=== PATIENT | male | born 1950 | race Caucasian/White ===

== ENCOUNTER 2024-01-24 18:49 | Emergency (ER) | payer OTHER, SELFPAY ==
[2024-01-24 18:54] VITALS: BP 120/83; PULSE 75; RESP 16; TEMP 37.1; O2SAT 95; BMI 24.5
--- NOTE | 2024-01-24 19:11 | ED.WOUNDLAC ---
HPI - Wound/Laceration General Time Seen by Provider: 18:50 Date Seen: 01/24/24 Chief Complaint: Laceration/Wound Stated Complaint: cut on L hand Time Seen by Provider: 01/24/24 18:50 Source: patient and RN notes reviewed Mode of arrival: ambulatory Limitations: no limitations History of Present Illness HPI narrative: This 73-year-old male is coming in with a laceration in the interdigital web space along the base of the left thumb sustained just prior to arrival. Patient was carrying a cooler and a piece of plywood up the stairs when he tripped. He caught his thumb a along the railing. It did bleed a lot initially, patient takes an 81 mg aspirin daily. He believes that his tetanus is surely up-to-date, does his care at the OR. nursing staff that was present tonight was unable to log into the [place] immunization website. Patient denies any numbness tingling. He fell onto this hand but states there is really no pain with any range of motion. It does not hurt to move the thumb except at the site of the wound, no pain in the extremity. He did not hit his head. No neck or back pain. Review of Systems Narrative: As per HPI. PFSH PFSH Social History Smoking Status: Unknown if ever smoked Do you use any of these nicotine containing products: None How often do you have a drink containing alcohol: never AUDIT-C Alcohol total score: 0 Non-prescribed substance use: denies use service: Yes Exam Const: Vital Signs, click to edit/add: Vital Signs - 24 hr 01/24/24 18:54 Temperature 98.8 F Pulse Rate [Right Radial] 75 Respiratory Rate 16 Blood Pressure [Ri ght Upper Arm] 120/83 Pulse Oximetry 95 Oxygen Delivery Me thod Room Air This 73-year-old male is ambulatory into the ED of his own accord. He is alert, interactive, no apparent distress. The along the base of his left thumb in the interdigital webspace closer to the thumb, there is AV shaped laceration with the V pointing distally to the thumb. There is no active bleeding at this time. It is completely through the skin, can see the muscle body underneath. Patient has preserved full range of motion and strength testing throughout all planes of the thumb. Neurovascular is intact. Documenting provider has reviewed patient's vital signs: yes Course Course ED Course: Patient is aware that plan is to suture this wound. He is in agreement. Vital Signs Vital signs: Initial Vital Signs Temperature 98.8 F 01/24/24 18:54 Temperature Source Temporal Artery Scan 01/24/24 18:54 Pulse Rate 75 01/24/24 18:54 Pulse Rhythm Regular 01/24/24 18:54 Respiratory Rate 16 01/24/24 18:54 Blood Pressure 120/83 01/24/24 18:54 Blood Pressure Mean 95 01/24/24 18:54 Pulse Oximetry 95 01/24/24 18:54 Oxygen Delivery Method Room Air 01/24/24 18:54 Vital Signs Temperature 98.8 F 01/24/24 18:54 Pulse Rate 75 01/24/24 18:54 Respiratory Rate 16 01/24/24 18:54 Blood Pressure 120/83 01/24/24 18:54 Pulse Oximetry 95 01/24/24 18:54 Oxygen Delivery Method Room Air 01/24/24 18:54 Temperature 98.8 F 01/24/24 18:54 Pulse Rate 75 01/24/24 18:54 Respiratory Rate 16 01/24/24 18:54 Blood Pressure 120/83 01/24/24 18:54 Pulse Oximetry 95 01/24/24 18:54 Oxygen Delivery Method Room Air 01/24/24 18:54 Discharge Plan Discharge Clinical Impression: Laceration Patient Disposition: Home, Self-Care Condition: Stable Instructions: Care For Your Stitches (ED), Laceration (ED) Additional Instructions: May shower and wash hands but should otherwise keep this wound clean and dry until healed. Use bacitracin and bandages during the day to keep the wound clean. If there is concerns of infection, please seek re-evaluation. Otherwise, need to schedule a clinic follow-up to assess the wound for suture removal in about 7-10 days. Activity Level: Activity as Tolerated Stand Alone Forms: MyHealth Info Instructions Procedures Laceration Laceration 1: Pre procedure diagnosis: Laceration at base of thumb Post procedure diagnosis: Same Site marking: not applicable Verification/time out: correct patient, correct site and correct procedure Name of person performing procedure: Margret Soliz Site: hand Side (If applicable): left Size (cm): 1.0 Description: flap Depth: simple, single layer Local Anesthetic: bupivacaine 0.25% Amount of anesthesia used (mL): 3.0 (Used locally around the wound.) Pre-repair: wound explored, irrigated extensively (Used sterile saline.) and deep structures intact Skin layer closed with: other (Ethilon) Size (cm): 4-0 Number of sutures: 3 Technique: simple, interrupted Estimated blood loss (if any): less than 5mls Conclusion: patient tolerated procedure
[2024-01-24 19:30] VITALS: BP 122/70; PULSE 71; RESP 16
== END 2024-01-24 19:40 | disposition home or self-care (01) ==
LOC: ED 19:40
PROVIDERS: Emergency Provider Family Medicine
DX: S61.412A Laceration without foreign body of left hand, initial encounter (principal); W26.9XXA Contact with unspecified sharp object(s), initial encounter
CPT/HCPCS: 12001; 99283

== ENCOUNTER 2024-04-12 13:08 | Emergency (ER) | payer OTHER, SELFPAY ==
--- OUTSIDE RECORDS SUMMARY | 2024-04-12 13:10 | XMS_ITS | Continuity of Care Document ---
Author Name [facility] Organization [facility] Care Team Providers Care Slip Laster Name Role Phone [facility] Unavailable Unavailable Problems Combined list of problems from Department of Defense and Veterans Affairs facilities. It does not include entries that were removed or entered in error. Problem Status Onset Date Problem Type Date of Resolution Comments Source Exposure to potentially hazardous substance ([facility] [id number]) Active 024 Condition Jun 27, 2023 Entered By: TOÑO MAYO Comment: [facility] Documentation Initiative [facility] Anxiety (SNOMED CT 80730907) Active Condition [facility] Arthritis (SNOMED CT 3966838) Active Condition [facility] Benign prostatic hyperplasia Active Condition [facility] Benign prostatic hypertrophy with outflow obstruction Active Condition [facility] Cannabis dependence in remission Active Condition Jul 20, 2013 Entered By: JESE BRAVO Comment: Quit June, Entered By: JESE BRAVO Comment: Daily use x 20 years [facility] Chronic post-traumatic stress disorder Active Condition [facility] Co-Managed Care Active Condition Mar 22, 2009 Entered By: ONEIL SUAREZ Comment: Dr Wyatt, PCP, [facility] 2008 Entered By: NOEIL SUAREZ Comment: Dr Jose Martin Suarez, psychiatrist, [facility] Depression Active Condition [facility] Depression (SNOMED CT 34570298) Active Condition [facility] Dyspnea Active Condition [facility] Hearing loss Active Condition [facility] History of post-traumatic stress disorder Active Condition [facility] Hyperlipidemia Active Condition [facility] Hyperlipidemia (SNOMED CT 04373221) Active Condition [facility] Insomnia Active Condition [facility] Meralgia paresthetica of left leg Active Condition [facility] Obsessive-Compulsi ve Disorder Active Condition [facility] Obstructive sleep apnea syndrome Active Condition Jul 20, 2013 Entered By: JESE BRAVO Comment: (mild) Dental appliance recommended [facility] Osteopenia Active Condition [facility] Rheumatoid arthritis Active Condition [facility] Sleep apnea Active Condition [facility] Tobacco dependence syndrome Active Condition Jul 20, 2013 Entered By: JESE BRAVO Comment: Smoking 1/2 ppdJul 20, 2013 Entered By: JESE BRAVO Comment: 45 pack year history [facility] Tobacco use Active Condition [facility] Vitamin D deficiency Active Condition [facility] Kidney stone Inactive Condition 11/24/2019 [facility] Diagnosis: ICD-10-CM F43.12 Post-traumatic stress disorder, chronic Active Diagnosis [facility] Diagnosis: ICD-10-CM M25.512 Pain in left shoulder Active Diagnosis [facility] Diagnosis: ICD-10-CM K08.51 Open sikhism margins of tooth Active Diagnosis [facility] Diagnosis: ICD-10-CM M13.0 Polyarthritis, unspecified Active Diagnosis [facility] Diagnosis: ICD-10-CM Z13.84 Encounter for screening for dental disorders Active Diagnosis [facility] Diagnosis: ICD-10-CM S46.099A Inj musc/tend the rotator cuff of unsp shoulder, init Active Diagnosis [facility] Diagnosis: ICD-10-CM W10.8XXD Fall (on) (from) other stairs and steps, subs encntr Active [facility] Diagnosis: ICD-10-CM I47.10 Supraventricular tachycardia, unspecified Active Diagnosis [facility] Diagnosis: ICD-10-CM D23.9 Other benign neoplasm of skin, unspecified Active Diagnosis [facility] Diagnosis: ICD-10-CM L82.1 Other seborrheic keratosis Active Diagnosis [facility] Diagnosis: ICD-10-CM F32.1 Major depressive disorder, single episode, moderate Active Diagnosis [facility] Diagnosis: ICD-10-CM M17.0 Bilateral primary osteoarthritis of knee Active Diagnosis [facility] Diagnosis: ICD-10-CM M25.569 Pain in unspecified knee Active Diagnosis [facility] Medications Combined list of outpatient medications from Department of Defense and Veterans Affairs facilities.Medications provided include 1) outpatient medications from the last 15 months, and 2) patient-reported medications. Medication Details Route Status Patient Instructions Prescription Expires Prescription Number Last Dispense Date Ordering Provider Order Date Order Qty Source ACETAMINOPH EN 325MG TAB TAKE ONE TABLET BY MOUTH THREE TIMES A DAY FOR PAIN ORAL ACTIVE 03/25/2025 [id number] STEVE SERRANO 2023 [address] [place] [facility] ACETAMINOPH EN 500MG TAB TAKE TWO TABLETS BY MOUTH EVERY 8 HOURS NEEDED FOR PAIN DO NOT EXCEED A MAX OF 4000-MG OF ACETAMIN OPHEN PER DAY FROM ALL SOURCES* ORAL DISCONT INUED BY PROVIDE R 12/05/2023 [id number] RAGHU CHEN 2023 21 [facility] ALBUTEROL 90MCG/ACTUA T (CFC-F) INHL,ORAL,8 .5GM DOSE COUNTER INHALE 2 PUFFS BY INHALATI ON EVERY 4 HOURS NEEDED FOR SHORTNES S OF BREATH FOR UP TO 10 DAY RESPIR ATORY (INHAL ATION) DISCONT INUED BY PROVIDE R 12/05/2023 [id number] 4 [address]EN [address] [facility] ASPIRIN 81MG TAB,EC TAKE ONE TABLET BY MOUTH EVERY DAY ORAL ACTIVE 11/05/2024 [id number] 4 RAGHU CHEN 2023 120 [facility] ASPIRIN 81MG TAB,EC TAKE ONE TABLET BY MOUTH EVERY DAY ORAL DISCONT INUED BY PROVIDE R 10/31/2023 [id number] BALDEV HANDLEY 2022 120 [facility] ASPIRIN 81MG TAB,EC TAKE ONE TABLET BY MOUTH EVERY DAY ORAL ACTIVE Alicja HARLEY UDY 2017 [facility] CELECOXIB 100MG CAP TAKE ONE CAPSULE BY MOUTH TWICE A DAY FOR PAIN ORAL DISCONT INUED BY PROVIDE R 12/05/2023 [id number] 4 RAGHU CHEN 2023 28 [facility] CHOLECAL[facility] J[facility] TAB TAKE BY MOUTH EVERY DAY ORAL ACTIVE CHERRIJ UDY 2017 [facility] DICLOFENAC NA 1% GEL,TOP APPLY 4 GRAMS TOPICALL Y FOUR TIMES A DAY NEEDED TO AFFECTED AREA FOR PAIN TOPICA L ACTIVE 03/25/2025 [id number] 4 STEVE SERRANO 2023 100 [place] [facility] DOXAZOSIN MESYLATE 8MG TAB TAKE ONE TABLET BY MOUTH EVERY DAY FOR URINATIO N ORAL ACTIVE 06/25/2024 [id number] 4 ELISE SHARPBALDEV CHRIS 2023 90 [place] [facility] DOXAZOSIN MESYLATE 8MG TAB TAKE ONE TABLET BY MOUTH EVERY DAY FOR URINATIO N ORAL DISCONT INUED 05/13/2024 [id number] 4 Chava CONNORS 2023 60 [facility] DOXAZOSIN MESYLATE 8MG TAB TAKE ONE TABLET BY MOUTH EVERY DAY FOR URINATIO N ORAL DISCONT INUED 05/15/2023 [id number] 3 Chava CONNORS 2022 60 [facility] FAMOTIDINE 20MG TAB TAKE ONE TABLET BY MOUTH EVERY DAY FOR HEARTBUR N TO DECREASE STOMACH ACID. *NOTE CHANGE TO ONCE A DAY* ORAL ACTIVE 10/07/2024 [id number] 4 ELISE SHARPBALDEV 2023 90 [place] [facility] FAMOTIDINE 20MG TAB TAKE ONE TABLET BY MOUTH EVERY DAY FOR HEARTBUR N TO DECREASE STOMACH ACID. *NOTE CHANGE TO ONCE A DAY* ORAL DISCONT INUED 10/31/2023 [id number] ELISE SHARPBALDEV 2022 90 [place] [facility] FLUOXETINE HCL 20MG CAP TAKE FOUR CAPSULES BY MOUTH EVERY DAY ORAL ACTIVE 08/14/2024 [id number] 4 TERRIE MONCADA 2023 360 [place] [facility] FLUOXETINE HCL 20MG CAP TAKE FOUR CAPSULES BY MOUTH EVERY DAY ORAL DISCONT INUED 10/25/2023 [id number] 4 MARTINE SHAY 2022 360 [place] [facility] LIDOCAINE 4% CREAM,TOP APPLY SMALL AMOUNT TOPICALL Y THREE TIMES A DAY NEEDED FOR PAIN TOPICA L DISCONT INUED BY PROVIDE R 12/05/2023 [id number] 4 [address]HU [address]EN [address] [facility] MELATONIN 3MG CAP/TAB TAKE 2 TABLETS BY MOUTH AT BEDTIME NEEDED FOR SLEEP ORAL ACTIVE 08/14/2024 [id number] 4 TERRIE MONCADA 2023 180 [facility] MELAT[facility] 3MG CAP/TAB TAKE 2 TABLETS BY MOUTH AT BEDTIME NEEDED FOR SLEEP ORAL DISCONT INUED (EDIT) 07/26/2024 [id number] 4 TERRIE MONCADA [address] [facility] NALOXONE HCL 4MG/SPRAY SOLN,SPRAY, NASAL SPRAY 1 DOSE IN ONE NOSTRIL ONCE FOR UNRESPON SIVENESS THEN CALL 911 NASAL 04/11/2024 [id number] 4 TERRIE MONCADA [address] [facility] QUETIAPINE FUMARATE 300MG TAB TAKE ONE TABLET BY MOUTH AT BEDTIME FOR ANXIETY ORAL DISCONT INUED (EDIT) 08/14/2024 [id number] 4 TERRIE MONCADA [address] [facility] QUETIAPINE FUMARATE 300MG TAB TAKE ONE TABLET BY MOUTH AT BEDTIME ORAL DISCONT INUED (EDIT) 10/25/2023 [id number] [address] [facility] QUETIAPINE FUMARATE 50MG TAB TAKE FIVE TABLETS BY MOUTH AT BEDTIME FOR ANXIETY ORAL ACTIVE 04/10/2025 [id number] 4 TERRIE MONCADA [address] [facility] SIMVASTATIN 40MG TAB TAKE ONE TABLET BY MOUTH AT BEDTIME FOR CHOLESTE ROL ORAL SUSPEND ED 02/04/2025 [id number] 5 STEVE SERRANO 2024 90 [facility] SIMVASTATIN 40MG TAB TAKE ONE TABLET BY MOUTH AT BEDTIME FOR CHOLESTE ROL ORAL DISCONT INUED 01/28/2025 [id number] 4 CASTILLO MITCHELL,RADHA [address] [facility] SIMVASTATIN 40MG TAB TAKE ONE TABLET BY MOUTH AT BEDTIME FOR CHOLESTE ROL ORAL DISCONT INUED BY PROVIDE R 01/08/2024 [id number] 4 ELISE SHARPBALDEV [address] [facility] SODIUM FLUORIDE 1.1% TOOTHPASTE BRUSH TEETH WITH A SMALL AMOUNT MOUTH EVERY MORNING AND AT BEDTIME TO PREVENT DENTAL CAVITIES ORAL ACTIVE 11/14/2024 [id number] 4 RORY KYLE II [address] [facility] Allergies, Adverse Reactions, Alerts Combined list of allergies from Department of Defense and Veterans Affairs facilities. It does not include entries that were removed or entered in error. Substance Category Reaction Severity Reaction type Status Date Reported Comments Source AMOXICILLIN Propensity to adverse reactions to drug (finding) SWELLING (NON-SPECIF IC) active 6 [facility] AMOXICILLIN Propensity to adverse reactions to drug (finding) active 8 [facility] CECLOR Propensity to adverse reactions to drug (finding) Eruption active 6 [facility] CECLOR Propensity to adverse reactions to drug (finding) active 8 [facility] NAPROXEN Propensity to adverse reactions to drug (finding) active 8 [facility] NAPROXEN Propensity to adverse reactions to drug (finding) Dizziness, Disorientat ed active 2 [facility] RAMELTEON Propensity to adverse reactions to drug (finding) Feeling agitated, Dizziness active 8 [facility] RAMELTEON Propensity to adverse reactions to drug (finding) Dizziness, Disorientat ed active 2 [facility] Immunizations Combined list of available immunizations from the Department of Defense and Veterans Affairs facilities. Immunization Series Date Given Administered By Site Reaction Lot Number CVX Code Drug Director Of Audiology Status Comments Source TDAP [address] [facility] INFLUENZA, INJECTABLE, QUADRIVALENT, PRESERVATIVE FREE [address] [facility] ZOSTER RECOMBINANT [address] [facility] INFLUENZA, SEASONAL, INJECTABLE, PRESERVATIVE FREE [address] [facility] ZOSTER RECOMBINANT [address] [facility] TDAP [address] [facility] PNEUMOCOCCAL CONJUGATE PCV 13 2017 133 complet ed [facility] INFLUENZA, INJECTABLE, QUADRIVALENT, PRESERVATIVE FREE [address] [facility] INFLUENZA, HIGH DOSE SEASONAL [address] [facility] INFLUENZA, HIGH DOSE SEASONAL [address] [facility] INFLUENZA, HIGH DOSE SEASONAL [address] [facility] PNEUMOCOCCAL CONJUGATE PCV 13 2015 133 complet ed Wyeth [id number] exp 09/05 [facility] INFLUENZA, HIGH DOSE SEASONAL [address] [facility] INFLUENZA, SEASONAL, INJECTABLE [address] [facility] PNEUMOCOCCAL POLYSACCHARID E PPV23 2014 33 complet ed [employer],K01 [id number],[id number] R16 [facility] INFLUENZA, SEASONAL, INJECTABLE [address] [facility] INFLUENZA, INJECTABLE, QUADRIVALENT, PRESERVATIVE FREE [address] [facility] TDAP 2013 115 complet ed Glaxo matos patel,N3B E2, [facility] ZOSTER LIVE 2013 121 complet ed [employer],J01 [id number],17JA N2015 [facility] INFLUENZA, SEASONAL, INJECTABLE [address] [facility] INFLUENZA, UNSPECIFIED FORMULATION [address] [facility] INFLUENZA, SEASONAL, INJECTABLE [address] [facility] TDAP [address] [facility] INFLUENZA, SEASONAL, INJECTABLE, PRESERVATIVE FREE [address] [facility] TDAP [address] [facility] INFLUENZA, SEASONAL, INJECTABLE [address] [facility] INFLUENZA, UNSPECIFIED FORMULATION [address] [facility] ZOSTER LIVE [address] [facility] INFLUENZA, UNSPECIFIED FORMULATION [address] [facility] NOVEL INFLUENZA-H1N 1-09, ALL FORMULATIONS 2008 128 complet ed private [facility] PNEUMOCOCCAL, UNSPECIFIED FORMULATION [address] [facility] INFLUENZA, SEASONAL, INJECTABLE, PRESERVATIVE FREE [address] [facility] TD(ADULT) UNSPECIFIED FORMULATION [address] [facility] Results Combined list of recent chemistry, hematology and other laboratory results from Department of Defense and Veterans Affairs, ranging from 15 months to all on record, depending upon the facility. Order Name Results Value Reference Range Date Interpretation Specimen Comments Source HEMOGLOBI N A1C HEMOGLOBIN A1C/HEMOGLO BIN.TOTAL IN BLOOD 5.3 4.0 - 6.0 03/12 Specimen Type: BLOOD Comment: Values obtained from A1C measurement s can vary. For typical A1C assays, a reported value of 7.0 could actually be between 6.7 and 7.3 if measured by a reference method. A reported value of 9.0 could actually be between 8.7 and 9.3. Ref: http://www. ngsp.org/[place] Pdata.asp Ordering Provider: DUTCH MONCADA Report Released Date/Time: Feb 07, 2024 04:32 PM Reporting Lab: [facility] [phone] Performing Lab: [facility] [phone] [facility] MAGNESIUM MAGNESIUM [MASS/VOLUM E] IN SERUM OR PLASMA 2.1 mg/dL 1.6 - 2.6 11/04 Specimen Type: PLASMA No comment entered. Ordering Provider: ANYA HANDLEY Report Released Date/Time: Oct 30, 2022 11:17 AM Reporting Lab: [facility] [address] Performing Lab: [facility] [address] [facility] LIPID PANEL,NON -FASTING CHOLESTEROL [MASS/VOLUM E] IN SERUM OR PLASMA 133 mg/dL <199 - 199 11/04 Specimen Type: PLASMA No comment entered. Ordering Provider: ANYA HANDLEY Report Released Date/Time: Oct 30, 2022 11:17 AM Reporting Lab: [facility] [address] Performing Lab: [facility] [address] [place] [facility] LIPID PANEL,NON -FASTING CHOLESTEROL IN HDL [MASS/VOLUM E] IN SERUM OR PLASMA 35 mg/dL 40 11/04 L Specimen Type: PLASMA No comment entered. Ordering Provider: ANYA HANDLEY Report Released Date/Time: Oct 30, 2022 11:17 AM Reporting Lab: [facility] [phone] Performing Lab: [facility] [address] [place] [facility] LIPID PANEL,NON -FASTING CHOLESTEROL IN LDL [MASS/VOLUM E] IN SERUM OR PLASMA BY CALCULATION 60 mg/dL <99 - 99 11/04 Specimen Type: PLASMA No comment entered. Ordering Provider: ANYA HANDLYE Report Released Date/Time: Oct 30, 2022 11:17 AM Reporting Lab: [facility] [address] Performing Lab: [facility] [address] [place] [facility] LIPID PANEL,NON -FASTING CHOLESTEROL IN VLDL [MASS/VOLUM E] IN SERUM OR PLASMA BY CALCULATION 38 mg/dL <29 - 29 11/04 H Specimen Type: PLASMA No comment entered. Ordering Provider: ANYA HANDLEY Report Released Date/Time: Oct 30, 2022 11:17 AM Reporting Lab: [facility] [address] Performing Lab: [facility] [address] [place] [facility] LIPID PANEL,NON -FASTING CHOLESTEROL NON HDL [MASS/VOLUM E] IN SERUM OR PLASMA 98 mg/dL <129 - 129 11/04 Specimen Type: PLASMA No comment entered. Ordering Provider: ANYA HANDLEY Report Released Date/Time: Oct 30, 2022 11:17 AM Reporting Lab: [facility] [address] Performing Lab: [facility] [address] [facility] LIPID PANEL,NON -FASTING TRIGLYCERID E [MASS/VOLUM E] IN SERUM OR PLASMA 188 mg/dL <149 - 149 11/04 H Specimen Type: PLASMA No comment entered. Ordering Provider: ANYA HANDLEY Report Released Date/Time: Oct 30, 2022 11:17 AM Reporting Lab: [facility] [address] Performing Lab: [facility] [address] [facility] CBC LEUKOCYTES [#/VOLUME] IN BLOOD BY AUTOMATED COUNT 7.64 10*3/u L 4.0 - 11.0 11/04 Specimen Type: BLOOD No comment entered. Ordering Provider: ANYA HANDLEY Report Released Date/Time: Oct 30, 2022 11:17 AM Reporting Lab: [facility] [address] Performing Lab: [place] [phone] [facility] CBC ERYTHROCYTE S [#/VOLUME] IN BLOOD BY AUTOMATED COUNT 4.62 10*6/u L 4.6 - 6.2 11/04 Specimen Type: BLOOD No comment entered. Ordering Provider: ANYA HANDLEY Report Released Date/Time: Oct 30, 2022 11:17 AM Reporting Lab: [facility] [phone] Performing Lab: [facility] [address] [facility] CBC HEMOGLOBIN [MASS/VOLUM E] IN BLOOD 15.3 g/dL 13.5 - 17.9 11/04 Specimen Type: BLOOD No comment entered. Ordering Provider: ANYA HANDLEY Report Released Date/Time: Oct 30, 2022 11:17 AM Reporting Lab: [facility] [address] Performing Lab: [facility] [address] [place] [facility] CBC HEMATOCRIT [VOLUME FRACTION] OF BLOOD BY AUTOMATED COUNT 43.1 41 - 54 11/04 Specimen Type: BLOOD No comment entered. Ordering Provider: ANYA HANDLEY Report Released Date/Time: Oct 30, 2022 11:17 AM Reporting Lab: [facility] [address] Performing Lab: [facility] [address] [place] [facility] CBC MCV [ENTITIC VOLUME] BY AUTOMATED COUNT 93.3 fL 80 - 100 11/04 Specimen Type: BLOOD No comment entered. Ordering Provider: ANYA HANDLEY Report Released Date/Time: Oct 30, 2022 11:17 AM Reporting Lab: [facility] [phone] Performing Lab: [facility] [address] [place] [facility] CBC MCH [ENTITIC MASS] BY AUTOMATED COUNT 33.1 pg 27 - 33 11/04 H Specimen Type: BLOOD No comment entered. Ordering Provider: ANYA HANDLEY Report Released Date/Time: Oct 30, 2022 11:17 AM Reporting Lab: [facility] [address] Performing Lab: [facility] [address] [place] [facility] CBC MCHC [MASS/VOLUM E] BY AUTOMATED COUNT 35.5 g/dL 32.0 - 37.5 11/04 Specimen Type: BLOOD No comment entered. Ordering Provider: ANYA HANDLEY Report Released Date/Time: Oct 30, 2022 11:17 AM Reporting Lab: [facility] [address] Performing Lab: [facility] [address] [place] [facility] CBC PLATELETS [#/VOLUME] IN BLOOD BY AUTOMATED COUNT 193 10*3/u L 150 - 400 11/04 Specimen Type: BLOOD No comment entered. Ordering Provider: ANYA HANDLEY Report Released Date/Time: Oct 30, 2022 11:17 AM Reporting Lab: [facility] [address] Performing Lab: [facility] [address] [place] [facility] CBC PLATELET MEAN VOLUME [ENTITIC VOLUME] IN BLOOD BY AUTOMATED COUNT 9.1 fL 7.4 - 10.4 11/04 Specimen Type: BLOOD No comment entered. Ordering Provider: ANYA HANDLEY Report Released Date/Time: Oct 30, 2022 11:17 AM Reporting Lab: [facility] [address] Performing Lab: [facility] [address] [place] [facility] CBC ERYTHROCYTE DISTRIBUTIO N WIDTH [RATIO] BY AUTOMATED COUNT 13.2 11.5 - 14.5 11/04 Specimen Type: BLOOD No comment entered. Ordering Provider: ANYA HANDLEY Report Released Date/Time: Oct 30, 2022 11:17 AM Reporting Lab: [facility] [address] Performing Lab: [facility] [address] [place] [facility] BASIC METABOLIC PANEL+MG CREATININE [MASS/VOLUM E] IN SERUM OR PLASMA 1.1 mg/dL 0.7 - 1.2 11/04 Specimen Type: PLASMA No comment entered. Ordering Provider: ANYA HANDLEY Report Released Date/Time: Oct 30, 2022 11:17 AM Reporting Lab: [facility] [address] Performing Lab: [facility] [address] [place] [facility] BASIC METABOLIC PANEL+MG UREA NITROGEN [MASS/VOLUM E] IN SERUM OR PLASMA 10 mg/dL 8 - 26 11/04 Specimen Type: PLASMA No comment entered. Ordering Provider: ANYA HANDLEY Report Released Date/Time: Oct 30, 2022 11:17 AM Reporting Lab: [facility] [address] Performing Lab: [facility] [address] [place] [facility] BASIC METABOLIC PANEL+MG GLUCOSE [MASS/VOLUM E] IN SERUM OR PLASMA 100 mg/dL 70 - 100 11/04 Specimen Type: PLASMA No comment entered. Ordering Provider: ANYA HANDLEY Report Released Date/Time: Oct 30, 2022 11:17 AM Reporting Lab: [facility] [phone] Performing Lab: [facility] [address] [place] [facility] BASIC METABOLIC PANEL+MG SODIUM [MOLES/VOLU ME] IN SERUM OR PLASMA 143 mmol/L 136 - 145 11/04 Specimen Type: PLASMA No comment entered. Ordering Provider: ANYA HANDLEY Report Released Date/Time: Oct 30, 2022 11:17 AM Reporting Lab: [facility] [address] Performing Lab: [facility] [address] [place] [facility] BASIC METABOLIC PANEL+MG POTASSIUM [MOLES/VOLU ME] IN SERUM OR PLASMA 3.6 mmol/L 3.5 - 5.1 11/04 Specimen Type: PLASMA No comment entered. Ordering Provider: ANYA HANDLEY Report Released Date/Time: Oct 30, 2022 11:17 AM Reporting Lab: [facility] [address] Performing Lab: [facility] [address] [place] [facility] BASIC METABOLIC PANEL+MG CHLORIDE [MOLES/VOLU ME] IN SERUM OR PLASMA 110 mmol/L 98 - 107 11/04 H Specimen Type: PLASMA No comment entered. Ordering Provider: ANYA HANDLEY Report Released Date/Time: Oct 30, 2022 11:17 AM Reporting Lab: [facility] [address] Performing Lab: [facility] [address] [place] [facility] BASIC METABOLIC PANEL+MG CARBON DIOXIDE, TOTAL [MOLES/VOLU ME] IN SERUM OR PLASMA 22 mmol/L 22 - 29 11/04 Specimen Type: PLASMA No comment entered. Ordering Provider: ANYA HANDLEY Report Released Date/Time: Oct 30, 2022 11:17 AM Reporting Lab: [facility] [address] Performing Lab: [facility] [address] [place] [facility] BASIC METABOLIC PANEL+MG CALCIUM [MASS/VOLUM E] IN SERUM OR PLASMA 9.5 mg/dL 8.4 - 10.2 11/04 Specimen Type: PLASMA No comment entered. Ordering Provider: ANYA HANDLEY Report Released Date/Time: Oct 30, 2022 11:17 AM Reporting Lab: [facility] [address] Performing Lab: [facility] [address] [place] [facility] BASIC METABOLIC PANEL+MG MAGNESIUM [MASS/VOLUM E] IN SERUM OR PLASMA 2.1 mg/dL 1.6 - 2.6 11/04 Specimen Type: PLASMA No comment entered. Ordering Provider: ANYA HANDLEY Report Released Date/Time: Oct 30, 2022 11:17 AM Reporting Lab: [facility] [address] Performing Lab: [facility] [address] [place] [facility] BASIC METABOLIC PANEL+MG ANION GAP IN SERUM OR PLASMA 11 mmol/L 5 - 15 11/04 Specimen Type: PLASMA No comment entered. Ordering Provider: ANYA HANDLEY Report Released Date/Time: Oct 30, 2022 11:17 AM Reporting Lab: [facility] [address] Performing Lab: [facility] [address] [place] [facility] BASIC METABOLIC PANEL+MG GLOMERULAR FILTRATION RATE/1.73 SQ M.PREDICTED [VOLUME RATE/AREA] IN SERUM, PLASMA OR BLOOD BY CREATININE- BASED FORMULA (CKD-EPI 2020) 70 60 11/04 Specimen Type: PLASMA No comment entered. Ordering Provider: ANYA HANDLEY Report Released Date/Time: Oct 30, 2022 11:17 AM Reporting Lab: [facility] [address] Performing Lab: [facility] [address] [place] [facility] CK,TOTAL CREATINE KINASE [ENZYMATIC ACTIVITY/VO LUME] IN SERUM OR PLASMA 68 U/L 39 - 208 11/04 Specimen Type: PLASMA No comment entered. Ordering Provider: HEENA CHEN Report Released Date/Time: Nov 05, 2023 02:44 PM Reporting Lab: [facility] [address] Performing Lab: [facility] [address] [place] [facility] TSH W/REFLEX TO FREE T4 THYROTROPIN [UNITS/VOLU ME] IN SERUM OR PLASMA 1.69 u[IU]/ mL 0.35 - 4.94 11/04 Specimen Type: PLASMA No comment entered. Ordering Provider: HEENA CHEN IN L Report Released Date/Time: Nov 05, 2023 02:44 PM Reporting Lab: [facility] [address] Performing Lab: [facility] [address] [facility] C-REACTIV E PROTEIN C REACTIVE PROTEIN [MASS/VOLUM E] IN SERUM OR PLASMA BY HIGH SENSITIVITY METHOD 2.68 mg/L <5.00 - 5.00 11/04 Specimen Type: PLASMA No comment entered. Ordering Provider: HEENA CHEN IN L Report Released Date/Time: Nov 05, 2023 02:44 PM Reporting Lab: [facility] [address] Performing Lab: [facility] [address] [facility] SED RATE ERYTHROCYTE SEDIMENTATI ON RATE 11 mm/h 5 - 15 11/04 Specimen Type: BLOOD No comment entered. Ordering Provider: HEENA CHEN IN L Report Released Date/Time: Nov 05, 2023 02:44 PM Reporting Lab: [facility] [address] Performing Lab: [facility] [address] [facility] ANTI-CCP CYCLIC CITRULLINAT ED PEPTIDE IGG AB [UNITS/VOLU ME] IN SERUM OR PLASMA <0.5 <4.9 - 4.9 11/04 Specimen Type: PLASMA No comment entered. Ordering Provider: HEENA CHEN IN L Report Released Date/Time: Nov 05, 2023 02:44 PM Reporting Lab: [facility] [address] Performing Lab: [facility] [address] [facility] Vital Signs Combined list of inpatient and outpatient Vital Signs from Department of Defense and Veterans Affairs, ranging from 12 months to all on record, depending upon the facility. Vital Sign Value Date Comments Source SYSTOLIC BLOOD PRESSURE 134 03/24/2024 10:13:02 [facility] DIASTOLIC BLOOD PRESSURE 74 03/24/2024 10:13:02 [facility] PULSE OXIMETRY 96 03/24/2024 10:13:02 [facility] WEIGHT 169 03/24/2024 10:13:02 [facility] BMI 27kg/m2 03/24/2024 10:13:02 [facility] PAIN 6 03/24/2024 10:13:02 [facility] TEMPERATURE 97.5 03/24/2024 10:13:02 [facility] PULSE 83 03/24/2024 10:13:02 [facility] RESPIRATION 18 03/24/2024 10:13:02 [facility] SYSTOLIC BLOOD PRESSURE 130 12/18/2023 09:13:46 [facility] DIASTOLIC BLOOD PRESSURE 74 12/18/2023 09:13:46 [facility] TEMPERATURE 98.8 12/18/2023 09:13:46 [facility] PULSE 78 12/18/2023 09:13:46 [facility] SYSTOLIC BLOOD PRESSURE 125 12/03/2023 14:27:05 [facility] DIASTOLIC BLOOD PRESSURE 74 12/03/2023 14:27:05 [facility] PULSE OXIMETRY 93 12/03/2023 14:27:05 [facility] WEIGHT 170 12/03/2023 14:27:05 [facility] BMI 27kg/m2 12/03/2023 14:27:05 [facility] PAIN 5 12/03/2023 14:27:05 [facility] HEIGHT 67 12/03/2023 14:27:05 [facility] TEMPERATURE 97.3 12/03/2023 14:27:05 [facility] PULSE 70 12/03/2023 14:27:05 [facility] RESPIRATION 16 12/03/2023 14:27:05 [facility] SYSTOLIC BLOOD PRESSURE 131 11/14/2023 13:38:01 [facility] DIASTOLIC BLOOD PRESSURE 72 11/14/2023 13:38:01 [facility] TEMPERATURE 98.6 11/14/2023 13:38:01 [facility] PULSE 66 11/14/2023 13:38:01 [facility] SYSTOLIC BLOOD PRESSURE 116 11/05/2023 13:49:56 [facility] DIASTOLIC BLOOD PRESSURE 71 11/05/2023 13:49:56 [facility] PULSE OXIMETRY 95 11/05/2023 13:49:56 [facility] WEIGHT 175 11/05/2023 13:49:56 [facility] BMI 27kg/m2 11/05/2023 13:49:56 [facility] PAIN 5 11/05/2023 13:49:56 [facility] HEIGHT 67 11/05/2023 13:49:56 [facility] PULSE 79 11/05/2023 13:49:56 [facility] RESPIRATION 16 11/05/2023 13:49:56 [facility] Encounters Combined list of: 1) Encounters from Department of [facility] Affairs facilities going back up to thelast 18 months. 2) Encounters from the Department of [employer] facilities going back up to 280 months. Location Location Details Encounter Type Encounter Number Reason For Visit Attending Provider ADM Date DC Date Status Disposition Source [facility] OFFICE O/P EST MOD 30-39 MIN [id number] Diagnos is: ICD-10- CM F43.12 Post-tr aumatic stress disorde r, chronic
Jeana SHAY 10/22 [facility] PSYTX W PT 45 MINUTES [id number] Diagnos is: ICD-10- CM F32.1 Major depress robert disorde r, single episode , moderat e
JOSE MCKINLEY 10/24 [facility] OFFICE O/P EST MOD 30-39 MIN [id number] Diagnos is: ICD-10- CM F43.12 Post-tr aumatic stress disorde r, chronic
GLADYS MILLER E 10/30 [facility] PSYTX W PT 45 MINUTES [id number] Diagnos is: ICD-10- CM F43.12 Post-tr aumatic stress disorde r, chronic
JOSE MCKINLEY L 11/21 [facility] Outpatient Encounter [id number] 11/26 [facility] EMERGENCY DEPT VISIT LOW [facility] [id number] Diagnos is: ICD-10- CM M25.569 Pain in unspeci fied knee
BRIGITTE GAY 12/20 [facility] Outpatient Encounter [id number] 01/07 [facility] OFFICE O/P EST HI 40-54 MIN [id number] Diagnos is: ICD-10- CM F43.12 Post-tr aumatic stress disorde r, chronic
Yenifer MONCADA 01/10 [facility] OFFICE O/P NEW MOD 45-59 MIN [id number] Diagnos is: ICD-10- CM M17.0 Bilater al primary osteoar thritis of knee
JOSTIN MELARA 01/14 [facility] Outpatient Encounter [id number] 01/14 [facility] LIMITED OCCLUSAL ADJUSTMENT [id number] Diagnos is: ICD-10- CM Z13.84 Encount er for screeni ng for dental disorde rs
RORY WAHL II 01/22 [facility] Outpatient Encounter [id number] 02/04 [facility] OFFICE O/P EST MOD 30-39 MIN [id number] Diagnos is: ICD-10- CM F43.12 Post-tr aumatic stress disorde r, chronic
Yenifer MONCADA 02/07 [facility] Outpatient Encounter [id number] 02/18 [place] [facility] [place] [facility] Outpatient Encounter [id number] 02/26 [place] [facility] [place] [facility] Outpatient Encounter [id number] SA RA Megan GARCÍA 02/28 [place] [facility] [place] [facility] HC PRO PHONE CALL 21-30 MIN [id number] Diagnos is: ICD-10- CM F32.1 Major depress robert disorde r, single episode , moderat e
HAKAN DICKINSON 02/28 [facility] [place] [facility] Outpatient Encounter [id number] Yenifer MONCADATIN E 02/28 [facility] [place] [facility] Outpatient Encounter [id number] Yenifer MONCADA RISTIN E 02/28 [facility] [place] [facility] PSYTX W PT 45 MINUTES [id number] Diagnos is: ICD-10- CM F43.12 Post-tr aumatic stress disorde r, chronic
BRADRORY A L 03/05 [facility] [place] [facility] Outpatient Encounter [id number] 03/13 [place] [facility] [place] [facility] PSYTX W PT 45 MINUTES [id number] Diagnos is: ICD-10- CM F43.12 Post-tr aumatic stress disorde r, chronic
MCFAWN,RORY A L 03/25 [place] [facility] [place] [facility] Outpatient Encounter [id number] 03/25 [place] [facility] [place] [facility] Outpatient Encounter [id number] 04/05 [place] [facility] [place] [facility] OFFICE O/P EST MOD 30-39 MIN [id number] Diagnos is: ICD-10- CM F43.12 Post-tr aumatic stress disorde r, chronic
Yenifer MONCADA 04/18 [facility] Outpatient Encounter [id number] 05/30 [facility] OFFICE O/P EST LOW 20 MIN [id number] Diagnos is: ICD-10- CM L82.1 Other seborrh eic keratos is
DANIELLE TRAORE 05/30 [facility] Outpatient Encounter [id number] ABEL QURESHI 06/04 [facility] Outpatient Encounter [id number] Diagnos is: ICD-10- CM D23.9 Other benign neoplas m of skin, unspeci fied
ANTHONY,N OAH I 06/04 [facility] OFFICE O/P EST MOD 30 MIN [id number] Diagnos is: ICD-10- CM F43.12 Post-tr aumatic stress disorde r, chronic
Yenifer MONCADA [facility] Outpatient Encounter [id number] 06/23 [facility] OFFICE O/P EST HI 40 MIN [id number] [id number] Diagnos is: ICD-10- CM M13.0 Polyart hritis, unspeci fied
ERNST HANDLEY 06/24 [facility] Outpatient Encounter [id number] 06/30 [facility] Outpatient Encounter [id number] Diagnos is: ICD-10- CM F43.12 Post-tr aumatic stress disorde r, chronic
Yenifer MONCADA E 07/04 [facility] Outpatient Encounter [id number] 07/18 [facility] EXT ECG>7D<15D REV&INTERP J [id number] [id number] Diagnos is: ICD-10- CM I47.10 Suprave ntricul ar tachyca rdia, unspeci fied
ELLA,BRADL EY A 07/18 [facility] Outpatient Encounter [id number] SA RICKY RA R 07/19 [facility] OFFICE O/P EST HI 40 MIN [id number]. [id number] Diagnos is: ICD-10- CM W10.8XX D Fall (on) (from) other stairs and steps, subs encntr< br/> SILAS FELIZ 07/25 [facility] OFFICE O/P EST MOD 30 MIN [id number] Diagnos is: ICD-10- CM F43.12 Post-tr aumatic stress disorde r, chronic
Yenifer MONCADA 07/25 [facility] Outpatient Encounter [id number] 07/31 [facility] PSYTX W PT 45 MINUTES [id number] Diagnos is: ICD-10- CM F43.12 Post-tr aumatic stress disorde r, chronic
RORY SALINAS L 08/06 [facility] OFFICE O/P EST MOD 30 MIN [id number] Diagnos is: ICD-10- CM F43.12 Post-tr aumatic stress disorde r, chronic
Yenifer MONCADA E 08/13 [facility] PSYTX W PT 30 MINUTES [id number] Diagnos is: ICD-10- CM F43.12 Post-tr aumatic stress disorde r, chronic
MCFAWN,RORY A L 08/28 [facility] Outpatient Encounter [id number] 09/01 [facility] Outpatient Encounter [id number] Alicja KING ACLYN R 09/02 [facility] Outpatient Encounter [id number] Yenifer BOO E 11/04 [facility] OFFICE O/P EST MOD 30 MIN [id number] Diagnos is: ICD-10- CM S46.099 A Inj musc/te nd the rotator cuff of unsp shoulde r, init
ARABELLA CHEN L 11/04 [facility] Outpatient Encounter [id number] 11/12 [facility] PSYTX W PT 45 MINUTES [id number] Diagnos is: ICD-10- CM F43.12 Post-tr aumatic stress disorde r, chronic
MCFAWN,RORY A L 11/12 [facility] INTRAORAL FULL IMAGE SERIES [id number] Diagnos is: ICD-10- CM Z13.84 Encount er for screeni ng for dental disorde rs
RORY WAHL II 11/13 [facility] OFFICE O/P EST MOD 30 MIN [id number] Diagnos is: ICD-10- CM M13.0 Polyart hritis, unspeci fied
HAKAN CONNORS UREJAYLENE B 12/02 [facility] [address] RESINBASED CMPST [id number] Diagnos is: ICD-10- CM K08.51 Open restora tion margins of tooth<b r/> RORY WAHL II 12/17 [facility] Outpatient Encounter [id number] Khris MONCADA 01/26 [facility] OFFICE O/P EST MOD 30 MIN [id number] Diagnos is: ICD-10- CM F43.12 Post-tr aumatic stress disorde r, chronic
Yenifer MONCADA 02/05 [facility] OFFICE O/P EST MOD 30 MIN [id number] Diagnos is: ICD-10- CM F43.12 Post-tr aumatic stress disorde r, chronic
Yenifer MONCADA 03/12 [facility] Outpatient Encounter [id number] 03/24 [facility] OFFICE O/P EST MOD 30 MIN [id number] Diagnos is: ICD-10- CM M25.512 Pain in left shoulde r
GREGG MADRID H A 03/24 [facility] OFFICE O/P EST MOD 30 MIN [id number] Diagnos is: ICD-10- CM F43.12 Post-tr aumatic stress disorde r, chronic
Yenifer MONCADA E 04/09 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 USER EVERY DAY 06/25/2023 [facility] History of tobacco use VA-TOBACCO DOESNT USE WI 30 MIN WAKEUP 06/25/2023 [facility] History of tobacco use VA-TOBACCO USER E VERY DAY 08/07/2022 [facility] History of tobacco use VA-TOBACCO FORMER USER 09/26/2021 [facility] History of tobacco use VA-TOBACCO DOESNT USE WI 30 MIN WAKEUP 12/20/2020 [facility] History of tobacco use VA-TOBACCO USE CO UNSEL NO 11/23/2019 [facility] History of tobacco use VA-TOBACCO USE CO UNSEL NO 10/31/2018 [facility] History of tobacco use VA-TOBACCO USER E VERY DAY 09/02/2018 [facility] History of tobacco use TOBACCO INQUIRY POSTITVE 12/13/2017 [facility] History of tobacco use FORMER TOBACCO USE <1Y 07/09/2017 [facility] History of tobacco use FORMER TOBACCO USE <1Y 07/24/2016 [facility] History of tobacco use CURRENT TOBACCO USER 07/26/2015 [facility] History of tobacco use CURRENT TOBACCO USER 07/08/2014 [facility] History of tobacco use CURRENT TOBACCO USER 07/20/2013 [facility] History of tobacco use FORMER TOBACCO US E >1Y <7Y 03/22/2009 [facility] Plan of Care List of future care activities from Department of Veterans Affairs facilities. Additional future care activities may be listed in the Assessment and Plan section. Date/Time Care Activity Care Activity Detail Facili ty 04/20/2024 AMBULATORY - MEDICINE AMBULATORY - MEDICI NE [facility] 06/02/2024 AMBULATORY - MEDICINE AMBULATORY - MEDICI NE [facility] 06/02/2024 AMBULATORY - PSYCHIATRY AMBULATORY - PSYC HIATRY [facility] 07/02/2024 AMBULATORY - SURGERY AMBULATORY - SURGERY [facility]
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
--- OUTSIDE RECORDS SUMMARY | 2024-04-12 13:11 | XMS_ITS | Encounter Summary ---
Author Name [facility] [place] [facility] [place] [facility] [place] Address [address] [place] [address] Care Team Providers Care Mat Gauger Name Role Phone KARI HARLEY Primary Care [...] Alvarez's Name Patient's Relationship to Policy Alvarez [facility] (WNR) MEDICAID MEDIC AID Apr 22, 2015 [id number] [phone] JOE CANALES PATIENT MEDICARE (WNR) MEDICARE (M) PART A Apr 22, 2013 PART A [id number] [phone] JEYSON CANALES III PATIENT MEDICARE (WNR) MEDICARE (M) PART B Apr 22, 2013 PART B [id number] [phone] JEYSON CANALES III PATIENT MEDICARE (WNR) MEDICARE (M) PART A Apr 22, 2013 PART A [id number] [phone] JEYSON CANALES III N PATIENT MEDICARE (WNR) MEDICARE (M) PART B Apr 22, 2013 PART B [id number] JEYSON CANALES III N PATIENT MEDICARE (WNR) MEDICARE (M) PART A Apr 22, 2013 PART A [id number] [phone] JEYSON CANALES III N PATIENT MEDICARE (WNR) MEDICARE (M) PART B Apr 22, 2013 PART B [id number] JEYSON CANALES III N PATIENT Selected Encounter This section includes the information on record at [place] for the Encounter. Date/Time Encounter Type Encounter Description Reason Provider Source Jun 04, 2023 11:02 AM Outpatient Encounter TELEPHONE/SURGERY ICD-10-CM D23.9 Other benign neoplasm of skin, unspecified GIULIANO CRUZ I IHVirgilio Encounter Template Text not used by [place] Assessments - Encounter Diagnoses This section includes the primary and secondary diagnoses documented for the Encounter. Date/Time Primary/Secondary Diagnosis Diagnosis Name Provider Source Jun 04, 2023 11:02 AM PRIMARY Other benign neoplasm of skin, unspecified ANDERS SIMMS V [facility] Plan of Treatment: Future Appointments (+ 6 months) and Future Tests (+/- 45 days) The Plan of Treatment section includes future care activities for the patient from all [place] treatmentcilities. This section includes future appointments and future orders which are active, pending or scheduled. Future Appointments This section includes appointments that were scheduled to occur 6 months from the date of the Encounter, up to a maximum of 20 appointments. The data comes from all [place] treatment facilities. Appointment Date/Time Appointment Type Appointme nt Facility Name Jun 20, 2023 01:00 PM [facility] Jun 25, 2023 02:00 PM [facility] Jul 05, 2023 02:30 PM [facility] - PS[facility]CHIATRY [facility] Jul 20, 2023 11:43 AM AM[facility] [place] [facility] Jul 26, 2023 10:00 AM [facility] Jul 26, 2023 03:30 PM [facility] Aug 07, 2023 03:00 PM AMB[facility]ATORY - PS[facility]CHIATRY [facility] Aug 14, 2023 09:00 AM [place] [facility] Aug 14, 2023 06:45 PM AM[place]UL[place]ORY - NONE [place] [facility] August 29, 2023 10:00 AM AM[place] [facility] September 02, 2023 02:30 PM AM[place]ORY - NONE [place] [facility] Nov 05, 2023 01:45 PM [place]ORY - [place]ONE [place] [facility] Nov 05, 2023 03:00 PM [place] [facility] Nov 13, 2023 02:00 PM AM[place] [facility] Nov 14, 2023 01:15 PM [place]ORY [place] [facility] Dec 03, 2023 03:00 PM AMBULATORY - MEDICINE [facility] Lab Results: +/- 30 days of the encounter This section includes the Chemistry and Hematology Lab Results [facility] with [facility] for the [facility]. Radiology Reports and Pathology Reports are provided separately, in subsequent sections. Lab Results This section contains the Chemistry/Hematology Results that were resulted 30 days before or 30 daysafter the date of the Encounter. Date/Time Source Result Type Result - Unit Interpretation Reference Range Comment Jun 25, 2023 02:39 PM [facility] CBC & DIFF Specimen Type: BLOOD Comment: Automated Differential Performed Ordering Provider: ANN HANDLEY Report Released Date/Time: Jun 25, 2023 02:18 PM Reporting Lab: [facility] [id number] Performing Lab: [facility] [id number] WBC 7.46 10*3/uL 4.0-11.0 RBC 4.50 10*6/uL L 4.6-6.2 HGB 15.1 g/dL 13.5-17.9 HCT 42.5 41-54 MCV 94.4 fL 80-100 MCH 33.6 pg H 27-33 MCHC 35.5 g/dL 32.0-37.5 PLT 220 10*3/uL 150-400 MPV 9.2 fL 7.4-10.4 NEUT 54.2 40.0-80.0 LYMPHS 34.7 15.0-45.0 MONO 7.9 2.0-12.0 EOSINO 2.1 0.0-6.0 BASO 0.7 0.0-2.0 RDW 13.2 11.5-14.5 ABS LYMPH 2.59 10*3/uL 1.0-4.0 ABS MONO 0.59 10*3/uL 0.1-1.0 ABS NEUT 4.04 10*3/uL 2.0-7.7 ABS EOS 0.16 10*3/uL 0-0.5 ABS BASO 0.05 10*3/uL 0-0.2 IG(META,MYELO,P RO) 0.4 ABS IMMATURE GRAN 0.03 10*3/uL 0-0.1 Jun 25, 2023 02:39 PM [facility] BNP Specimen Type: PLASMA Comment: Automated Differential Performed Ordering Provider: ANN HANDLEY Report Released Date/Time: Jun 25, 2023 02:18 PM Reporting Lab: [facility] [id number] Performing Lab: [facility] [id number] BNP 18 pg/mL <99 Jun 25, 2023 02:39 PM [facility] COMPREHENSIVE METABOLIC PANEL+MG Specimen Type: PLASMA Comment: Automated Differential Performed Ordering Provider: ANN HANDLEY Report Released Date/Time: Jun 25, 2023 02:18 PM Reporting Lab: [facility] [id number] Performing Lab: [facility] [phone] CREATININE 1.2 mg/dL 0.7-1.2 UREA NITROGEN 14 mg/dL 8-26 GLUCOSE 104 mg/dL H 70-100 SODIUM 142 mmol/L 136-145 POTASSIUM 4.0 mmol/L 3.5-5.1 CHLORIDE 111 mmol/L H 98-107 CO2 22 mmol/L 22-29 CALCIUM 9.3 mg/dL 8.4-10.2 PROTEIN,TOTAL 7.2 g/dL 6.0-8.3 ALBUMIN 4.5 g/dL 3.5-5.2 BILIRUBIN, TOTAL 0.5 mg/dL 0.2-1.2 MAGNESIUM 2.4 mg/dL 1.6-2.6 ANION GAP 9 mmol/L 5-15 ALKALINE PHOSPHATASE 89 U/L 40-150 ALT/SGPT 13 U/L <55 AST/SGOT 15 U/L <34 .CREAT EGFR(CKD-EPI) 63 >60 Social History: Smoking Status (Most current) and Tobacco Use (All prior to encounter date) This section includes the most current, and the historical, smoking and tobacco- related health factors from the [place] facility where the Encounter took place. Current Smoking Status This section includes the most current smoking, or tobacco-related health factor, from the [place] facility where the Encounter took place. Date/Time Current Smoking Status Comment Esau ity Aug 07, 2022 02:00 PM VA-TOBACCO USER EVERY DAY [facility] Tobacco Use History This section includes a history of the smoking, or tobacco-related health factors, that were collected on or before the date of the Encounter. The data comes from the [place] facility where the Encounter took place. 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 [facility] Aug 07, 2022 02:00 PM VA-TOBACCO USE MED NO [facility] Aug 07, 2022 02:00 PM VA-TOBACCO USE WI 30 MIN OF WAKE UP [facility] Aug 07, 2022 02:00 PM VA-TOBACCO USER EVERY DAY [facility] Sep 26, 2021 11:00 AM VA-TOBACCO FORMER USER [facility] Sep 26, 2021 11:00 AM VA-TOBACCO QUIT < 1 YEAR [facility] Dec 20, 2020 02:00 PM VA-TOBACCO DOESNT USE WI 30 MIN WAKEUP [facility] Dec 20, 2020 02:00 PM VA-TOBACCO USE 30 YEARS OR MORE [facility] Dec 20, 2020 02:00 PM VA-TOBACCO USE ADVICE [facility] Dec 20, 2020 02:00 PM 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 [facility] Dec 20, 2020 02:00 PM VA-TOBACCO USE MED YES [facility] Dec 20, 2020 02:00 PM VA-TOBACCO USER EVERY DAY [facility] Nov 23, 2019 04:25 PM VA-TOBACCO USE < 1 YEAR [facility] Nov 23, 2019 04:25 PM VA-TOBACCO USE ADVICE [facility] Nov 23, 2019 04:25 PM 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 [facility] Nov 23, 2019 04:25 PM VA-TOBACCO USE MED NO [facility] Nov 23, 2019 04:25 PM VA-TOBACCO USE [place] 30 MIN OF WAKE UP [facility] Nov 23, 2019 04:25 PM VA-TOBACCO USER EVERY DAY [facility] Oct 31, 2018 01:49 PM VA-TOBACCO USE 30 YEARS OR MORE [facility] Oct 31, 2018 01:49 PM VA-TOBACCO USE ADVICE [facility] Oct 31, 2018 01:49 PM 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 [facility] Oct 31, 2018 01:49 PM VA-TOBACCO USE MED NO [facility] Oct 31, 2018 01:49 PM VA-TOBACCO USE [place] 30 MIN OF WAKE UP [facility] Oct 31, 2018 01:49 PM VA-TOBACCO USER EVERY DAY [facility] Jul 09, 2017 09:25 AM FORMER TOBACCO USE <1Y [facility] Jul 24, 2016 09:57 AM FORMER TOBACCO USE <1Y [facility] Jul 26, 2015 09:47 AM CURRENT TOBACCO USER [facility] Jul 08, 2014 12:50 PM CURRENT TOBACCO USER [facility] Jul 20, 2013 08:30 AM CURRENT TOBACCO USER [facility] Mar 22, 2009 03:04 PM FORMER TOBACCO USE >1Y <7Y [facility] Pathology Reports: +/- 30 days of the encounter Pathology Reports For cases when an order for pathology services may have been completed prior to the date of the Encounter, the report list includes the Pathology Reports that were completed up to 30 days before dateof the Encounter. For cases when an order for pathology services may have been completed after the date of the Encounter, the report list also includes the Pathology Reports that were completed up to30 days after date of the Encounter. The data comes from all [facility] facilities. Date/Time Pathology Report Provider Source Jun 04, 2023 09:39 AM LR SURGICAL PATHOLOGY REPORT: LOCAL TITLE: LR SURGICAL PATHOLOGY REPORT STANDARD TITLE: PATHOLOGY REPORT DATE OF NOTE: JUN 04, 2023@09:39:42 ENTRY DATE: JUN 04, 2023@09:39:42 AUTHOR: ABEL QURESHI EXP COSIGNER: URGENCY: STATUS: COMPLETED $APHDR Reporting Lab: [facility] [CLIA# [id number]] [place] [address] - - - - - - - - - - - - - - - - - - - - - - - - - - - - - - - - - - - - - - - - MEDICAL RECORD SURGICAL PATHOLOGY - - - - - - - - - - - - - - - - - - - - - - - - - - - - - - - - - - - - - - - - PATHOLOGY REPORT Accession No. [id number] - - - - - - - - - - - - - - - - - - - - - - - - - - - - - - - - - - - - - - - - $TEXT Submitted by: VALENTINA SIMMS V Date obtained: May 30, 2023 - - - - - - - - - - - - - - - - - - - - - - - - - - - - - - - - - - - - - - - - Specimen (Received May 31, 2023 09:21): A) R LATERAL UPPER ARM - - - - - - - - - - - - - - - - - - - - - - - - - - - - - - - - - - - - - - - - BRIEF CLINICAL HISTORY: Brown irregular patch Procedure: shave biopsy - - - - - - - - - - - - - - - - - - - - - - - - - - - - - - - - - - - - - - - - PREOPERATIVE DIAGNOSIS: Lentigo vs macular SK vs less likely lentigo maligna - - - - - - - - - - - - - - - - - - - - - - - - - - - - - - - - - - - - - - - - OPERATIVE FINDINGS: - - - - - - - - - - - - - - - - - - - - - - - - - - - - - - - - - - - - - - - - POSTOPERATIVE DIAGNOSIS: Surgeon/physician: VALENTINA SIMMS MD =-=-=-=-=-=-=-=-=-=-=-=-=-=-= -=-=-=-=-=-=-=-=-=-=-=-=-=-=- =-=-=-=-=-=-=-=-=-=-= - - - - - - - - - - - - - - - - - - - - - - - - - - - - - - - - - - - - - - - - PATHOLOGY REPORT Accession No. [id number] - - - - - - - - - - - - - - - - - - - - - - - - - - - - - - - - - - - - - - - - GROSS DESCRIPTION: The requisition form and specimen(s) identification is confirmed. The specimen is labeled as right lateral upper arm and consists of a shave biopsy of reynaga skin measuring 1.0 x 1.0 x 0.2 cm. The skin surface has a 0.9 x 0.9 cm lopez brown pigmented macule with hazy borders extending to the lateral margin multifocally. The specimen is inked. CE (D) SMcCoy/sk MICROSCOPIC DESCRIPTION: Microscopic examination performed. SOX-10 immunohistochemical stain is performed with appropriate control reactions. The immunohistochemical and morphologic evaluation support the diagnosis. BB DIAGNOSIS: Skin, right lateral upper arm, shave biopsy-- - Lentigo COMMENT: This case was seen in consultation with Dr. Rogelio Hernandez, who concurs with the diagnosis. /lance/ ABEL QURESHI MD STAFF PATHOLOGIST Signed Jun 04, 2023@09:39 Performing Laboratory: Surgical Pathology Report Performed By: [facility] [CLIA# [id number]] [place] [address] $FTR - - - - - - - - - - - - - - - - - - - - - - - - - - - - - - - - - - - - - - - - (End of report) ABEL QURESHI MD b Date Jun 04, 2023 - - - - - - - - - - - - - - - - - - - - - - - - - - - - - - - - - - - - - - - - JOE CANALES STANDARD FORM 515 ID:[id number] SEX:M :1950 AGE: 73 LOC:[id number] PCP: Prisca Agustin MD /lance/ ABEL QURESHI MD STAFF PATHOLOGIST Signed: 06/04/2023 09:39 ABEL QURESHI [facility] Encounter Notes: All associated encounter notes This section contains the clinical notes associated to the Encounter. Date/Time Encounter Note(s) Provider Source Jun 04, 2023 11:02 AM COMMUNICATION NOTE : LOCAL TITLE: PATIENT CONTACT NOTE - DERMATOLOGY STANDARD TITLE: COMMUNICATION NOTE DATE OF NOTE: JUN 04, 2023@11:02 ENTRY DATE: JUN 04, 2023@11:02:18 AUTHOR: MENDEZ,VALENTINA EXP COSIGNER: URGENCY: STATUS: COMPLETED Results: DIAGNOSIS: Skin, right lateral upper arm, shave biopsy-- - Lentigo Informed patient of results above. Patient requires no further treatment. Follow up as planned. Dermatology Problem List: UBSE 05/30/23 # Hx NMSC - nBCC, R nasal ala s/p shave biopsy 03/08/22, s/p [facility] MMS - nBCC, L upper lateral arm s/p [facility] excision 05/14/22 - SCCis, L upper back s/p [facility] excision 05/14/22 - superficial BCC, L flank superolateral s/p removal in shave biopsy 03/08/22 monitor - nBCC, L flank inferomedial s/p removal in shave biopsy 03/08/22 monitor # AKs - LN # Benign bx - lentigo, R lateral upper arm. s/p shave bx 05/30/23 Total encounter time: 5 min /es/ VALENTINA SIMMS MD RESIDENT Signed: 06/04/2023 12:45 VALENTINA SIMMS V [facility]
--- OUTSIDE RECORDS SUMMARY | 2024-04-12 13:11 | XMS_ITS | Encounter Summary ---
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 Cooperative, calm, no acute distress, well dressed, well groomed Eye Contact: Good Psychomotor Activity: WNL (Within normal limits) Abnormal Involuntary Movements: None Speech: Regular rate and rhythm, normal volume Mood: euthymic Affect: full range, reactive Thought Process: Linear, logical, goal oriented Thought Content: Denies SI (Suicidal Ideation), HI(Homicidal Ideation) Perceptual disturbances: No AH(Auditory Hallucinations),VH(Visual Hallucinations), or delusions Insight: good Judgment: Intact Attention/Concentration: Intact for exam purposes Musculoskeletal: Muscle strength/tone intact for exam purposes. 01/24/22 MoCA: 21 Mar 2020 MoCA (phone): DIAGNOSIS: [...] thinking steps such as meeting with financial officer, and repairing relationships with family. His yarsanism comminity is also a very strong source of support. Feels that current medication regimen is helpful and wants to continue without changes. 2.24 update: Patient stable from mental health perspective and doing well. concerned about recent pre syncopal/sycopal episodes blacking out , 4 episodes in past 2-3 weeks. He is fully oriented, intact attention, in no distress, no movement or vision abnormalities, while in MH clinic. I advised patient and daughter to go to the ED for further evaluation of these episodes. Also reports fell with head injury during on episode, not clear that he has had LOC. SUICIDE RISK ASSESSMENT: Low acute risk. Intermediate chronic risk. Risk Factors: Age, Gender, History of suicide attempts, History of trauma, history of mood disorder. Protective Factors: Absence of SI/HI, Engaging in treatment, reduced cannabis use, Positive relationship with health professionals, Awareness of and willingness to use crisis services if needed, Meaningful relationship with family including children and grandchildren. TREATMENT PLAN: -Continue Fluoxetine 80 mg po daily for mood and ptsd. -Continue Quetiapine 300 mg po qhs for mood, sleep, nightmares. -Pt will follow up with psychotherapy PRN per appt with Bertin Clemons -Patient/daughter advised to go to ED for new onset presyncopal/syncopal episodes. No distress or focal neurological signs in clinic. They report they plan to go to an ED close to home for assessment. Will also notify patient PCP of symptoms and advised he follow up with PCP for further assessment. -Will alert YVETTE Barkley to patient's desire to follow up and discuss possiblity of having his daughter be his NAIL SETTER - he reports this is due to recent episodes of blacking out/falling -RTC 2 weeks by telephone Suicide Risk Assessment: Risk Factors: Age, Gender, [...] present. PERCEIVED CHRONIC SUICIDE RISK: Intermediate Chronic __ EDUCATION / SAFETY / MH TREATMENT PLAN: [...] any concerns. Patient is aware of additional services that are available, including emergency room and [facility] options. This plan was discussed with the patient who acknowledges agreement and understanding. Total time, including time spent preparing to see patient, performing appropriate examination/evaluation, counseling and education of patient/family/caregiver, documenting clinical information in medical record, and care coordination: 35 minutes /don MONCADA DO STAFF PSYCHIATRIST Signed: 06/20/2023 16:56 06/20/2023 ADDENDUM STATUS: COMPLETED Alerting Bertin [place] : patient reports he is interested in learning more about specific social service liaison, specifically if his daughter could become his NAIL SETTER. He reports he would need the care due to new onset episodes of blacking out. (sycnope/falls). I advised him I would alert you to his concerns. Thank you. /don MONCADA DO STAFF PSYCHIATRIST Signed: 06/20/2023 16:59 Receipt Acknowledged By: * AWAITING SIGNATURE * BERTIN CLEMONS 06/21/2023 ADDENDUM STATUS: COMPLETED Spoke with Vet and scheduled him with assigned Provider for 06/25/23 at 2pm. Vet advised to try to think of what he was doing prior to each black out episode to try to establish a pattern. Vet does not have b/p machine at home to monitor for hypotension. /lance/ DONITA BAILEY RN STAFF NURSE Signed: 06/21/2023 08:47 Receipt Acknowledged By: 06/21/2023 10:10 /es/ PRISCA CONNORS MD STAFF PHYSICIAN for [facility] Jun 20, 2023 01:08 PM PSYCHIATRY E & M N OTE: LOCAL TITLE: PSYCHIATRIC EVALUATION & MANAGEMENT STANDARD TITLE: PSYCHIATRY E & M NOTE DATE OF NOTE: JUN 20, 2023@13:08 ENTRY DATE: JUN 20, 2023@13:08:21 AUTHOR: MONCADA,TERRIE E EXP COSIGNER: URGENCY: STATUS: COMPLETED PSYCHIATRIC EVALUATION & MANAGEMENT Has ADDENDA PSYCHIATRIC EVALUATION AND MANAGEMENT FOLLOW UP VISIT INTERVAL HISTORY: Patient present with daughter present at appointment. Patient reports main concern is new onset episodes of blacking out for the past 2-3 weeks. Reports he has had four instances of feeling lightheaded, off balance and vision going dark and blacking out. His daughter witnessed on incident where he almost feel while on the stairs and she helped him. reports he did not appear to fully lose conciousness. Patient also reports he hit his head on his dresser just a little bump. Has not gone to the Emergency department or been evaluated for any of these episodes. Patient is calm, ambulates independently, fully oriented , intact attention and alert in No acute distress. Regarding his mental health reports he has been doing very well. Denies symptoms of anxiety or depression. States several stressors have been resolved lately, including that he now has a working car and his daughters partner moved out of the house. Denies SI, intent or plan. Has been adherent to medications and no recent medication changes reported. Patient also concerned with bodily pain and wonders if he has polymyalgia rheumatica due to his mother reportedly being diagnosed with the condition. Patient also asks if his daughter could become his NAIL SETTER due to recent symptoms of blacking out. SUBSTANCE USE: denies all substance use. MEDICATION COMPLIANCE: adherent to all medications per patient, no recent medication changes. SIDE EFFECTS: denies MOST RECENT VITALS: Blood [...] 62 (10/30/22) MENTAL STATUS EXAM: General: Cooperative, calm, no acute distress, well dressed, well groomed Eye Contact: Good Psychomotor Activity: WNL (Within normal limits) Abnormal Involuntary Movements: None Speech: Regular rate and rhythm, normal volume Mood: euthymic Affect: full range, reactive Thought Process: Linear, logical, goal oriented Thought Content: Denies SI (Suicidal Ideation), HI(Homicidal Ideation) Perceptual disturbances: No AH(Auditory Hallucinations),VH(Visual Hallucinations), or delusions Insight: good Judgment: Intact Attention/Concentration: Intact for exam purposes Musculoskeletal: Muscle strength/tone intact for exam purposes. 01/24/22 MoCA: 21 Mar 2020 MoCA (phone): DIAGNOSIS: [...] thinking steps such as meeting with financial officer, and repairing relationships with family. His yarsanism comminity is also a very strong source of support. Feels that current medication regimen is helpful and wants to continue without changes. 29.24 update: Patient stable from mental health perspective and doing well. concerned about recent pre syncopal/sycopal episodes blacking out , 4 episodes in past 2-3 weeks. He is fully oriented, intact attention, in no distress, no movement or vision abnormalities, while in MH clinic. I advised patient and daughter to go to the ED for further evaluation of these episodes. Also reports fell with head injury during on episode, not clear that he has had LOC. SUICIDE RISK ASSESSMENT: Low acute risk. Intermediate chronic risk. Risk Factors: Age, Gender, History of suicide attempts, History of trauma, history of mood disorder. Protective Factors: Absence of SI/HI, Engaging in treatment, reduced cannabis use, Positive relationship with health professionals, Awareness of and willingness to use crisis services if needed, Meaningful relationship with family including children and grandchildren. TREATMENT PLAN: -Continue Fluoxetine 80 mg po daily for mood and ptsd. -Continue Quetiapine 300 mg po qhs for mood, sleep, nightmares. -Pt will follow up with psychotherapy PRN per appt with Bertin Clemons -Patient/daughter advised to go to ED for new onset presyncopal/syncopal episodes. No distress or focal neurological signs in clinic. They report they plan to go to an ED close to home for assessment. Will also notify patient PCP of symptoms and advised he follow up with PCP for further assessment. -Will alert YVETTE Barkley to patient's desire to follow up and discuss possiblity of having his daughter be his NAIL SETTER - he reports this is due to recent episodes of blacking out/falling -RTC 2 weeks by telephone Suicide Risk Assessment: Risk Factors: Age, Gender, [...] present. PERCEIVED CHRONIC SUICIDE RISK: Intermediate Chronic __ EDUCATION / SAFETY / MH TREATMENT PLAN: [...] medical record, and care coordination: 35 minutes /don MONCADA DO STAFF PSYCHIATRIST Signed: 06/20/2023 16:56 06/20/2023 ADDENDUM STATUS: COMPLETED Alerting PACT team : Patient reported in MH clinic today new onset episodes of blacking out in past 2-3 weeks reports four episodes. His daughter witnessed one and reports no LOC. Hit his head at least once. I advised him to go to ED for further assessment and that I would notify Primary care team , advised him to make primary care follow up. /don MONCADA DO STAFF PSYCHIATRIST Signed: 06/20/2023 16:57 Receipt Acknowledged By: 06/21/2023 08:44 /don BAILEY, FIELD SERVICE REP NURSE * AWAITING SIGNATURE * PRISCA CONNORS 06/20/2023 ADDENDUM STATUS: COMPLETED Alerting Bertin Clemons : patient reports he is interested in learning more about specific social service liaison, specifically if his daughter could become his NAIL SETTER. He reports he would need the care due to new onset episodes of blacking out. (sycnope/falls). I advised him I would alert you to his concerns. Thank you. /don MONCADA DO STAFF PSYCHIATRIST Signed: 06/20/2023 16:59 Receipt Acknowledged By: * AWAITING SIGNATURE * BERTIN CLEMONS 06/21/2023 ADDENDUM STATUS: COMPLETED Spoke with Vet and scheduled him with assigned Provider for 06/25/23 at 2pm. Vet advised to try to think of what he was doing prior to each black out episode to try to establish a pattern. Vet does not have b/p machine at home to monitor for hypotension. /don BAILEY, FIELD SERVICE REP NURSE Signed: 06/21/2023 08:47 Receipt Acknowledged By: * AWAITING SIGNATURE * ANN HANDLEY [facility]
--- OUTSIDE RECORDS SUMMARY | 2024-04-12 13:11 | XMS_ITS | Encounter Summary ---
Author Name [facility] Address [address] [place] [address] Care Team Providers Care Burial Vault Maker Name Role Phone KARI HARLEY Primary Care Provider RADHA Escobar Primary Care Provider UnavailVIVIANA Jernigan Unavailable Unavailable [...] Alvarez's Name Patient's Relationship to Policy Alvarez [facility] (WNR) MEDICAID MEDIC AID Apr 22, 2015 [id number] [phone] JOE CANALES PATIENT MEDICARE (WNR) MEDICARE (M) PART A Apr 22, 2013 PART A [id number] JEYSON CANALES III N PATIENT MEDICARE (WNR) MEDICARE (M) PART B Apr 22, 2013 PART B [id number] JEYSON CANALES III N PATIENT MEDICARE (WNR) MEDICARE (M) PART A Apr 22, 2013 PART A [id number] JEYSON CANALES III PATIENT MEDICARE (WNR) MEDICARE (M) PART B Apr 22, 2013 PART B [id number] JEYSON CANALES III N PATIENT MEDICARE (WNR) MEDICARE (M) PART A Apr 22, 2013 PART A [id number] JEYSON CANALES III N PATIENT MEDICARE (WNR) MEDICARE (M) PART B Apr 22, 2013 PART B [id number] JEYSON CANALES III N PATIENT Selected Encounter This section includes the information on record at [place] for the Encounter. Date/Time Encounter Type Encounter Description Reason Pro vider Source May 30, 2023 12:51 PM Outpatient Encounter PSYCHOGERIATRIC - INDIVIDUAL IHE Encounter Template Text not used by [place] Plan of Treatment: Future Appointments (+ 6 months) and Future Tests (+/- 45 days) The Plan of Treatment section includes future care activities for the patient from all [place] treatmentfacilities. This section includes future appointments and future orders which are active, pending or scheduled. Future Appointments This section includes appointments that were scheduled to occur 6 months from the date of the Encounter, up to a maximum of 20 appointments. The data comes from all [place] treatment facilities. Appointment Date/Time Appointment Type Appointme nt Facility Name Jun 20, 2023 01:00 PM [facility] [place] [facility] Jun 25, 2023 02:00 PM [facility] Jul 05, 2023 02:30 PM [place] [facility] Jul 20, 2023 11:43 AM [facility] [place] [facility] Jul 26, 2023 10:00 AM [facility] Jul 26, 2023 03:30 PM [place] [facility] Aug 07, 2023 03:00 PM [place] [facility] Aug 14, 2023 09:00 AM [facility] Aug 14, 2023 06:45 PM [facility] [place] [facility] August 29, 2023 10:00 AM [place] [facility] September 02, 2023 02:30 PM [place]ONE [place] [facility] Nov 05, 2023 01:45 PM [place] [facility] Nov 05, 2023 03:00 PM [facility] [place] [facility] Nov 13, 2023 02:00 PM [facility] [place] [facility] Nov 14, 2023 01:15 PM AMBULATORY - SURGERY [facility] Lab Results: +/- 30 days of the encounter This section includes the Chemistry and Hematology Lab Results on record with [place] for the patient. Radiology Reports and Pathology Reports are provided separately, in subsequent sections. Lab Results This section contains the Chemistry/Hematology Results that were resulted 30 days before or 30 daysafter the date of the Encounter. Date/Time Source Result Type Result - Unit Interpretation Reference Range Comment Jun 25, 2023 02:39 PM [facility] BNP Specimen Type: PLASMA Comment: Automated Differential Performed Ordering Provider: ANN HANDLEY Report Released Date/Time: Jun 25, 2023 02:18 PM Reporting Lab: [facility] [id number] Performing Lab: [facility] [id number] BNP 18 pg/mL <99 Jun 25, 2023 02:39 PM [facility] COMPREHENSIVE METABOLIC PANEL+MG Specimen Type: PLASMA Comment: Automated Differential Performed Ordering Provider: ANN HANDLEY Report Released Date/Time: Jun 25, 2023 02:18 PM Reporting Lab: [facility] [id number] Performing Lab: [facility] [id number] CREATININE 1.2 mg/dL 0.7-1.2 UREA NITROGEN 14 [...] 63 >60 Jun 25, 2023 02:39 PM [facility] CBC & DIFF Specimen Type: BLOOD Comment: Automated Differential Performed Ordering Provider: ANN HANDLEY Report Released Date/Time: Jun 25, 2023 02:18 PM Reporting Lab: [facility] [id number] Performing Lab: [facility] [id number] WBC 7.46 10*3/uL 4.0-11.0 RBC 4.50 10*6/uL [...] and tobacco- related health factors from the [place] facility where the Encounter took place. Current Smoking Status This section includes the most current smoking, or tobacco-related health factor, from the [place] facility where the Encounter took place. Date/Time Current Smoking Status Comment Facil jordy Aug 07, 2022 02:00 PM VA-TOBACCO USER EVERY DAY [facility] Tobacco Use History This section includes a history of the smoking, or tobacco-related health factors, that were collected on or before the date of the Encounter. The data comes from the [place] facility where the Encounter took place. Date/Time Smoking Status/Tobacco Use Comment F acility Aug 07, 2022 02:00 PM VA-TOBACCO USE ADVICE [facility] Aug 07, 2022 02:00 PM VA-TOBACCO USE RUBBER MOLDER NO [facility] Aug 07, 2022 02:00 PM VA-TOBACCO USE MED NO [facility] Aug 07, 2022 02:00 PM VA-TOBACCO USE WI 30 MIN OF WAKE UP [facility] Aug 07, 2022 02:00 PM VA-TOBACCO USER EVERY DAY [facility] Sep 26, 2021 11:00 AM VA-TOBACCO FORMER USER [facility] Sep 26, 2021 11:00 AM VA-TOBACCO QUIT < 1 YEAR [facility] Dec 20, 2020 02:00 PM VA-TOBACCO DOESNT USE WI 30 MIN WAKEUP [facility] Dec 20, 2020 02:00 PM VA-TOBACCO USE 30 YEARS OR MORE [facility] Dec 20, 2020 02:00 PM VA-TOBACCO USE ADVICE [facility] Dec 20, 2020 02:00 PM VA-TOBACCO USE RUBBER MOLDER YES [facility] Dec 20, 2020 02:00 PM VA-TOBACCO USE MED YES [facility] Dec 20, 2020 02:00 PM VA-TOBACCO USER EVERY DAY [facility] Nov 23, 2019 04:25 PM VA-TOBACCO USE < 1 YEAR [facility] Nov 23, 2019 04:25 PM VA-TOBACCO USE ADVICE [facility] Nov 23, 2019 04:25 PM VA-TOBACCO USE RUBBER MOLDER NO [facility] Nov 23, 2019 04:25 PM VA-TOBACCO USE MED NO [facility] Nov 23, 2019 04:25 PM VA-TOBACCO USE WI 30 MIN OF WAKE UP [facility] Nov 23, 2019 04:25 PM VA-TOBACCO USER EVERY DAY [facility] Oct 31, 2018 01:49 PM VA-TOBACCO USE 30 YEARS OR MORE [facility] Oct 31, 2018 01:49 PM VA-TOBACCO USE ADVICE [facility] Oct 31, 2018 01:49 PM VA-TOBACCO USE RUBBER MOLDER NO [facility] Oct 31, 2018 01:49 PM VA-TOBACCO USE MED NO [facility] Oct 31, 2018 01:49 PM VA-TOBACCO USE WI 30 MIN OF WAKE UP [facility] Oct 31, 2018 01:49 PM VA-TOBACCO USER EVERY DAY [facility] Jul 09, 2017 09:25 AM FORMER TOBACCO USE <1Y [facility] Jul 24, 2016 09:57 AM FORMER TOBACCO USE <1Y [facility] Jul 26, 2015 09:47 AM CURRENT TOBACCO USER [facility] Jul 08, 2014 12:50 PM CURRENT TOBACCO USER [facility] Jul 20, 2013 08:30 AM CURRENT TOBACCO USER [facility] Mar 22, 2009 03:04 PM FORMER TOBACCO USE >1Y <7Y [facility] Pathology Reports: +/- 30 days of [...] the Encounter. The data comes from all [facility] facilities. Date/Time Pathology Report Provider Source Jun 04, 2023 09:39 AM LR SURGICAL PATHOLOGY REPORT: LOCAL TITLE: LR SURGICAL PATHOLOGY REPORT STANDARD TITLE: PATHOLOGY REPORT DATE OF NOTE: JUN 04, 2023@09:39:42 ENTRY DATE: JUN 04, 2023@09:39:42 AUTHOR: ABEL QURESHI EXP COSIGNER: URGENCY: STATUS: COMPLETED $APHDR Reporting Lab: [facility] [CLIA# [id number]] [place] [address] - - - - - - - [...] multifocally. The specimen is inked. CE (D[facility] MICROSCOPIC DESCRIPTION: Microscopic examination performed. SOX-10 immunohistochemical [...] Performing Laboratory: Surgical Pathology Report Performed By: [facility] [CLIA# [id number]] [facility] [place] [address] $FTR - - - - - - [...] - - - - - JOE CANALES BALLARD STANDARD FORM 515 ID:[id number] SEX:M :1950 AGE: 73 LOC:[id number] PCP: Pirsca Agustin MD /lance/ ABEL QURESHI MD STAFF PATHOLOGIST Signed: 06/04/2023 09:39 ABLE QURESHI [facility] Encounter Notes: All associated encounter notes This section contains the clinical notes associated to the Encounter. Date/Time Encounter Note(s) Provider Source May 31, 2023 02:47 PM ADDENDUM: LOCAL TITLE: Addendum STANDARD TITLE: ADDENDUM DATE OF NOTE: MAY 31, 2023@14:47:34 ENTRY DATE: MAY 31, 2023@14:47:35 AUTHOR: JIMENA AUGUSTIN COSIGNER: URGENCY: STATUS: COMPLETED SUBJECT: F/U CALL Call placed to Mr. Canales at phone number [phone] Dsouza's request to update the that the Letter is completed. Also, to please contact the [place] to see if he would like to pick it up versus have it sent somewhere, and if it needs to be sent out to please obtain the mailing address. ASSESSMENT: 1) The was appreciative of the call. He stated that he left the wildlife conservation officer's card with the contact information with Dr. Dsouza. He would like the Letter to please be mailed to that court security officer. PLAN: 1) Alert Dr. Dsouza to this correspondence per request. /NHUNG Gamez, HAKAN HOOKER, HAKAN Signed: 05/31/2023 14:56 Receipt Acknowledged By: 05/31/2023 15:42 /don DSOUZA DO STAFF PSYCHIATRIST --- Original Document --- 05/30/23 PATIENT CONTACT NOTE: Patient contact Name of Flaxton: JOE CANALES BALLARD Name/Relationship of Contact if other than Flaxton: Date & Time of Contact: May@12:52 Type of Contact: In person Reason for Contact: PT came in person to deliever a request to his provider . Pt stated that he would need a letter from his provider to give to his court security officer stating that he does keep his appts with her. Tinsel Machine Operator confirmed future appt with provider on at 1300. /lance/ ISH JONES Signed: 05/30/2023 12:53 Receipt Acknowledged By: 05/30/2023 15:42 /NHUNG Gamez, HAKAN HOOKER, HAKAN 05/31/2023 12:10 /don DSOUZA DO STAFF PSYCHIATRIST 05/31/2023 ADDENDUM STATUS: COMPLETED Letter completed. Please contact patient to see if he would like to pick it up versus have it sent somewhere. If it needs to be sent out please obtain adderss. thank you. /don DSOUZA DO STAFF PSYCHIATRIST Signed: 05/31/2023 12:11 Receipt Acknowledged By: 05/31/2023 14:45 /es/ NHUNG OCHOA, HAKAN HOOKER MA 05/31/2023 ADDENDUM STATUS: COMPLETED The following letter was faxed to wildlife conservation officer Lillian Moody at patient's request (fax [phone]) CARMELITA on file. To Lillian Moody: This letter is to confirm that Joe Canales has been attending his mental health appointments at the [facility] for psychiatric care. For further information, please contact the clinic at [phone]. Sincerely, Dr. Terrie Dsouza DO Psychiatrist [facility] [address] [place] [address] /lance/ TERRIE DSOUZA DO STAFF PSYCHIATRIST Signed: 05/31/2023 15:43 JIMENA AUGUSTIN [facility] May 31, 2023 12:10 PM ADDENDUM: LOCAL TITLE: Addendum STANDARD TITLE: ADDENDUM DATE OF NOTE: MAY 31, 2023@12:10:22 ENTRY DATE: MAY 31, 2023@12:10:23 AUTHOR: TERRIE DSOUZA COSIGNER: URGENCY: STATUS: COMPLETED Letter completed. Please contact patient to see if he would like to pick it up versus have it sent somewhere. If it needs to be sent out please obtain adderss. thank you. /don DSOUZA DO STAFF PSYCHIATRIST Signed: 05/31/2023 12:11 Receipt Acknowledged By: 05/31/2023 14:45 /lance/ NHUNG OCHOA, HAKAN HOOKER MA --- Original Document --- 05/30/23 PATIENT CONTACT NOTE: Patient contact Name of [place]xton: JOE CANALES Name/Relationship of Contact if other than : Date & Time of Contact: May@12:52 Type of Contact: In person Reason for Contact: PT came in person to deliever a request to his provider . Pt stated that he would need a letter from his provider to give to his court security officer stating that he does keep his appts with her. Tinsel Machine Operator confirmed future appt with provider on at 1300. /lance/ ISH JONES Signed: 05/30/2023 12:53 Receipt Acknowledged By: 05/30/2023 15:42 /lance/ NHUNG OCHOA, HAKAN HOOKER, HAKAN 05/31/2023 12:10 /lance/ TERRIE DSOUZA, STAFF PSYCHIATRIST 05/31/2023 ADDENDUM STATUS: COMPLETED Call placed to Mr. Canales at phone number [phone] Dsouza's request to update the that the Letter is completed. Also, to please contact the to see if he would like to pick it up versus have it sent somewhere, and if it needs to be sent out to please obtain the mailing address. ASSESSMENT: 1) The [place]xton was appreciative of the call. He stated that he left the wildlife conservation officer's card with the contact information with Dr. Dsouza. He would like the Letter to please be mailed to that court security officer. PLAN: 1) Alert Dr. Dsouza to this correspondence per request. /lance/ NHUNG OCHOA, HAKAN HOOKER, HAKAN Signed: 05/31/2023 14:56 Receipt Acknowledged By: * AWAITING SIGNATURE * TERRIE DSOUZA KRISTIN E [facility] May 30, 2023 12:52 PM REPORT OF CONTACT: LOCAL TITLE: PATIENT CONTACT NOTE STANDARD TITLE: REPORT OF CONTACT DATE OF NOTE: MAY 30, 2023@12:52 ENTRY DATE: MAY 30, 2023@12:52:04 AUTHOR: ISH JONES COSIGNER: URGENCY: STATUS: COMPLETED PATIENT CONTACT NOTE Has ADDENDA Patient contact Name of : JOE CANALES Name/Relationship of Contact if other than [place]: Date & Time of Contact: May@12:52 Type of Contact: In person Reason for Contact: PT came in person to ollie a request to his provider . Pt stated that he would need a letter from his provider to give to his court security officer stating that he does keep his appts with her. Tinsel Machine Operator confirmed future appt with provider on at 1300. /lance/ ISH MeganFlory JONES Signed: 05/30/2023 12:53 Receipt Acknowledged By: 05/30/2023 15:42 /lance/ NHUNG OCHOA, HAKAN HOOKER, HAKAN 05/31/2023 12:10 /lance/ TERRIE DSOUZA DO STAFF PSYCHIATRIST 05/31/2023 ADDENDUM STATUS: COMPLETED Letter completed. Please contact patient to see if he would like to pick it up versus have it sent somewhere. If it needs to be sent out please obtain adderss. thank you. /don DSOUZA DO STAFF PSYCHIATRIST Signed: 05/31/2023 12:11 Receipt Acknowledged By: 05/31/2023 14:45 /lance/ NHUNG OCHOA, HAKAN HOOKER, HAKAN 05/31/2023 ADDENDUM STATUS: COMPLETED Call placed to Mr. Canales at phone number [phone] Dsouza's request to update the that the Letter is completed. Also, to please contact the [place] to see if he would like to pick it up versus have it sent somewhere, and if it needs to be sent out to please obtain the mailing address. ASSESSMENT: 1) The [place] was appreciative of the call. He stated that he left the wildlife conservation officer's card with the contact information with Dr. Dsouza. He would like the Letter to please be mailed to that court security officer. PLAN: 1) Alert Dr. Dsouza to this correspondence per request. /lance/ NHUNG OCHOA, HAKAN HOOKER, HAKAN Signed: 05/31/2023 14:56 Receipt Acknowledged By: 05/31/2023 15:42 /lance/ TERRIE DSOUZA DO STAFF PSYCHIATRIST 05/31/2023 ADDENDUM STATUS: COMPLETED The following letter was faxed to wildlife conservation officer Lillian Moody at patient's request (fax [phone]) CARMELITA on file. To Lillian Moody: This letter is to confirm that Joe Canales has been attending his mental health appointments at the [facility] for psychiatric care. For further information, please contact the clinic at [phone]. Sincerely, Dr. Terrie Dsouza, DO Psychiatrist [facility] [address] [place] [address] /es/ TERRIE DSOUZA DO STAFF PSYCHIATRIST Signed: 05/31/2023 15:43 ISH JONES [facility]
--- OUTSIDE RECORDS SUMMARY | 2024-04-12 13:11 | XMS_ITS | Encounter Summary ---
Author Name [facility] [place] Organization [facility] [place] [facility] [place] Address [address] [place] [address] Care Team Providers Care Elementary Tutor Name Role Phone KARI HARLEY Primary Care [...] Alvarez's Name Patient's Relationship to Policy Alvarez [facility] (WNR) MEDICAID MEDIC AID Apr 22, 2015 [id number] JOE CANALES PATIENT MEDICARE (WNR) MEDICARE (M) PART A Apr 22, 2013 PART A [id number] JEYSON CANALES III N PATIENT MEDICARE (WNR) MEDICARE (M) PART B Apr 22, 2013 PART B [id number] [phone] JEYSON CAANLES III N PATIENT MEDICARE (WNR) MEDICARE (M) PART A Apr 22, 2013 PART A [id number] JEYSON CANALES III N PATIENT MEDICARE (WNR) MEDICARE (M) PART B Apr 22, 2013 PART B [id number] [phone] JEYSON CANALES III N PATIENT MEDICARE (WNR) MEDICARE (M) PART A Apr 22, 2013 PART A [id number] JEYSON CANALES III N PATIENT MEDICARE (WNR) MEDICARE (M) PART B Apr 22, 2013 PART B [id number] JEYSON CANALES III N PATIENT Selected Encounter This section includes the information on record at [place] for the Encounter. Date/Time Encounter Type Encounter Description Reason Provider Source May 30, 2023 03:20 PM OFFICE O/P EST LOW 20 MIN DERMATOLOGY ICD-10-CM L82.1 Other seborrheic keratosis BRIGITTE TRAORE Virgilio Encounter Template Text not used by [place] Assessments - Encounter Diagnoses This section includes the primary and secondary diagnoses documented for the Encounter. Date/Time Primary/Secondary Diagnosis Diagnosis Name Provider Source May 30, 2023 04:08 PM PRIMARY Other seborrheic keratosis Chava SIMMS [facility] May 30, 2023 04:08 PM SECONDARY Hemangioma of skin and subcutaneous tissue Chava SIMMS [facility] May 30, 2023 04:08 PM SECONDARY Neoplasm of uncertain behavior of skin Chava SIMMS [facility] May 30, 2023 04:08 PM SECONDARY Nevus, non-neoplastic Chava SIMMS [facility] May 30, 2023 04:08 PM SECONDARY Personal history of other malignant neoplasm of skin Chava SIMMS [facility] Plan of Treatment: Future Appointments (+ 6 months) and Future Tests (+/- 45 days) The Plan of Treatment section includes future care activities for the patient from all [place] treatmentfacilities. This section includes future appointments and future orders which are active, pending or scheduled. Future Appointments This section includes appointments that were scheduled to occur 6 months from the date of the Encounter, up to a maximum of 20 appointments. The data comes from all [place] treatment facilities. Appointment Date/Time Appointment Type Appointme nt Facility Name Jun 20, 2023 01:00 PM [facility] [place] [facility] Jun 25, 2023 02:00 PM [place] [place] [facility] Jul 05, 2023 02:30 PM [facility] [facility] Jul 20, 2023 11:43 AM [place] [facility] Jul 26, 2023 10:00 AM [facility] [place]IC[place] [facility] Jul 26, 2023 03:30 PM [facility] [facility] Aug 07, 2023 03:00 PM [facility] [place] [facility] Aug 14, 2023 09:00 AM [facility] [place] [facility] [facility] Aug 14, 2023 06:45 PM [facility] [place]ONE [place] [facility] August 29, 2023 10:00 AM AM[facility] [place] [facility] September 02, 2023 02:30 PM [facility]ONE [place] [facility] Nov 05, 2023 01:45 PM [facility] [place] [facility]ONE [place] [facility] Nov 05, 2023 03:00 PM [facility] [place] [facility] Nov 13, 2023 02:00 PM [facility] [place] [facility] [facility] Nov 14, 2023 01:15 PM AMBULATORY - SURGERY [facility] Lab Results: +/- 30 days of the encounter This section includes the Chemistry and Hematology Lab Results on record with [place] for the patient. Radiology Reports and Pathology [...] 02:18 PM Reporting Lab: [facility] [id number] Performing Lab: [facility] [id number] WBC 7.46 10*3/uL 4.0-11.0 RBC 4.50 10*6/uL [...] 10*3/uL 0-0.1 Jun 25, 2023 02:39 PM [facility] BNP Specimen Type: PLASMA Comment: Automated Differential Performed Ordering Provider: ANN HANDLEY Report Released Date/Time: Jun 25, 2023 02:18 PM Reporting Lab: [facility] [id number] Performing Lab: [facility] [id number] BNP 18 pg/mL <99 Jun 25, 2023 02:39 PM [facility] COMPREHENSIVE METABOLIC PANEL+MG Specimen Type: PLASMA Comment: Automated Differential Performed Ordering Provider: ANN HANDLEY Report Released Date/Time: Jun 25, 2023 02:18 PM Reporting Lab: [facility] [id number] Performing Lab: [facility] [address] CREATININE 1.2 mg/dL 0.7-1.2 UREA NITROGEN 14 [...] and tobacco- related health factors from the [place] facility where the Encounter took place. Current Smoking Status This section includes the most current smoking, or tobacco-related health factor, from the [place] facility where the Encounter took place. Date/Time Current Smoking Status Comment Esau ity Aug 07, 2022 02:00 PM VA-TOBACCO USER EVERY DAY [facility] Tobacco Use History This section includes a history of the smoking, or tobacco-related health factors, that were collected on or before the date of the Encounter. The data comes from the [place] facility where the Encounter took place. Date/Time Smoking Status/Tobacco Use Comment F acility Aug 07, 2022 02:00 PM VA-TOBACCO USE ADVICE [facility] Aug 07, 2022 02:00 PM VA-TOBACCO USE PHOTOGRAPH RETOUCHER NO [facility] Aug 07, 2022 [...] Dec 20, 2020 02:00 PM VA-TOBACCO USE PHOTOGRAPH RETOUCHER YES [facility] Dec 20, 2020 02:00 PM VA-TOBACCO USE MED YES [facility] Dec 20, 2020 02:00 PM VA-TOBACCO USER EVERY DAY [facility] Nov 23, 2019 04:25 PM VA-TOBACCO USE < 1 YEAR [facility] Nov 23, 2019 04:25 PM VA-TOBACCO USE ADVICE [facility] Nov 23, 2019 04:25 PM VA-TOBACCO USE PHOTOGRAPH RETOUCHER NO [facility] Nov 23, 2019 [...] Oct 31, 2018 01:49 PM VA-TOBACCO USE PHOTOGRAPH RETOUCHER NO [facility] Oct 31, 2018 [...] the Encounter. The data comes from all [facility] facilities. Date/Time Pathology Report Provider Source Jun 04, 2023 09:39 AM LR SURGICAL PATHOLOGY REPORT: LOCAL TITLE: LR SURGICAL PATHOLOGY REPORT STANDARD TITLE: PATHOLOGY REPORT DATE OF NOTE: JUN 04, 2023@09:39:42 ENTRY DATE: JUN 04, 2023@09:39:42 AUTHOR: ABEL QURESHI EXP COSIGNER: URGENCY: STATUS: COMPLETED $APHDR Reporting Lab: [facility] [CLIA# [id number]] [place] [address] - - - - - - - [...] - - - PATHOLOGY REPORT Accession No. [id number] - - - - - [...] multifocally. The specimen is inked. CE (D) [facility] [place] MICROSCOPIC DESCRIPTION: Microscopic examination performed. SOX-10 immunohistochemical [...] Report Performed By: [facility] [CLIA# [id number]] [place] [address] $FTR - - - - - - [...] - - JOE CANALES STANDARD FORM 515 ID:[id number] SEX:M :1950 AGE: 73 LOC:[id number] PCP: Prisca Agustin MD /lance/ ABEL QURESHI MD STAFF PATHOLOGIST Signed: 06/04/2023 09:39 ABEL QURESHI [facility] Encounter Notes: All associated encounter notes This section contains the clinical notes associated to the Encounter. Date/Time Encounter Note(s) Provider Source May 30, 2023 04:21 PM DERMATOLOGY NURSIN G OUTPATIENT NOTE: LOCAL TITLE: DERMATOLOGY CLINIC NURSING NOTE STANDARD TITLE: DERMATOLOGY NURSING OUTPATIENT NOTE DATE OF NOTE: MAY 30, 2023@16:21 ENTRY DATE: MAY 30, 2023@16:21:56 AUTHOR: MARISELA FRY EXP COSIGNER: URGENCY: STATUS: COMPLETED Dermatology Clinic Nursing Note Post Procedure Nursing Note Denied allergy to lidocaine or epinephrine. Vaseline and a band-aid was applied to the biopsy site on the Right Lateral Upper Arm. This bandage should be kept clean and dry for 1 day. After 1 day the bandage can be removed and the biopsy site should be gently cleaned once per day with mild soap and water, pat dry, then covered with vaseline and a new bandage. Daily cleaning and dressing changes should be done until the skin is fully healed. No other products should be used on the biopsy site i.e., hydrogen peroxide, rubbing alcohol, skin oils, creams, prescriptions until the area is completely healed. Educational Screening: Barriers to Learning/Special Needs: No Barriers Identified Preferred Style of Learning: No preference stated Teaching Strategy: 1:1 Written/printed material Instruction: Patient/family/caregiver instructed in standard Post-Biopsy wound care. Printed instruction sheet provided for home reference: Skin Biopsy Patient Instruction. Understanding: Patient/family/caregiver: Able to verbalize understanding. Follow up teaching: None needed /lance/ MARISELA FRY LPN Signed: 05/30/2023 16:25 MARISELA FRY [facility] May 30, 2023 03:44 PM DERMATOLOGY ATTEND ING NOTE: LOCAL TITLE: DERMATOLOGY CLINIC NOTE STANDARD TITLE: DERMATOLOGY ATTENDING NOTE DATE OF NOTE: MAY 30, 2023@15:44 ENTRY DATE: MAY 30, 2023@15:44:28 AUTHOR: VALENTINA SIMMS EXP COSIGNER: URGENCY: STATUS: COMPLETED Dr. Traore was available for staffing Clinic Note Dermatology Problem List: UBSE 05/30/23 # NUB - R lateral upper arm. Ddx solar lentigo vs macular SK vs less likely LM. s/p shave bx 05/30/23 # Hx NMSC - nBCC, R nasal ala s/p shave biopsy 03/08/22, s/p [facility] MMS - nBCC, L upper lateral arm s/p VA excision 05/14/22 - SCCis, L upper back s/p VA excision 05/14/22 - superficial BCC, L flank superolateral s/p removal in shave biopsy 03/08/22 monitor - nBCC, L flank inferomedial s/p removal in shave biopsy 03/08/22 monitor # AKs - LN SUBJECTIVE: JOE CANALES is a 73 year old MALE who presents today for skin check. Notes some scaly papules on the R upper shoulder and L thigh. Otherwise no new, tender, non- healing, or bleeding lesions. Wears sunscreen regularly. No other concerns today. Review of systems: CONST: Otherwise in baseline state of health. SKIN: As above in HPI, no additional skin concerns. OBJECTIVE: GEN: No acute distress. SKIN: UBSE (head/neck, trunk, arms, hands/fingernails) - on the R lateral upper arm there is a 1.0 cm irregular brown/reynaga patch with a combined reticulated pigment network and individual dark brown eccentric globules - On the trunk and extremities, there are flesh-colored to light brown, waxy, stuck on papules and plaques. - On the trunk and extremities with accentuation in sun-exposed areas, there are light brown macules with uniform appearance. - On trunk and extremities, there are firm red papules. - Previous sites of skin cancer noted above were examined. No evidence for recurrence by inspection or palpation. ASSESSMENT & PLAN: # NUB - R lateral upper arm. Ddx solar lentigo vs macular SK vs less likely LM. s/p shave bx 05/30/23 - SHAVE BIOPSY PROCEDURE NOTE: A time-out was taken prior to the procedure to verify correct patient, correct site and correct procedure. After verifying patient's identification and obtaining informed consent, including discussions of the risks of bleeding,infection, and scarring,the lesion was cleansed with an alcohol swab then injected with 1.0 cc of 1% lidocaine with 1:100,000 epinephrine. A Dermablade was used to shave the lesion. Specimen was labeled and sent to pathology in formalin. Aluminum chloride was applied for chemical cauterization. Petrolatum and bandaid were applied to the biopsy site. Post-biopsy wound care was discussed in detail. # History of NMSC. NERD. - Sun protection, including daily SPF 30+, advised # Seborrheic keratoses, villatoro angiomas. Reassured of benign etiology. - No further intervention required RTC 12 months for UBSE, sooner pending path results Total encounter time (including chart review, counseling, documentation, ordering of labs/meds): 20-29 min /lance/ VALENTINA SIMMS MD RESIDENT Signed: 05/30/2023 16:08 VALENTINA SIMMS V [facility]
--- OUTSIDE RECORDS SUMMARY | 2024-04-12 13:11 | XMS_ITS | Encounter Summary ---
Author Name [facility] [place] Address [address] [place] [address] Care Team Providers Care Parish Visitor Name Role Phone KARI HARLEY Primary Care [...] Alvarez's Name Patient's Relationship to Policy Alvarez [facility] (WNR) MEDICAID MEDIC AID Apr 22, 2015 [id number] JOE CANALES PATIENT MEDICARE (WNR) MEDICARE (M) PART A Apr 22, 2013 PART A [id number] JEYSON CANALES III PATIENT MEDICARE (WNR) MEDICARE (M) PART B Apr 22, 2013 PART B [id number] [phone] JEYSON CANALES III PATIENT MEDICARE (WNR) MEDICARE (M) PART A Apr 22, 2013 PART A [id number] [phone] JEYSON CANALES III N PATIENT MEDICARE (WNR) MEDICARE (M) PART B Apr 22, 2013 PART B [id number] JEYSON CANALES III N PATIENT MEDICARE (WNR) MEDICARE (M) PART A Apr 22, 2013 PART A [id number] [phone] JEYSON CANALES III N PATIENT MEDICARE (WNR) MEDICARE (M) PART B Apr 22, 2013 PART B [id number] JESYON CANALES III N PATIENT Selected Encounter This section includes the information on record at CT for the Encounter. Date/Time Encounter Type Encounter Description Reason Provider Source Jun 04, 2023 09:39 AM Outpatient Encounter EVENT (HISTORICAL) ABEL QURESHI Encounter Template Text not used by CT Plan of Treatment: Future Appointments (+ 6 months) and Future Tests (+/- 45 days) The Plan of Treatment section includes future care activities for the patient from all CT treatmentfacilities. This section includes future appointments and future orders which are active, pending or scheduled. Future Appointments This section includes appointments that were scheduled to occur 6 months from the date of the Encounter, up to a maximum of 20 appointments. The data comes from all [place] treatment facilities. Appointment Date/Time Appointment Type Appointme nt Facility Name Jun 20, 2023 01:00 PM AMB[facility]ATORY [facility] Jun 25, 2023 02:00 PM [facility] Jul 05, 2023 02:30 PM [facility]ATRY [facility] Jul 20, 2023 11:43 AM [facility] [place] [facility] Jul 26, 2023 10:00 AM [facility] Jul 26, 2023 03:30 PM [facility] [place] [facility] Aug 07, 2023 03:00 PM [place] [facility] Aug 14, 2023 09:00 AM [place] [facility] Aug 14, 2023 06:45 PM [facility] [place]ONE [place] [facility] August 29, 2023 10:00 AM [facility] September 02, 2023 02:30 PM [facility] [place] [facility] [place] [facility] Nov 05, 2023 01:45 PM [facility] [place] [place] [facility] Nov 05, 2023 03:00 PM [facility] Nov 13[facility] 2023 02:00 PM [facility] [place] [facility] Nov 14, 2023 01:15 PM AMBULATORY - SURGERY [facility] Dec 03, 2023 03:00 PM AMBULATORY - MEDICINE [facility] Lab Results: +/- 30 days of the encounter This section includes the Chemistry and Hematology Lab Results on record with CT for the patient. Radiology Reports and Pathology Reports are provided separately, in subsequent sections. Lab Results This section contains the Chemistry/Hematology Results that were resulted 30 days before or 30 daysafter the date of the Encounter. Date/Time Source Result Type Result - Unit Interpretation Reference Range Comment Jun 25, 2023 02:39 PM [facility] BNP Specimen Type: PLASMA Comment: Automated Differential Performed Ordering Provider: ANN HANDLEY Report Released Date/Time: Jun 25, 2023 02:18 PM Reporting Lab: [facility] [address] Performing Lab: [facility] [address] BNP 18 pg/mL <99 Jun 25, 2023 02:39 PM [facility] COMPREHENSIVE METABOLIC PANEL+MG Specimen Type: PLASMA Comment: Automated Differential Performed Ordering Provider: ANN HANDLEY Report Released Date/Time: Jun 25, 2023 02:18 PM Reporting Lab: [facility] [address] Performing Lab: [facility] [address] CREATININE 1.2 mg/dL 0.7-1.2 UREA NITROGEN 14 [...] 63 >60 Jun 25, 2023 02:39 PM [facility] CBC & DIFF Specimen Type: BLOOD Comment: Automated Differential Performed Ordering Provider: ANN HANDLEY Report Released Date/Time: Jun 25, 2023 02:18 PM Reporting Lab: [facility] [address] Performing Lab: [facility] [address] WBC 7.46 10*3/uL 4.0-11.0 RBC 4.50 10*6/uL [...] and tobacco- related health factors from the CT facility where the Encounter took place. Current Smoking Status This section includes the most current smoking, or tobacco-related health factor, from the CT facility where the Encounter took place. Date/Time Current Smoking Status Comment Facil jordy Aug 07, 2022 02:00 PM VA-TOBACCO USE WI 30 MIN OF WAKE UP [facility] Tobacco Use History This section includes a history of the smoking, or tobacco-related health factors, that were collected on or before the date of the Encounter. The data comes from the [place] facility where the Encounter took place. Date/Time Smoking Status/Tobacco Use Comment F acility Aug 07, 2022 02:00 PM VA-TOBACCO USE ADVICE [facility] Aug 07, 2022 02:00 PM VA-TOBACCO USE SHOE STITCHER NO [facility] Aug 07, 2022 02:00 PM VA-TOBACCO USE MED NO [facility] Aug 07, 2022 02:00 PM VA-TOBACCO USE WI 30 MIN OF WAKE UP [facility] Aug 07, 2022 02:00 PM VA-TOBACCO USER EVERY DAY [facility] Sep 26, 2021 11:00 AM VA-TOBACCO FORMER USER [facility] Sep 26, 2021 11:00 AM VA-TOBACCO QUIT < 1 YEAR [facility] Dec 20, 2020 02:00 PM VA-TOBACCO DOESNT USE WI 30 MIN WAKEUP [facility] Dec 20, 2020 02:00 PM VA-TOBACCO USE 30 YEARS OR MORE [facility] Dec 20, 2020 02:00 PM VA-TOBACCO USE ADVICE [facility] Dec 20, 2020 02:00 PM VA-TOBACCO USE SHOE STITCHER YES [facility] Dec 20, 2020 02:00 PM VA-TOBACCO USE MED YES [facility] Dec 20, 2020 02:00 PM VA-TOBACCO USER EVERY DAY [facility] Nov 23, 2019 04:25 PM VA-TOBACCO USE < 1 YEAR [facility] Nov 23, 2019 04:25 PM VA-TOBACCO USE ADVICE [facility] Nov 23, 2019 04:25 PM VA-TOBACCO USE SHOE STITCHER NO [facility] Nov 23, 2019 04:25 PM VA-TOBACCO USE MED NO [facility] Nov 23, 2019 04:25 PM VA-TOBACCO USE WI 30 MIN OF WAKE UP [facility] Nov 23, 2019 04:25 PM VA-TOBACCO USER EVERY DAY [facility] Oct 31, 2018 01:49 PM VA-TOBACCO USE 30 YEARS OR MORE [facility] Oct 31, 2018 01:49 PM VA-TOBACCO USE ADVICE [facility] Oct 31, 2018 01:49 PM VA-TOBACCO USE SHOE STITCHER NO [facility] Oct 31, 2018 01:49 PM VA-TOBACCO USE MED NO [facility] Oct 31, 2018 01:49 PM VA-TOBACCO USE WI 30 MIN OF WAKE UP [facility] Oct 31, 2018 01:49 PM VA-TOBACCO USER EVERY DAY [facility] Jul 09, 2017 09:25 AM FORMER TOBACCO USE <1Y [facility] Jul 24, 2016 09:57 AM FORMER TOBACCO USE <1Y [facility] Jul 26, 2015 09:47 AM CURRENT TOBACCO USER [facility] Jul 08, 2014 12:50 PM CURRENT TOBACCO USER [facility] Jul 20, 2013 08:30 AM CURRENT TOBACCO USER [facility] Mar 22, 2009 03:04 PM FORMER TOBACCO USE >1Y <7Y [facility] Pathology Reports: +/- 30 days of the [...] the Encounter. The data comes from all [facility] facilities. Date/Time Pathology Report Provider Source Jun 04, 2023 09:39 AM LR SURGICAL PATHOLOGY REPORT: LOCAL TITLE: LR SURGICAL PATHOLOGY REPORT STANDARD TITLE: PATHOLOGY REPORT DATE OF NOTE: JUN 04, 2023@09:39:42 ENTRY DATE: JUN 04, 2023@09:39:42 AUTHOR: ABEL QURESHI EXP COSIGNER: URGENCY: STATUS: COMPLETED $APHDR Reporting Lab: [facility] [CLIA# [id number]] [place] [address] - - - - - - - [...] Performing Laboratory: Surgical Pathology Report Performed By: [facility] [CLIA# [id number]] [place] [address] $FTR - - - - - - [...] - - - - - JOE CANALES [place] STANDARD FORM 515 ID:[id number] SEX:M :1950 AGE: 73 LOC:[id number] PCP: Prisca Agustin MD /lance/ ABEL QURESHI MD STAFF PATHOLOGIST Signed: 06/04/2023 09:39 ABEL QURESHI [facility] Encounter Notes: All associated encounter notes This section contains the clinical notes associated to the Encounter. Date/Time Encounter Note(s) Provider Source Jun 04, 2023 09:39 AM PATHOLOGY REPORT: LOCAL TITLE: LR SURGICAL PATHOLOGY REPORT STANDARD TITLE: PATHOLOGY REPORT DATE OF NOTE: JUN 04, 2023@09:39:42 ENTRY DATE: JUN 04, 2023@09:39:42 AUTHOR: ABEL QURESHI EXP COSIGNER: URGENCY: STATUS: COMPLETED $APHDR Reporting Lab: [facility] [CLIA# [id number]] [place] [address] - - - - - - - [...] multifocally. The specimen is inked. CE [facility]: Microscopic examination performed. SOX-10 [...] Performing Laboratory: Surgical Pathology Report Performed By: [facility] [CLIA# [id number]] [place] [address] $FTR - - - - - - [...] - - - - - JOE CANALES [place] STANDARD FORM 515 ID:[id number] SEX:M :1950 AGE: 73 LOC:[id number] PCP: Prisca Agustin MD /lance/ ABEL QURESHI MD STAFF PATHOLOGIST Signed: 06/04/2023 09:39 ABEL QURESHI [facility]
--- OUTSIDE RECORDS SUMMARY | 2024-04-12 13:11 | XMS_ITS | Encounter Summary ---
Author Name [facility] [place] [facility] [place] [facility] [facility] [place] Address [address] [place] [address] Care Team Providers Care Licensed Veterinary Technician Name Role Phone KARI HARLEY Primary Care [...] Alvarez's Name Patient's Relationship to Policy Alvarez [facility] (WNR) MEDICAID MEDIC AID Apr 22, 2015 [id number] [phone] JOE CANALES PATIENT MEDICARE (WNR) MEDICARE (M) PART A Apr 22, 2013 PART A [id number] JEYSON CANALES III N PATIENT MEDICARE (WNR) MEDICARE (M) PART B Apr 22, 2013 PART B [id number] JEYSON CANALES III N PATIENT MEDICARE (WNR) MEDICARE (M) PART A Apr 22, 2013 PART A [id number] JEYSON CANALES III N PATIENT MEDICARE (WNR) MEDICARE (M) PART B Apr 22, 2013 PART B [id number] [phone] JEYSON CANALES III N PATIENT MEDICARE (WNR) MEDICARE (M) PART A Apr 22, 2013 PART A [id number] JEYSON CANALES III N PATIENT MEDICARE (WNR) MEDICARE (M) PART B Apr 22, 2013 PART B [id number] JEYSON CANALES III N PATIENT Selected Encounter This section includes the information on record at [place] for the Encounter. Date/Time Encounter Type Encounter Description Reason Provider Source Jun 25, 2023 02:00 PM OFFICE O/P EST HI 40 MIN PRIMARY CARE/MEDICINE ICD-10-CM M13.0 Polyarthritis, unspecified OLIVARES LILA,BAHAMIAN CHRIS E Encounter Template Text not used by [place] Assessments - Encounter Diagnoses This section includes the primary and secondary diagnoses documented for the Encounter. Date/Time Primary/Secondary Diagnosis Diagnosis Name Provider Source Jun 25, 2023 02:46 PM PRIMARY Polyarthritis, unspecified OLIVARES LILA,[facility] Jun 25, 2023 02:46 PM SECONDARY Anxiety disorder, unspecified OLIVARES LILA,[facility] Jun 25, 2023 02:46 PM SECONDARY Hyperlipidemia, unspecified OLIVARES LILA,[facility] Jun 25, 2023 02:46 PM SECONDARY Meralgia paresthetica, left lower limb OLIVARES LILA,[facility] Jun 25, 2023 02:46 PM SECONDARY Post-traumatic stress disorder, chronic OLIVARES LILA,[facility] Plan of Treatment: Future Appointments (+ 6 months) and Future Tests (+/- 45 days) The Plan of Treatment section includes future care activities for the [facility] [place] [facility] This section includes future appointments and future orders which are active, pending or scheduled. Future Appointments This section includes appointments that were scheduled to occur 6 months from the date of the Encounter, up to a maximum of 20 appointments. The data comes from all [place] [facility]. Appointment Date/Time Appointment Type Appointme nt Facility Name Jul 05, 2023 02:30 PM AMBULATORY - PSYCHIATRY [facility] Jul 20, 2023 11:43 AM AMBULATORY - NONE [place] [facility] Jul 26, 2023 10:00 AM AMBULATORY [place]IC[place] [facility] Jul 26, 2023 03:30 PM AMBULATORY - [place]CHIAT[place] [facility] Aug 07, 2023 03:00 PM AMBULATORY [place]AT[place] [facility] Aug 14, 2023 09:00 AM AMBULATORY [place]AT[place] [facility] Aug 14, 2023 06:45 PM AMBULATORY - NONE [place] [facility] August 29, 2023 10:00 AM AMBULATORY [place]CHIATRY [place] [facility] September 02, 2023 02:30 PM AMBULATORY - NONE [place] [facility] Nov 05, 2023 01:45 PM AMBULATORY - NONE [place] [facility] Nov 05, 2023 03:00 PM [place]ORY - [place]ICINE [place] [facility] Nov 13, 2023 02:00 PM AMBULATORY - [place]CHIATRY [place] [facility] Nov 14, 2023 01:15 PM AMBULATORY - SURGERY [facility] Dec 03, 2023 03:00 PM [place]IC[place] [facility] Dec 18, 2023 09:30 AM AMBULATORY - SURGERY [place] [facility] Lab Results: +/- 30 days of the encounter This section includes the Chemistry and Hematology Lab Results on record with [place] for the patient. Radiology Reports and Pathology Reports are provided separately, in subsequent sections. Lab Results This section contains the Chemistry/Hematology Results that were resulted 30 days before or 30 daysafter the date of the Encounter. Date/Time Source Result Type Result - Unit Interpretation Reference Range Comment Jun 25, 2023 02:39 PM [facility] BNP Specimen Type: PLASMA Comment: Automated Differential Performed Ordering Provider: ANN HANDLEY Report Released Date/Time: Jun 25, 2023 02:18 PM Reporting Lab: [facility] [place] [address] Performing Lab: [facility] [place] [address] BNP 18 pg/mL <99 Jun 25, 2023 02:39 PM [facility] COMPREHENSIVE METABOLIC PANEL+MG Specimen Type: PLASMA Comment: Automated Differential Performed Ordering Provider: ANN HANDLEY Report Released Date/Time: Jun 25, 2023 02:18 PM Reporting Lab: [facility] [place] [address] Performing Lab: [facility] [place] [address] CREATININE 1.2 mg/dL 0.7-1.2 UREA NITROGEN 14 [...] 63 >60 Jun 25, 2023 02:39 PM [facility] CBC & DIFF Specimen Type: BLOOD Comment: Automated Differential Performed Ordering Provider: ANN HANDLEY Report Released Date/Time: Jun 25, 2023 02:18 PM Reporting Lab: [facility] [place] [address] Performing Lab: [facility] [place] [address] WBC 7.46 10*3/uL 4.0-11.0 RBC 4.50 10*6/uL [...] 0.4 ABS IMMATURE GRAN 0.03 10*3/uL 0-0.1 Vital Signs: All taken on the encounter date This section contains inpatient and outpatient Vital Signs collected on the date of the Encounter. Date/Time Temperature Pulse Blood Pressure Respiratory Rate SP02 Pain Height Weight Body Mass Index Source Jun 25, 2023 01:24 PM 98 76 121/67 16 95 0 67 175 27 [facility] Social History: Smoking Status (Most current) and Tobacco Use (All prior to encounter date) This section includes the most current, and the historical, smoking and tobacco- related health factors from the [place] facility where the Encounter took place. Current Smoking Status This section includes the most current smoking, or tobacco-related health factor, from the [place] facility where the Encounter took place. Date/Time Current Smoking Status Comment Esau ity Jun 25, 2023 02:00 PM VA-TOBACCO USER EVERY DAY [facility] Tobacco Use History This section includes a history of the smoking, or tobacco-related health factors, that were collected on or before the date of the Encounter. The data comes from the [place] facility where the Encounter took place. 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 NO [facility] Jun 25, 2023 02:00 PM VA-TOBACCO USE MED NO [facility] Jun 25, 2023 02:00 PM VA-TOBACCO USER EVERY DAY [facility] Aug 07, 2022 02:00 PM VA-TOBACCO USE 30 YEARS OR MORE [facility] Aug 07, 2022 02:00 PM VA-TOBACCO USE ADVICE [facility] Aug 07, 2022 02:00 PM VA-TOBACCO USE TELEMARKETING MANAGER NO [facility] Aug 07, 2022 02:00 PM VA-TOBACCO USE MED NO [facility] Aug 07, 2022 02:00 PM VA-TOBACCO USE WI 30 MIN OF WAKE UP [facility] Aug 07, 2022 02:00 PM VA-TOBACCO USER EVERY DAY [facility] Sep 26, 2021 11:00 AM VA-TOBACCO FORMER USER [facility] Sep 26, 2021 11:00 AM VA-TOBACCO QUIT < 1 YEAR [facility] Dec 20, 2020 02:00 PM VA-TOBACCO DOESNT USE WI 30 MIN WAKEUP [facility] Dec 20, 2020 02:00 PM VA-TOBACCO USE 30 YEARS OR MORE [facility] Dec 20, 2020 02:00 PM VA-TOBACCO USE ADVICE [facility] Dec 20, 2020 02:00 PM VA-TOBACCO USE TELEMARKETING MANAGER YES [facility] Dec 20, 2020 02:00 PM VA-TOBACCO USE MED YES [facility] Dec 20, 2020 02:00 PM VA-TOBACCO USER EVERY DAY [facility] Nov 23, 2019 04:25 PM VA-TOBACCO USE < 1 YEAR [facility] Nov 23, 2019 04:25 PM VA-TOBACCO USE ADVICE [facility] Nov 23, 2019 04:25 PM VA-TOBACCO USE TELEMARKETING MANAGER NO [facility] Nov 23, 2019 04:25 PM VA-TOBACCO USE MED NO [facility] Nov 23, 2019 04:25 PM VA-TOBACCO USE WI 30 MIN OF WAKE UP [facility] Nov 23, 2019 04:25 PM VA-TOBACCO USER EVERY DAY [facility] Oct 31, 2018 01:49 PM VA-TOBACCO USE 30 YEARS OR MORE [facility] Oct 31, 2018 01:49 PM VA-TOBACCO USE ADVICE [facility] Oct 31, 2018 01:49 PM VA-TOBACCO USE TELEMARKETING MANAGER NO [facility] Oct 31, 2018 01:49 PM VA-TOBACCO USE MED NO [facility] Oct 31, 2018 01:49 PM VA-TOBACCO USE WI 30 MIN OF WAKE UP [facility] Oct 31, 2018 01:49 PM VA-TOBACCO USER EVERY DAY [facility] Jul 09, 2017 09:25 AM FORMER TOBACCO USE <1Y [facility] Jul 24, 2016 09:57 AM FORMER TOBACCO USE <1Y [facility] Jul 26, 2015 09:47 AM CURRENT TOBACCO USER [facility] Jul 08, 2014 12:50 PM CURRENT TOBACCO USER [facility] Jul 20, 2013 08:30 AM CURRENT TOBACCO USER [facility] Mar 22, 2009 03:04 PM FORMER TOBACCO USE >1Y <7Y [facility] Pathology Reports: +/- 30 days of [...] the Encounter. The data comes from all [place] treatment facilities. Date/Time Pathology Report Provider Source Jun 04, 2023 09:39 AM LR SURGICAL PATHOLOGY REPORT: LOCAL TITLE: LR SURGICAL PATHOLOGY REPORT STANDARD TITLE: PATHOLOGY REPORT DATE OF NOTE: JUN 04, 2023@09:39:42 ENTRY DATE: JUN 04, 2023@09:39:42 AUTHOR: ABEL QURESHI EXP COSIGNER: URGENCY: STATUS: COMPLETED $APHDR Reporting Lab: [facility] [CLIA# [id number]] [place] [address] - - - - - - - [...] Performing Laboratory: Surgical Pathology Report Performed By: [facility] [CLIA# [id number]] [place] [address] $FTR - - - - - - - - - - - - - - - - - - - - - - - - - - - - - - - - - - - - - - - - (End of report) ABEL QURESHI MD [facility] Date Jun 04, 2023 - - - - - - - - - - - - - - - - - - - - - - - - - - - - - - - - - - - - - - - - JOE CANALES STANDARD FORM 515 ID:[id number] SEX:M :1950 AGE: 73 LOC:[id number] PCP: Prisca Agustin MD /lance/ ABEL QURESHI MD STAFF PATHOLOGIST Signed: 06/04/2023 09:39 ABEL QURESHI [facility] Encounter Notes: All associated encounter notes This section contains the clinical notes associated to the Encounter. Date/Time Encounter Note(s) Provider Source Jun 25, 2023 02:36 PM INTERNAL MEDICINE NOTE: LOCAL TITLE: MEDICINE CLINIC NOTE STANDARD TITLE: INTERNAL MEDICINE NOTE DATE OF NOTE: JUN 25, 2023@14:36 ENTRY DATE: JUN 25, 2023@14:37:03 AUTHOR: ANN HANDLEY EXP COSIGNER: URGENCY: STATUS: COMPLETED JOE CANALES is a 73 year old MALE here for evaluation of periods of dark vision without LOC. He denies current alcohol or drug use. Nurse's note and prior clinic notes reviewed. _ Current concerns/HPI: Mr. Canales comes in today for evaluation of episodes in which he has dark vision without loss of consciousness. He says that these episodes have happened when he is in an argument with his daughter and daughter's boyfriend. He says that he feels palpitations and then has black vision. During this time he continues with the argument/engagement and symptoms resolve once the argument has been resolved. This is happened 3 times last time last Saturday. He denies loss of consciousness, chest pain, fainting, lightheadedness, dizziness. He relates this to previous PTSD episodes for which he continues to follow-up with mental health. _ Review of Systems: Complete ROS negative except for as noted above. Past medical history/Active Problems: Active problems - Computerized Problem List is the source for the followin. Co-Managed Care - Dr Wyatt, PCP, Dilip Roach - Dr Jose Martin Pepe, psychiatrist, [facility] 2. Arthritis (SNOMED CT 6886826) 3. Depression (SNOMED CT 61736162) 4. Obsessive-Compulsive Disorder 5. Anxiety (SNOMED CT 38840285) 6. Hyperlipidemia (SNOMED CT 92307430) 7. Dyspnea 8. Obstructive sleep apnea syndrome - (mild) Dental appliance recommended 9. Insomnia 10. Benign prostatic hyperplasia 11. Cannabis dependence in remission - Quit June, - Daily use x 20 years 12. Tobacco dependence syndrome - Smoking 1/2 ppd - 45 pack year history 13. Hearing loss 14. Osteopenia 15. Chronic post-traumatic stress disorder 16. Meralgia paresthetica of left leg Surgical History: SURGERIES - NONE FOUND Family history: Not relevant to current complaints. Allergies: AMOXICILLIN (Oct 02, 1995) CECLOR (Oct 02, 1995) NAPROXEN (Oct 06, 2021) RAMELTEON (Oct 06, 2021) Active Outpatient Medications (excluding Supplies): Outpatient Medications Status 1) ASPIRIN 81MG EC TAB TAKE ONE TABLET BY MOUTH EVERY ACTIVE DAY 2) DOXAZOSIN MESYLATE 8MG TAB TAKE ONE TABLET BY MOUTH ACTIVE EVERY DAY FOR URINATION 3) DOXAZOSIN MESYLATE 8MG TAB TAKE ONE TABLET BY MOUTH PENDING EVERY DAY FOR URINATION 4) FAMOTIDINE 20MG TAB TAKE ONE TABLET BY MOUTH EVERY ACTIVE DAY FOR HEARTBURN TO DECREASE STOMACH ACID. *NOTE CHANGE TO ONCE A DAY* 5) FLUOXETINE HCL 20MG CAP TAKE FOUR CAPSULES BY MOUTH ACTIVE EVERY DAY 6) QUETIAPINE FUMARATE 300MG TAB TAKE ONE TABLET BY ACTIVE MOUTH AT BEDTIME 7) SIMVASTATIN 40MG TAB TAKE ONE TABLET BY MOUTH AT ACTIVE BEDTIME FOR CHOLESTEROL _ EXAM: VS: Temp: 98 F [36.7 C] (06/25/2023 13:24) BP: 121/67 (06/25/2023 13:24) Pulse:76 (06/25/2023 13:24) Resp: 16 (06/25/2023 13:24) Pain: 0 (06/25/2023 13:24) Weight: WEIGHTS IN LAST 6 MONTHS: 175 (JUN 25, 2023@13:24:29) O2 sat: 95% (06/25/2023 13:24) General: Alert, well developed, NAD HEENT: Head normocephalic, sclera anicteric, mucous membranes moist Lungs: Nonlabored respirations, on RA, clear breath sounds, normal effort CV: RRR, S1S2, no murmurs Pulses: distal pulses palpable and symmetric Abdomen: Soft, obese, nontender, nondistended Extremities: No deformities, warm, dry, no edema Skin: Warm, dry, no visible lesions Neuro: Appropriate, oriented, no abnormal movements Psych: Pleasant, cooperative, attentive Data/Labs Reviewed: . LAB RESULTS LAST 48 HRS - NONE FOUND _ ASSESSMENT & PLAN: JOE CANALES is a 73 year old MALE with the following active issues today: #Dark vision #Palpitations Concern usually related to acute stress. Although palpitations require further diagnostic work-up. No history of CAD or heart failure. Blood pressure within normal limits. -BP monitoring at home -CBC, CMP -ZioPatch -Advised to call 911 if episodes happen again for comprehensive acute evaluation Advanced Directive: None Return to clinic 4 months. Future Appointments: JUN 25, 2023@14:00 Clinic: [facility] 01 WH 4F JUL 05, 2023@14:30 Clinic: [facility] PHONE [place] 1P-[id number] Patient staffed with Dr. Bennie Sharp MD, PhD Resident Physician Internal Medicine _ MEDICATION RECONCILIATION: The medication list above was reviewed with the patient/surrogate at today's visit. I have indicated discrepancies under each medication that is not being taken as prescribed. I have reviewed the medication list for possible drug: drug interactions or contraindications prior to ordering NEW medications during this visit. (x) Patient ( )Family Member ( )Caregiver indicated readiness to learn and has been instructed on action, dose, frequency and side effects of the new medication and I noted new medication on participant's copy of the medication list. (x) Verbalizes understanding of instructions. ( ) Needs additional reinforcement of instructions(sent to Pharmacist). EDUCATION ON TREATMENT PLAN: Patient indicates readiness to learn, verbalizes understanding, agreement and satisfaction with the treatment plan. All questions addressed. /lance/ ANN SHARP RESIDENT PHYSICIAN Signed: 06/25/2023 14:46 ANN HANDLEY [facility] Jun 25, 2023 01:26 PM INTERNAL MEDICINE OUTPATIENT NOTE: LOCAL TITLE: MEDICINE CLINIC NURSING NOTE STANDARD TITLE: INTERNAL MEDICINE OUTPATIENT NOTE DATE OF NOTE: JUN 25, 2023@13:26 ENTRY DATE: JUN 25, 2023@13:26:55 AUTHOR: FEDE BRUCE COSIGNER: URGENCY: STATUS: COMPLETED MEDICINE CLINIC NURSING NOTE Has ADDENDA TYPE OF VISIT: Appointment Check In Type of appointment: In-person appointment REASON FOR VISIT: blackouts stress related ALLERGIES: AMOXICILLIN (Oct 02, 1995) CECLOR (Oct 02, 1995) NAPROXEN (Oct 06, 2021) RAMELTEON (Oct 06, 2021) VITAL SIGNS: Blood Pressure: 121/67 (06/25/2023 13:24) Pulse: 76 (06/25/2023 13:24) Respiration: 16 (06/25/2023:) Temperature: 98 F [36.7 C] (06/25/2023:) Weight: 175 lb [79.38 kg] (06/25/2023:) Height: 67 in [170.2 cm] (06/25/2023:) BMI: 27.5 O2 Sat: 95% (06/25/2023:) Pain: 0 (06/25/2023:) PAIN SCREEN: Patient is not having significant pain that they wish to discuss with their provider today. MEDICATION Over the Counter/Herbal Medications: The patient denies taking any outside medications or herbals. Tobacco Use Screening: The patient uses tobacco every day. The patient does not use tobacco within 30 minutes of waking up. The patient has been smoking or using tobacco for thirty years or more. Patient was advised to quit smoking and/or using tobacco. Discussion with patient included: - Quitting smoking or tobacco use is one of the most important things you can do to protect and improve your health and [place] has the resources to support you. - Set a quit date when you are ready to quit. - Get support from your family and friends. - Review any past quit attempts- What helped? What didn't? - On the day you plan to quit, get rid of all cigarettes and tobacco products from your home, car or work. - Using a combination of behavioral counseling or other support strategies and FDA-approved cessation medications is the most effective way to ensure success in quitting. Patient was offered Behavioral Counseling and other support strategies to assist with quitting. Discussion with patient included: - Behavioral counseling or other support strategies greatly increases your chances of successfully quitting smoking or tobacco use by helping you develop a quit plan and providing support and other strategies to make behavioral changes to help you quit. - [place] has a number of behavioral counseling options to help you with quitting, including: * Provide information about the facility smoking or tobacco use treatment options or clinics * [place]'s national quitline, 5-807-XREE-VET, with counseling available Saturday-Saturday The patient was not interested in receiving additional information about how to use the treatment options discussed. Patient was offered FDA-approved cessation medications. Discussion with patient included: - Medications for Nicotine replacement therapy such as the patch, gum or lozenge, and other medications such as varenicline or bupropion, can play an important role in the initial weeks and months after you quit smoking or tobacco use. - Medications help with cravings and withdrawal symptoms and they greatly increase your chances of successfully quitting. The patient was not interested in a prescription for tobacco cessation medications. Influenza Immunization: The patient declines to receive the recommended dose of seasonal influenza vaccine. Immunization: INFLUENZA, UNSPECIFIED FORMULATION Refusal Reason: PATIENT DECISION Patient refuses all immunization(s) in the FLU group Date Documented: 06/25/23 13:28 COVID-19 Immunization: Refused Pfizer Monovalent COVID-19 vaccine Immunization: COVID-19 (PFIZER), MRNA, LNP-S, PF, SAÚL-SUCROSE, 30 MCG/0.3 ML (AGES 12+ YEARS) Refusal Reason: PATIENT DECISION Patient refuses all immunization(s) in the COVID-19 group Date Documented: 06/25/23 13:28 /don BRUCE LPN Signed: 06/25/2023 13:28 06/25/2023 ADDENDUM STATUS: COMPLETED EDUCATION: PARTICIPANT(s): Home Blood Pressure Monitoring Home Blood Pressure monitor ordered. Instructed on the technique of taking and recording blood pressure using home blood pressure machine. Patient measured for BP cuff size: medium Prosthetics consult sent for Blood Pressure machine. Goal BP:<140/90 /lance/ FEDE BRUCE LPN Signed: 06/25/2023 14:27 FEDE BRUCE [facility]
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
--- OUTSIDE RECORDS SUMMARY | 2024-04-12 13:12 | XMS_ITS | Encounter Summary ---
Author Name [facility] [facility] [place] [facility] [place] Address [address] [place] [address] Care Team Providers Care Stock Parts Inspector Name Role Phone KARI HARLEY Primary Care [...] Alvarez's Name Patient's Relationship to Policy Alvarez [facility] (WNR) MEDICAID MEDIC AID Apr 22, 2015 [id number] [phone] JOE CANALES PATIENT MEDICARE (WNR) MEDICARE (M) PART A Apr 22, 2013 PART A [id number] [phone] JEYSON CANALES III N PATIENT MEDICARE (WNR) MEDICARE (M) PART B Apr 22, 2013 PART B [id number] [phone] JEYSON CANALES III N PATIENT MEDICARE (WNR) MEDICARE (M) PART A Apr 22, 2013 PART A [id number] JEYSON CANALES III N PATIENT MEDICARE (WNR) MEDICARE (M) PART B Apr 22, 2013 PART B [id number] JEYSON CANALES III N PATIENT MEDICARE (WNR) MEDICARE (M) PART A Apr 22, 2013 PART A [id number] JEYSON CANALES III N PATIENT MEDICARE (WNR) MEDICARE (M) PART B Apr 22, 2013 PART B [id number] JEYSON CANALES III N PATIENT Selected Encounter This section includes the information on record at [place] for the Encounter. Date/Time Encounter Type Encounter Description Reason Provider Source Jul 26, 2023 10:00 AM OFFICE O/P EST HI 40 MIN PRIMARY CARE/MEDICINE ICD-10-CM W10.8XXD Fall (on) (from) other stairs and steps, subs SILAS Farmer Encounter Template Text not used by [place] Assessments - Encounter Diagnoses This section includes the primary and secondary diagnoses documented for the Encounter. Date/Time Primary/Secondary Diagnosis Diagnosis Name Provider Source Jul 26, 2023 12:41 PM PRIMARY Fall (on) (from) other stairs and steps, subs RICARDO Sun [facility] Jul 26, 2023 12:41 PM SECONDARY Laceration without foreign body of scalp, subs [facility] Plan of Treatment: Future Appointments (+ 6 months) and Future Tests (+/- 45 days) The Plan of Treatment section includes future care activities for the patient from all [place] hospitalities. This section includes future appointments and future [...] 07, 2023 03:00 PM AMBULATORY - PSYCHIATRY [facility] Aug 14, 2023 09:00 AM AMBULATORY - PSYCHIATRY [facility] Aug 14, 2023 06:45 PM AMBULATORY - NONE [facility] August 29, 2023 10:00 AM AMBULATORY - PSYCHIATRY [facility] September 02, 2023 02:30 PM AMBULATORY - NONE [place] [facility] Nov 05, 2023 01:45 PM AMBULATORY - NONE JUANCARLOSO KRISTINA [facility] Nov 05, 2023 03:00 PM AMBULATORY - MEDICINE CARLOS MERCADO [facility] Nov 13, 2023 02:00 PM AMBUL[facility] Nov 14, 2023 01:15 PM AMBULATORY - SURGERY [facility] DANYGuanaco [facility] Dec 03, 2023 03:00 PM [facility] Dec 18, 2023 09:30 AM AMBULATORY - SURGERY [facility] Vital Signs: All taken on the encounter date This section contains inpatient and outpatient Vital Signs collected on the date of the Encounter. Date/Time Temperature Pulse Blood Pressure Respiratory Rate SP02 Pain Height Weight Body Mass Index Source Jul 26, 2023 09:52 AM 97.6 77 120/68 16 92 1 67 170 27 [facility] Social History: Smoking Status (Most current) [...] 2023 02:00 PM VA-TOBACCO USER EVERY DAY [facility] Tobacco Use History This section includes a history of the smoking, or tobacco-related health factors, that were collected on or before the date of the Encounter. The data comes from the [place] facility where the Encounter took place. Date/Time Smoking Status/Tobacco Use Comment F acility Jun 25, 2023 02:00 PM VA-TOBACCO USE 30 YEARS OR MORE [facility] Jun 25, 2023 02:00 PM VA-TOBACCO USE ADVICE [facility] Jun 25, 2023 02:00 PM VA-TOBACCO USE SUSTAINABILITY DIRECTOR NO [facility] Jun 25, 2023 02:00 PM VA-TOBACCO USE MED NO [facility] Jun 25, 2023 02:00 PM VA-TOBACCO USER EVERY DAY [facility] Aug 07, 2022 02:00 PM VA-TOBACCO USE 30 YEARS OR MORE [facility] Aug 07, 2022 02:00 PM VA-TOBACCO USE ADVICE [facility] Aug 07, 2022 02:00 PM VA-TOBACCO USE SUSTAINABILITY DIRECTOR NO [facility] Aug 07, 2022 02:00 PM VA-TOBACCO USE MED NO [facility] Aug 07, 2022 02:00 PM VA-TOBACCO USE WI 30 MIN OF WAKE UP [facility] Aug 07, 2022 02:00 PM VA-TOBACCO USER EVERY DAY [facility] Sep 26, 2021 11:00 AM VA-TOBACCO FORMER USER [facility] Sep 26, 2021 11:00 AM VA-TOBACCO QUIT < 1 YEAR [facility] Dec 20, 2020 02:00 PM VA-TOBACCO DOESNT USE WI 30 MIN WAKEUP [facility] Dec 20, 2020 02:00 PM VA-TOBACCO USE 30 YEARS OR MORE [facility] Dec 20, 2020 02:00 PM VA-TOBACCO USE ADVICE [facility] Dec 20, 2020 02:00 PM VA-TOBACCO USE SUSTAINABILITY DIRECTOR YES [facility] Dec 20, 2020 02:00 PM VA-TOBACCO USE MED YES [facility] Dec 20, 2020 02:00 PM VA-TOBACCO USER EVERY DAY [facility] Nov 23, 2019 04:25 PM VA-TOBACCO USE < 1 YEAR [facility] Nov 23, 2019 04:25 PM VA-TOBACCO USE ADVICE [facility] Nov 23, 2019 04:25 PM VA-TOBACCO USE SUSTAINABILITY DIRECTOR NO [facility] Nov 23, 2019 04:25 PM VA-TOBACCO USE MED NO [facility] Nov 23, 2019 04:25 PM VA-TOBACCO USE WI 30 MIN OF WAKE UP [facility] Nov 23, 2019 04:25 PM VA-TOBACCO USER EVERY DAY [facility] Oct 31, 2018 01:49 PM VA-TOBACCO USE 30 YEARS OR MORE [facility] Oct 31, 2018 01:49 PM VA-TOBACCO USE ADVICE [facility] Oct 31, 2018 01:49 PM VA-TOBACCO USE SUSTAINABILITY DIRECTOR NO [facility] Oct 31, 2018 01:49 PM VA-TOBACCO USE MED NO [facility] Oct 31, 2018 01:49 PM VA-TOBACCO USE WI 30 MIN OF WAKE UP [facility] Oct 31, 2018 01:49 PM VA-TOBACCO USER EVERY DAY [facility] Jul 09, 2017 09:25 AM FORMER TOBACCO USE <1Y [facility] Jul 24, 2016 09:57 AM FORMER TOBACCO USE <1Y [facility] Jul 26, 2015 09:47 AM CURRENT TOBACCO USER [facility] Jul 08, 2014 12:50 PM CURRENT TOBACCO USER [facility] Jul 20, 2013 08:30 AM CURRENT TOBACCO USER [facility] Mar 22, 2009 03:04 PM FORMER TOBACCO USE >1Y <7Y [facility] Encounter Notes: All associated encounter notes This section contains the clinical notes associated to the Encounter. Date/Time Encounter Note(s) Provider Source Jul 26, 2023 10:10 AM INTERNAL MEDICINE NOTE: LOCAL TITLE: MEDICINE CLINIC NOTE STANDARD TITLE: INTERNAL MEDICINE NOTE DATE OF NOTE: JUL 26, 2023@10:10 ENTRY DATE: JUL 26, 2023@10:11:02 AUTHOR: RICARDO REGALADO COSIGNER: URGENCY: STATUS: COMPLETED MEDICINE CLINIC NOTE Has ADDENDA JOE CANALES is a 73 year old MALE with the following chief complaint: ED hospital follow up Nurse's Note Reviewed. Assessment and Plan: # Fall subsequent visit # Head laceration Improving. Fall was a mechanical fall and not caused by any medical condition. Laceration on his scalp is well approximated with minimal scabbing and eryhtema, there is no visualized drainaged. 16 sutures were removed. Suspect pain will continue to improve over time. Discussed conservative measures for pain relief including ice/heat, PT, and acetaminophen as needed. - Sutures removed and ointment placed on healed laceration - Discussed wound cares and keeping site clean and dry - Advised of symptoms to be alert for and when to seek care - Recommend PT if pain persists and conservative pain relief measures # Tobacco use [place] reports today is day one of quitting smoking. Congratulated on his decision and offered resources including NRT and tobacco cessation groups. declines and states cold turkey is what has worked best for him in the past. - Gave contact numbers to follow up should he change his mind Follow up in 3 months or sooner as needed. HPI/ROS: JOE CANALES is a 73 year old with a PMH significant for MDD, OCD, HLD, DYLAN, BPH, and PTSD that presents to the clinic for an ED hospital follow up. On July 20, 2023 he was carrying a twin headboard down his stairs when he adjusted grib on the headboard and lost his footing. Fell down 8-10 stairs head first, and onto his right side. Hit his head on the corner of the base board where it was sharp. Lost concisousness and when woke up called 911. Was brought to [facility] in [facility] and had CTs of his brain, abdomen and cervical spine which we all normal. Had an XR of his right leg which was negative for fracture and an EKG was NSR. 16 sutures were placed in head that were dated to be removed 07/24. He was dischaged home with his son. Since then he states he still has some minor pain in his head (mainly where the sutures are) and in his neck. Rates this at worst about 5/5. Brusing on his right side is almost gone and lacerations are healing well. Denies any fevers, headaches, nausea, memory loss, wound drainage or weakness. Past medical history/Active Problems: Active problems - Computerized Problem List is the source for the followin. Co-Managed Care - Dr Wyatt, PCP, [facility] - Dr Jose Martin Pepe, psychiatrist, [facility] 2. Arthritis (SNOMED CT 6467222) 3. Depression (SNOMED CT 33991146) 4. Obsessive-Compulsive Disorder 5. Anxiety (SNOMED CT 08470651) 6. Hyperlipidemia (SNOMED CT 26993377) 7. Dyspnea 8. Obstructive sleep apnea syndrome - (mild) Dental appliance recommended 9. Insomnia 10. Benign prostatic hyperplasia 11. Cannabis dependence in remission - Quit June, - Daily use x 20 years 12. Tobacco dependence syndrome - Smoking 1/2 ppd - 45 pack year history 13. Hearing loss 14. Osteopenia 15. Chronic post-traumatic stress disorder 16. Meralgia paresthetica of left leg 17. Exposure to potentially hazardous substance ([facility] [id number]) - Entered through [facility]/VISN23 ZANDRA Documentation Initiative EXAM: VS: Temp: 97.6 F [36.4 C] (07/26/2023 09:52) BP: 120/68 (07/26/2023 09:52) Pulse:77 (07/26/2023 09:52) Resp: 16 (07/26/2023 09:52) Pain: 1 (07/26/2023 09:52) Weight: WEIGHTS IN LAST 6 MONTHS: 170 (JUL 26, 2023@09:52:02) 175 (JUN 25, 2023@13:24:29) O2 sat: 92% (07/26/2023 09:52) General: alert, well appearing and in no apparent distress HEENT: Normocephalic. 5 inch well approximated laceration of the right posterior scalp, no drainage or erythema. EOMI, PERRL. Bilateral canal clear with minimal cerumen present, TM cuenca with light reflex present, no erythema, discharge. Neck supple with full ROM. Cardiovascular: RRR and no MGR Pulmonary: CTAB, no wheezes, rales or rhonchi and normal respiratory effort Abdomen: soft, nondistended, nontender and no hepatosplenomegaly. Neurologic: CN II-XII intact, normal speech, alert and oriented x 4. Gait steady. No sensory deficits. Extremities: motor strength intact +5/5 bilateral upper and lower. No peripheral edema. Skin: Well approximated laceration of the scalp. 2 cm healing laceration of the right foreharm with no periwound erythema and no drainage. Psychiatric: affect/mood normal, cooperative, normal judgment/insight Data/Labs: LAB RESULTS LAST 48 HRS - NONE FOUND Patient staffed with Dr. Feliz Portions of this chart were created using voice recognition software. Please excuse any typographical errors and word substitutions. Education on Treatment Plan: Patient indicates readiness to learn, verbalizes understanding, agreement and satisfaction with the treatment plan. Denies further questions. Patient indicates readiness to learn and has been instructed on action, dose, frequency, and side effects of medications. Patient verbalizes understanding. The medication list above was reviewed with the patient at today's visit. I have indicated discrepancies under each medication that is not being taken as prescribed. I have updated the medicines under the med tab as appropriate. Medication Reconciliation: Education Evaluations *Was medication education provided for NEW medications or CHANGES to medications? (including medication name, dose, route, reason for use, and potential side effects). No new medications or medication changes during this encounter. TERATOGENIC MED & CONTRACEPTION REVIEW (Optional)... = MEDICATION RECONCILIATION = Review Done: The medication list shown below was verified for accuracy and it includes all pending medications/active medications/all medications or discontinued within the last 90 days/all remote medications and non-VA medications. If a given category (i.e. remote meds) is not shown, that means that a patient doesn't have a medication(s) in that category. Allergies listed below were also reviewed/updated for accuracy. Allergies/ADR from [employer] may not display in CPRS. Use JLV MRT5 - Allergies/ADRs FACILITY ALLERGY/ADR -------- [facility] AMOXICILLIN [facility] CEFACLOR [facility] NAPROXEN [facility] RAMELTEON [facility] AMOXICILLIN [facility] CECLOR [facility] NAPROXEN [facility] [place]EL[facility]ON Active and Recently Outpatient Medications (including Supplies): Issue Date Status Last Fill Active Outpatient Medications Refills Expiration 1) ASPIRIN 81MG EC TAB Qty: 120 for 90 ACTIVE Issu:10-30-22 days Sig: TAKE ONE TABLET BY MOUTH Refills: 2 Last:03-15-23 EVERY DAY Expr:10-31-23 2) DOXAZOSIN MESYLATE 8MG TAB Qty: 90 for ACTIVE (S) Issu:06-25-23 90 days Sig: TAKE ONE TABLET BY MOUTH Refills: 2 Last:09-13-23 EVERY DAY FOR URINATION Expr:06-25-24 3) FAMOTIDINE 20MG TAB Qty: 90 for 90 days ACTIVE Issu:10-30-22 Sig: TAKE ONE TABLET BY MOUTH EVERY Refills: 0 Last:07-20-23 DAY FOR HEARTBURN TO DECREASE STOMACH Expr:10-31-23 ACID. *NOTE CHANGE TO ONCE A DAY* 4) FLUOXETINE HCL 20MG CAP Qty: 360 for 90 ACTIVE Issu:10-24-22 days Sig: TAKE FOUR CAPSULES BY MOUTH Refills: 1 Last:05-20-23 EVERY DAY Expr:10-25-23 5) QUETIAPINE FUMARATE 300MG TAB Qty: 90 ACTIVE Issu:10-24-22 for 90 days Sig: TAKE ONE TABLET BY Refills: 1 Last:07-09-23 MOUTH AT BEDTIME Expr:10-25-23 6) SIMVASTATIN 40MG TAB Qty: 90 for 90 ACTIVE Issu:01-07-23 days Sig: TAKE ONE TABLET BY MOUTH AT Refills: 1 Last:07-04-23 BEDTIME FOR CHOLESTEROL Expr:01-08-24 Issue Date Status Last Fill Inactive Outpatient Medications Refills Expiration 1) DOXAZOSIN MESYLATE 8MG TAB Qty: 60 for DISCONTINUED Issu:05-13-23 60 days Sig: TAKE ONE TABLET BY MOUTH Refills: 5 Last:05-13-23 EVERY DAY FOR URINATION Expr:05-13-24 2) MUPIROCIN 2% OINT Qty: 22 for 30 days DISCONTINUED Issu:06-04-22 Sig: APPLY THIN LAYER TOPICALLY TWICE Refills: 5 Last:06-04-22 A DAY POST MOHS SURGERY WOUND CARE Expr:06-05-23 8 Total Medications /lance/ RICARDO REGALADO NURSE PRACTITIONER RESIDENT Signed: 07/26/2023 12:41 Receipt Acknowledged By: 07/26/2023 12:50 /lance/ SILAS FELIZ MD Staff Physician 07/26/2023 ADDENDUM STATUS: COMPLETED I have obtained/reviewed this patient's history, pertinent physical exam, laboratory/radiologic data as noted in today's visit documentation. I agree with the assessment and treatment plan as outlined. /lance/ SILAS FELIZ MD Staff Physician Signed: 07/26/2023 12:50 RICARDO REGALADO [facility] Jul 26, 2023 09:54 AM INTERNAL MEDICINE OUTPATIENT NOTE: LOCAL TITLE: MEDICINE CLINIC NURSING NOTE STANDARD TITLE: INTERNAL MEDICINE OUTPATIENT NOTE DATE OF NOTE: JUL 26, 2023@09:54 ENTRY DATE: JUL 26, 2023@09:54:50 AUTHOR: FEDE BRUCE COSIGNER: URGENCY: STATUS: COMPLETED TYPE OF VISIT: Appointment Check In Type of appointment: In-person appointment REASON FOR VISIT: F/up ER-sutures to be removed ALLERGIES: AMOXICILLIN (Oct 02, 1995) CECLOR (Oct 02, 1995) NAPROXEN (Oct 06, 2021) RAMELTEON (Oct 06, 2021) VITAL SIGNS: Blood Pressure: 120/68 (07/26/2023 09:52) Pulse: 77 (07/26/2023 09:52) Respiration: 16 (07/26/2023 09:52) Temperature: 97.6 F [36.4 C] (07/26/2023 09:52) Weight: 170 lb [77.11 kg] (07/26/2023 09:52) Height: 67 in [170.2 cm] (07/26/2023 09:52) BMI: 26.7 O2 Sat: 92% (07/26/2023 09:52) Pain: 1 (07/26/2023 09:52) PAIN SCREEN: Patient is not having significant pain that they wish to discuss with their provider today. MEDICATION Over the Counter/Herbal Medications: The patient denies taking any outside medications or herbals. Influenza Immunization: The patient declines to receive the recommended dose of seasonal influenza vaccine. Immunization: INFLUENZA, UNSPECIFIED FORMULATION Refusal Reason: PATIENT DECISION Patient refuses all immunization(s) in the FLU group Date Documented: 07/26/23 09:55 COVID-19 Immunization: Refused Pfizer Monovalent COVID-19 vaccine Immunization: COVID-19 (PFIZER), MRNA, LNP-S, PF, SAÚL-SUCROSE, 30 MCG/0.3 ML (AGES 12+ YEARS) Refusal Reason: PATIENT DECISION Patient refuses all immunization(s) in the COVID-19 group Date Documented: 07/26/23 09:56 /lance/ FEDE BRUCE RAILWAY SWITCH OPERATOR Signed: 07/26/2023 09:56 FEDE BRUCE [facility]
--- OUTSIDE RECORDS SUMMARY | 2024-04-12 13:12 | XMS_ITS | Encounter Summary ---
Author Name [facility] [facility] [place] [facility] [place] Address [address] [place] [address] Care Team Providers Care Varnishing Unit Operator Name Role Phone KARI HARLEY Primary [...] Name Patient's Relationship to Policy [facility] ([facility] MEDICAID MEDIC AID Apr 22, 2015 [id number] [phone] JOE CANALES PATIENT MEDICARE (WNR) MEDICARE (M) PART A Apr 22, 2013 PART A [id number] JEYSON CANALES III PATIENT MEDICARE (WNR) MEDICARE (M) PART B Apr 22, 2013 PART B [id number] [phone] JEYSON CANALES III PATIENT MEDICARE (WNR) MEDICARE (M) PART A Apr 22, 2013 PART A [id number] JEYSON CANALES III PATIENT MEDICARE (WNR) MEDICARE (M) PART B Apr 22, 2013 PART B [id number] [phone] JEYSON CANALES III N PATIENT MEDICARE (WNR) MEDICARE (M) PART A Apr 22, 2013 PART A [id number] JEYSON CANALES III PATIENT MEDICARE (WNR) MEDICARE (M) PART B Apr 22, 2013 PART B [id number] JEYSON CANALES III PATIENT Selected Encounter This section includes the information on record at [place] for the Encounter. Date/Time Encounter Type Encounter Description Reason Pro vider Source Jul 19, 2023 12:00 AM Outpatient Encounter EVENT (HISTORICAL) IHE Encounter Template Text not used by [place] Plan of Treatment: Future Appointments (+ 6 [...] 11:43 AM [place] [facility] Jul 26, 2023 10:00 AM [facility] Jul 26, 2023 03:30 PM [place] [facility] Aug 07, 2023 03:00 PM [place] [facility] Aug 14, 2023 09:00 AM [place] [facility] Aug 14, 2023 06:45 PM [place] - [place]ONE [place] [facility] August 29, 2023 10:00 AM [place] [facility] September 02, 2023 02:30 PM [place]ORY - [place]ONE [place] [facility] Nov 05, 2023 01:45 PM [place] [place]ONE [place] [facility] Nov 05, 2023 03:00 PM [place] [facility] Nov 13, 2023 02:00 PM [place] [facility] Nov 14, 2023 01:15 PM [place] [facility] Dec 03, 2023 03:00 PM AMBULATORY - MEDICINE [facility] Dec 18, 2023 09:30 AM AMBULATORY - SURGERY [facility] Lab Results: +/- 30 days of [...] Comment Jun 25, 2023 02:39 PM [facility] BNP Specimen Type: PLASMA Comment: Automated Differential Performed Ordering Provider: ANN HANDLEY Report Released Date/Time: Jun 25, 2023 02:18 PM Reporting Lab: [facility] [place] [address] Performing Lab: [facility] [place] [address] BNP 18 pg/mL <99 Jun 25, 2023 02:39 PM [facility] COMPREHENSIVE METABOLIC PANEL+MG Specimen Type: PLASMA Comment: Automated Differential Performed Ordering Provider: ANN HANDLEY Report Released Date/Time: Jun 25, 2023 02:18 PM Reporting Lab: [facility] [place] [address] Performing Lab: [facility] [place] [address] CREATININE 1.2 mg/dL 0.7-1.2 UREA NITROGEN 14 [...] >60 Jun 25, 2023 02:39 PM [facility] CBC & DIFF Specimen Type: BLOOD Comment: Automated Differential Performed Ordering Provider: ANN HANDLEY Report Released Date/Time: Jun 25, 2023 02:18 PM Reporting Lab: [facility] [place] [address] Performing Lab: [facility] [place] [address] WBC 7.46 10*3/uL 4.0-11.0 RBC 4.50 10*6/uL [...] 0.4 ABS IMMATURE GRAN 0.03 10*3/uL 0-0.1 Immunizations: All administered on the encounter date This section contains immunizations associated to the Encounter. Immunization Series Date Issued Reaction Comments TDAP Jul 19, 2023 Social History: Smoking Status (Most current) and [...] place. Date/Time Current Smoking Status Comment Esau spence Jun 25, 2023 02:00 PM VA-TOBACCO USER EVERY DAY [facility] Tobacco Use History This section includes a history of the smoking, or tobacco-related health factors, that were collected on or before the date of the Encounter. The data comes from the [place] facility where the Encounter took place. Date/Time Smoking Status/Tobacco Use Comment F acility Jun 25, 2023 02:00 PM VA-TOBACCO USE 30 YEARS OR MORE [facility] Jun 25, 2023 02:00 PM VA-TOBACCO USE ADVICE [facility] Jun 25, 2023 02:00 PM VA-TOBACCO USE OCCUPATIONAL THERAPY DEPARTMENT CHAIR NO [facility] Jun 25, 2023 02:00 PM VA-TOBACCO USE MED NO [facility] Jun 25, 2023 02:00 PM VA-TOBACCO USER EVERY DAY [facility] Aug 07, 2022 02:00 PM VA-TOBACCO USE 30 YEARS OR MORE [facility] Aug 07, 2022 02:00 PM VA-TOBACCO USE ADVICE [facility] Aug 07, 2022 02:00 PM VA-TOBACCO USE OCCUPATIONAL THERAPY DEPARTMENT CHAIR NO [facility] Aug 07, 2022 02:00 PM VA-TOBACCO USE MED NO [facility] Aug 07, 2022 02:00 PM VA-TOBACCO USE [place] 30 MIN OF WAKE UP [facility] Aug 07, 2022 02:00 PM VA-TOBACCO USER EVERY DAY [facility] Sep 26, 2021 11:00 AM VA-TOBACCO FORMER USER [facility] Sep 26, 2021 11:00 AM VA-TOBACCO QUIT < 1 YEAR [facility] Dec 20, 2020 02:00 PM VA-TOBACCO DOESNT USE WI 30 MIN WAKEUP [facility] Dec 20, 2020 02:00 PM VA-TOBACCO USE 30 YEARS OR MORE [facility] Dec 20, 2020 02:00 PM VA-TOBACCO USE ADVICE [facility] Dec 20, 2020 02:00 PM VA-TOBACCO USE OCCUPATIONAL THERAPY DEPARTMENT CHAIR YES [facility] Dec 20, 2020 02:00 PM VA-TOBACCO USE MED YES [facility] Dec 20, 2020 02:00 PM VA-TOBACCO USER EVERY DAY [facility] Nov 23, 2019 04:25 PM VA-TOBACCO USE < 1 YEAR [facility] Nov 23, 2019 04:25 PM VA-TOBACCO USE ADVICE [facility] Nov 23, 2019 04:25 PM VA-TOBACCO USE OCCUPATIONAL THERAPY DEPARTMENT CHAIR NO [facility] Nov 23, 2019 04:25 PM VA-TOBACCO USE MED NO [facility] Nov 23, 2019 04:25 PM VA-TOBACCO USE WI 30 MIN OF WAKE UP [facility] Nov 23, 2019 04:25 PM VA-TOBACCO USER EVERY DAY [facility] Oct 31, 2018 01:49 PM VA-TOBACCO USE 30 YEARS OR MORE [facility] Oct 31, 2018 01:49 PM VA-TOBACCO USE ADVICE [facility] Oct 31, 2018 01:49 PM VA-TOBACCO USE OCCUPATIONAL THERAPY DEPARTMENT CHAIR NO [facility] Oct 31, 2018 01:49 PM VA-TOBACCO USE MED NO [facility] Oct 31, 2018 01:49 PM VA-TOBACCO USE [place] 30 MIN OF WAKE UP [facility] Oct 31, 2018 01:49 PM VA-TOBACCO USER EVERY DAY [facility] Jul 09, 2017 09:25 AM FORMER TOBACCO USE <1Y [facility] Jul 24, 2016 09:57 AM FORMER TOBACCO USE <1Y [facility] Jul 26, 2015 09:47 AM CURRENT TOBACCO USER [facility] Jul 08, 2014 12:50 PM CURRENT TOBACCO USER [facility] Jul 20, 2013 08:30 AM CURRENT TOBACCO USER [facility] Mar 22, 2009 03:04 PM FORMER TOBACCO USE >1Y <7Y [facility]
--- OUTSIDE RECORDS SUMMARY | 2024-04-12 13:12 | XMS_ITS | Encounter Summary ---
Author Name [facility] [place] [facility] [place] [facility] [place] Address [address] [place] [address] Care Team Providers Care Speeder Frame Tender Name Role Phone KARI HARLEY Primary Care [...] Alvarez's Name Patient's Relationship to Policy Alvarez [facility] (WNR) MEDICAID MEDIC AID Apr 22, 2015 [id number] [phone] JOE CANALES PATIENT MEDICARE (WNR) MEDICARE (M) PART A Apr 22, 2013 PART A [id number] PARKER ODENCONCHAJi Esparza PATIENT MEDICARE (WNR) MEDICARE (M) PART B Apr 22, 2013 PART B [id number] [phone] JEYSON CANALES III PATIENT MEDICARE (WNR) MEDICARE (M) PART A Apr 22, 2013 PART A [id number] JEYSON CANALES III N PATIENT MEDICARE (WNR) MEDICARE (M) PART B Apr 22, 2013 PART B [id number] JEYSON CANALES III N PATIENT MEDICARE (WNR) MEDICARE (M) PART A Apr 22, 2013 PART A [id number] PARKER IIIJEYSON N PATIENT MEDICARE (WNR) MEDICARE (M) PART B Apr 22, 2013 PART B [id number] JEYSON CANALES III N PATIENT Selected Encounter This section includes the information on record at [place] for the Encounter. Date/Time Encounter Type Encounter Description Reason Provider Source Jul 19, 2023 09:25 AM EXT ECG>[id number] AMB ECG MONITORING ICD-10-CM I47.10 Supraventricular tachycardia, unspecified ZACK JARAMILLO I[facility] Encounter Template Text not used by [place] Assessments - Encounter Diagnoses This section includes the primary and secondary diagnoses documented for the Encounter. Date/Time Primary/Secondary Diagnosis Diagnosis Name Provider Source Jul 19, 2023 09:27 AM PRIMARY Supraventricular tachycardia, unspecified ZACK JARAMILLO [facility] Plan of Treatment: Future Appointments (+ 6 months) and Future Tests (+/- 45 days) The Plan of Treatment section includes future care activities for the patient from all [place] treatmentcilities. This section includes future appointments and future orders which are active, pending or scheduled. Future Appointments This section includes appointments that were scheduled to occur 6 months from the date of the Encounter, up to a maximum of 20 appointments. The data comes from all [place] treatment facilities. Appointment Date/Time Appointment Type Appointme nt Facility Name Jul 20, 2023 11:43 [facility] Jul 26, 2023 10:00 AM [facility], 2023 03:30 PM [facility] Aug 07, 2023 03:00 PM [facility] Aug 14, 2023 09:00 AM [facility] Aug 14, 2023 06:45 PM AMBULATORY - NONE [facility] August 29, 2023 10:00 AM [facility] [place] [facility] September 02, 2023 02:30 PM [facility] Nov 05, 2023 01:45 PM [facility] Nov 05, 2023 03:00 PM AMBULATORY - MEDICINE [facility] Nov 13, 2023 02:00 PM AMBULATORY - PSYCHIATRY [facility] Nov 14, 2023 01:15 PM AMBULATORY - SURGERY [facility] Dec 03, 2023 03:00 PM AMBULATORY - MEDICINE [facility] Dec 18, 2023 09:30 AM AMBULATORY - SURGERY [facility] Lab Results: +/- 30 days of the encounter This section includes the Chemistry and Hematology Lab Results on record with [place] for the patient. Radiology Reports and Pathology Reports are provided separately, in subsequent sections. Lab Results This section contains the Chemistry/Hematology Results that were resulted 30 days before or 30 daysafter the date of the Encounter. Date/Time Source Result Type Result - Unit Interpretation Reference Range Comment Jun 25, 2023 02:39 PM [facility] BNP Specimen Type: PLASMA Comment: Automated Differential Performed Ordering Provider: ANN HANDLEY Report Released Date/Time: Jun 25, 2023 02:18 PM Reporting Lab: [facility] [address] Performing Lab: [facility] [address] BNP 18 pg/mL <99 Jun 25, 2023 02:39 PM [facility] COMPREHENSIVE METABOLIC PANEL+MG Specimen Type: PLASMA Comment: Automated Differential Performed Ordering Provider: ANN HANDLEY Report Released Date/Time: Jun 25, 2023 02:18 PM Reporting Lab: [facility] [address] Performing Lab: [facility] [address] CREATININE 1.2 mg/dL 0.7-1.2 UREA NITROGEN 14 [...] 63 >60 Jun 25, 2023 02:39 PM [facility] CBC & DIFF Specimen Type: BLOOD Comment: Automated Differential Performed Ordering Provider: ANN HANDLEY Report Released Date/Time: Jun 25, 2023 02:18 PM Reporting Lab: [facility] [address] Performing Lab: [facility] [address] WBC 7.46 10*3/uL 4.0-11.0 RBC 4.50 10*6/uL [...] and tobacco- related health factors from the [place] facility where the Encounter took place. Current Smoking Status This section includes the most current smoking, or tobacco-related health factor, from the [place] facility where the Encounter took place. Date/Time Current Smoking Status Comment Esau spence Jun 25, 2023 02:00 PM VA-TOBACCO USER EVERY DAY [facility] Tobacco Use History This section includes a history of the smoking, or tobacco-related health factors, that were collected on or before the date of the Encounter. The data comes from the [place] facility where the Encounter took place. Date/Time Smoking Status/Tobacco Use Comment F acility Jun 25, 2023 02:00 PM VA-TOBACCO USE 30 YEARS OR MORE [facility] Jun 25, 2023 02:00 PM VA-TOBACCO USE ADVICE [facility] Jun 25, 2023 02:00 PM VA-TOBACCO USE KINESIOTHERAPIST NO [facility] Jun 25, 2023 02:00 PM VA-TOBACCO USE MED NO [facility] Jun 25, 2023 02:00 PM VA-TOBACCO USER EVERY DAY [facility] Aug 07, 2022 02:00 PM VA-TOBACCO USE 30 YEARS OR MORE [facility] Aug 07, 2022 02:00 PM VA-TOBACCO USE ADVICE [facility] Aug 07, 2022 02:00 PM VA-TOBACCO USE KINESIOTHERAPIST NO [facility] Aug 07, 2022 02:00 PM VA-TOBACCO USE MED NO [facility] Aug 07, 2022 02:00 PM VA-TOBACCO USE [place] 30 MIN OF WAKE UP [facility] Aug 07, 2022 02:00 PM VA-TOBACCO USER EVERY DAY [facility] Sep 26, 2021 11:00 AM VA-TOBACCO FORMER USER [facility] Sep 26, 2021 11:00 AM VA-TOBACCO QUIT < 1 YEAR [facility] Dec 20, 2020 02:00 PM VA-TOBACCO DOESNT USE WI 30 MIN WAKEUP [facility] Dec 20, 2020 02:00 PM VA-TOBACCO USE 30 YEARS OR MORE [facility] Dec 20, 2020 02:00 PM VA-TOBACCO USE ADVICE [facility] Dec 20, 2020 02:00 PM VA-TOBACCO USE KINESIOTHERAPIST YES [facility] Dec 20, 2020 02:00 PM VA-TOBACCO USE MED YES [facility] Dec 20, 2020 02:00 PM VA-TOBACCO USER EVERY DAY [facility] Nov 23, 2019 04:25 PM VA-TOBACCO USE < 1 YEAR [facility] Nov 23, 2019 04:25 PM VA-TOBACCO USE ADVICE [facility] Nov 23, 2019 04:25 PM VA-TOBACCO USE KINESIOTHERAPIST NO [facility] Nov 23, 2019 04:25 PM VA-TOBACCO USE MED NO [facility] Nov 23, 2019 04:25 PM VA-TOBACCO USE [place] 30 MIN OF WAKE UP [facility] Nov 23, 2019 04:25 PM VA-TOBACCO USER EVERY DAY [facility] Oct 31, 2018 01:49 PM VA-TOBACCO USE 30 YEARS OR MORE [facility] Oct 31, 2018 01:49 PM VA-TOBACCO USE ADVICE [facility] Oct 31, 2018 01:49 PM VA-TOBACCO USE KINESIOTHERAPIST NO [facility] Oct 31, 2018 01:49 PM VA-TOBACCO USE MED NO [facility] Oct 31, 2018 01:49 PM VA-TOBACCO USE WI 30 MIN OF WAKE UP [facility] Oct 31, 2018 01:49 PM VA-TOBACCO USER EVERY DAY [facility] Jul 09, 2017 09:25 AM FORMER TOBACCO USE <1Y [facility] Jul 24, 2016 09:57 AM FORMER TOBACCO USE <1Y [facility] Jul 26, 2015 09:47 AM CURRENT TOBACCO USER [facility] Jul 08, 2014 12:50 PM CURRENT TOBACCO USER [facility] Jul 20, 2013 08:30 AM CURRENT TOBACCO USER [facility] Mar 22, 2009 03:04 PM FORMER TOBACCO USE >1Y <7Y [facility] Encounter Notes: All associated encounter notes This section contains the clinical notes associated to the Encounter. Date/Time Encounter Note(s) Provider Source Jul 19, 2023 09:25 AM CARDIOLOGY DIAGNOS TIC STUDY CONSULT: LOCAL TITLE: EKG CONSULT STANDARD TITLE: CARDIOLOGY DIAGNOSTIC STUDY CONSULT DATE OF NOTE: JUL 19, 2023@09:25 ENTRY DATE: JUL 19, 2023@09:25:32 AUTHOR: ZACK JARAMILLO EXP COSIGNER: URGENCY: STATUS: COMPLETED Event monitor ([employer]) ECG REPORT 14 day heart monitor June 27 through July 12, 2023 INDICATION: Palpitations HEART RATE MIN 49 AVERAGE 72 MAX 122 PVC% <1% PAC% <1% INTERPRETATION 1. The underlying rhythm is sinus 2. There were 2 patient reported events associated with sinus rhythm 3. There were 22 episodes of SVT, the longest was 18 beats 4. Otherwise normal study /es/ ZACK JARAMILLO MD PHYSICIAN Signed: 07/19/2023 09:27 ZACK JARAMILLO [facility]
--- OUTSIDE RECORDS SUMMARY | 2024-04-12 13:12 | XMS_ITS | Encounter Summary ---
Author Name [facility] [place] [facility] [place] [facility] [place] Address [address] [place] [address] Care Team Providers Care Director Fraud Name Role Phone AKRI HARLEY Primary Care Provider UnavailRADHA Layne Primary [...] Alvarez's Name Patient's Relationship to Policy Alvarez [facility] (WNR) MEDICAID MEDIC AID Apr 22, 2015 [id number] [phone] JOE CANALES PATIENT MEDICARE (WNR) MEDICARE (M) PART A Apr 22, 2013 PART A [id number] [phone] JEYSON CANALES III PATIENT MEDICARE (WNR) MEDICARE (M) PART B Apr 22, 2013 PART B [id number] JEYSON CANALES III PATIENT MEDICARE (WNR) MEDICARE (M) PART A Apr 22, 2013 PART A [id number] JEYSON CANALES III PATIENT MEDICARE (WNR) MEDICARE (M) PART B Apr 22, 2013 PART B [id number] JEYSON CANALES III N PATIENT MEDICARE (WNR) MEDICARE (M) PART A Apr 22, 2013 PART A [id number] JEYSON CANALES III N PATIENT MEDICARE (WNR) MEDICARE (M) PART B Apr 22, 2013 PART B [id number] JEYSON CANALES III N PATIENT Selected Encounter This section includes the information on record at [place] for the Encounter. Date/Time Encounter Type Encounter Description Reason Pro vider Source Aug 01, 2023 08:24 AM Outpatient Encounter TELEPHONE/PSYCHOGERIA TRICS IHE Encounter Template Text not used by [place] Plan of Treatment: Future Appointments (+ 6 months) and Future Tests (+/- 45 days) The Plan of Treatment section includes future care activities for the patient from all [place] treatmentfacilities. This section includes future appointments and future orders which are active, pending or scheduled. Future Appointments This section includes appointments that were scheduled to occur 6 months from the date of the Encounter, up to a maximum of 20 appointments. The data comes from all [place] treatment facilities. Appointment Date/Time Appointment Type Appointme nt Facility Name Aug 07, 2023 03:00 PM AM[place] [facility] Aug 14, 2023 09:00 AM [facility] Aug 14, 2023 06:45 PM [facility] [place] [facility] August 29, 2023 10:00 AM AM[place] [facility] September 02, 2023 02:30 PM [place] [facility] Nov 05, 2023 01:45 PM [place] [facility] Nov 05, 2023 03:00 PM [facility] Nov 13, 2023 02:00 PM [facility] Nov 14, 2023 01:15 PM [facility]UL[facility] - SURGERY [facility] Dec 03, 2023 03:00 PM [facility] Dec 18, 2023 09:30 AM AMBULATORY - SURGERY [facility] Jan 27, 2024 01:42 PM [place] [facility] Social History: Smoking Status (Most current) and Tobacco Use (All prior to encounter date) This section includes the most current, and the historical, smoking and tobacco- related health factors from the [place] facility where the Encounter took place. Current Smoking Status This section includes the most current smoking, or tobacco-related health factor, from the [place] facility where the Encounter took place. Date/Time Current Smoking Status Comment Facil ity Jun 25, 2023 02:00 PM VA-TOBACCO USER EVERY DAY [facility] Tobacco Use History This section includes a history of the smoking, or tobacco-related health factors, that were collected on or before the date of the Encounter. The data comes from the [place] facility where the Encounter took place. Date/Time Smoking Status/Tobacco Use Comment F acility Jun 25, 2023 02:00 PM VA-TOBACCO USE 30 YEARS OR MORE [facility] Jun 25, 2023 02:00 PM VA-TOBACCO USE ADVICE [facility] Jun 25, 2023 02:00 PM VA-TOBACCO USE TALENT DIRECTOR NO [facility] Jun 25, 2023 02:00 PM VA-TOBACCO USE MED NO [facility] Jun 25, 2023 02:00 PM VA-TOBACCO USER EVERY DAY [facility] Aug 07, 2022 02:00 PM VA-TOBACCO USE 30 YEARS OR MORE [facility] Aug 07, 2022 02:00 PM VA-TOBACCO USE ADVICE [facility] Aug 07, 2022 02:00 PM VA-TOBACCO USE TALENT DIRECTOR NO [facility] Aug 07, 2022 02:00 PM VA-TOBACCO USE MED NO [facility] Aug 07, 2022 02:00 PM VA-TOBACCO USE [place] 30 MIN OF WAKE UP [facility] Aug 07, 2022 02:00 PM VA-TOBACCO USER EVERY DAY [facility] Sep 26, 2021 11:00 AM VA-TOBACCO FORMER USER [facility] Sep 26, 2021 11:00 AM VA-TOBACCO QUIT < 1 YEAR [facility] Dec 20, 2020 02:00 PM VA-TOBACCO DOESNT USE WI 30 MIN WAKEUP [facility] Dec 20, 2020 02:00 PM VA-TOBACCO USE 30 YEARS OR MORE [facility] Dec 20, 2020 02:00 PM VA-TOBACCO USE ADVICE [facility] Dec 20, 2020 02:00 PM VA-TOBACCO USE TALENT DIRECTOR YES [facility] Dec 20, 2020 02:00 PM VA-TOBACCO USE MED YES [facility] Dec 20, 2020 02:00 PM VA-TOBACCO USER EVERY DAY [facility] Nov 23, 2019 04:25 PM VA-TOBACCO USE < 1 YEAR [facility] Nov 23, 2019 04:25 PM VA-TOBACCO USE ADVICE [facility] Nov 23, 2019 04:25 PM VA-TOBACCO USE TALENT DIRECTOR NO [facility] Nov 23, 2019 04:25 PM VA-TOBACCO USE MED NO [facility] Nov 23, 2019 04:25 PM VA-TOBACCO USE [place] 30 MIN OF WAKE UP [facility] Nov 23, 2019 04:25 PM VA-TOBACCO USER EVERY DAY [facility] Oct 31, 2018 01:49 PM VA-TOBACCO USE 30 YEARS OR MORE [facility] Oct 31, 2018 01:49 PM VA-TOBACCO USE ADVICE [facility] Oct 31, 2018 01:49 PM VA-TOBACCO USE TALENT DIRECTOR NO [facility] Oct 31, 2018 01:49 PM VA-TOBACCO USE MED NO [facility] Oct 31, 2018 01:49 PM VA-TOBACCO USE [place] 30 MIN OF WAKE UP [facility] Oct 31, 2018 01:49 PM VA-TOBACCO USER EVERY DAY [facility] Jul 09, 2017 09:25 AM FORMER TOBACCO USE <1Y [facility] Jul 24, 2016 09:57 AM FORMER TOBACCO USE <1Y [facility] Jul 26, 2015 09:47 AM CURRENT TOBACCO USER [facility] Jul 08, 2014 12:50 PM CURRENT TOBACCO USER [facility] Jul 20, 2013 08:30 AM CURRENT TOBACCO USER [facility] Mar 22, 2009 03:04 PM FORMER TOBACCO USE >1Y <7Y [facility] Encounter Notes: All associated encounter notes This section contains the clinical notes associated to the Encounter. Date/Time Encounter Note(s) Provider Source Jul 31, 2023 04:00 PM REPORT OF CONTACT: LOCAL TITLE: PATIENT CONTACT NOTE STANDARD TITLE: REPORT OF CONTACT DATE OF NOTE: JUL 31, 2023@16:00 ENTRY DATE: AUG 01, 2023@08:24:44 AUTHOR: BERTIN SALINAS COSIGNER: URGENCY: STATUS: COMPLETED PATIENT CONTACT NOTE Has ADDENDA Patient contact Name of : PARKERJOE Name/Relationship of Contact if other than [place]: N/A Date & Time of Contact: Jul@16:00 Type of Contact: Phone Reason for Contact: Received voicemail from [place] this AM requesting appointment, he stated he has a number of stressors and needs someone to listen to him. Returned call, no answer. HIPAA compliant VM left with direct contact info, invited callback. No indication of acute safety risks. Will await callback from . /REBA Cornelius, SWITCHING OPERATOR TEAM A BRAKE REPAIR SUPERVISOR Signed: 08/01/2023 08:26 08/05/2023 ADDENDUM STATUS: COMPLETED Able to connect today. Scheduled F2F visit for 08/06 @ 1500. briefly shares that discord with daughter is driving increase in depression. No SI/SIB, intent or plan. Appreciative of call and ability to be seen this week. RTC order placed. /REBA Cornelius, SWITCHING OPERATOR TEAM A BRAKE REPAIR SUPERVISOR Signed: 08/05/2023 15:19 BERTIN SALINAS [facility]
--- OUTSIDE RECORDS SUMMARY | 2024-04-12 13:12 | XMS_ITS | Encounter Summary ---
Author Name [facility] [place] [facility] [place] [facility] [place] Address [address] [place] [address] Care Team Providers Care Rail Car Loader Name Role Phone KARI HARLEY Primary Care [...] Name Patient's Relationship to Policy Alvarez [facility] (WNR) MEDICAID MEDIC AID Apr 22, 2015 [id number] [phone] JOE ACNALES PATIENT MEDICARE (WNR) MEDICARE (M) PART A Apr 22, 2013 PART A [id number] JEYSON CANALES III PATIENT MEDICARE (WNR) MEDICARE (M) PART B Apr 22, 2013 PART B [id number] JEYSON CANALES III PATIENT MEDICARE (WNR) MEDICARE (M) PART A Apr 22, 2013 PART A [id number] JEYSON CANALES III PATIENT MEDICARE (WNR) MEDICARE (M) PART B Apr 22, 2013 PART B [id number] [phone] JEYSON CANALES III N PATIENT MEDICARE (WNR) MEDICARE (M) PART A Apr 22, 2013 PART A [id number] JEYSON CANALES III PATIENT MEDICARE (WNR) MEDICARE (M) PART B Apr 22, 2013 PART B [id number] JEYSON CANALES III PATIENT Selected Encounter This section includes the information on record at [place] for the Encounter. Date/Time Encounter Type Encounter Description Reason Pro vider Source Jul 01, 2023 11:09 AM Outpatient Encounter AMB ECG MONITORING IHE Encounter Template Text not used by [place] Plan of Treatment: Future Appointments (+ 6 months) and Future Tests (+/- 45 days) The Plan of Treatment section includes future care activities for the patient from all [place] [facility]. This section includes future appointments and future orders which are active, pending or scheduled. Future Appointments This section includes appointments that were scheduled to occur 6 months from the date of the Encounter, up to a maximum of 20 appointments. The data comes from all [place] treatment facilities. Appointment Date/Time Appointment Type Appointme nt Facility Name Jul 05, 2023 02:30 PM [place] [facility] Jul 20, 2023 11:43 AM [facility]ORY - NONE [facility] Jul 26, 2023 10:00 AM [facility] Jul 26, 2023 03:30 PM [facility] Aug 07, 2023 03:00 PM [facility] Aug 14[facility] 2023 09:00 AM [facility] Aug 14, 2023 06:45 PM [place] [facility] August 29, 2023 10:00 AM [facility] [place] [facility] September 02, 2023 02:30 PM [place] [facility] Nov 05, 2023 01:45 PM [place] [facility] Nov 05, 2023 03:00 PM [facility] Nov 13, 2023 02:00 PM [facility] Nov 14, 2023 01:15 PM AMBULATORY - SURGERY [facility] Dec 03, 2023 03:00 PM AMBULATORY - MEDICINE [facility] Dec 18, 2023 09:30 AM AMBULATORY - SURGERY [facility] Lab Results: +/- 30 days of [...] Range Comment Jun 25, 2023 02:39 PM [facility] BNP Specimen Type: PLASMA Comment: Automated Differential Performed Ordering Provider: ANN HANDLEY Report Released Date/Time: Jun 25, 2023 02:18 PM Reporting Lab: [facility] [id number] Performing Lab: [facility] [id number] BNP 18 pg/mL <99 Jun 25, 2023 02:39 PM [facility] COMPREHENSIVE METABOLIC PANEL+MG Specimen Type: PLASMA Comment: Automated Differential Performed Ordering Provider: ANN HANDLEY Report Released Date/Time: Jun 25, 2023 02:18 PM Reporting Lab: [facility] [id number] Performing Lab: [facility] [address] CREATININE 1.2 mg/dL 0.7-1.2 UREA NITROGEN 14 [...] 63 >60 Jun 25, 2023 02:39 PM [facility] CBC & DIFF Specimen Type: BLOOD Comment: Automated Differential Performed Ordering Provider: ANN HANDLEY Report Released Date/Time: Jun 25, 2023 02:18 PM Reporting Lab: [facility] [id number] Performing Lab: [facility] [id number] WBC 7.46 10*3/uL 4.0-11.0 RBC 4.50 10*6/uL [...] and tobacco- related health factors from the [place] facility where the Encounter took place. Current Smoking Status This section includes the most current smoking, or tobacco-related health factor, from the [place] facility where the Encounter took place. Date/Time Current Smoking Status Comment [place] sp[place] Jun 25, 2023 02:00 PM VA-TOBACCO USER EVERY DAY [facility] Tobacco Use History This section includes a history of the smoking, or tobacco-related health factors, that were collected on or before the date of the Encounter. The data comes from the [place] facility where the Encounter took place. Date/Time Smoking Status/Tobacco Use Comment F acility Jun 25, 2023 02:00 PM VA-TOBACCO USE 30 YEARS OR MORE [facility] Jun 25, 2023 02:00 PM VA-TOBACCO USE ADVICE [facility] Jun 25, 2023 02:00 PM VA-TOBACCO USE MONOMER RECOVERY OPERATOR NO [facility] Jun 25, 2023 02:00 PM VA-TOBACCO USE MED NO [facility] Jun 25, 2023 02:00 PM VA-TOBACCO USER EVERY DAY [facility] Aug 07, 2022 02:00 PM VA-TOBACCO USE 30 YEARS OR MORE [facility] Aug 07, 2022 02:00 PM VA-TOBACCO USE ADVICE [facility] Aug 07, 2022 02:00 PM VA-TOBACCO USE MONOMER RECOVERY OPERATOR NO [facility] Aug 07, 2022 02:00 PM VA-TOBACCO USE MED NO [facility] Aug 07, 2022 02:00 PM VA-TOBACCO USE [place] 30 MIN OF WAKE UP [facility] Aug 07, 2022 02:00 PM VA-TOBACCO USER EVERY DAY [facility] Sep 26, 2021 11:00 AM VA-TOBACCO FORMER USER [facility] Sep 26, 2021 11:00 AM VA-TOBACCO QUIT < 1 YEAR [facility] Dec 20, 2020 02:00 PM VA-TOBACCO DOESNT USE [place] 30 MIN WAKEUP [facility] Dec 20, 2020 02:00 PM VA-TOBACCO USE 30 YEARS OR MORE [facility] Dec 20, 2020 02:00 PM VA-TOBACCO USE ADVICE [facility] Dec 20, 2020 02:00 PM VA-TOBACCO USE MONOMER RECOVERY OPERATOR YES [facility] Dec 20, 2020 02:00 PM VA-TOBACCO USE MED YES [facility] Dec 20, 2020 02:00 PM VA-TOBACCO USER EVERY DAY [facility] Nov 23, 2019 04:25 PM VA-TOBACCO USE < 1 YEAR [facility] Nov 23, 2019 04:25 PM VA-TOBACCO USE ADVICE [facility] Nov 23, 2019 04:25 PM VA-TOBACCO USE MONOMER RECOVERY OPERATOR NO [facility] Nov 23, 2019 04:25 PM VA-TOBACCO USE MED NO [facility] Nov 23, 2019 04:25 PM VA-TOBACCO USE [place] 30 MIN OF WAKE UP [facility] Nov 23, 2019 04:25 PM VA-TOBACCO USER EVERY DAY [facility] Oct 31, 2018 01:49 PM VA-TOBACCO USE 30 YEARS OR MORE [facility] Oct 31, 2018 01:49 PM VA-TOBACCO USE ADVICE [facility] Oct 31, 2018 01:49 PM VA-TOBACCO USE MONOMER RECOVERY OPERATOR NO [facility] Oct 31, 2018 01:49 PM VA-TOBACCO USE MED NO [facility] Oct 31, 2018 01:49 PM VA-TOBACCO USE [place] 30 MIN OF WAKE UP [facility] Oct 31, 2018 01:49 PM VA-TOBACCO USER EVERY DAY [facility] Jul 09, 2017 09:25 AM FORMER TOBACCO USE <1Y [facility] Jul 24, 2016 09:57 AM FORMER TOBACCO USE <1Y [facility] Jul 26, 2015 09:47 AM CURRENT TOBACCO USER [facility] Jul 08, 2014 12:50 PM CURRENT TOBACCO USER [facility] Jul 20, 2013 08:30 AM CURRENT TOBACCO USER [facility] Mar 22, 2009 03:04 PM FORMER TOBACCO USE >1Y <7Y [facility] Pathology Reports: +/- 30 days of the [...] the Encounter. The data comes from all [facility] facilities. Date/Time Pathology Report Provider Source Jun 04, 2023 09:39 AM LR SURGICAL PATHOLOGY REPORT: LOCAL TITLE: LR SURGICAL PATHOLOGY REPORT STANDARD TITLE: PATHOLOGY REPORT DATE OF NOTE: JUN 04, 2023@09:39:42 ENTRY DATE: JUN 04, 2023@09:39:42 AUTHOR: ABEL QURESHI EXP COSIGNER: URGENCY: STATUS: COMPLETED $APHDR Reporting Lab: [facility] [CLIA# [id number]] [place] [address] - - - - - - - [...] multifocally. The specimen is inked. [facility] DES[facility]: Microscopic examination performed. SOX-10 [...] Performing Laboratory: Surgical Pathology Report Performed By: [facility] [CLIA# [id number]] [place] [address] $FTR - - - - - - - - - - - - - - - - - - - - - - - - - - - - - - - - - - - - - - - - (End of report) AEBL QURESHI MD [facility] Date Jun 04, 2023 - - - - - - - - - - - - - - - - - - - - - - - - - - - - - - - - - - - - - - - - JOE CANALES STANDARD FORM 515 ID:[id number] SEX:M :[id number] AGE: 73 LOC:[id number] PCP: Prisca Agustin MD /lance/ ABEL QURESHI MD STAFF PATHOLOGIST Signed: 06/04/2023 09:39 ABEL QURESHI [facility] Encounter Notes: All associated encounter notes This section contains the clinical notes associated to the Encounter. Date/Time Encounter Note(s) Provider Source Jul 01, 2023 11:09 AM CARDIOLOGY OUTPATI ENT NOTE: LOCAL TITLE: CARDIOLOGY CLINIC TECHNOLOGIST NOTE STANDARD TITLE: CARDIOLOGY OUTPATIENT NOTE DATE OF NOTE: JUL 01, 2023@11:09 ENTRY DATE: JUL 01, 2023@11:09:09 AUTHOR: TRISTAN GRACIA EXP COSIGNER: URGENCY: STATUS: COMPLETED Event Monitor ZIO Monitor Clinical indication for ZIO: Palpitations Registered device with [employer]; serial number: [id number]. This development writer was asked to register device patient applied [id number]. /lance/ TRISTAN GRACIA News Director Signed: 07/01/2023 11:09 TRISTAN GRACIA [facility]
--- OUTSIDE RECORDS SUMMARY | 2024-04-12 13:13 | XMS_ITS | Encounter Summary ---
Author Name [facility] Address [address] [place] [address] Care Team Providers Care Agricultural Economist Name Role Phone KARI HARLEY Primary Care [...] (WNR) MEDICAID MEDIC AID Apr 22, 2015 [id number] [phone] JOE CANALES PATIENT MEDICARE (WNR) MEDICARE (M) PART A Apr 22, 2013 PART A [id number] [phone] JEYSON CANALES III PATIENT MEDICARE (WNR) MEDICARE (M) PART B Apr 22, 2013 PART B [id number] [phone] JEYSON CANALES III PATIENT MEDICARE (WNR) MEDICARE (M) PART A Apr 22, 2013 PART A [id number] JEYSON CANALES III N PATIENT MEDICARE (WNR) MEDICARE (M) PART B Apr 22, 2013 PART B [id number] JEYSON CANALES III N PATIENT MEDICARE (WNR) MEDICARE (M) PART A Apr 22, 2013 PART A [id number] JEYSON CANALES III N PATIENT MEDICARE (WNR) MEDICARE (M) PART B Apr 22, 2013 PART B [id number] [phone] JEYSON CANALES III N PATIENT Selected Encounter This section includes the information on record at [place] for the Encounter. Date/Time Encounter Type Encounter Description Reason Pro vider Source Aug 07, 2023 03:00 PM PSYTX W PT 45 MINUTES PSYCHOGERIATRIC - INDIVIDUAL ICD-10-CM F43.12 Post-traumati c stress disorder, chronic BERTIN SALINAS Virgilio Encounter Template Text not used by [place] Assessments - Encounter Diagnoses This section includes the primary and secondary diagnoses documented for the Encounter. Date/Time Primary/Secondary Diagnosis Diagnosis Name Provider Source Aug 07, 2023 03:52 PM PRIMARY Post-traumatic stress disorder, chronic BERTIN SALINAS [facility] Aug 07, 2023 03:52 PM SECONDARY Major depressive disorder, recurrent, in partial remission BERTIN SALINAS [facility] Plan of Treatment: Future Appointments (+ 6 months) and Future Tests (+/- 45 days) The Plan of Treatment section includes future care activities for the patient [facility] This section includes future appointments and future orders which are active, pending or scheduled. Future Appointments This section includes appointments that were scheduled to occur 6 months from the date of the Encounter, up to a maximum of 20 appointments. The data comes from all [place] treatment facilities. Appointment Date/Time Appointment Type Appointme nt Facility Name Aug 14, 2023 09:00 AM AMBULATORY [place]RY [place] [facility] Aug 14, 2023 06:45 PM [facility] August 29, 2023 10:00 AM AM[facility] [place] [facility] September 02, 2023 02:30 PM AM[facility]ORY - NONE [facility] Nov 05, 2023 01:45 PM [facility] Nov 05, 2023 03:00 PM [facility] Nov 13, 2023 02:00 PM [facility] [place] [facility] [facility] Nov 14, 2023 01:15 PM [facility] - SURG[facility] Dec 03, 2023 03:00 PM [facility] Dec 18, 2023 09:30 AM [facility] - SURGERY [facility] Jan 27, 2024 01:42 PM AMBULATORY - NONE [facility] Feb 06, 2024 02:00 PM [facility] [place] [facility] Social History: Smoking Status (Most [...] 2023 02:00 PM VA-TOBACCO USER EVERY DAY [facility] Tobacco Use History This section includes a history of the smoking, or tobacco-related health factors, that were collected on or before the date of the Encounter. The data comes from the [place] facility where the Encounter took place. Date/Time Smoking Status/Tobacco Use Comment F acility Jun 25, 2023 02:00 PM VA-TOBACCO USE 30 YEARS OR MORE [facility] Jun 25, 2023 02:00 PM VA-TOBACCO USE ADVICE [facility] Jun 25, 2023 02:00 PM VA-TOBACCO USE RN PRODUCTION NO [facility] Jun 25, 2023 02:00 PM VA-TOBACCO USE MED NO [facility] Jun 25, 2023 02:00 PM VA-TOBACCO USER EVERY DAY [facility] Aug 07, 2022 02:00 PM VA-TOBACCO USE 30 YEARS OR MORE [facility] Aug 07, 2022 02:00 PM VA-TOBACCO USE ADVICE [facility] Aug 07, 2022 02:00 PM VA-TOBACCO USE RN PRODUCTION NO [facility] Aug 07, 2022 02:00 PM VA-TOBACCO USE MED NO [facility] Aug 07, 2022 02:00 PM VA-TOBACCO USE WI 30 MIN OF WAKE UP [facility] Aug 07, 2022 02:00 PM VA-TOBACCO USER EVERY DAY [facility] Sep 26, 2021 11:00 AM VA-TOBACCO FORMER USER [facility] Sep 26, 2021 11:00 AM VA-TOBACCO QUIT < 1 YEAR [facility] Dec 20, 2020 02:00 PM VA-TOBACCO DOESNT USE WI 30 MIN WAKEUP [facility] Dec 20, 2020 02:00 PM VA-TOBACCO USE 30 YEARS OR MORE [facility] Dec 20, 2020 02:00 PM VA-TOBACCO USE ADVICE [facility] Dec 20, 2020 02:00 PM VA-TOBACCO USE RN PRODUCTION YES [facility] Dec 20, 2020 02:00 PM VA-TOBACCO USE MED YES [facility] Dec 20, 2020 02:00 PM VA-TOBACCO USER EVERY DAY [facility] Nov 23, 2019 04:25 PM VA-TOBACCO USE < 1 YEAR [facility] Nov 23, 2019 04:25 PM VA-TOBACCO USE ADVICE [facility] Nov 23, 2019 04:25 PM VA-TOBACCO USE RN PRODUCTION NO [facility] Nov 23, 2019 04:25 PM VA-TOBACCO USE MED NO [facility] Nov 23, 2019 04:25 PM VA-TOBACCO USE WI 30 MIN OF WAKE UP [facility] Nov 23, 2019 04:25 PM VA-TOBACCO USER EVERY DAY [facility] Oct 31, 2018 01:49 PM VA-TOBACCO USE 30 YEARS OR MORE [facility] Oct 31, 2018 01:49 PM VA-TOBACCO USE ADVICE [facility] Oct 31, 2018 01:49 PM VA-TOBACCO USE RN PRODUCTION NO [facility] Oct 31, 2018 01:49 PM VA-TOBACCO USE MED NO [facility] Oct 31, 2018 01:49 PM VA-TOBACCO USE WI 30 MIN OF WAKE UP [facility] Oct 31, 2018 01:49 PM VA-TOBACCO USER EVERY DAY [facility] Jul 09, 2017 09:25 AM FORMER TOBACCO USE <1Y [facility] Jul 24, 2016 09:57 AM FORMER TOBACCO USE <1Y [facility] Jul 26, 2015 09:47 AM CURRENT TOBACCO USER [facility] Jul 08, 2014 12:50 PM CURRENT TOBACCO USER [facility] Jul 20, 2013 08:30 AM CURRENT TOBACCO USER [facility] Mar 22, 2009 03:04 PM FORMER TOBACCO USE >1Y <7Y [facility] Radiology Reports: +/- 30 days of the encounter Radiology Reports For cases when an order for radiology services may have been completed prior to the date of the Encounter, the report list includes the Radiology Reports that were completed up to 30 days before dateof the Encounter. For cases when an order for radiology services may have been completed after the date of the Encounter, the report list also includes the Radiology Reports that were completed up to30 days after date of the Encounter. The data comes from all [place] treatment facilities. Date/Time Radiology Report Provider Source September 02, 2023 01:43 PM LDCT LUNG CANCER S CREENING: JOE CANALES [id number] M Exm Date: SEPTEMBER 02, 2023@13:43 Req Phys: CHANDRAKANT CONNORS Loc: [facility] PULM CHART CHECK [facility] (Req' Img Loc: CT IMAGING Service: [place] [address] (Case [id number] COMPLETE) LDCT LUNG CANCER SCREENING (CT Detailed) CPT:98543 Reason for Study: LDCT f/u LUNGRADS 2b pulm nodule (FOLLOW UP) Clinical History: IS NOT under investigation for COVID-19 or is COVID-19 negative LDCT f/u LUNGRADS 2b pulm nodule (FOLLOW UP) Responsible provider name and phone number to notify for critical findings if other than user placing the order and pager listed below: User placing orders pager: LAST 3: Collection DT Specimen Test Name Result Units Ref Range 09/26/2021 10:20 PLASMA CREATININE 1.3 H mg/dL 0.7 - 1.2 12/20/2020 12:20 PLASMA CREATININE 1.0 mg/dL 0.7 - 1.2 11/25/2019 12:34 PLASMA CREATININE 1.0 mg/dL 0.7 - 1.2 09/26/2021 10:20 PLASMA .CREAT EGFR(CKD-E 58 L Ref: >=60 12/20/2020 12:20 PLASMA ESTIMATED GFR(eGF >60 Ref: >=60 11/25/2019 12:34 PLASMA ESTIMATED GFR(eGF >60 Ref: >=60 07/25/2017 11:31 PLASMA ESTIMATED GFR(eGF >60 Ref: >=60 Allergies: AMOXICILLIN (Oct 02, 1995) CECLOR (Oct 02, 1995) NAPROXEN (Oct 06, 2021) RAMELTEON (Oct 06, 2021) Report Status: Verified Date Reported: SEPTEMBER 02, 2023 Date Verified: SEPTEMBER 02, 2023 Staff Consultant E-Sig:/ES/MOHINDER POSEY DO Report: EXAM: LDCT LUNG CANCER SCREENING COMPARISON: CT chest 09/03/2022, 02/20/2022 PROTOCOL: Screening protocol, low dose, non-contrast CT chest was performed in accordance with Lung-Rads 2022. Additional coronal and sagittal reconstructions. MIP reconstructions were reviewed. Secondary computer-aided detection post-processing used. DOSE PARAMETERS: DLP: 24.83, mGy.cm/CTDIvol Mean: 0.8, mGy INDEX NODULE: Location: Right Upper Lobe Series: 2 Image: 123 Density: Solid Solid diameter (average): 2-3 mm Other characteristics: N/A Change: Stable Comments: None OTHER NODULES: 2 mm nodule in the left apex is stable (image 29). OTHER-INCIDENTAL FINDINGS: Linear scarring in the right upper lobe. Focal pleural-based atelectasis in the anterior left upper lobe and the posterior right lower lobe. Mild emphysema. Main pulmonary artery is mildly dilated suggesting possible pulmonary arterial hypertension. Atherosclerotic calcification. Tiny hiatal hernia. Fatty atrophy of the pancreas. Impression: LUNG-RADS: 2: Benign RECOMMENDATION: One year follow-up low dose CT, if patient meets screening criteria. Primary Interpreting Staff: MOHINDER POSEY DO, RADIOLOGIST (Staff Consultant) /DDS MOHINDER POSEY [facility] Encounter Notes: All associated encounter notes This section contains the clinical notes associated to the Encounter. Date/Time Encounter Note(s) Provider Source Aug 07, 2023 03:57 PM MENTAL HEALTH JAYDA TMENT PLAN NOTE: LOCAL TITLE: MH TREATMENT PLAN STANDARD TITLE: MENTAL HEALTH TREATMENT PLAN NOTE DATE OF NOTE: AUG 07, 2023@15:57 ENTRY DATE: AUG 07, 2023@15:57:44 AUTHOR: BERTIN SALINAS COSIGNER: URGENCY: STATUS: COMPLETED TREATMENT PLAN TYPE: MENTAL HEALTH TEAM ASSIGNMENT: Team A MENTAL HEALTH CHERRY CUTTER (MHTC): Dr. Laurita Dsouza TEAM MEMBERS & OTHER COLLABORATORS CONTRIBUTING TO THE 'S CARE AND TREATMENT PLAN: Dr. Laurita Dsouza, Team A Geropsychiatrist PARTICIPATION IN TREATMENT PLANNING: Met with provider and agreed to plan as discussed FAMILY INVOLVEMENT: No; does not desire family involvement DIAGNOSIS: PTSD, MDD, recurrent SUICIDE RISK ASSESSMENT: Acute low Chronic intermediate Risk factors: Age, Gender, recent fleeting SI without intent or plan, History of multiple suicide attempts, History of trauma, interpersonal/relationship difficulties, legal challenges. Protective Factors: Absence of current SI/HI, Engaging in treatment, Positive relationship with health professionals, Awareness of and willingness to use crisis services if needed, Meaningful relationship with family including children and grandchildren. Clinician judgement of risk: Judged to be at LOW risk acutely for harm to self and INTERMEDIATE risk chronically for harm to self. Judged to be at LOW risk both acutely and chronically for harm to others. IDENTIFIED PROBLEMS: Difficulty family dynamics, strain/disputes with daughter exacerbating stress STRENGTHS: Strong support system through islam, meaningful hobbies/engagements, financially stable, help-seeking BARRIERS: None identified GOAL #1: Find my smile again Maintain relationship with [facility] and [place] INTERVENTION(S)/OBJECTIVE METHODS TO ACCOMPLISH GOAL #1: Individual Psychotherapy with: Bertin Salinas HALL PORTER The therapist will assess symptoms at each visit and provide psychoeducation regarding diagnoses and specific interventional strategies. The agrees to ask questions if they have concerns or do not fully understand content or expectations of therapy. Carbon will regularly attend appointments and complete agreed upon out-of- session assignments. The frequency of individual appointments will be reassessed by the provider and with each appointment and documented in the progress note. Clinician will provide information regarding available [place] MH treatment options. Overall MH treatment needs will be periodically assessed at visits. Carbon will be encouraged to involve supportive people (e.g., family/friends) in their treatment as applicable. Carbon will contact provider as needed for nonemergent MH concerns between appointments; responsible staff will return contact to in timely manner. Carbon will use emergency MH options as agreed upon with provider (911, Emergency Department, [facility] Crisis [facility]). Different evidence-based treatment options were considered and discussed with Carbon as part of current treatment planning. Psychiatric Evaluation & Medication Management with: Dr. Laurita Dsouza will attend periodic MH appointments with Licensed Independent Provider and/emergency vehicle operator for monitoring effectiveness of medications, assessing for side-effects, reviewing relevant labs, safety assessments, and screening exams. The frequency of appointments will be reassessed by staff and with each visit and documented in the progress note. Overall MH treatment needs will be periodically reassessed at visits. Staff will provide education regarding conditions, medications, and treatment options. The agrees to ask questions if they have concerns or do not fully understand. Staff will provide supportive therapy to optimize wellness, including education related to symptom management skills, life coping skills, general health/wellness, safety planning and the role of medications. Carbon will be encouraged to involve supportive people (e.g., family/friends) in their treatment as applicable Carbon will contact staff as needed for nonemergent MH concerns between appointments; responsible staff will return contact to in timely manner. Carbon will use emergency MH options as agreed upon with provider (911, Emergency Department, [facility] Crisis [facility]). Different evidence-based treatment options were considered and discussed with Carbon as part of current treatment planning. PROGRESS TOWARD GOAL #1 WILL BE MEASURED BY: Carbon self-report, provider(s) observations in progress notes, medication refill history, regular attendance at MH appointments/groups, completion of [id number] assignments, and completion of measurement scale(s). DATE OF NEXT TREATMENT PLAN REVIEW: Jul /lance/ REBA THOMAS, YVETTE TEAM A SHUTTLE FIXER Signed: 08/08/2023 11:42 BERTIN SALINAS [facility] Aug 07, 2023 03:52 PM MENTAL HEALTH NOTE : LOCAL TITLE: MH PROGRESS NOTE STANDARD TITLE: MENTAL HEALTH NOTE DATE OF NOTE: AUG 07, 2023@15:52 ENTRY DATE: AUG 07, 2023@15:52:40 AUTHOR: BERTIN SALINAS EXP COSIGNER: URGENCY: STATUS: COMPLETED Session: Team A therapy Date: 08/07/2023 Duration: 50 minutes S/O: Mr. Levin requested return to care to discuss acute stress related to family challenges, namely fighting with his daughter, Cris. He shares about their recent arguments after Carbon kicked her out of his rental. He reports that Cris sent him a longwinded, angry and accusatory text message several weeks ago, which was very hurtful. He states she then was not responding to his messages or other attempts to talk to her until this past Saturday, when she appeared at his apartment with her SO and daughter, and acted like nothing happened. He states that they did not talk much about the argument/text, but that she and her SO apologized for recent behavior, and they have plans to have dinner this Saturday night. He is not sure what to make of this rapid change - he describes daughter and her SO as unpredictable, somewhat erratic. Spent some time exploring options re: revisiting the argument with them vs. letting it go. He reports that ultimately he thinks it is gracious to accept their apologies and move on, and he plans to do this. reports that despite it being a good thing that dtr and SO are out of his home, he is feeling quite lonely, and he fears that more arguments will lead to him not being able to see his 2 yo granddaughter. We talked a bit about what he might consider healthy boundaries. It is very important to him to maintain a relationship with his daughter and granddaughter. Carbon states when he called last week to schedule he was feeling much more distressed. He reports he's still uneasy about the future of their relationship, but that he is getting his smile back. He feels well supported by his islam community, his landlord, and his ex. He denies any SI/SIB, intent or plan. MSE: A&Ox4, politely, readily engages. Mood is overall euthymic, and affect congruent to the content of speech with some irritability with regard to complicated family dynamics. Attention was intact, speech was WNL. Ambulating independently, grooming and hygiene appropriate, dressed to season. Thought process linear and logical. Denies any ongoing SI, intent or plan. Denies SIB, HI. Insight and judgment intact, fair. RISK ASSESSMENT: Carbon is judged to be at LOW risk acutely and INTERMEDIATE risk chronically for harm to self. Carbon is judged to be LOW risk both acutely and chronically for harm to others. Risk Factors: Age, Gender, recent fleeting SI without intent or plan, History of multiple suicide attempts, History of trauma, interpersonal/relationship difficulties, legal challenges . Protective Factors: Absence of current SI/HI, Engaging in treatment, Positive relationship with health professionals, Awareness of and willingness to use crisis services if needed, Meaningful relationship with family including children and grandchildren. A/P: PTSD, depression, anxiety by history, symptoms recently worsened related to dispute with daughter and ongoing complex family dynamics. Most recent argument seems to have resolved, and stress has diminished accordingly. Pt feeling stable presently, though would like to meet several more times as he continues to navigate these changing and challenging family dynamics. Plan for RTC in 2-3 weeks. /lance/ REBA THOMAS, HALL PORTER TEAM A SHUTTLE FIXER Signed: 08/08/2023 11:37 BERTIN SALINAS [facility]
--- OUTSIDE RECORDS SUMMARY | 2024-04-12 13:13 | XMS_ITS | Encounter Summary ---
Author Name [facility] [place] Address [address] [place] [address] Care Team Providers Care Bearing Press Machine Operator Name Role Phone KARI HARLEY [...] Alvarez's Name Patient's Relationship to Policy Alvarez [facility] (WNR) MEDICAID MEDIC AID Apr 22, 2015 [id number] [phone] JOE CANALES PATIENT MEDICARE (WNR) MEDICARE (M) PART A Apr 22, 2013 PART A [id number] JEYSON CANALES III PATIENT MEDICARE (WNR) MEDICARE (M) PART B Apr 22, 2013 PART B [id number] [phone] JEYSON CANALES III N PATIENT MEDICARE (WNR) MEDICARE (M) PART A Apr 22, 2013 PART A [id number] JEYSON CANALES III N PATIENT MEDICARE (WNR) MEDICARE (M) PART B Apr 22, 2013 PART B [id number] JEYSON CANALES III N PATIENT MEDICARE (WNR) MEDICARE (M) PART A Apr 22, 2013 PART A [id number] JEYSON CANALES III N PATIENT MEDICARE (WNR) MEDICARE (M) PART B Apr 22, 2013 PART B [id number] JEYSON CANALES III N PATIENT Selected Encounter This section includes the information on record at [place] for the Encounter. Date/Time Encounter Type Encounter Description Reason Provider Source September 03, 2023 08:01 AM Outpatient Encounter ADMIN PAT ACTIVTIES (MASNONCT) OMID KING Encounter Template Text not used by [place] Plan of Treatment: Future Appointments (+ 6 months) and Future Tests (+/- 45 days) The Plan of Treatment section includes [facility] care [facility] for the [facility] [place] [facility] This section includes future appointments and future orders which are active, pending or scheduled. Future Appointments This section includes appointments that were scheduled to occur 6 months from the date of the Encounter, up to a maximum of 20 appointments. The data comes from all [place] treatment facilities. Appointment Date/Time Appointment Type Appointme nt Facility Name Nov 05, 2023 01:45 PM AMBULATORY - NONE [facility] Nov 05, 2023 03:00 PM AMBULATORY - MEDICINE [facility] Nov 13, 2023 02:00 PM AMBULATORY - PSYCHIATRY [facility] Nov 14, 2023 01:15 PM AMBULATORY - SURGERY [facility] Dec 03, 2023 03:00 PM AMBULATORY - MEDICINE [facility] Dec 18, 2023 09:30 AM AMBULATORY - SURGERY [facility] Jan 27, 2024 01:42 PM AMBULATORY - NONE [facility] Feb 06, 2024 02:00 PM AMBULATORY - PSYCHIATRY [facility] Social History: Smoking Status (Most current) [...] place. Date/Time Current Smoking Status Comment Esau tierneyy Jun 25, 2023 02:00 PM VA-TOBACCO USER EVERY DAY [facility] Tobacco Use History This section includes a history of the smoking, or tobacco-related health factors, that were collected on or before the date of the Encounter. The data comes from the [place] facility where the Encounter took place. Date/Time Smoking Status/Tobacco Use Comment F acility Jun 25, 2023 02:00 PM VA-TOBACCO USE 30 YEARS OR MORE [facility] Jun 25, 2023 02:00 PM VA-TOBACCO USE ADVICE [facility] Jun 25, 2023 02:00 PM VA-TOBACCO USE SENIOR INFORMATION DEVELOPER NO [facility] Jun 25, 2023 02:00 PM VA-TOBACCO USE MED NO [facility] Jun 25, 2023 02:00 PM VA-TOBACCO USER EVERY DAY [facility] Aug 07, 2022 02:00 PM VA-TOBACCO USE 30 YEARS OR MORE [facility] Aug 07, 2022 02:00 PM VA-TOBACCO USE ADVICE [facility] Aug 07, 2022 02:00 PM VA-TOBACCO USE SENIOR INFORMATION DEVELOPER NO [facility] Aug 07, 2022 02:00 PM VA-TOBACCO USE MED NO [facility] Aug 07, 2022 02:00 PM VA-TOBACCO USE [place] 30 MIN OF WAKE UP [facility] Aug 07, 2022 02:00 PM VA-TOBACCO USER EVERY DAY [facility] Sep 26, 2021 11:00 AM VA-TOBACCO FORMER USER [facility] Sep 26, 2021 11:00 AM VA-TOBACCO QUIT < 1 YEAR [facility] Dec 20, 2020 02:00 PM VA-TOBACCO DOESNT USE [place] 30 MIN WAKEUP [facility] Dec 20, 2020 02:00 PM VA-TOBACCO USE 30 YEARS OR MORE [facility] Dec 20, 2020 02:00 PM VA-TOBACCO USE ADVICE [facility] Dec 20, 2020 02:00 PM VA-TOBACCO USE SENIOR INFORMATION DEVELOPER YES [facility] Dec 20, 2020 02:00 PM VA-TOBACCO USE MED YES [facility] Dec 20, 2020 02:00 PM VA-TOBACCO USER EVERY DAY [facility] Nov 23, 2019 04:25 PM VA-TOBACCO USE < 1 YEAR [facility] Nov 23, 2019 04:25 PM VA-TOBACCO USE ADVICE [facility] Nov 23, 2019 04:25 PM VA-TOBACCO USE SENIOR INFORMATION DEVELOPER NO [facility] Nov 23, 2019 04:25 PM VA-TOBACCO USE MED NO [facility] Nov 23, 2019 04:25 PM VA-TOBACCO USE [place] 30 MIN OF WAKE UP [facility] Nov 23, 2019 04:25 PM VA-TOBACCO USER EVERY DAY [facility] Oct 31, 2018 01:49 PM VA-TOBACCO USE 30 YEARS OR MORE [facility] Oct 31, 2018 01:49 PM VA-TOBACCO USE ADVICE [facility] Oct 31, 2018 01:49 PM VA-TOBACCO USE SENIOR INFORMATION DEVELOPER NO [facility] Oct 31, 2018 01:49 PM VA-TOBACCO USE MED NO [facility] Oct 31, 2018 01:49 PM VA-TOBACCO USE [place] 30 MIN OF WAKE UP [facility] Oct 31, 2018 01:49 PM VA-TOBACCO USER EVERY DAY [facility] Jul 09, 2017 09:25 AM FORMER TOBACCO USE <1Y [facility] Jul 24, 2016 09:57 AM FORMER TOBACCO USE <1Y [facility] Jul 26, 2015 09:47 AM CURRENT TOBACCO USER [facility] Jul 08, 2014 12:50 PM CURRENT TOBACCO USER [facility] Jul 20, 2013 08:30 AM CURRENT TOBACCO USER [facility] Mar 22, 2009 03:04 PM FORMER TOBACCO USE >1Y <7Y [facility] Radiology Reports: +/- 30 days of the [...] the Encounter. The data comes from all [facility] facilities. Date/Time Radiology Report Provider Source September 02, 2023 01:43 PM LDCT LUNG CANCER S CREENING: [facility] [id number] M Exm Date: SEPTEMBER 02, 2023@13:43 Req Phys: CHANDRAKANT CONNORS Loc: [facility] PULM CHART CHECK LCS (Req' Img Loc: CT IMAGING Service: [place] [address] (Case [id number] COMPLETE) LDCT LUNG CANCER SCREENING (CT Detailed) CPT:08108 Reason for Study: LDCT f/u LUNGRADS 2b pulm nodule (FOLLOW UP) Clinical History: [place] IS NOT under investigation for COVID-19 or [...] 02, 2023 Date Verified: SEPTEMBER 02, 2023 Case Supervisor E-Sig:/ES/MOHINDER POSEY DO Report: EXAM: LDCT LUNG [...] Primary Interpreting Staff: MOHINDER POSEY DO, RADIOLOGIST (Case Supervisor) /DDS MOHINDER POSEY [facility] Encounter Notes: All associated encounter notes This section contains the clinical notes associated to the Encounter. Date/Time Encounter Note(s) Provider Source September 03, 2023 08:04 AM LETTERS: LOCAL TITLE: FOLLOW UP RESULTS LETTER STANDARD TITLE: LETTERS DATE OF NOTE: SEPTEMBER 03, 2023@08:04 ENTRY DATE: SEPTEMBER 03, 2023@08:04:28 AUTHOR: OMID KING COSIGNER: URGENCY: STATUS: COMPLETED [facility] [address] [place] [address] August JOE BALLARD PARKER [address] [facility] [id number] Dear : Your recent chest imaging on August showed: No change in the nodule(s) on your chest CT scans over a long enough period of time that we can now consider them to be benign (or cancer free). No further follow-up of the nodule(s) is necessary. You may now return to the routine lung cancer screening program. If you still meet criteria for screening, your PCP will let you know when it is time to be screened again. This is usually about a year from your last screening chest CT. If you still smoke cigarettes, we can help you quit. We understand that quitting cigarette smoking is difficult, but it is the best way to improve your health and decrease your chances of lung cancer. Quitting smoking and participating in lung cancer screening can double the health benefits. When you want help, let your primary care provider know. You can also call 9-552-VUWG-VET ( ) or visit [employer].smokefree.gov. A more detailed handout, titled My Lung Cancer Screening Did Not Show Lung Cancer: Now What?, will be mailed separately to you soon. If you are scheduled for a scan in the future and you have symptoms of a chest cold at that time, please call number on appointment letter to reschedule for four weeks after symptoms improve. If you have any further questions or problems, please contact Lung Cancer Screening staff at [phone]. OMID KING RN, BSN PULMONARY/LCS UPPER SHAPER OMID KING [facility] September 03, 2023 08:01 AM PULMONARY NOTE: LOCAL TITLE: PULMONARY LUNG CANCER SCREENING STANDARD TITLE: PULMONARY NOTE DATE OF NOTE: SEPTEMBER 03, 2023@08:01 ENTRY DATE: SEPTEMBER 03, 2023@08:01:10 AUTHOR: OMID KING EXP COSIGNER: URGENCY: STATUS: COMPLETED TRACKING OF NODULE COMPLETED/ENDED. Date of most recent follow-up image: Date: September 02, 2023 No incidental findings were noted. Reason nodule will no longer be tracked: Tracking completed as per LungRADS guidelines or provider recommendation. Plan: Resume routine annual lung cancer screening. Patient Notification of results: Results letter sent to patient. Comment: Rosangela: Please mail NO nodule leaflet. Thank you. /lance/ OMID KING RN, BSN PULMONARY/LCS UPPER SHAPER Signed: 09/03/2023 08:04 Receipt Acknowledged By: 09/03/2023 14:17 /lance/ ROSANGELA LU LEAD CLASS A REGIONAL TRUCK DRIVER OMID KING [facility]
--- OUTSIDE RECORDS SUMMARY | 2024-04-12 13:13 | XMS_ITS | Encounter Summary ---
Author Name [facility] [place] Address [address] [place] [address] Care Team Providers Care Electrical Appliance Servicer Name Role Phone KARI HARLEY Primary Care [...] Alvarez's Name Patient's Relationship to Policy Alvarez [facility] (WNR) MEDICAID MEDIC AID Apr 22, 2015 [id number] [phone] JOE CANALES PATIENT MEDICARE (WNR) MEDICARE (M) PART A Apr 22, 2013 PART A [id number] JEYSON CANALES III PATIENT MEDICARE (WNR) MEDICARE (M) PART B Apr 22, 2013 PART B [id number] [phone] JEYSON CANALES III PATIENT MEDICARE (WNR) MEDICARE (M) PART A Apr 22, 2013 PART A [id number] JEYSON CANALES III PATIENT MEDICARE (WNR) MEDICARE (M) PART B Apr 22, 2013 PART B [id number] JEYSON CANALES III PATIENT MEDICARE (WNR) MEDICARE (M) PART A Apr 22, 2013 PART A [id number] [phone] JEYSON CANALES III PATIENT MEDICARE (WNR) MEDICARE (M) PART B Apr 22, 2013 PART B [id number] JEYSON CANALES III PATIENT Selected Encounter This section includes the information on record at [place] for the Encounter. Date/Time Encounter Type Encounter Description Reason Pro vider Source Nov 13, 2023 12:41 PM Outpatient Encounter DERMATOLOGY IHE Encounter Template Text not used by [place] Plan of Treatment: Future Appointments (+ 6 months) and Future Tests (+/- 45 days) The Plan of Treatment section includes future care activities for the patient from all [place] [facility]. This section includes future appointments and future orders which are active, pending or scheduled. Future Appointments This section includes appointments that were scheduled to occur 6 months from the date of the Encounter, up to a maximum of 20 appointments. The data comes from all [place] treatment facilities. Appointment Date/Time Appointment Type Appointme nt Facility Name Nov 14, 2023 01:15 PM AMBULATORY - SURGERY [facility] Dec 03, 2023 03:00 PM AMBULATORY - MEDICINE [facility] Dec 18, 2023 09:30 AM AMBULATORY - SURGERY [facility] Jan 27, 2024 01:42 PM AMBULATORY - NONE [facility] Feb 06, 2024 02:00 PM AMBULATORY - PSYCHIATRY [facility] Mar 12, 2024 02:00 PM AMBULATORY - PSYCHIATRY [facility] Mar 24, 2024 11:00 AM AMBULATORY - MEDICINE [facility] Mar 24, 2024 11:45 AM AMBULATORY - NONE [facility] Apr 09, 2024 02:00 PM AMBULATORY - PSYCHIATRY [facility] Apr 20, 2024 01:00 PM AMBULATORY - MEDICINE [facility] Lab Results: +/- 30 days of the encounter This section includes the Chemistry and Hematology Lab Results on record with [place] for the patient. Radiology Reports and Pathology Reports are provided separately, in subsequent sections. Lab Results This section contains the Chemistry/Hematology Results that were resulted 30 days before or 30 daysafter the date of the Encounter. Date/Time Source Result Type Result - Unit Interpretation Reference Range Comment Nov 05, 2023 01:08 PM [facility] MAGNESIUM Specimen Type: PLASMA No comment entered. Ordering Provider: ANN HANDLEY Report Released Date/Time: Oct 30, 2022 11:17 AM Reporting Lab: [facility] [phone] Performing Lab: [facility] [phone] MAGNESIUM 2.1 mg/dL 1.6-2.6 Nov 05, 2023 01:08 PM [facility] LIPID PANEL,NON-FASTING Specimen Type: PLASMA No comment entered. Ordering Provider: ANN HANDLEY Report Released Date/Time: Oct 30, 2022 11:17 AM Reporting Lab: [facility] [phone] Performing Lab: [facility] [address] CHOLESTEROL 133 mg/dL <199 .HDL 35 mg/dL L >40 LDL CALCULATION 60 mg/dL <99 VLDL CALCULATION 38 mg/dL H <29 NON HDL CHOLESTEROL 98 mg/dL <129 TRIG(NON FASTING) 188 mg/dL H <149 Nov 05, 2023 01:08 PM [facility] CBC Specimen Type: BLOOD No comment entered. Ordering Provider: ANN HANDLEY Report Released Date/Time: Oct 30, 2022 11:17 AM Reporting Lab: [facility] [phone] Performing Lab: [facility] [phone] WBC 7.64 10*3/uL 4.0-11.0 RBC 4.62 10*6/uL 4.6-6.2 HGB 15.3 g/dL 13.5-17.9 HCT 43.1 41-54 MCV 93.3 fL 80-100 MCH 33.1 pg H 27-33 MCHC 35.5 g/dL 32.0-37.5 PLT 193 10*3/uL 150-400 MPV 9.1 fL 7.4-10.4 RDW 13.2 11.5-14.5 Nov 05, 2023 01:08 PM [facility] BASIC METABOLIC PANEL+MG Specimen Type: PLASMA No comment entered. Ordering Provider: ANN HANDLEY Report Released Date/Time: Oct 30, 2022 11:17 AM Reporting Lab: [facility] [phone] Performing Lab: [facility] [phone] CREATININE 1.1 mg/dL 0.7-1.2 UREA NITROGEN 10 mg/dL 8-26 GLUCOSE 100 mg/dL 70-100 SODIUM 143 mmol/L 136-145 POTASSIUM 3.6 mmol/L 3.5-5.1 CHLORIDE 110 mmol/L H 98-107 CO2 22 mmol/L 22-29 CALCIUM 9.5 mg/dL 8.4-10.2 MAGNESIUM 2.1 mg/dL 1.6-2.6 ANION GAP 11 mmol/L 5-15 .CREAT EGFR(CKD-EPI) 70 >60 Nov 05, 2023 01:08 PM [facility] CK,TOTAL Specimen Type: PLASMA No comment entered. Ordering Provider: TERRIE CHEN Report Released Date/Time: Nov 05, 2023 02:44 PM Reporting Lab: [facility] [phone] Performing Lab: [facility] [phone] CK,TOTAL 68 U/L 39-208 Nov 05, 2023 01:08 PM [facility] TSH W/REFLEX TO FREE T4 Specimen Type: PLASMA No comment entered. Ordering Provider: TERRIE CHEN Report Released Date/Time: Nov 05, 2023 02:44 PM Reporting Lab: [facility] [address] Performing Lab: [facility] [phone] TSH 1.69 u[IU]/mL 0.35-4.94 Nov 05, 2023 01:08 PM [facility] C-REACTIVE PROTEIN Specimen Type: PLASMA No comment entered. Ordering Provider: TERRIE CHEN Report Released Date/Time: Nov 05, 2023 02:44 PM Reporting Lab: [facility] [phone] Performing Lab: [facility] [address] C-REACTIVE PROTEIN 2.68 mg/L <5.00 Nov 05, 2023 01:08 PM [facility] SED RATE Specimen Type: BLOOD No comment entered. Ordering Provider: TERRIE CHEN Report Released Date/Time: Nov 05, 2023 02:44 PM Reporting Lab: [facility] [phone] Performing Lab: [facility] [phone] SED RATE 11 mm/h 5-15 Nov 05, 2023 01:08 PM [facility] ANTI-CCP Specimen Type: PLASMA No comment entered. Ordering Provider: TERRIE CHEN Report Released Date/Time: Nov 05, 2023 02:44 PM Reporting Lab: [facility] [phone] Performing Lab: [facility] [phone] ANTI-CCP <0.5 <4.9 Social History: Smoking Status (Most current) and Tobacco Use (All prior to encounter date) This section includes the most current, and the historical, smoking and tobacco- related health factors from the [place] facility where the Encounter took place. Current Smoking Status This section includes the most current smoking, or tobacco-related health factor, from the [place] facility where the Encounter took place. Date/Time Current Smoking Status Comment Esau spence Jun 25, 2023 02:00 PM VA-TOBACCO USER EVERY DAY [facility] Tobacco Use History This section includes a history of the smoking, or tobacco-related health factors, that were collected on or before the date of the Encounter. The data comes from the [place] facility where the Encounter took place. Date/Time Smoking Status/Tobacco Use Comment F acility Jun 25, 2023 02:00 PM VA-TOBACCO USE 30 YEARS OR MORE [facility] Jun 25, 2023 02:00 PM VA-TOBACCO USE ADVICE [facility] Jun 25, 2023 02:00 PM VA-TOBACCO USE DATABASE ADMINISTRATION MANAGER NO [facility] Jun 25, 2023 02:00 PM VA-TOBACCO USE MED NO [facility] Jun 25, 2023 02:00 PM VA-TOBACCO USER EVERY DAY [facility] Aug 07, 2022 02:00 PM VA-TOBACCO USE 30 YEARS OR MORE [facility] Aug 07, 2022 02:00 PM VA-TOBACCO USE ADVICE [facility] Aug 07, 2022 02:00 PM VA-TOBACCO USE DATABASE ADMINISTRATION MANAGER NO [facility] Aug 07, 2022 02:00 PM VA-TOBACCO USE MED NO [facility] Aug 07, 2022 02:00 PM VA-TOBACCO USE [place] 30 MIN OF WAKE UP [facility] Aug 07, 2022 02:00 PM VA-TOBACCO USER EVERY DAY [facility] Sep 26, 2021 11:00 AM VA-TOBACCO FORMER USER [facility] Sep 26, 2021 11:00 AM VA-TOBACCO QUIT < 1 YEAR [facility] Dec 20, 2020 02:00 PM VA-TOBACCO DOESNT USE [place] 30 MIN WAKEUP [facility] Dec 20, 2020 02:00 PM VA-TOBACCO USE 30 YEARS OR MORE [facility] Dec 20, 2020 02:00 PM VA-TOBACCO USE ADVICE [facility] Dec 20, 2020 02:00 PM VA-TOBACCO USE DATABASE ADMINISTRATION MANAGER YES [facility] Dec 20, 2020 02:00 PM VA-TOBACCO USE MED YES [facility] Dec 20, 2020 02:00 PM VA-TOBACCO USER EVERY DAY [facility] Nov 23, 2019 04:25 PM VA-TOBACCO USE < 1 YEAR [facility] Nov 23, 2019 04:25 PM VA-TOBACCO USE ADVICE [facility] Nov 23, 2019 04:25 PM VA-TOBACCO USE DATABASE ADMINISTRATION MANAGER NO [facility] Nov 23, 2019 04:25 PM VA-TOBACCO USE MED NO [facility] Nov 23, 2019 04:25 PM VA-TOBACCO USE [place] 30 MIN OF WAKE UP [facility] Nov 23, 2019 04:25 PM VA-TOBACCO USER EVERY DAY [facility] Oct 31, 2018 01:49 PM VA-TOBACCO USE 30 YEARS OR MORE [facility] Oct 31, 2018 01:49 PM VA-TOBACCO USE ADVICE [facility] Oct 31, 2018 01:49 PM VA-TOBACCO USE DATABASE ADMINISTRATION MANAGER NO [facility] Oct 31, 2018 01:49 PM VA-TOBACCO USE MED NO [facility] Oct 31, 2018 01:49 PM VA-TOBACCO USE [place] 30 MIN OF WAKE UP [facility] Oct 31, 2018 01:49 PM VA-TOBACCO USER EVERY DAY [facility] Jul 09, 2017 09:25 AM FORMER TOBACCO USE <1Y [facility] Jul 24, 2016 09:57 AM FORMER TOBACCO USE <1Y [facility] Jul 26, 2015 09:47 AM CURRENT TOBACCO USER [facility] Jul 08, 2014 12:50 PM CURRENT TOBACCO USER [facility] Jul 20, 2013 08:30 AM CURRENT TOBACCO USER [facility] Mar 22, 2009 03:04 PM FORMER TOBACCO USE >1Y <7Y [facility] Encounter Notes: All associated encounter notes This section contains the clinical notes associated to the Encounter. Date/Time Encounter Note(s) Provider Source Nov 13, 2023 01:33 PM ADDENDUM: LOCAL TITLE: Addendum STANDARD TITLE: ADDENDUM DATE OF NOTE: NOV 13, 2023@13:33:33 ENTRY DATE: NOV 13, 2023@13:33:35 AUTHOR: ANGY KAUFMAN COSIGNER: URGENCY: STATUS: COMPLETED Order was placed for RTC in May when he is due. No triage completed for earlier appointment and no indication for him to come back other than his normal follow up time. /don KAUFMAN LPN LICENSED PRACTICAL NURSE Signed: 11/13/2023 13:42 Receipt Acknowledged By: 11/15/2023 14:02 /lance/ AILYN BUENO MSA LEAD DEBARKER OPERATOR --- Original Document --- 11/13/23 PATIENT CONTACT NOTE: Patient contact Name of [place]: JOE CANALES Name/Relationship of Contact if other than : Date & Time of Contact: Oct@12:41 Type of Contact: In person Reason for Contact: stopped by clinic today. He would like to make a f/u to see dermatology. He stated he would like his nose looked at as there are some bumps on it, as well as spots on chest and face. declined triage. Please place RTC if appropriate and alert MSA to schedule. Thank you. /AILYN Swartz MSA LEAD DEBARKER OPERATOR Signed: 11/13/2023 12:44 Receipt Acknowledged By: 11/13/2023 13:33 /don KAUFMAN LPN LICENSED PRACTICAL NURSE 11/13/2023 14:32 /lance/ NAYELY GEORGE RN STAFF NURSE 11/13/2023 ADDENDUM STATUS: COMPLETED If he wishes to be seen earlier than scheduled follow up, he can send photos through [facility] or schedule appointment for nurse visit for triage. /don KAUFMAN LPN LICENSED PRACTICAL NURSE Signed: 11/13/2023 13:44 11/15/2023 ADDENDUM STATUS: UNSIGNED You may not VIEW this UNSIGNED Addendum. SHAEANGY Khris [facility] Nov 13, 2023 12:41 PM REPORT OF CONTACT: LOCAL TITLE: PATIENT CONTACT NOTE STANDARD TITLE: REPORT OF CONTACT DATE OF NOTE: NOV 13, 2023@12:41 ENTRY DATE: NOV 13, 2023@12:41:06 AUTHOR: GEOVANI TAO EXP COSIGNER: URGENCY: STATUS: COMPLETED PATIENT CONTACT NOTE Has ADDENDA Patient contact Name of [place]: JOE CANALES Name/Relationship of Contact if other than : Date & Time of Contact: Oct@12:41 Type of Contact: In person Reason for Contact: [place] stopped by clinic today. He would like to make a f/u to see dermatology. He stated he would like his nose looked at as there are some bumps on it, as well as spots on chest and face. declined triage. Please place RTC if appropriate and alert MSA to schedule. Thank you. /AILYN Swartz MSA LEAD DEBARKER OPERATOR Signed: 11/13/2023 12:44 Receipt Acknowledged By: 11/13/2023 13:33 /lance/ ANGY KAUFMAN LPN LICENSED PRACTICAL NURSE 11/13/2023 14:32 /es/ NAYELY GEORGE MEDICAL SOCIOLOGIST NURSE 11/13/2023 ADDENDUM STATUS: COMPLETED Order was placed for RTC in May when he is due. No triage completed for earlier appointment and no indication for him to come back other than his normal follow up time. /don KAUFMAN LPN LICENSED PRACTICAL NURSE Signed: 11/13/2023 13:42 Receipt Acknowledged By: 11/15/2023 14:02 /lance/ AILYN BUENO MSA LEAD DEBARKER OPERATOR 11/13/2023 ADDENDUM STATUS: COMPLETED If he wishes to be seen earlier than scheduled follow up, he can send photos through [facility] or schedule appointment for nurse visit for triage. /don KAUFMAN LPN LICENSED PRACTICAL NURSE Signed: 11/13/2023 13:44 11/15/2023 ADDENDUM STATUS: COMPLETED [place] will try to upload photos to [employer] and will go from there. /lance/ AILYN BUENO MSA LEAD DEBARKER OPERATOR Signed: 11/15/2023 14:03 GEOVANI TAO [facility]
--- OUTSIDE RECORDS SUMMARY | 2024-04-12 13:13 | XMS_ITS | Encounter Summary ---
Author Name [facility] Organization [facility] [place] Address [address] [place] [address] Care Team Providers Care French Tutor Name Role Phone KARI HARLEY Primary [...] Alvarez's Name Patient's Relationship to Policy [facility] ([facility] MEDICAID MEDIC AID Apr 22, 2015 [id number] [phone] JOE CANALES PATIENT MEDICARE (WNR) MEDICARE (M) PART A Apr 22, 2013 PART A [id number] JEYSON CANALES III PATIENT MEDICARE (WNR) MEDICARE (M) PART B Apr 22, 2013 PART B [id number] [phone] JEYSON CANALES III PATIENT MEDICARE (WNR) MEDICARE (M) PART A Apr 22, 2013 PART A [id number] JEYSON CANALES III N PATIENT MEDICARE (WNR) MEDICARE (M) PART B Apr 22, 2013 PART B [id number] [phone] JEYSON CANALES III N PATIENT MEDICARE (WNR) MEDICARE (M) PART A Apr 22, 2013 PART A [id number] JEYSON CANALES III PATIENT MEDICARE (WNR) MEDICARE (M) PART B Apr 22, 2013 PART B [id number] JEYSON CANALES III N PATIENT Selected Encounter This section includes the information on record at OR for the Encounter. Date/Time Encounter Type Encounter Description Reason Pro vider Source September 02, 2023 12:00 AM Outpatient Encounter EVENT (HISTORICAL) IHE Encounter Template Text not used by OR Plan of Treatment: Future Appointments (+ 6 months) and Future Tests (+/- 45 days) The Plan of Treatment section includes future care activities for the patient from all OR treatmentfacilities. This section includes future appointments and future orders which are active, pending or scheduled. Future Appointments This section includes appointments that were scheduled to occur 6 months from the date of the Encounter, up to a maximum of 20 appointments. The data comes from all [place] treatment facilities. Appointment Date/Time Appointment Type Appointme nt Facility Name Nov 05, 2023 01:45 PM AMBULATORY - NONE [facility] Nov 05, 2023 03:00 PM AMBULATORY - MEDICINE [facility] Nov 13, 2023 02:00 PM AMBULATORY - PSYCHIATRY [facility] Nov 14, 2023 01:15 PM AMBULATORY - SURGERY [facility] Dec 03, 2023 03:00 PM AMBULATORY - MEDICINE [facility] Dec 18, 2023 09:30 AM AMBULATORY - SURGERY [facility] Jan 27, 2024 01:42 PM AMBULATORY - NONE [facility] Feb 06, 2024 02:00 PM AMBULATORY - PSYCHIATRY [facility] Social History: Smoking Status (Most current) and Tobacco Use (All prior to encounter date) This section includes the most current, and the historical, smoking and tobacco- related health factors from the OR facility where the Encounter took place. Current Smoking Status This section includes the most current smoking, or tobacco-related health factor, from the OR facility where the Encounter took place. Date/Time Current Smoking Status Comment Esau spence Jun 25, 2023 02:00 PM VA-TOBACCO USER EVERY DAY [facility] Tobacco Use History This section includes a history of the smoking, or tobacco-related health factors, that were collected on or before the date of the Encounter. The data comes from the OR facility where the Encounter took place. Date/Time Smoking Status/Tobacco Use Comment F acility Jun 25, 2023 02:00 PM VA-TOBACCO USE [address] [facility] Jun 25, 2023 02:00 PM VA-TOBACCO USE ADVICE [facility] Jun 25, 2023 02:00 PM VA-TOBACCO USE ELECTROTYPE FINISHER NO [facility] Jun 25, 2023 02:00 PM VA-TOBACCO USE MED NO [facility] Jun 25, 2023 02:00 PM VA-TOBACCO USER EVERY DAY [facility] Aug 07, 2022 02:00 PM VA-TOBACCO USE [address] [facility] Aug 07, 2022 02:00 PM VA-TOBACCO USE ADVICE [facility] Aug 07, 2022 02:00 PM VA-TOBACCO USE ELECTROTYPE FINISHER NO [facility] Aug 07, 2022 02:00 PM VA-TOBACCO USE MED NO [facility] Aug 07, 2022 02:00 PM VA-TOBACCO USE [place] 30 MIN OF WAKE UP [facility] Aug 07, 2022 02:00 PM VA-TOBACCO USER EVERY DAY [facility] Sep 26, 2021 11:00 AM VA-TOBACCO FORMER USER [facility] Sep 26, 2021 11:00 AM VA-TOBACCO QUIT < [address] [facility] Dec 20, 2020 02:00 PM VA-TOBACCO DOESNT USE [place] [address] [facility] Dec 20, 2020 02:00 PM VA-TOBACCO USE [address] [facility] Dec 20, 2020 02:00 PM VA-TOBACCO USE ADVICE [facility] Dec 20, 2020 02:00 PM VA-TOBACCO USE ELECTROTYPE FINISHER YES [facility] Dec 20, 2020 02:00 PM VA-TOBACCO USE MED YES [facility] Dec 20, 2020 02:00 PM VA-TOBACCO USER EVERY DAY [facility] Nov 23, 2019 04:25 PM VA-TOBACCO USE < [address] [facility] Nov 23, 2019 04:25 PM VA-TOBACCO USE ADVICE [facility] Nov 23, 2019 04:25 PM VA-TOBACCO USE ELECTROTYPE FINISHER NO [facility] Nov 23, 2019 04:25 PM VA-TOBACCO USE MED NO [facility] Nov 23, 2019 04:25 PM VA-TOBACCO USE [place] [address] [facility] Nov 23, 2019 04:25 PM VA-TOBACCO USER EVERY DAY [facility] Oct 31, 2018 01:49 PM VA-TOBACCO USE [address] [facility] Oct 31, 2018 01:49 PM VA-TOBACCO USE ADVICE [facility] Oct 31, 2018 01:49 PM VA-TOBACCO USE ELECTROTYPE FINISHER NO [facility] Oct 31, 2018 01:49 PM VA-TOBACCO USE MED NO [facility] Oct 31, 2018 01:49 PM VA-TOBACCO USE [place] [address] UP [facility] Oct 31, 2018 01:49 PM VA-TOBACCO USER EVERY DAY [facility] Jul 09, 2017 09:25 AM FORMER TOBACCO USE <1Y [facility] Jul 24, 2016 09:57 AM FORMER TOBACCO USE <1Y [facility] Jul 26, 2015 09:47 AM CURRENT TOBACCO USER [facility] Jul 08, 2014 12:50 PM CURRENT TOBACCO USER [facility] Jul 20, 2013 08:30 AM CURRENT TOBACCO USER [facility] Mar 22, 2009 03:04 PM FORMER TOBACCO USE >1Y <7Y [facility] Radiology Reports: +/- 30 days of the [...] the Encounter. The data comes from all [place] treatment facilities. Date/Time Radiology Report Provider Source September 02, 2023 01:43 PM LDCT LUNG CANCER S CREENING: JOE CANALES CLETa [id number] Exm Date: SEPTEMBER 02, 2023@13:43 Req Phys: CHANDRAKANT CONNORS Loc: [facility] PULM CHART CHECK [facility] (Req' Img Loc: CT IMAGING Service: [place] [address] (Case [id number] COMPLETE) LDCT LUNG CANCER SCREENING (CT Detailed) CPT:10113 Reason for Study: LDCT f/u LUNGRADS 2b [...] 02, 2023 Date Verified: SEPTEMBER 02, 2023 Gum Maker E-Sig:/ES/MOHINDER POSEY DO Report: EXAM: LDCT LUNG [...] Primary Interpreting Staff: MOHINDER POSEY DO, RADIOLOGIST (Gum Maker) /DDS MOHINDER POSEY [facility]
--- OUTSIDE RECORDS SUMMARY | 2024-04-12 13:13 | XMS_ITS | Encounter Summary ---
Author Name [facility] Organization [facility] [place] Address [address] [place] [address] Care Team Providers Care Senior Hr Generalist Name Role Phone KARI HARLEY Primary Care [...] Alvarez's Name Patient's Relationship to Policy Alvarez [facility] (WNR) MEDICAID MEDIC AID Apr 22, 2015 [id number] JOE CANALES PATIENT MEDICARE (WNR) MEDICARE (M) PART A Apr 22, 2013 PART A [id number] [phone] JEYSON CANALES III PATIENT MEDICARE (WNR) MEDICARE (M) PART B Apr 22, 2013 PART B [id number] [phone] JEYSON CANALES III PATIENT MEDICARE (WNR) MEDICARE (M) PART A Apr 22, 2013 PART A [id number] JEYSON CANALES III N PATIENT MEDICARE (WNR) MEDICARE (M) PART B Apr 22, 2013 PART B [id number] [phone] JEYSON CANALES III N PATIENT MEDICARE (WNR) MEDICARE (M) PART A Apr 22, 2013 PART A [id number] [phone] JEYSON CANALES III N PATIENT MEDICARE (WNR) MEDICARE (M) PART B Apr 22, 2013 PART B [id number] JEYSON CANALES III N PATIENT Selected Encounter This section includes the information on record at [place] for the Encounter. Date/Time Encounter Type Encounter Description Reason Pro vider Source Nov 13, 2023 02:00 PM PSYTX W PT 45 MINUTES PSYCHOGERIATRIC - INDIVIDUAL ICD-10-CM F43.12 Post-traumati c stress disorder, chronic BERTIN SALINAS Virgilio Encounter Template Text not used by [place] Assessments - Encounter Diagnoses This section includes the primary and secondary diagnoses documented for the Encounter. Date/Time Primary/Secondary Diagnosis Diagnosis Name Provider Source Nov 13, 2023 03:03 PM PRIMARY Post-traumatic stress disorder, chronic BERTIN SALINAS [facility] Nov 13, 2023 03:03 PM SECONDARY Major depressive disorder, recurrent, in partial remission BERTIN SALINAS [facility] Plan of Treatment: Future Appointments (+ 6 months) and Future Tests (+/- 45 days) The Plan of Treatment section includes future care activities for the patient from all [facility]. This section includes future appointments and future orders which are active, pending or scheduled. Future Appointments This section includes appointments that were scheduled to occur 6 months from the date of the Encounter, up to a maximum of 20 appointments. The data comes from all [place] treatment facilities. Appointment Date/Time Appointment Type Appointme nt Facility Name Nov 14, 2023 01:15 PM AMBULATORY - SURGERY [facility] Dec 03, 2023 03:00 PM [facility] Dec 18, 2023 09:30 AM AMBULATORY - SURGERY [facility] Jan 27, 2024 01:42 PM AMBULATORY - NONE [facility] Feb 06, 2024 02:00 PM AMBULATORY - PSYCHIATRY [facility] Mar 12, 2024 02:00 PM AMBULAT[facility] - [facility] [facility] Mar 24, 2024 11:00 AM [facility] Mar 24, 2024 11:45 AM [facility] - NONE [facility] Apr 09, 2024 02:00 PM [facility] [place] [facility] Apr 20, 2024 01:00 PM AMBULATORY - MEDICINE [facility] Lab Results: +/- 30 days of the encounter This section includes the Chemistry and Hematology Lab Results on record with [place] for the patient. Radiology Reports and Pathology Reports are provided separately, in subsequent sections. Lab Results This section contains the Chemistry/Hematology Results that were resulted 30 days before or 30 daysafter the date of the Encounter. Date/Time Source Result Type Result - Unit Interpretation Reference Range Comment Nov 05, 2023 01:08 PM [facility] MAGNESIUM Specimen Type: PLASMA No comment entered. Ordering Provider: ANN HANDLEY Report Released Date/Time: Oct 30, 2022 11:17 AM Reporting Lab: [facility] [id number] Performing Lab: [facility] [phone] MAGNESIUM 2.1 mg/dL 1.6-2.6 Nov 05, 2023 01:08 PM [facility] LIPID PANEL,NON-FASTING Specimen Type: PLASMA No comment entered. Ordering Provider: ANN HANDLEY Report Released Date/Time: Oct 30, 2022 11:17 AM Reporting Lab: [facility] [phone] Performing Lab: [facility] [phone] CHOLESTEROL 133 mg/dL <199 .HDL 35 mg/dL L >40 LDL CALCULATION 60 mg/dL <99 VLDL CALCULATION 38 mg/dL H <29 NON HDL CHOLESTEROL 98 mg/dL <129 TRIG(NON FASTING) 188 mg/dL H <149 Nov 05, 2023 01:08 PM [facility] CBC Specimen Type: BLOOD No comment entered. Ordering Provider: ANN HANDLEY Report Released Date/Time: Oct 30, 2022 11:17 AM Reporting Lab: [facility] [phone] Performing Lab: [facility] [phone] WBC 7.64 10*3/uL 4.0-11.0 RBC 4.62 10*6/uL 4.6-6.2 HGB 15.3 g/dL 13.5-17.9 HCT 43.1 41-54 MCV 93.3 fL 80-100 MCH 33.1 pg H 27-33 MCHC 35.5 g/dL 32.0-37.5 PLT 193 10*3/uL 150-400 MPV 9.1 fL 7.4-10.4 RDW 13.2 11.5-14.5 Nov 05, 2023 01:08 PM [facility] BASIC METABOLIC PANEL+MG Specimen Type: PLASMA No comment entered. Ordering Provider: ANN HANDLEY Report Released Date/Time: Oct 30, 2022 11:17 AM Reporting Lab: [facility] [phone] Performing Lab: [facility] [phone] CREATININE 1.1 mg/dL 0.7-1.2 UREA NITROGEN 10 mg/dL 8-26 GLUCOSE 100 mg/dL 70-100 SODIUM 143 mmol/L 136-145 POTASSIUM 3.6 mmol/L 3.5-5.1 CHLORIDE 110 mmol/L H 98-107 CO2 22 mmol/L 22-29 CALCIUM 9.5 mg/dL 8.4-10.2 MAGNESIUM 2.1 mg/dL 1.6-2.6 ANION GAP 11 mmol/L 5-15 .CREAT EGFR(CKD-EPI) 70 >60 Nov 05, 2023 01:08 PM [facility] CK,TOTAL Specimen Type: PLASMA No comment entered. Ordering Provider: TERRIE CHEN Report Released Date/Time: Nov 05, 2023 02:44 PM Reporting Lab: [facility] [phone] Performing Lab: [facility] [phone] CK,TOTAL 68 U/L 39-208 Nov 05, 2023 01:08 PM [facility] TSH W/REFLEX TO FREE T4 Specimen Type: PLASMA No comment entered. Ordering Provider: TERRIE CHEN Report Released Date/Time: Nov 05, 2023 02:44 PM Reporting Lab: [facility] [phone] Performing Lab: [facility] [phone] TSH 1.69 u[IU]/mL 0.35-4.94 Nov 05, 2023 01:08 PM [facility] C-REACTIVE PROTEIN Specimen Type: PLASMA No comment entered. Ordering Provider: TERRIE CHEN Report Released Date/Time: Nov 05, 2023 02:44 PM Reporting Lab: [facility] [phone] Performing Lab: [facility] [phone] C-REACTIVE PROTEIN 2.68 mg/L <5.00 Nov 05, 2023 01:08 PM [facility] SED RATE Specimen Type: BLOOD No comment entered. Ordering Provider: TERRIE CHEN Report Released Date/Time: Nov 05, 2023 02:44 PM Reporting Lab: [facility] [phone] Performing Lab: [facility] [phone] SED RATE 11 mm/h 5-15 Nov 05, 2023 01:08 PM [facility] ANTI-CCP Specimen Type: PLASMA No comment entered. Ordering Provider: TERRIE CHEN Report Released Date/Time: Nov 05, 2023 02:44 PM Reporting Lab: [facility] [phone] Performing Lab: [facility] [phone] ANTI-CCP <0.5 <4.9 Social History: Smoking Status (Most current) and Tobacco Use (All prior to encounter date) This section includes the most current, and the historical, smoking and tobacco- related health factors from the [place] facility where the Encounter took place. Current Smoking Status This section includes the most current smoking, or tobacco-related health factor, from the [place] facility where the Encounter took place. Date/Time Current Smoking Status Comment Esau spence Jun 25, 2023 02:00 PM VA-TOBACCO USER EVERY DAY [facility] Tobacco Use History This section includes a history of the smoking, or tobacco-related health factors, that were collected on or before the date of the Encounter. The data comes from the [place] facility where the Encounter took place. Date/Time Smoking Status/Tobacco Use Comment F acility Jun 25, 2023 02:00 PM VA-TOBACCO USE 30 YEARS OR MORE [facility] Jun 25, 2023 02:00 PM VA-TOBACCO USE ADVICE [facility] Jun 25, 2023 02:00 PM VA-TOBACCO USE SUPERVISOR TICKET SALES NO [facility] Jun 25, 2023 02:00 PM VA-TOBACCO USE MED NO [facility] Jun 25, 2023 02:00 PM VA-TOBACCO USER EVERY DAY [facility] Aug 07, 2022 02:00 PM VA-TOBACCO USE 30 YEARS OR MORE [facility] Aug 07, 2022 02:00 PM VA-TOBACCO USE ADVICE [facility] Aug 07, 2022 02:00 PM VA-TOBACCO USE SUPERVISOR TICKET SALES NO [facility] Aug 07, 2022 02:00 PM VA-TOBACCO USE MED NO [facility] Aug 07, 2022 02:00 PM VA-TOBACCO USE [place] 30 MIN OF WAKE UP [facility] Aug 07, 2022 02:00 PM VA-TOBACCO USER EVERY DAY [facility] Sep 26, 2021 11:00 AM VA-TOBACCO FORMER USER [facility] Sep 26, 2021 11:00 AM VA-TOBACCO QUIT < 1 YEAR [facility] Dec 20, 2020 02:00 PM VA-TOBACCO DOESNT USE WI 30 MIN WAKEUP [facility] Dec 20, 2020 02:00 PM VA-TOBACCO USE 30 YEARS OR MORE [facility] Dec 20, 2020 02:00 PM VA-TOBACCO USE ADVICE [facility] Dec 20, 2020 02:00 PM VA-TOBACCO USE SUPERVISOR TICKET SALES YES [facility] Dec 20, 2020 02:00 PM VA-TOBACCO USE MED YES [facility] Dec 20, 2020 02:00 PM VA-TOBACCO USER EVERY DAY [facility] Nov 23, 2019 04:25 PM VA-TOBACCO USE < 1 YEAR [facility] Nov 23, 2019 04:25 PM VA-TOBACCO USE ADVICE [facility] Nov 23, 2019 04:25 PM VA-TOBACCO USE SUPERVISOR TICKET SALES NO [facility] Nov 23, 2019 04:25 PM VA-TOBACCO USE MED NO [facility] Nov 23, 2019 04:25 PM VA-TOBACCO USE WI 30 MIN OF WAKE UP [facility] Nov 23, 2019 04:25 PM VA-TOBACCO USER EVERY DAY [facility] Oct 31, 2018 01:49 PM VA-TOBACCO USE 30 YEARS OR MORE [facility] Oct 31, 2018 01:49 PM VA-TOBACCO USE ADVICE [facility] Oct 31, 2018 01:49 PM VA-TOBACCO USE SUPERVISOR TICKET SALES NO [facility] Oct 31, 2018 01:49 PM VA-TOBACCO USE MED NO [facility] Oct 31, 2018 01:49 PM VA-TOBACCO USE WI 30 MIN OF WAKE UP [facility] Oct 31, 2018 01:49 PM VA-TOBACCO USER EVERY DAY [facility] Jul 09, 2017 09:25 AM FORMER TOBACCO USE <1Y [facility] Jul 24, 2016 09:57 AM FORMER TOBACCO USE <1Y [facility] Jul 26, 2015 09:47 AM CURRENT TOBACCO USER [facility] Jul 08, 2014 12:50 PM CURRENT TOBACCO USER [facility] Jul 20, 2013 08:30 AM CURRENT TOBACCO USER [facility] Mar 22, 2009 03:04 PM FORMER TOBACCO USE >1Y <7Y [facility] Encounter Notes: All associated encounter notes This section contains the clinical notes associated to the Encounter. Date/Time Encounter Note(s) Provider Source Nov 13, 2023 03:03 PM MENTAL HEALTH NOTE : LOCAL TITLE: MH PROGRESS NOTE STANDARD TITLE: MENTAL HEALTH NOTE DATE OF NOTE: NOV 13, 2023@15:03 ENTRY DATE: NOV 13, 2023@15:03:38 AUTHOR: BERTIN SALINAS COSIGNER: URGENCY: STATUS: COMPLETED Session: Team A therapy Date: 11/13/2023 Duration: 50 minutes S/O: requested follow-up visit due to stress from ongoing disputes/strain with his daughter, Cris. Discusses continuing to support her and her SO financially, recently bailing them out of a situation with their car/insurance. Continue to explore if and how he would like to assert any boundaries or limitations around his financial support to her, especially as he feels continually hurt by their highly conflictual relationship. Engaged in communication analysis around recent argument they had and considered other communication strategies he could implement. Talked about idea of kitchen sinking during arguments, and explored how he could try to avoid this in future conversations. shares that his participation in [employer] activities has fallen off a little recently, spent some time exploring this. He is feeling less comfortable there than previously, but can't pinpoint why. Would like to start going more often, and we discussed option of him reaching out to a friend from [employer] to go together. Kelso discussed some other family dynamics that cause ongoing stress, though these are mostly manageable. He is hopeful about getting down to [place] in the near future to meet his great grandchild, and also still planning a trip to [place] for hopefully next year to see his Dad. Talked about how he can be intentional in terms of saving for this. Overall Kelso reports his mood has stabilized since he scheduled appointment. He's grateful for opportunity to problem-solve some relational issues, reports no need for regular visits at this time. Will continue to reach out prn. MSE: A&Ox4, politely, readily engages. Mood is overall euthymic, and affect congruent to the content of speech. Attention was intact, speech was WNL. Ambulating independently, grooming and hygiene appropriate, dressed to season. Thought process linear and logical. Denies any ongoing SI, intent or plan. Denies SIB, HI. Insight and judgment intact, fair. MSE otherwise unremarkable. RISK ASSESSMENT: Kelso is judged to be at LOW risk acutely and INTERMEDIATE risk chronically for harm to self. Kelso is judged to be LOW risk both [...] stress has diminished accordingly. Pt feeling stable presently and without need for continued visits at this time. He has senior writer's contact info, is aware of availability, and will reach out prn. also has awareness of crisis resources. /lance/ REBA THOMAS, TRAVEL FREIGHT AND PASSENGER AGENT TEAM [employer] SALESPERSON Signed: 11/14/2023 08:42 BERTIN SALINAS [facility]
--- OUTSIDE RECORDS SUMMARY | 2024-04-12 13:13 | XMS_ITS | Encounter Summary ---
Author Name [facility] Organization [facility] Address [address] [place] [address] Care Team Providers [facility] Aide Name Role Phone KARI HARLEY Primary Care [...] Alvarez's Name Patient's Relationship to Policy Alvarez [facility] (WNR) MEDICAID MEDIC AID Apr 22, 2015 [id number] [phone] JOE CANALES PATIENT MEDICARE (WNR) MEDICARE (M) PART A Apr 22, 2013 PART A [id number] JEYSON CANALES III N PATIENT MEDICARE (WNR) MEDICARE (M) PART B Apr 22, 2013 PART B [id number] [phone] JEYSON CANALES III N PATIENT MEDICARE (WNR) MEDICARE (M) PART A Apr 22, 2013 PART A [id number] [phone] JEYSON CANALES III N PATIENT MEDICARE (WNR) MEDICARE (M) PART B Apr 22, 2013 PART B [id number] [phone] JEYSON CANALES III N PATIENT MEDICARE (WNR) MEDICARE (M) PART A Apr 22, 2013 PART A [id number] JEYSON CANALES III N PATIENT MEDICARE (WNR) MEDICARE (M) PART B Apr 22, 2013 PART B [id number] JEYSON CANALES III N PATIENT Selected Encounter This section includes the information on record at OR for the Encounter. Date/Time Encounter Type Encounter Description Reason Provider Source Nov 14, 2023 01:15 PM INTRAORAL FULL IMAGE SERIES DENTAL ICD-10-CM Z13.84 Encounter for screening for dental disorders KIRSTEN WAHL IN [facility] Encounter Template Text not used by OR Assessments - Encounter Diagnoses This section includes the primary and secondary diagnoses documented for the Encounter. Date/Time Primary/Secondary Diagnosis Diagnosis Name Provider Source Nov 14, 2023 02:17 PM PRIMARY Encounter for screening for dental disorders KIRSTEN WAHL IN [facility] Plan of Treatment: Future Appointments (+ 6 months) and Future Tests (+/- 45 days) The Plan of Treatment section includes [facility] care [facility] the [facility] This section includes future appointments and future orders which are active, pending or scheduled. Future Appointments This section includes appointments that were scheduled to occur 6 months from the date of the Encounter, up to a maximum of 20 appointments. The data comes from all OR treatment facilities. Appointment Date/Time Appointment Type Appointme nt Facility Name Dec 03, 2023 03:00 PM AMBULATORY [facility] Dec 18, 2023 09:30 AM AM[facility]UL[facility]ORY [place] [facility] Jan 27, 2024 01:42 PM AMBULATORY - NONE [facility] Feb 06, 2024 02:00 PM AM[place]ORY [place] [facility] Mar 12, 2024 02:00 PM [place] [facility] Mar 24, 2024 11:00 AM [facility] [place] [facility] Mar 24, 2024 11:45 AM [facility] Apr 09, 2024 02:00 PM [place] [facility] Apr 20, 2024 01:00 PM [facility] Lab Results: +/- 30 days of the encounter This section includes the Chemistry and Hematology Lab Results on record with OR for the patient. Radiology Reports and Pathology Reports are provided separately, in subsequent sections. Lab Results This section contains the Chemistry/Hematology Results that were resulted 30 days before or 30 daysafter the date of the Encounter. Date/Time Source Result Type Result - Unit Interpretation Reference Range Comment Nov 05, 2023 01:[address] [facility] MAGNESIUM Specimen Type: PLASMA No comment entered. Ordering Provider: ANN HANDLEY Report Released Date/Time: Oct 30, 2022 11:17 AM Reporting Lab: [facility] [id number] Performing Lab: [facility] [id number] MAGNESIUM 2.1 mg/dL 1.6-2.6 Nov 05, 2023 01:[address] [facility] LIPID PANEL,NON-FASTING Specimen Type: PLASMA No comment entered. Ordering Provider: ANN HANDLEY Report Released Date/Time: Oct 30, 2022 11:17 AM Reporting Lab: [facility] [id number] Performing Lab: [facility] [address] CHOLESTEROL 133 mg/dL <199 .HDL 35 mg/dL L >40 LDL CALCULATION 60 mg/dL <99 VLDL CALCULATION 38 mg/dL H <29 NON HDL CHOLESTEROL 98 mg/dL <129 TRIG(NON FASTING) 188 mg/dL H <149 Nov 05, 2023 01:[address] [facility] CBC Specimen Type: BLOOD No comment entered. Ordering Provider: NAN HANDLEY Report Released Date/Time: Oct 30, 2022 11:17 AM Reporting Lab: [facility] [id number] Performing Lab: [facility] [address] WBC 7.64 10*3/uL 4.0-11.0 RBC 4.62 10*6/uL 4.6-6.2 HGB 15.3 g/dL 13.5-17.9 HCT 43.1 41-54 MCV 93.3 fL 80-100 MCH 33.1 pg H 27-33 MCHC 35.5 g/dL 32.0-37.5 PLT 193 10*3/uL 150-400 MPV 9.1 fL 7.4-10.4 RDW 13.2 11.5-14.5 Nov 05, 2023 01:[address] [facility] BASIC METABOLIC PANEL+MG Specimen Type: PLASMA No comment entered. Ordering Provider: ANN HANDLEY Report Released Date/Time: Oct 30, 2022 11:17 AM Reporting Lab: [facility] [id number] Performing Lab: [facility] [address] CREATININE 1.1 mg/dL 0.7-1.2 UREA NITROGEN 10 mg/dL 8-26 GLUCOSE 100 mg/dL 70-100 SODIUM 143 mmol/L 136-145 POTASSIUM 3.6 mmol/L 3.5-5.1 CHLORIDE 110 mmol/L H 98-107 CO2 22 mmol/L 22-29 CALCIUM 9.5 mg/dL 8.4-10.2 MAGNESIUM 2.1 mg/dL 1.6-2.6 ANION GAP 11 mmol/L 5-15 .CREAT EGFR(CKD-EPI) 70 >60 Nov 05, 2023 01:[address] [facility] CK,TOTAL Specimen Type: PLASMA No comment entered. Ordering Provider: TERRIE CHEN Report Released Date/Time: Nov 05, 2023 02:44 PM Reporting Lab: [facility] [id number] Performing Lab: [facility] [address] CK,TOTAL 68 U/L 39-208 Nov 05, 2023 01:[address] [facility] TSH W/REFLEX TO FREE T4 Specimen Type: PLASMA No comment entered. Ordering Provider: TERRIE CHEN Report Released Date/Time: Nov 05, 2023 02:44 PM Reporting Lab: [facility] [id number] Performing Lab: [facility] [address] TSH 1.69 u[IU]/mL 0.35-4.94 Nov 05, 2023 01:[address] [facility] C-REACTIVE PROTEIN Specimen Type: PLASMA No comment entered. Ordering Provider: TERRIE CHEN Report Released Date/Time: Nov 05, 2023 02:44 PM Reporting Lab: [facility] [address] Performing Lab: [facility] [address] C-REACTIVE PROTEIN 2.68 mg/L <5.00 Nov 05, 2023 01:[address] [facility] SED RATE Specimen Type: BLOOD No comment entered. Ordering Provider: TERRIE CHEN Report Released Date/Time: Nov 05, 2023 02:44 PM Reporting Lab: [facility] [address] Performing Lab: [facility] [phone] SED RATE 11 mm/h 5-15 Nov 05, 2023 01:[address] [facility] ANTI-CCP Specimen Type: PLASMA No comment entered. Ordering Provider: TERRIE CHEN Report Released Date/Time: Nov 05, 2023 02:44 PM Reporting Lab: [facility] [address] Performing Lab: [facility] [address] ANTI-CCP <0.5 <4.9 Vital Signs: All taken on the encounter date This section contains inpatient and outpatient Vital Signs collected on the date of the Encounter. Date/Time Temperature Pulse Blood Pressure Respiratory Rate SP02 Pain Height Weight Body Mass Index Source Nov 14, 2023 01:38 PM 98.6 66 131/72 [facility] Social History: Smoking Status (Most [...] 02:00 PM VA-TOBACCO USER EVERY DAY [facility] Tobacco Use History This section includes a history of the smoking, or tobacco-related health factors, that were collected on or before the date of the Encounter. The data comes from the OR facility where the Encounter took place. Date/Time Smoking Status/Tobacco Use Comment F acility Jun 25, 2023 02:00 PM VA-TOBACCO USE [address] [facility] Jun 25, 2023 02:00 PM VA-TOBACCO USE ADVICE [facility] Jun 25, 2023 02:00 PM VA-TOBACCO USE INSIDE SALES LEAD NO [facility] Jun 25, 2023 02:00 PM VA-TOBACCO USE MED NO [facility] Jun 25, 2023 02:00 PM VA-TOBACCO USER EVERY DAY [facility] Aug 07, 2022 02:00 PM VA-TOBACCO USE [address] [facility] Aug 07, 2022 02:00 PM VA-TOBACCO USE ADVICE [facility] Aug 07, 2022 02:00 PM VA-TOBACCO USE INSIDE SALES LEAD NO [facility] Aug 07, 2022 02:00 PM VA-TOBACCO USE MED NO [facility] Aug 07, 2022 02:00 PM VA-TOBACCO USE [place] [address] UP [facility] Aug 07, 2022 02:00 PM VA-TOBACCO USER EVERY DAY [facility] Sep 26, 2021 11:00 AM VA-TOBACCO FORMER USER [facility] Sep 26, 2021 11:00 AM VA-TOBACCO QUIT < [address] [facility] Dec 20, 2020 02:00 PM VA-TOBACCO DOESNT USE [place] [address] [facility] Dec 20, 2020 02:00 PM VA-TOBACCO USE [address] [facility] Dec 20, 2020 02:00 PM VA-TOBACCO USE ADVICE [facility] Dec 20, 2020 02:00 PM VA-TOBACCO USE INSIDE SALES LEAD YES [facility] Dec 20, 2020 02:00 PM VA-TOBACCO USE MED YES [facility] Dec 20, 2020 02:00 PM VA-TOBACCO USER EVERY DAY [facility] Nov 23, 2019 04:25 PM VA-TOBACCO USE < [address] [facility] Nov 23, 2019 04:25 PM VA-TOBACCO USE ADVICE [facility] Nov 23, 2019 04:25 PM VA-TOBACCO USE INSIDE SALES LEAD NO [facility] Nov 23, 2019 04:25 PM VA-TOBACCO USE MED NO [facility] Nov 23, 2019 04:25 PM VA-TOBACCO USE [place] [address] [facility] Nov 23, 2019 04:25 PM VA-TOBACCO USER EVERY DAY [facility] Oct 31, 2018 01:49 PM VA-TOBACCO USE [address] [facility] Oct 31, 2018 01:49 PM VA-TOBACCO USE ADVICE [facility] Oct 31, 2018 01:49 PM VA-TOBACCO USE INSIDE SALES LEAD NO [facility] Oct 31, 2018 01:49 PM VA-TOBACCO USE MED NO [facility] Oct 31, 2018 01:49 PM VA-TOBACCO USE [place] [address] [facility] Oct 31, 2018 01:49 PM VA-TOBACCO USER EVERY DAY [facility] Jul 09, 2017 09:25 AM FORMER TOBACCO USE <1Y [facility] Jul 24, 2016 09:57 AM FORMER TOBACCO USE <1Y [facility] Jul 26, 2015 09:47 AM CURRENT TOBACCO USER [facility] Jul 08, 2014 12:50 PM CURRENT TOBACCO USER [facility] Jul 20, 2013 08:30 AM CURRENT TOBACCO USER [facility] Mar 22, 2009 03:04 PM FORMER TOBACCO USE >1Y <7Y [facility] Encounter Notes: All associated encounter notes This section contains the clinical notes associated to the Encounter. Date/Time Encounter Note(s) Provider Source Nov 14, 2023 02:17 PM DENTISTRY CONSULT: LOCAL TITLE: DENTAL IMAGING CONSULT STANDARD TITLE: DENTISTRY CONSULT DATE OF NOTE: NOV 14, 2023@14:17 ENTRY DATE: NOV 14, 2023@14:17:55 AUTHOR: RORY WAHL EXP COSIGNER: URGENCY: STATUS: COMPLETED Dental images were exposed, interpreted, and results were discussed with patient. /lance/ RORY WAHL II DDS Signed: 11/14/2023 14:[address] [facility] Nov 14, 2023 02:10 PM DENTISTRY NOTE: LOCAL TITLE: Dental Clinic Note STANDARD TITLE: DENTISTRY NOTE DATE OF NOTE: NOV 14, 2023@14:10 ENTRY DATE: NOV 14, 2023@14:17:44 AUTHOR: RORY WAHL EXP COSIGNER: URGENCY: STATUS: COMPLETED Patient Name: JOE CANALES, : 1950, Age: 73 Visit: S: Nov 14, 2023@13:15 [facility]. Primary PCE Diagnosis: Z13.84 (ENCOUNTER FOR SCREENING FOR DENTAL DISORDERS). Dental Category: 15-OPC, Class IV. Treatment Status: Maintenance. Completed Care: (D0120) PERIODIC ORAL EVAL EST. DX: Z13.84 Encounter for Screening for Dental Disorders (D0330) DENTAL PANORAMIC IMAGE. DX: Z13.84 Encounter for Screening for Dental Disorders (D0210) INTRAORAL FULL IMAGE SERIES. DX: Z13.84 Encounter for Screening for Dental Disorders Next visit: #6,14 composites, occlusal guard delivery. - - - - - - - - - - - - - - - - - - - - - - - - - - - - - - Presentation/Chief Complaint: Croswell presents to the dental clinic for a periodic exam. CC: reports a chip on the back side of his crown - points to #6. He requests the fabrication of a new occlusal guard. Vital Signs: Dental Pain (0-10): 0 Temperature ( F): 98.6 11/14/2023 13:38 Blood Pressure (mmHg): 131/72 11/14/2023 13:38 Pulse (BPM): 66 11/14/2023 13:38 Past Medical History and Medications: No significant changes since the last dental visit Active Problems: Co-Managed Care (ICD-9-CM 799.9) Arthritis ([facility] [id number]) Depression ([facility] [id number]) Obsessive-Compulsive Disorder (ICD-9-CM 300.3) Anxiety ([facility] [id number]) Hyperlipidemia ([facility] [id number]) Dyspnea (ICD-9-CM 786.05) Obstructive sleep apnea syndrome ([facility] [id number]) Insomnia ([facility] [id number]) Benign prostatic hyperplasia ([facility] [id number]) Cannabis dependence in remission ([facility] [id number]) Tobacco dependence syndrome ([facility] [id number]) Hearing loss ([facility] [id number]) Osteopenia ([facility] [id number]) Chronic post-traumatic stress disorder ([facility] [id number]) Meralgia paresthetica of left leg ([facility] [id number]) Exposure to potentially hazardous substance ([facility] [id number]) Active Medications: ---- Outpatient Medication ---- SODIUM FLUORIDE 1.1% TOOTHPASTE - (PENDING) ASPIRIN 81MG EC TAB - (ACTIVE) FAMOTIDINE 20MG TAB - (ACTIVE) FLUOXETINE HCL 20MG CAP - (ACTIVE) MELATONIN 3MG CAP/TAB - (ACTIVE) QUETIAPINE FUMARATE 300MG TAB - (ACTIVE) DOXAZOSIN MESYLATE 8MG TAB - (ACTIVE) SIMVASTATIN 40MG TAB - (ACTIVE) ACETAMINOPHEN 500MG TAB - (ACTIVE) LIDOCAINE 4% TOP CREAM - (ACTIVE) ALBUTEROL 90MCG (CFC-F) 200D ORAL INHL - (ACTIVE) CELECOXIB 100MG CAP - (ACTIVE) Active Allergies: AMOXICILLIN CEFACLOR [CECLOR] NAPROXEN RAMELTEON Sterilization verification by Rory Wahl and Sophie. Radiographic Findings: No radiographic caries noted No apparent bony pathology noted No periapical radiolucencies noted. Alveolar bone loss noted - generalized. Oral Examination: Oral Health Assessment Findings: Plaque Index: 2 - Moderate Xerostomia: 2 - Moderate Caries Risk: 3 - High Oral Hygiene: 2 - Fair Dental Examination: Missing Teeth: 1, 4, 16, 17, 18, 29, 31, 32. Caries: 14(B). Cracked: 6(L). Intraoral/soft tissues: WNL, no swelling or sinus tracts are noted. 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 #14: B caries. No Significant Tooth Mobility Noted Periodontal Screening/Recording (PSR): 2-2-2 - - - 2-2-2 Periodontal Assessment: Chronic Generalized Slight Gingivitis Assessment/Plan: High caries risk, treatment recommendation: Daily use of Prevident toothpaste. 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 #14 B caries, treatment recommendation: B composite. No contraindications for planned procedure(s). Planned Procedures: Unsequenced (D2330) RESIN ONE SURFACE-ANTERIOR: 6(L). DX: (K08.51). (D2391) [facility] RESIN[facility] CMPST: 14(B). DX: (K02.62). (D9944) OCCLUSAL GUARD HARD: . DX: (K03.0). Took BECKMAN, FMX, performed periodic exam. Discussed findings/treatment recommendations with patient. Reviewed risks/benefits/alternatives associated with the proposed treatment plan. Patient agrees to treatment plan as discussed. Made Trios 4 intraoral scans that will be used to fabricate an occlusal guard. Patient tolerated the procedure well and left the clinic in good Assisted by Sophie. Next visit: #6,14 composites, occlusal guard delivery. /lance/ RORY WAHL II DDS Signed: 11/14/2023 14:[address] [facility]
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
--- OUTSIDE RECORDS SUMMARY | 2024-04-12 13:13 | XMS_ITS | Encounter Summary ---
Author Name [facility] [facility] [place] Address [address] [place] [address] Care Team Providers Care Sales Management Intern Name Role Phone KARI HARLEY Primary Care [...] Alvarez's Name Patient's Relationship to Policy [facility]ICA[facility] MEDIC AID Apr 22, 2015 [id number] [phone] JOE CANALES PATIENT MEDICARE (WNR) MEDICARE (M) PART A Apr 22, 2013 PART A [id number] [phone] JEYSON CANALES III PATIENT MEDICARE (WNR) MEDICARE (M) PART B Apr 22, 2013 PART B [id number] [phone] JEYSON CANALES III PATIENT MEDICARE (WNR) MEDICARE (M) PART A Apr 22, 2013 PART A [id number] [phone] JEYSON CANALES III PATIENT MEDICARE (WNR) MEDICARE (M) PART B Apr 22, 2013 PART B [id number] JEYSON CANALES III N PATIENT MEDICARE (WNR) MEDICARE (M) PART A Apr 22, 2013 PART A [id number] [phone] JEYSON CANALES III PATIENT MEDICARE (WNR) MEDICARE (M) PART B Apr 22, 2013 PART B [id number] [phone] JEYSON CANALES III PATIENT Selected Encounter This section includes the information on record at [place] for the Encounter. Date/Time Encounter Type Encounter Description Reason Provider Source Nov 05, 2023 02:25 PM Outpatient Encounter PRIMARY CARE/MEDICINE KO BOO Encounter Template Text not used by [place] Plan of Treatment: Future Appointments (+ 6 months) and Future Tests (+/- 45 days) The Plan of Treatment section includes future care activities for the [facility] This section includes future appointments and future orders which are active, pending or scheduled. Future Appointments This section includes appointments that were scheduled to occur 6 months from the date of the Encounter, up to a maximum of 20 appointments. The data comes from all [place] treatment facilities. Appointment Date/Time Appointment Type Appointme nt Facility Name Nov 13, 2023 02:00 PM AMBULATORY - PSYCHIATRY IN [facility] Nov 14, 2023 01:15 PM AMBULATORY - SURGERY [facility] Dec 03, 2023 03:00 PM AMBULATORY - MEDICINE [facility] Dec 18, 2023 09:30 AM AMBULATORY - SURGERY [facility] Jan 27, 2024 01:42 PM AMBULATORY - NONE [facility] Feb 06, 2024 02:00 PM AMBULATORY - PSYCHIATRY IN [facility] Mar 12, 2024 02:00 PM AMBULATORY - PSYCHIATRY IN [facility] Mar 24, 2024 11:00 AM [facility] Mar 24, 2024 11:45 AM AMBULATORY - NONE [facility] Apr 09, 2024 02:00 PM AMBULATORY - PSYCHIATRY IN [facility] Apr 20, 2024 01:00 PM AMBULATORY - MEDICINE [facility] Lab Results: +/- 30 days of the encounter This section includes the Chemistry and Hematology Lab Results on record with [place] for the patient. Radiology Reports and Pathology Reports are provided separately, in subsequent sections. Lab Results This section contains the Chemistry/Hematology Results that were resulted 30 days before or 30 daysafter the date of the Encounter. Date/Time Source Result Type Result - Unit Interpretation Reference Range Comment Nov 05, 2023 01:08 PM [facility] MAGNESIUM Specimen Type: PLASMA No comment entered. Ordering Provider: ANN HANDLEY Report Released Date/Time: Oct 30, 2022 11:17 AM Reporting Lab: [facility] [id number] Performing Lab: [facility] [id number] MAGNESIUM 2.1 mg/dL 1.6-2.6 Nov 05, 2023 01:08 PM [facility] LIPID PANEL,NON-FASTING Specimen Type: PLASMA No comment entered. Ordering Provider: ANN HANDLEY Report Released Date/Time: Oct 30, 2022 11:17 AM Reporting Lab: [facility] [id number] Performing Lab: [facility] [id number] CHOLESTEROL 133 mg/dL <199 .HDL 35 mg/dL L >40 LDL CALCULATION 60 mg/dL <99 VLDL CALCULATION 38 mg/dL H <29 NON HDL CHOLESTEROL 98 mg/dL <129 TRIG(NON FASTING) 188 mg/dL H <149 Nov 05, 2023 01:08 PM [facility] CBC Specimen Type: BLOOD No comment entered. Ordering Provider: ANN HANDLEY Report Released Date/Time: Oct 30, 2022 11:17 AM Reporting Lab: [facility] [id number] Performing Lab: [facility] [id number] WBC 7.64 10*3/uL 4.0-11.0 RBC 4.62 10*6/uL 4.6-6.2 HGB 15.3 g/dL 13.5-17.9 HCT 43.1 41-54 MCV 93.3 fL 80-100 MCH 33.1 pg H 27-33 MCHC 35.5 g/dL 32.0-37.5 PLT 193 10*3/uL 150-400 MPV 9.1 fL 7.4-10.4 RDW 13.2 11.5-14.5 Nov 05, 2023 01:08 PM [facility] BASIC METABOLIC PANEL+MG Specimen Type: PLASMA No comment entered. Ordering Provider: ANN HANDLEY Report Released Date/Time: Oct 30, 2022 11:17 AM Reporting Lab: [facility] [id number] Performing Lab: [facility] [phone] CREATININE 1.1 mg/dL 0.7-1.2 UREA NITROGEN 10 mg/dL 8-26 GLUCOSE 100 mg/dL 70-100 SODIUM 143 mmol/L 136-145 POTASSIUM 3.6 mmol/L 3.5-5.1 CHLORIDE 110 mmol/L H 98-107 CO2 22 mmol/L 22-29 CALCIUM 9.5 mg/dL 8.4-10.2 MAGNESIUM 2.1 mg/dL 1.6-2.6 ANION GAP 11 mmol/L 5-15 .CREAT EGFR(CKD-EPI) 70 >60 Nov 05, 2023 01:08 PM [facility] CK,TOTAL Specimen Type: PLASMA No comment entered. Ordering Provider: TERRIE CHEN Report Released Date/Time: Nov 05, 2023 02:44 PM Reporting Lab: [facility] [id number] Performing Lab: [facility] [id number] CK,TOTAL 68 U/L 39-208 Nov 05, 2023 01:08 PM [facility] C-REACTIVE PROTEIN Specimen Type: PLASMA No comment entered. Ordering Provider: TERRIE CHEN Report Released Date/Time: Nov 05, 2023 02:44 PM Reporting Lab: [facility] [id number] Performing Lab: [facility] [id number] C-REACTIVE PROTEIN 2.68 mg/L <5.00 Nov 05, 2023 01:08 PM [facility] TSH W/REFLEX TO FREE T4 Specimen Type: PLASMA No comment entered. Ordering Provider: TERRIE CHEN Report Released Date/Time: Nov 05, 2023 02:44 PM Reporting Lab: [facility] [id number] Performing Lab: [facility] [id number] TSH 1.69 u[IU]/mL 0.35-4.94 Nov 05, 2023 01:08 PM [facility] SED RATE Specimen Type: BLOOD No comment entered. Ordering Provider: TERRIE CHEN Report Released Date/Time: Nov 05, 2023 02:44 PM Reporting Lab: [facility] [phone] Performing Lab: [facility] [phone] SED RATE 11 mm/h 5-15 Nov 05, 2023 01:08 PM [facility] ANTI-CCP Specimen Type: PLASMA No comment entered. Ordering Provider: TERRIE CHEN Report Released Date/Time: Nov 05, 2023 02:44 PM Reporting Lab: [facility] [phone] Performing Lab: [facility] [phone] ANTI-CCP <0.5 <4.9 Vital Signs: All taken on the encounter date This section contains inpatient and outpatient Vital Signs collected on the date of the Encounter. Date/Time Temperature Pulse Blood Pressure Respiratory Rate SP02 Pain Height Weight Body Mass Index Source Nov 05, 2023 01:49 PM 79 116/71 16 [address] [facility] Social History: Smoking Status (Most current) and Tobacco Use (All prior to encounter date) This section includes the most current, and the historical, smoking and tobacco- related health factors from the [place] facility where the Encounter took place. Current Smoking Status This section includes the most current smoking, or tobacco-related health factor, from the [place] facility where the Encounter took place. Date/Time Current Smoking Status Comment Esau ity Jun 25, 2023 02:00 PM VA-TOBACCO USER EVERY DAY [facility] Tobacco Use History This section includes a history of the smoking, or tobacco-related health factors, that were collected on or before the date of the Encounter. The data comes from the [place] facility where the Encounter took place. Date/Time Smoking Status/Tobacco Use Comment F acility Jun 25, 2023 02:00 PM VA-TOBACCO USE 30 YEARS OR MORE [facility] Jun 25, 2023 02:00 PM VA-TOBACCO USE ADVICE [facility] Jun 25, 2023 02:00 PM VA-TOBACCO USE PILE DRIVER ENGINEER NO [facility] Jun 25, 2023 02:00 PM VA-TOBACCO USE MED NO [facility] Jun 25, 2023 02:00 PM VA-TOBACCO USER EVERY DAY [facility] Aug 07, 2022 02:00 PM VA-TOBACCO USE 30 YEARS OR MORE [facility] Aug 07, 2022 02:00 PM VA-TOBACCO USE ADVICE [facility] Aug 07, 2022 02:00 PM VA-TOBACCO USE PILE DRIVER ENGINEER NO [facility] Aug 07, 2022 02:00 PM VA-TOBACCO USE MED NO [facility] Aug 07, 2022 02:00 PM VA-TOBACCO USE WI 30 MIN OF WAKE UP [facility] Aug 07, 2022 02:00 PM VA-TOBACCO USER EVERY DAY [facility] Sep 26, 2021 11:00 AM VA-TOBACCO FORMER USER [facility] Sep 26, 2021 11:00 AM VA-TOBACCO QUIT < 1 YEAR [facility] Dec 20, 2020 02:00 PM VA-TOBACCO DOESNT USE WI 30 MIN WAKEUP [facility] Dec 20, 2020 02:00 PM VA-TOBACCO USE 30 YEARS OR MORE [facility] Dec 20, 2020 02:00 PM VA-TOBACCO USE ADVICE [facility] Dec 20, 2020 02:00 PM VA-TOBACCO USE PILE DRIVER ENGINEER YES [facility] Dec 20, 2020 02:00 PM VA-TOBACCO USE MED YES [facility] Dec 20, 2020 02:00 PM VA-TOBACCO USER EVERY DAY [facility] Nov 23, 2019 04:25 PM VA-TOBACCO USE < 1 YEAR [facility] Nov 23, 2019 04:25 PM VA-TOBACCO USE ADVICE [facility] Nov 23, 2019 04:25 PM VA-TOBACCO USE PILE DRIVER ENGINEER NO [facility] Nov 23, 2019 04:25 PM VA-TOBACCO USE MED NO [facility] Nov 23, 2019 04:25 PM VA-TOBACCO USE WI 30 MIN OF WAKE UP [facility] Nov 23, 2019 04:25 PM VA-TOBACCO USER EVERY DAY [facility] Oct 31, 2018 01:49 PM VA-TOBACCO USE 30 YEARS OR MORE [facility] Oct 31, 2018 01:49 PM VA-TOBACCO USE ADVICE [facility] Oct 31, 2018 01:49 PM VA-TOBACCO USE PILE DRIVER ENGINEER NO [facility] Oct 31, 2018 01:49 PM VA-TOBACCO USE MED NO [facility] Oct 31, 2018 01:49 PM VA-TOBACCO USE WI 30 MIN OF WAKE UP [facility] Oct 31, 2018 01:49 PM VA-TOBACCO USER EVERY DAY [facility] Jul 09, 2017 09:25 AM FORMER TOBACCO USE <1Y [facility] Jul 24, 2016 09:57 AM FORMER TOBACCO USE <1Y [facility] Jul 26, 2015 09:47 AM CURRENT TOBACCO USER [facility] Jul 08, 2014 12:50 PM CURRENT TOBACCO USER [facility] Jul 20, 2013 08:30 AM CURRENT TOBACCO USER [facility] Mar 22, 2009 03:04 PM FORMER TOBACCO USE >1Y <7Y [facility] Encounter Notes: All associated encounter notes This section contains the clinical notes associated to the Encounter. Date/Time Encounter Note(s) Provider Source Nov 05, 2023 02:25 PM SOCIAL WORK NOTE: LOCAL TITLE: [facility] SDOH SCREENER NOTE STANDARD TITLE: SOCIAL WORK NOTE DATE OF NOTE: NOV 05, 2023@14:25 ENTRY DATE: NOV 06, 2023@15:47:04 AUTHOR: KO BOOIGNER: URGENCY: STATUS: COMPLETED National Assessing Circumstances and Offering Resources for Needs ([facility]) Social Determinants/Drivers of Health (SDOH) Screener Agreement to Screen: agrees to proceed with screening. Screener responses provided by: /patient Screener administered by: [place]/patient completed on their own (e.g., on paper) In the past 2 months, have you [...] Not worried about housing near future The reports the following: Within the past 12 months, you worried whether your food would run out before you got money to buy more. Sometimes true Patient has already answered question about food insecurity within the past 12 months Already receiving services or assistance Comment: food and food resources provided today Do you need help getting food for this week? Yes (consider warm hand-off to Social Work) How often do you have trouble paying for your utilities (e.g., electric, gas, oil, water, or phone)? Sometimes Has the electric, gas, oil, water or phone company threatened to shut off services in your home? No How often has lack of transportation kept you from medical appointments, meetings, work, or from getting things needed for daily living? Never Do you currently have any legal matters you need help with (e.g., child support or custody, divorce, debt or credit problems, or need for a discharge upgrade)? No How often do you feel lonely or isolated from those around you? Often Do you want help finding or keeping work or a job? No, I don't want help finding or keeping work Do you want more information about educational benefits and resources for Veterans? No Do you have access to any of the following devices? (Please select all that apply) Smartphone (a cell phone with a touch screen and internet) Computer (laptop, desktop, or tablet such as an iPad) Do you have access to affordable and reliable internet where you live? Yes Would you like help learning to use a smartphone, tablet, or computer to access [place] healthcare online (e.g., video visits, medical record, secure messaging)? No Action Steps: Resources provided: food and food resources Structured resource guides/lists given Food Housing Utilities Legal Social Support/Loneliness or Isolation Other: PCSW card and additional legal nurse consultant resources Follow up planned: Food pantry will continue to be available to . No additional follow-up planned by this check writer. Other: Provided [employer] and [employer] rep Brayan Turner's information for to follow up on claims questions ph: [phone]. /es/ YVETTE Villarreal [employer] Worker Signed: 11/06/2023 15:50 KO BOO [facility]
--- OUTSIDE RECORDS SUMMARY | 2024-04-12 13:13 | XMS_ITS | Encounter Summary ---
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 Name Role Phone KARI HARLEY Primary Care [...] Alvarez's Name Patient's Relationship to Policy Alvarez [facility] (WNR) MEDICAID MEDIC AID Apr 22, 2015 [id number] [phone] JOE REYES PATIENT MEDICARE (WNR) MEDICARE (M) PART A Apr 22, 2013 PART A [id number] JEYSON REYES III N PATIENT MEDICARE (WNR) MEDICARE (M) PART B Apr 22, 2013 PART B [id number] JEYSON REYES III N PATIENT MEDICARE (WNR) MEDICARE (M) PART A Apr 22, 2013 PART A [id number] JEYSON REYES III N PATIENT MEDICARE (WNR) MEDICARE (M) PART B Apr 22, 2013 PART B [id number] JEYSON REYES III N PATIENT MEDICARE (WNR) MEDICARE (M) PART A Apr 22, 2013 PART A [id number] JEYSON REYES III N PATIENT MEDICARE (WNR) MEDICARE (M) PART B Apr 22, 2013 PART B [id number] JEYSON REYES III N PATIENT Selected Encounter This section includes the information on record at [place] for the Encounter. Date/Time Encounter Type Encounter Description Reason Provider Source Nov 05, 2023 03:00 PM OFFICE O/P EST MOD 30 MIN PRIMARY CARE/MEDICINE ICD-10-CM S46.099A Inj musc/tend the rotator cuff of unsp shoulder, init TERRIE CHEN Virgilio Encounter Template Text not used by [place] Assessments - Encounter Diagnoses This section includes the primary and secondary diagnoses documented for the Encounter. Date/Time Primary/Secondary Diagnosis Diagnosis Name Provider Source Nov 05, 2023 04:33 PM PRIMARY Inj musc/tend the rotator cuff of unsp shoulder, init [facility] Nov 05, 2023 04:33 PM SECONDARY Myalgia, unspecified [facility] Nov 05, 2023 04:33 PM SECONDARY Polyarthritis[facility] unspecified [facility] Nov 05, 2023 04:33 PM SECONDARY Post-traumatic stress disorder, chronic [facility] Nov 05, 2023 04:33 PM SECONDARY Tobacco use [facility] Plan of Treatment: Future Appointments (+ 6 months) and Future Tests (+/- 45 days) The Plan of Treatment section includes future care activities for the patient [facility] [place] [facility] This section includes future appointments and future orders which are active, pending or scheduled. Future Appointments This section includes appointments that were scheduled to occur 6 months from the date of the Encounter, up to a maximum of 20 appointments. The data comes from all [place] treatment facilities. Appointment Date/Time Appointment Type Appointme nt Facility Name Nov 13, 2023 02:00 PM [facility] Nov 14, 2023 01:15 PM [facility] [place] Dec 03, 2023 03:00 PM AMBULATORY - MEDICINE [facility] [place] Dec 18, 2023 09:30 AM AMBUL[facility]ORY - [place] [facility] Jan 27, 2024 01:42 PM [facility] Feb 06, 2024 02:00 PM [facility] Mar 12, 2024 02:00 PM [facility] [place] [facility] Mar 24, 2024 11:00 AM [facility] Mar 24, 2024 11:45 AM [facility] Apr 09, 2024 02:00 PM AMBULATORY - PS[place]CH[place]ATRY [place] [facility] Apr 20, 2024 01:00 PM AMBULATORY - MEDICINE [facility] Lab Results: +/- 30 days of the [...] Range Comment Nov 05, 2023 01:08 PM [facility] MAGNESIUM Specimen Type: PLASMA No comment entered. Ordering Provider: ANN HANDLEY Report Released Date/Time: Oct 30, 2022 11:17 AM Reporting Lab: [facility] [id number] Performing Lab: [facility] [id number] MAGNESIUM 2.1 mg/dL 1.6-2.6 Nov 05, 2023 01:08 PM [facility] LIPID PANEL,NON-FASTING Specimen Type: PLASMA No comment entered. Ordering Provider: ANN HANDLEY Report Released Date/Time: Oct 30, 2022 11:17 AM Reporting Lab: [facility] [phone] Performing Lab: [facility] [phone] CHOLESTEROL 133 mg/dL <199 .HDL 35 mg/dL L >40 LDL CALCULATION 60 mg/dL <99 VLDL CALCULATION 38 mg/dL H <29 NON HDL CHOLESTEROL 98 mg/dL <129 TRIG(NON FASTING) 188 mg/dL H <149 Nov 05, 2023 01:08 PM [facility] CBC Specimen Type: BLOOD No comment entered. Ordering Provider: ANN HANDLEY Report Released Date/Time: Oct 30, 2022 11:17 AM Reporting Lab: [facility] [id number] Performing Lab: [facility] [phone] WBC 7.64 10*3/uL 4.0-11.0 RBC 4.62 10*6/uL 4.6-6.2 HGB 15.3 g/dL 13.5-17.9 HCT 43.1 41-54 MCV 93.3 fL 80-100 MCH 33.1 pg H 27-33 MCHC 35.5 g/dL 32.0-37.5 PLT 193 10*3/uL 150-400 MPV 9.1 fL 7.4-10.4 RDW 13.2 11.5-14.5 Nov 05, 2023 01:08 PM [facility] BASIC METABOLIC PANEL+MG Specimen Type: PLASMA No comment entered. Ordering Provider: ANN HANDLEY Report Released Date/Time: Oct 30, 2022 11:17 AM Reporting Lab: [facility] [phone] Performing Lab: [facility] [phone] CREATININE 1.1 mg/dL 0.7-1.2 UREA NITROGEN 10 mg/dL 8-26 GLUCOSE 100 mg/dL 70-100 SODIUM 143 mmol/L 136-145 POTASSIUM 3.6 mmol/L 3.5-5.1 CHLORIDE 110 mmol/L H 98-107 CO2 22 mmol/L 22-29 CALCIUM 9.5 mg/dL 8.4-10.2 MAGNESIUM 2.1 mg/dL 1.6-2.6 ANION GAP 11 mmol/L 5-15 .CREAT EGFR(CKD-EPI) 70 >60 Nov 05, 2023 01:08 PM [facility] CK,TOTAL Specimen Type: PLASMA No comment entered. Ordering Provider: TERRIE CHEN Report Released Date/Time: Nov 05, 2023 02:44 PM Reporting Lab: [facility] [phone] Performing Lab: [facility] [phone] CK,TOTAL 68 U/L 39-208 Nov 05, 2023 01:08 PM [facility] C-REACTIVE PROTEIN Specimen Type: PLASMA No comment entered. Ordering Provider: TERRIE CHEN Report Released Date/Time: Nov 05, 2023 02:44 PM Reporting Lab: [facility] [phone] Performing Lab: [facility] [phone] C-REACTIVE PROTEIN 2.68 mg/L <5.00 Nov 05, 2023 01:08 PM [facility] TSH W/REFLEX TO FREE T4 Specimen Type: PLASMA No comment entered. Ordering Provider: TERRIE CHEN Report Released Date/Time: Nov 05, 2023 02:44 PM Reporting Lab: [facility] [phone] Performing Lab: [facility] [phone] TSH 1.69 u[IU]/mL 0.35-4.94 Nov 05, 2023 01:08 PM [facility] SED RATE Specimen Type: BLOOD No comment entered. Ordering Provider: TERRIE CHEN Report Released Date/Time: Nov 05, 2023 02:44 PM Reporting Lab: [facility] [phone] Performing Lab: [facility] [phone] SED RATE 11 mm/h 5-15 Nov 05, 2023 01:08 PM [facility] ANTI-CCP Specimen Type: PLASMA No comment entered. Ordering Provider: TERRIE CHEN Report Released Date/Time: Nov 05, 2023 02:44 PM Reporting Lab: [facility] [phone] Performing Lab: [facility] [phone] ANTI-CCP <0.5 <4.9 Vital Signs: All taken on the encounter date This section contains inpatient and outpatient Vital Signs collected on the date of the Encounter. Date/Time Temperature Pulse Blood Pressure Respiratory Rate SP02 Pain Height Weight Body Mass Index Source Nov 05, 2023 01:49 PM 79 116/71 16 95 5 67 175 27 [facility] Social History: Smoking Status (Most current) and Tobacco Use (All prior to encounter date) This section includes the most current, and the historical, smoking and tobacco- related health factors from the [place] facility where the Encounter took place. Current Smoking Status This section includes the most current smoking, or tobacco-related health factor, from the [place] facility where the Encounter took place. Date/Time Current Smoking Status Comment Esau spence Jun 25, 2023 02:00 PM VA-TOBACCO USER EVERY DAY [facility] Tobacco Use History This section includes a history of the smoking, or tobacco-related health factors, that were collected on or before the date of the Encounter. The data comes from the [place] facility where the Encounter took place. Date/Time Smoking Status/Tobacco Use Comment F acility Jun 25, 2023 02:00 PM VA-TOBACCO USE 30 YEARS OR MORE [facility] Jun 25, 2023 02:00 PM VA-TOBACCO USE ADVICE [facility] Jun 25, 2023 02:00 PM VA-TOBACCO USE OBSERVATION ASSISTANT NO [facility] Jun 25, [...] Aug 07, 2022 02:00 PM VA-TOBACCO USE OBSERVATION ASSISTANT NO [facility] Aug 07, [...] Dec 20, 2020 02:00 PM VA-TOBACCO USE OBSERVATION ASSISTANT YES [facility] Dec 20, [...] Nov 23, 2019 04:25 PM VA-TOBACCO USE OBSERVATION ASSISTANT NO [facility] Nov 23, [...] Oct 31, 2018 01:49 PM VA-TOBACCO USE OBSERVATION ASSISTANT NO [facility] Oct 31, [...] USE >1Y <7Y [facility] Encounter Notes: All associated encounter notes This section contains the clinical notes associated to the Encounter. Date/Time Encounter Note(s) Provider Source Nov 06, 2023 09:01 AM LETTERS: LOCAL TITLE: FOLLOW UP RESULTS LETTER STANDARD TITLE: LETTERS DATE OF NOTE: NOV 06, 2023@09:01 ENTRY DATE: NOV 06, 2023@09:01:15 AUTHOR: TERRIE CHEN COSIGNER: URGENCY: STATUS: COMPLETED [facility] [address] [place] [address] Oct [facility] [address] [facility] [address] Dear : I am writing to inform you of the results of testing that you had done recently at the [facility]. - Complete Blood Count (red/white blood cell counts and platelets) White count: WBC 7.64 (11/05/23) (normal is 4.0-11.0) Hemoglobin: HGB 15.3 (11/05/23) (normal Male is 13.5-17.9; Female is 11.5-16) Hematocrit: HCT 43.1 (11/05/23) (normal Male is 41-54; Female is 34.5- 48) Platelets: PLT 193 (11/05/23) (normal is 150-400) - Electrolytes including sodium and potassium SODIUM 143 (11/05/23) (normal is 136-145) POTASSIUM 3.6 (11/05/23) (normal is 3.5-5.1) - Calcium CALCIUM 9.5 (11/05/23) (normal is 8.5-10.1) - Kidney function CREATININE 1.1 (11/05/23)(normal Male = less than 1.2; normal Female = less than 1.0)) UREA NITROGEN 10 (11/05/23) (normal Male is 8-26; normal Female is 10- 20) - Blood Sugar GLUCOSE 100 (11/05/23) (normal is 70 - 100 if fasting) - Liver function Tests AST/SGOT 15 (06/25/23) (normal 15-37) ALT/SGPT 13 (06/25/23) (normal 13-61) ALK PHOSPHATASE 89 (06/25/23) (normal 45-117) BILIRUBIN, TOTAL 0.5 (06/25/23) (normal 0.2-1.0) - Hemoglobin A1C (normal 4.0-6.0) Collection DT Spec HGBA1C 10/30/2022 10:12 BLOOD 5.1 04/26/2021 09:16 BLOOD 5.3 Test Name Result Units Range --------- ------ ----- ----- TSH 1.69 uIU/mL 0.35 - 4.94 C-REACTIVE PROTEIN 2.68 mg/L Ref: <=5.00 CK,TOTAL 68 U/L 39 - 208 ANTI-CCP <0.5 U/mL Ref: <=4.9 Additional Comments: Your labs do not show any signs of inflammation or autoimmune arthritis. Trial the celecoxib twice daily with food to see if this improves your shoulder aches in addition to physical therapy. If improving, feel free to cancel your follow up appointment. If not improved after 4-6 weeks, please return for further evaluation. If you have any further questions or problems, please contact our nursing staff or provider at the following number: [phone]. Sincerely, TERRIE CHEN MD FEE BASIS PHYSICIAN TERRIE CHEN [facility] Nov 05, 2023 01:51 PM INTERNAL MEDICINE OUTPATIENT NOTE: LOCAL TITLE: MEDICINE CLINIC NURSING NOTE STANDARD TITLE: INTERNAL MEDICINE OUTPATIENT NOTE DATE OF NOTE: NOV 05, 2023@13:51 ENTRY DATE: NOV 05, 2023@13:51:33 AUTHOR: JOSÉ PEREZ EXP COSIGNER: URGENCY: STATUS: COMPLETED TYPE OF VISIT: Appointment Check In Type of appointment: In-person appointment REASON FOR VISIT: Check up. ALLERGIES: AMOXICILLIN (Oct 02, 1995) CECLOR (Oct 02, 1995) NAPROXEN (Oct 06, 2021) RAMELTEON (Oct 06, 2021) VITAL SIGNS: Blood Pressure: 116/71 (11/05/2023 13:49) Pulse: 79 (11/05/2023 13:49) Respiration: 16 (11/05/2023 13:49) Temperature: 97.6 F [36.4 C] (07/26/2023 09:52) Weight: 175 lb [79.38 kg] (11/05/2023 13:49) Height: 67 in [170.2 cm] (11/05/2023 13:49) BMI: 27.5 O2 Sat: 95% (11/05/2023 13:49) Pain: 5 (11/05/2023 13:49) PAIN SCREEN: Patient is having significant pain that they would like to talk to their provider about today. Acute pain is new pain, which as been present for less than 6 months Words used to describe pain: achy Number that best describes pain intensity on average in the past week: 5 Pain located in the following location(s): other: all over body Pain has been happening for: 1-4 weeks Pain is worse when: other: moving Pain is better when: medication Tylenol MEDICATION Over the Counter/Herbal Medications: The patient states that they take some outside medications and/or herbals. COVID-19 Immunization: Refused Pfizer Monovalent COVID-19 vaccine Immunization: COVID-19 (PFIZER), MRNA, LNP-S, PF, SAÚL-SUCROSE, 30 MCG/0.3 ML (AGES 12+ YEARS) Refusal Reason: PATIENT DECISION Patient refuses all immunization(s) in the COVID-19 group Date Documented: 11/05/23 13:53 Influenza Immunization: No influenza vaccination was received during the recent influenza season. Alcohol Use Screen (AUDIT-C): Alcohol Screen: SCREEN FOR ALCOHOL (AUDIT-C) An alcohol screening test (AUDIT-C) was negative (score=3). 1. How often did you have a drink containing alcohol in the past year? Consider a drink to be a 12 ounce can or bottle of regular beer, 8 ounces of malt liquor, a 5 ounce glass of table wine, or a 1.5 ounce shot of liquor (like scotch, gin, or vodka). Two to three times per week 2. How many drinks containing alcohol did you have on a typical day when you were drinking in the past year? One or two drinks 3. How often did you have six or more drinks on one occasion in the past year? Never /es/ TENSAYE MALVIN PEREZ STAFF REGISTERED RADIATION THERAPIST Signed: 11/05/2023 13:55 JOSÉ PEREZ [facility] Nov 05, 2023 12:19 PM INTERNAL MEDICINE NOTE: LOCAL TITLE: MEDICINE CLINIC NOTE STANDARD TITLE: INTERNAL MEDICINE NOTE DATE OF NOTE: NOV 05, 2023@12:19 ENTRY DATE: NOV 05, 2023@12:19:21 AUTHOR: TERRIE CHENIGNER: URGENCY: STATUS: COMPLETED JOE REYES is a 73 year old MALE with the following chief complaint: body aches Nurse's Note Reviewed. Follow up for routine health maintenance HPI/ROS: Joe Reyes is a 73 year old male with PMH osteoarthritis, depression, OCD, HLD, BPH, and tobacco use who presents to clinic for routine health maintenance and evaluation of body aches. He explains that he has been having progressive body aches for the past month. He notes that the pain is mostly in his bilateral shoulders along with hips. He explains that his shoulder pain is associated with muscle weakness and muscle pain. He denies any fevers, chills, recent illnesses. He does not note any difficulty with rising from a seated position. He does note limited ability to raise his arms above his head and do activities such as shampooing his hair. He fell around 3 months ago and landed on his head. He does not recall any shoulder trauma. He denies any prior history of shoulder issues. He does have an extensive history of arthritis, and he reports that previous diagnosis of rheumatoid arthritis. He notes that his mother had an autoimmune arthritis as well. He has not tried anything for the shoulder pain. He has not yet done physical therapy. Of note he is on simvastatin which he reports taking. He denies any new rashes or joint swelling. Also discussed that he is due for his annual. We discussed that he has prior positive fit test and that he is recommended to have a colonoscopy. We discussed that colonoscopies are better at diagnosing colon cancer then stool cards. He would prefer to stick with the stool cards. He does not want undergo another procedure. Past medical history/Active Problems: Active problems - Computerized Problem List is the source for the followin. Co-Managed Care - Dr Wyatt, PCP, Dilip Roach - Dr Jose Martin Pepe, psychiatrist, [facility] 2. Arthritis (SNOMED CT 2829144) 3. Depression (SNOMED CT 67510566) 4. Obsessive-Compulsive Disorder 5. Anxiety (SNOMED CT 76766214) 6. Hyperlipidemia (SNOMED CT 22531150) 7. Dyspnea 8. Obstructive sleep apnea syndrome [...] leg 17. Exposure to potentially hazardous substance ([facility] [id number]) - Entered through [facility]/[address] Documentation Initiative MEDICATION RECONCILIATION Outpatient See Medication Reconciliation and Allergy Assessment Below EXAM: VS: Temp: 97.6 F [36.4 C] (07/26/2023 09:52) BP: 120/68 (07/26/2023 09:52) Pulse:77 (07/26/2023 09:52) Resp: 16 (07/26/2023 09:52) Pain: 1 (07/26/2023 09:52) Weight: WEIGHTS IN LAST 6 MONTHS: 170 (JUL 26, 2023@09:52:02) 175 (JUN 25, 2023@13:24:29) O2 sat: 92% (07/26/2023 09:52) General: alert, comfortable, no acute distress HEET: normocephalic, MMM, fair dentition, sclera anicteric Neck: no cervical or supraclavicular lymphadenopathy appreciated, no obvious thyromegaly Cardiac: regular rate and rhythm, no murmur appreciated, radial pulses palpable equally bilaterally Respiratory: clear to auscultation bilaterally, no wheezes/rhonchi Abdomen: bowel sounds present, soft, nontender, nondistended Extremities: warm, well-perfused, no pitting edema in bilateral extremities Neuro: alert and oriented, normal speech, moves all four extremities MSK: full ROM of bilateral shoulders - tenderness to internal and external rotation, 4/5 strength in bilateral shoulders with flexion/extension/abduction /rotation, normal sensation, positive Neer impingement, negative Hawkin, negative cross over, positive empty can bilaterally Data/Labs: LAB RESULTS LAST 48 HRS - NONE FOUND LDCT Lung 08/2023: Impression: LUNG-RADS: 2: Benign RECOMMENDATION: One year follow-up low dose CT, if patient meets screening criteria. Assessment and Plan: Joe Reyes is a 73 year old male with PMH osteoarthritis, depression, OCD, HLD, BPH, and tobacco use who presents to clinic for routine health maintenance and evaluation of body aches. #Bilateral Shoulder Pain, Suspect Rotator Tendonopathy #Diffuse Myalgias He presented with a 1 month history of bilateral shoulder pain, myopathy, weakness. Labs obtained today show a normal CRP, ESR, CK. Unlikely to represent PMR or statin myopathy. Exam is most consistent with rotator cuff tendinopathy. Plan to trial a 14-day course of NSAIDs along with PT. - Trial Celecoxib 100mg BID X 14 days - Physical Therapy - Return in 6 weeks with PCP for further evaluation if not improving # Tobacco use has ongoing tobacco use. Continues to try quitting on his own. 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 - Monitor BP, if elevated on current therapy may require further workup #BCC right ala, s/p Mohs #SK #AK -Followed by Dermatology and no current concerns. #PTSD #MDD Continue Fluoxetine Continue Quetiapine #Health Care Maintenance: Colorectal cancer screening: Declined colonoscopy. Agrees to ongoing FIT tests. AAA Screen- negative in 2014 LDCT due 08/2024 Education on Treatment Plan: Patient indicates readiness to learn, verbalizes understanding, agreement and satisfaction with the treatment plan. Denies further questions. Patient indicates readiness to learn and has been instructed on action, dose, frequency, and side effects of medications. Patient verbalizes understanding. The medication list below was reviewed with the patient at today's visit. I have indicated discrepancies under each medication that is not being taken as prescribed. I have updated the medicines under the med tab as appropriate. /es/ TERRIE CHEN MD FEE BASIS PHYSICIAN Signed: 11/05/2023 16:33 TERRIE CHEN [facility]
--- OUTSIDE RECORDS SUMMARY | 2024-04-12 13:14 | XMS_ITS | Encounter Summary ---
Author Name [facility] Organization [facility] Address [address] [place] [address] Care Team Providers Care Water Manager Name Role Phone KARI HARLEY Primary Care [...] Name Patient's Relationship to Policy Alvarez [facility] (WNR) MEDICAID MEDIC AID Apr 22, 2015 [id number] [phone] JOE REYES PATIENT MEDICARE (WNR) MEDICARE (M) PART A Apr 22, 2013 PART A [id number] PARKER ODENCONCHAJi N PATIENT MEDICARE (WNR) MEDICARE (M) PART B Apr 22, 2013 PART B [id number] JEYSON REYES III N PATIENT MEDICARE (WNR) MEDICARE (M) PART B Apr 22, 2013 PART B [id number] JEYSON REYES III N PATIENT MEDICARE (WNR) MEDICARE (M) PART A Apr 22, 2013 PART A [id number] JEYSON REYES III N PATIENT MEDICARE (WNR) MEDICARE (M) PART A Apr 22, 2013 PART A [id number] JEYSON REYES III N PATIENT MEDICARE (WNR) MEDICARE (M) PART B Apr 22, 2013 PART B [id number] JEYSON REYES III N PATIENT Selected Encounter This section includes the information on record at MD for the Encounter. Date/Time Encounter Type Encounter Description Reason Provider Source Dec 03, 2023 03:00 PM OFFICE O/P EST MOD 30 MIN PRIMARY CARE/MEDICINE ICD-10-CM M13.0 Polyarthritis, unspecified AMANDA CONNORS IHE Encounter Template Text not used by MD Assessments - Encounter Diagnoses This section includes the primary and secondary diagnoses documented for the Encounter. Date/Time Primary/Secondary Diagnosis Diagnosis Name Provider Source Dec 03, 2023 04:26 PM PRIMARY Polyarthritis, unspecified Wyatt JONES [facility] Plan of Treatment: Future Appointments (+ 6 months) and Future Tests (+/- 45 days) The Plan of Treatment section includes future care activities for the patient from all MD treatmentfacilities. This section includes future appointments and future orders which are active, pending or scheduled. Future Appointments This section includes appointments that were scheduled to occur 6 months from the date of the Encounter, up to a maximum of 20 appointments. The data comes from all MD treatment facilities. Appointment Date/Time Appointment Type Appointme nt Facility Name Dec 18, 2023 09:30 AM AMBULATORY [place] [facility] Jan 27, 2024 01:42 PM AMBUL[place]ORY - [place] [facility] Feb 06, 2024 02:00 PM [place] [facility] Mar 12, 2024 02:00 PM [place] [facility] Mar 24, 2024 11:00 AM AMBULATORY - [place]ICINE [place] [facility] Mar 24, 2024 11:45 AM AMBULATORY - NONE [facility] Apr 09, 2024 02:00 PM [place] [place] [facility] Apr 20, 2024 01:00 PM AMBULATORY - MEDICINE [facility] Jun 02, 2024 08:30 AM AMBULATORY - MEDICINE [facility] Jun 02, 2024 02:00 PM AMBULATORY - PSYCHIATRY [facility] Lab Results: +/- 30 days of the encounter This section includes the Chemistry and Hematology Lab Results on record with MD for the patient. Radiology Reports and Pathology Reports are provided separately, in subsequent sections. Lab Results This section contains the Chemistry/Hematology Results that were resulted 30 days before or 30 daysafter the date of the Encounter. Date/Time Source Result Type Result - Unit Interpretation Reference Range Comment Nov 05, 2023 01:08 PM [facility] MAGNESIUM Specimen Type: PLASMA No comment entered. Ordering Provider: ANN HANDLEY Report Released Date/Time: Oct 30, 2022 11:17 AM Reporting Lab: [facility] [id number] Performing Lab: [facility] [phone] MAGNESIUM 2.1 mg/dL 1.6-2.6 Nov 05, 2023 01:08 PM [facility] BASIC METABOLIC PANEL+MG Specimen Type: PLASMA No comment entered. Ordering Provider: ANN HANDLEY Report Released Date/Time: Oct 30, 2022 11:17 AM Reporting Lab: [facility] [phone] Performing Lab: [facility] [id number] CREATININE 1.1 mg/dL 0.7-1.2 UREA NITROGEN 10 mg/dL 8-26 GLUCOSE 100 mg/dL 70-100 SODIUM 143 mmol/L 136-145 POTASSIUM 3.6 mmol/L 3.5-5.1 CHLORIDE 110 mmol/L H 98-107 CO2 22 mmol/L 22-29 CALCIUM 9.5 mg/dL 8.4-10.2 MAGNESIUM 2.1 mg/dL 1.6-2.6 ANION GAP 11 mmol/L 5-15 .CREAT EGFR(CKD-EPI) 70 >60 Nov 05, 2023 01:08 PM [facility] CBC Specimen Type: BLOOD No comment entered. Ordering Provider: ANN HANDLEY Report Released Date/Time: Oct 30, 2022 11:17 AM Reporting Lab: [facility] [phone] Performing Lab: [facility] [phone] WBC 7.64 10*3/uL 4.0-11.0 RBC 4.62 10*6/uL 4.6-6.2 HGB 15.3 g/dL 13.5-17.9 HCT 43.1 41-54 MCV 93.3 fL 80-100 MCH 33.1 pg H 27-33 MCHC 35.5 g/dL 32.0-37.5 PLT 193 10*3/uL 150-400 MPV 9.1 fL 7.4-10.4 RDW 13.2 11.5-14.5 Nov 05, 2023 01:08 PM [facility] LIPID PANEL,NON-FASTING Specimen Type: PLASMA No comment entered. Ordering Provider: ANN HANDLEY Report Released Date/Time: Oct 30, 2022 11:17 AM Reporting Lab: [facility] [phone] Performing Lab: [facility] [id number] CHOLESTEROL 133 mg/dL <199 .HDL 35 mg/dL L >40 LDL CALCULATION 60 mg/dL <99 VLDL CALCULATION 38 mg/dL H <29 NON HDL CHOLESTEROL 98 mg/dL <129 TRIG(NON FASTING) 188 mg/dL H <149 Nov 05, 2023 01:08 PM [facility] CK,TOTAL Specimen Type: PLASMA No comment entered. Ordering Provider: TERRIE CHEN Report Released Date/Time: Nov 05, 2023 02:44 PM Reporting Lab: [facility] [id number] Performing Lab: [facility] [phone] CK,TOTAL 68 U/L 39-208 Nov 05, 2023 01:08 PM [facility] TSH W/REFLEX TO FREE T4 Specimen Type: PLASMA No comment entered. Ordering Provider: TERRIE CHEN Report Released Date/Time: Nov 05, 2023 02:44 PM Reporting Lab: [facility] [phone] Performing Lab: [facility] [id number] TSH 1.69 u[IU]/mL 0.35-4.94 Nov 05, 2023 01:08 PM [facility] C-REACTIVE PROTEIN Specimen Type: PLASMA No comment entered. Ordering Provider: TERRIE CHEN Report Released Date/Time: Nov 05, 2023 02:44 PM Reporting Lab: [facility] [address] Performing Lab: [facility] [address] C-REACTIVE PROTEIN 2.68 mg/L <5.00 Nov 05, 2023 01:08 PM [facility] ANTI-CCP Specimen Type: PLASMA No comment entered. Ordering Provider: TERRIE CHEN Report Released Date/Time: Nov 05, 2023 02:44 PM Reporting Lab: [facility] [phone] Performing Lab: [facility] [phone] ANTI-CCP <0.5 <4.9 Nov 05, 2023 01:08 PM [facility] SED RATE Specimen Type: BLOOD No comment entered. Ordering Provider: TERRIE CHEN Report Released Date/Time: Nov 05, 2023 02:44 PM Reporting Lab: [facility] [phone] Performing Lab: [facility] [phone] SED RATE 11 mm/h 5-15 Vital Signs: All taken on the encounter date This section contains inpatient and outpatient Vital Signs collected on the date of the Encounter. Date/Time Temperature Pulse Blood Pressure Respiratory Rate SP02 Pain Height Weight Body Mass Index Source Dec 03, 2023 02:27 PM 97.3 70 125/74 [address] [facility] Social History: Smoking Status (Most current) and Tobacco Use (All prior to encounter date) This section includes the most current, and the historical, smoking and tobacco- related health factors from the MD facility where the Encounter took place. Current Smoking Status This section includes the most current smoking, or tobacco-related health factor, from the MD facility where the Encounter took place. Date/Time Current Smoking Status Comment Esau ity Jun 25, 2023 02:00 PM VA-TOBACCO DOESNT USE WI 30 MIN WAKEUP [facility] Tobacco Use History This section includes a history of the smoking, or tobacco-related health factors, that were collected on or before the date of the Encounter. The data comes from the MD facility where the Encounter took place. 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 [facility] Jun 25, 2023 02:00 PM VA-TOBACCO USE MED NO [facility] Jun 25, 2023 02:00 PM VA-TOBACCO USER EVERY DAY [facility] Aug 07, 2022 02:00 PM VA-TOBACCO USE 30 YEARS OR MORE [facility] Aug 07, 2022 02:00 PM VA-TOBACCO USE ADVICE [facility] Aug 07, 2022 02:00 PM VA-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 USE 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 [facility] Aug 07, 2022 02:00 PM VA-TOBACCO USE MED NO [facility] Aug 07, 2022 02:00 PM VA-TOBACCO USE WI 30 MIN OF WAKE UP [facility] Aug 07, 2022 02:00 PM VA-TOBACCO USER EVERY DAY [facility] Sep 26, 2021 11:00 AM VA-TOBACCO FORMER USER [facility] Sep 26, 2021 11:00 AM VA-TOBACCO QUIT < 1 YEAR [facility] Dec 20, 2020 02:00 PM VA-TOBACCO DOESNT USE WI 30 MIN WAKEUP [facility] Dec 20, 2020 02:00 PM VA-TOBACCO USE 30 YEARS OR MORE [facility] Dec 20, 2020 02:00 PM VA-TOBACCO USE ADVICE [facility] Dec 20, 2020 02:00 PM VA-TOBACCO USE [employer] PL[employer] TECHNICIAN YES [facility] Dec 20, 2020 02:00 PM VA-TOBACCO USE MED YES [facility] Dec 20, 2020 02:00 PM VA-TOBACCO USER EVERY DAY [facility] Nov 23, 2019 04:25 PM VA-TOBACCO USE < 1 YEAR [facility] Nov 23, 2019 04:25 PM VA-TOBACCO USE ADVICE [facility] Nov 23, 2019 04:25 PM VA-TOBACCO USE 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 [facility] Nov 23, 2019 04:25 PM VA-TOBACCO USE MED NO [facility] Nov 23, 2019 04:25 PM VA-TOBACCO USE WI 30 MIN OF WAKE UP [facility] Nov 23, 2019 04:25 PM VA-TOBACCO USER EVERY DAY [facility] Oct 31, 2018 01:49 PM VA-TOBACCO USE 30 YEARS OR MORE [facility] Oct 31, 2018 01:49 PM VA-TOBACCO USE ADVICE [facility] Oct 31, 2018 01:49 PM VA-TOBACCO USE 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 [facility] Oct 31, 2018 01:49 PM VA-TOBACCO USE MED NO [facility] Oct 31, 2018 01:49 PM VA-TOBACCO USE WI 30 MIN OF WAKE UP [facility] Oct 31, 2018 01:49 PM VA-TOBACCO USER EVERY DAY [facility] Jul 09, 2017 09:25 AM FORMER TOBACCO USE <1Y [facility] Jul 24, 2016 09:57 AM FORMER TOBACCO USE <1Y [facility] Jul 26, 2015 09:47 AM CURRENT TOBACCO USER [facility] Jul 08, 2014 12:50 PM CURRENT TOBACCO USER [facility] Jul 20, 2013 08:30 AM CURRENT TOBACCO USER [facility] Mar 22, 2009 03:04 PM FORMER TOBACCO USE >1Y <7Y [facility] Encounter Notes: All associated encounter notes This section contains the clinical notes associated to the Encounter. Date/Time Encounter Note(s) Provider Source Dec 03, 2023 03:13 PM INTERNAL MEDICINE NOTE: LOCAL TITLE: MEDICINE CLINIC NOTE STANDARD TITLE: INTERNAL MEDICINE NOTE DATE OF NOTE: DEC 03, 2023@15:13 ENTRY DATE: DEC 03, 2023@15:13:07 AUTHOR: ANEUDY JONES COSIGNER: URGENCY: STATUS: COMPLETED MEDICINE CLINIC NOTE Has ADDENDA Chief complaint: Shoulder Pain HPI: Joe Reyes is a 73 year old male with PMH Rheumatoid arthritis, osteoarthritis, depression, OCD, HLD, BPH, and tobacco use presenting for follow up for BL shoulder pain. Pt was seen on 11/05/23 for BL shoulder pain in clinic. Was in agreement of plan with 14 days of celecoxib with PT. He reports that he has been doing his own home exercises, but unable to follow up with PT. He has noticed an improvement in his shoulder ROM and also with his strength returning as well. He has no other complaints at this time. ROS Negative except what is mentioned in HPI Past medical history/Active Problems: Active problems - Computerized Problem List is the source for the followin. Co-Managed Care - Dr Wyatt, PCP, Dilip Roach - Dr Jose Martin Pepe, psychiatrist, Odalis Roach 2. Arthritis (SNOMED CT 7042537) 3. Depression (SNOMED CT 14059007) 4. Obsessive-Compulsive Disorder 5. Anxiety (SNOMED CT 30379161) 6. Hyperlipidemia (SNOMED CT 15705873) 7. Dyspnea 8. Obstructive sleep apnea syndrome [...] leg 17. Exposure to potentially hazardous substance ([facility] [id number]) - Entered through [facility] Documentation Initiative MEDICATIONS: Allergies: AMOXICILLIN (Oct 02, 1995) CECLOR (Oct 02, 1995) NAPROXEN (Oct 06, 2021) RAMELTEON (Oct 06, 2021) Active Outpatient Medications (excluding Supplies): Education Evaluations *Was medication education provided for NEW medications or CHANGES to medications? (including medication name, dose, route, reason for use, and potential side effects). Yes. Verbal education was provided to patient/caregiver and patient/caregiver verbalized understanding. TERATOGENIC MED & CONTRACEPTION REVIEW (Optional)... ======= MEDICATION RECONCILIATION ======= Active and Recently Outpatient Medications (including Supplies): Issue Date Status Last Fill Active Outpatient Medications Refills Expiration 1) ACETAMINOPHEN 500MG TAB Qty: 21 for 7 ACTIVE Issu:11-05-23 days Sig: TAKE TWO TABLETS BY MOUTH Refills: 0 Last:11-06-23 EVERY 8 HOURS NEEDED FOR PAIN DO Expr:12-05-23 NOT EXCEED A MAX OF 4000-MG OF ACETAMINOPHEN PER DAY FROM ALL SOURCES 2) ALBUTEROL 90MCG (CFC-F) 200D ORAL INHL ACTIVE Issu:11-05-23 Qty: 1 for 25 days Sig: INHALE 2 Refills: 0 Last:11-07-23 PUFFS BY INHALATION EVERY 4 HOURS Expr:12-05-23 NEEDED FOR SHORTNESS OF BREATH FOR UP TO 10 DAY 3) ASPIRIN 81MG EC TAB Qty: 120 for 90 ACTIVE (S) Issu:11-05-23 days Sig: TAKE ONE TABLET BY MOUTH Refills: 2 Last:01-26-24 EVERY DAY Expr:11-05-24 4) CELECOXIB 100MG CAP Qty: 28 for 14 days ACTIVE Issu:11-05-23 Sig: TAKE ONE CAPSULE BY MOUTH TWICE A Refills: 0 Last:11-07-23 DAY FOR PAIN Expr:12-05-23 5) DOXAZOSIN MESYLATE 8MG TAB Qty: 90 for ACTIVE Issu:06-25-23 90 days Sig: TAKE ONE TABLET BY MOUTH Refills: 2 Last:09-13-23 EVERY DAY FOR URINATION Expr:06-25-24 6) FAMOTIDINE 20MG TAB Qty: 90 for 90 days ACTIVE Issu:10-07-23 Sig: TAKE ONE TABLET BY MOUTH EVERY Refills: 3 Last:10-16-23 DAY FOR HEARTBURN TO DECREASE STOMACH Expr:10-07-24 ACID. *NOTE CHANGE TO ONCE A DAY* 7) FLUOXETINE HCL 20MG CAP Qty: 360 for 90 ACTIVE Issu:08-14-23 days Sig: TAKE FOUR CAPSULES BY MOUTH Refills: 2 Last:12-02-23 EVERY DAY Expr:08-14-24 8) LIDOCAINE 4% TOP CREAM Qty: 30 for 30 ACTIVE Issu:11-05-23 days Sig: APPLY SMALL AMOUNT Refills: 0 Last:11-06-23 TOPICALLY THREE TIMES A DAY NEEDED Expr:12-05-23 FOR PAIN 9) MELATONIN 3MG CAP/TAB Qty: 180 for 90 ACTIVE Issu:08-14-23 days Sig: TAKE 2 TABLETS BY MOUTH AT Refills: 3 Last:08-15-23 BEDTIME NEEDED FOR SLEEP Expr:08-14-24 10) QUETIAPINE FUMARATE 300MG TAB Qty: 90 ACTIVE Issu:08-14-23 for 90 days Sig: TAKE ONE TABLET BY Refills: 3 Last:09-25-23 MOUTH AT BEDTIME FOR ANXIETY Expr:08-14-24 11) SIMVASTATIN 40MG TAB Qty: 90 for 90 ACTIVE Issu:01-07-23 days Sig: TAKE ONE TABLET BY MOUTH AT Refills: 0 Last:10-07-23 BEDTIME FOR CHOLESTEROL Expr:01-08-24 12) SODIUM FLUORIDE 1.1% TOOTHPASTE Qty: ACTIVE Issu:11-14-23 100 for 30 days Sig: BRUSH TEETH WITH Refills: 11 Last:11-15-23 A SMALL AMOUNT MOUTH EVERY MORNING AND Expr:11-14-24 AT BEDTIME TO PREVENT DENTAL CAVITIES Issue Date Status Last Fill Inactive Outpatient Medications Refills Expiration 1) ASPIRIN 81MG EC TAB Qty: 120 for 90 Issu:10-30-22 days Sig: TAKE ONE TABLET BY MOUTH Refills: 1 Last:07-26-23 EVERY DAY Expr:10-31-23 2) DOXAZOSIN MESYLATE 8MG TAB Qty: 60 for DISCONTINUED Issu:05-13-23 60 days Sig: TAKE ONE TABLET BY MOUTH Refills: 5 Last:05-13-23 EVERY DAY FOR URINATION Expr:05-13-24 3) FAMOTIDINE 20MG TAB Qty: 90 for 90 days DISCONTINUED Issu:10-30-22 Sig: TAKE ONE TABLET BY MOUTH EVERY Refills: 0 Last:07-20-23 DAY FOR HEARTBURN TO DECREASE STOMACH Expr:10-31-23 ACID. *NOTE CHANGE TO ONCE A DAY* 4) FLUOXETINE HCL 20MG CAP Qty: 360 for 90 DISCONTINUED Issu:10-24-22 days Sig: TAKE FOUR CAPSULES BY MOUTH Refills: 1 Last:05-20-23 EVERY DAY Expr:10-25-23 5) MELATONIN 3MG CAP/TAB Qty: 180 for 90 DISCONTINUED Issu:07-26-23 days Sig: TAKE 2 TABLETS BY MOUTH AT (EDIT) Last:07-26-23 BEDTIME NEEDED FOR SLEEP Refills: 1 Expr:07-26-24 6) QUETIAPINE FUMARATE 300MG TAB Qty: 90 DISCONTINUED Issu:10-24-22 for 90 days Sig: TAKE ONE TABLET BY (EDIT) Last:07-09-23 MOUTH AT BEDTIME Refills: 1 Expr:10-25-23 18 Total Medications MEDICATION RECONCILIATION Outpatient At this visit I have reviewed the medication list, and discussed relevant medications with the patient/surrogate. An updated patient medication list was given to the participant(s). ( x) No Change ( ) Change/New: I have noted this on the patient's copy of the medication list. PHYSICAL EXAM VS: Temp: 97.3 F [36.3 C] (12/03/2023 14:27) BP: 125/74 (12/03/2023 14:27) Pulse: 70 (12/03/2023 14:27) Resp: 16 (12/03/2023 14:27) O2 sat: 93% (12/03/2023 14:27) Weight: WEIGHTS IN LAST 6 MONTHS: 170 (DEC 03, 2023@14:27:05) 175 (NOV 05, 2023@13:49:56) Pain: 5 (12/03/2023 14:27) General: AAOx3, NAD, non-jaundiced HEENT: MMM, anicteric sclerae Lungs: No increased respiratory effort on room air, CTAB, no wheezing or rales CV: RRR, normal S1/S2 without murmur Abdomen: BS+, soft, non-tender, non-distended Extremities: No lower extremity edema bilaterally Skin: No rash on exposed skin Neuro: no gross focal neurologic deficits LABS/IMAGING: All labs and imaging reviewed. LAB RESULTS LAST 48 HRS - NONE FOUND ASSESSMENT/PLAN Joe Reyes is a 73 year old male with PMH osteoarthritis, depression, OCD, HLD, BPH, and tobacco use who presents to clinic for routine health maintenance and evaluation of body aches. #Bilateral Shoulder Pain, Suspect Rotator Tendonopathy #Diffuse Myalgias See previous note on 11/05/23 Dr. Chen for further details. Pt pain is currently improved with home exercises and s/p 14 day course of celecoxib. Pt will be setting up virtual visit with PT and continuing home exercises. - Physical Therapy - Tylenol and Ibuprofen as needed RTC in 1 year for next physical or ealier if needed Patient staffed with Dr.Murdoch Aneudy Jones MD PGY-3 Internal Medicine Education on Treatment Plan: Patient indicates readiness to learn, verbalizes understanding, agreement and satisfaction with the treatment plan. Denies further questions. Medication Reconciliation: /lance/ ANEUDY JONES RESIDENT PHYSICIAN Signed: 12/03/2023 15:40 Receipt Acknowledged By: 12/03/2023 16:26 /lance/ CHANDRAKANT CONNORS MD STAFF PHYSICIAN 12/03/2023 ADDENDUM STATUS: COMPLETED LOCAL TITLE: MEDICINE CLINIC NOTE STANDARD TITLE: INTERNAL MEDICINE NOTE DATE OF NOTE: DEC 03, 2023@15:26 ENTRY DATE: DEC 03, 2023@15:26:21 AUTHOR: CHANDRAKANT CONNORS EXP COSIGNER: URGENCY: STATUS: UNSIGNED Staff Note I have reviewed with the resident this patient's history (as obtained by the resident) and pertinent physical examination findings (as obtained by the resident), as well as any laboratory, radiologic or other diagnostic tests that were pertinent to the patient's presentation and that were available at the time this case was presented to me. I agree with the treatment plan described by the resident. This plan was reviewed with the resident at the time and date of this note. Patient here to f/u recent visit for shoulder pain. He has responded well to celecoxib. He is planning to set up a video visit with PT. He should keep his routine scheduled follow up or come in sooner if problems arise. /lance/ CHANDRAKANT CONNORS MD STAFF PHYSICIAN Signed: 12/03/2023 16:26 [facility] Dec 03, 2023 02:29 PM INTERNAL MEDICINE OUTPATIENT NOTE: LOCAL TITLE: MEDICINE CLINIC NURSING NOTE STANDARD TITLE: INTERNAL MEDICINE OUTPATIENT NOTE DATE OF NOTE: DEC 03, 2023@14:29 ENTRY DATE: DEC 03, 2023@14:29:23 AUTHOR: FDEE BRUCE EXP COSIGNER: URGENCY: STATUS: COMPLETED TYPE OF VISIT: Appointment Check In Type of appointment: In-person appointment REASON FOR VISIT: shoulder pain ALLERGIES: AMOXICILLIN (Oct 02, 1995) CECLOR (Oct 02, 1995) NAPROXEN (Oct 06, 2021) RAMELTEON (Oct 06, 2021) VITAL SIGNS: Blood Pressure: 125/74 (12/03/2023 14:27) Pulse: 70 (12/03/2023 14:27) Respiration: 16 (12/03/2023 14:27) Temperature: 97.3 F [36.3 C] (12/03/2023 14:27) Weight: 170 lb [77.11 kg] (12/03/2023 14:27) Height: 67 in [170.2 cm] (12/03/2023 14:27) BMI: 26.7 O2 Sat: 93% (12/03/2023 14:27) Pain: 5 (12/03/2023 14:27) PAIN SCREEN: Patient is having significant pain that they would like to talk to their provider about today. Old (Chronic) (began more than 6 months ago) Patient states their average pain this past week is 5 Patient states the average number on how the chronic pain affects their enjoyment of life the past week is 2 Patient states during the past week the average number on how the pain has interfered with their general activity is 2 MEDICATION Over the Counter/Herbal Medications: The patient denies taking any outside medications or herbals. /lance/ FEDE BRUCE LPN Signed: 12/03/2023 14:30 FEDE BRUCE [facility]
--- OUTSIDE RECORDS SUMMARY | 2024-04-12 13:14 | XMS_ITS | Encounter Summary ---
Author Name [facility] [place] [facility] [place] Organization [facility] [facility] [place] Address [address] [place] [address] Care Team Providers Care Security Guard Dispatcher Name Role Phone KARI HARLEY Primary Care Provider UnavailRADHA Layne Primary Care Provider UnavailVIVIANA Jrenigan Unavailable Unavailable Insurance Providers: All historical and [...] Alvarez's Name Patient's Relationship to Policy Alvarez [facility] (WNR) MEDICAID MEDIC AID Apr 22, 2015 [id number] [phone] JOE CANALES PATIENT MEDICARE (WNR) MEDICARE (M) PART A Apr 22, 2013 PART A [id number] [phone] JEYSON CANALES III PATIENT MEDICARE (WNR) MEDICARE (M) PART B Apr 22, 2013 PART B [id number] JEYSON CANALES III N PATIENT MEDICARE (WNR) MEDICARE (M) PART A Apr 22, 2013 PART A [id number] JEYSON CANALES III PATIENT MEDICARE (WNR) MEDICARE (M) PART B Apr 22, 2013 PART B [id number] JEYSON CANALES III N PATIENT MEDICARE (WNR) MEDICARE (M) PART A Apr 22, 2013 PART A [id number] JEYSON CANALES III PATIENT MEDICARE (WNR) MEDICARE (M) PART B Apr 22, 2013 PART B [id number] JEYSON CANALES III N PATIENT Selected Encounter This section includes the information on record at [place] for the Encounter. 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 Date/Time Primary/Secondary Diagnosis Diagnosis Name Provider Source Dec 18, 2023 10:19 AM PRIMARY Open adventism margins of tooth KIRSTEN WAHL IN [facility] Dec 18, 2023 10:19 AM SECONDARY Dental caries on smooth surface penetrating into dentin KIRSTEN WAHL IN [facility] Dec 18, 2023 10:19 AM SECONDARY Excessive attrition of teeth KIRSTEN WAHL IN [facility] Plan of Treatment: Future Appointments (+ 6 months) and Future Tests (+/- 45 days) The Plan of Treatment section includes future care activities for the patient [facility] This section includes future appointments and future orders which are active, pending or scheduled. Future Appointments This section includes appointments that were scheduled to occur 6 months from the date of the Encounter, up to a maximum of 20 appointments. The data comes from all [place] treatment facilities. Appointment Date/Time Appointment Type Appointme nt Facility Name Jan 27, 2024 01:42 PM [facility] [facility] Feb 06, 2024 02:00 PM [facility] Mar 12, 2024 02:00 PM [facility] Mar 24, 2024 11:00 AM [facility] Mar 24, 2024 11:45 AM [facility] [place] [facility] Apr 09, 2024 02:00 PM [facility] [place] [facility] [facility] Apr 20, 2024 01:00 PM [facility] Jun 02, 2024 08:30 AM [facility]ICINE [facility] Jun 02, 2024 02:00 PM AMBULATORY - PSYCHIATRY [facility] Vital Signs: All taken on the encounter date This section contains inpatient and outpatient Vital Signs collected on the date of the Encounter. Date/Time Temperature Pulse Blood Pressure Respiratory Rate SP02 Pain Height Weight Body Mass Index Source Dec 18, 2023 09:13 AM 98.8 78 130/74 [facility] Social History: Smoking Status (Most current) and Tobacco Use (All prior to encounter date) This section includes the most current, and the historical, smoking and tobacco- related health factors from the [place] facility where the Encounter took place. Current Smoking Status This section includes the most current smoking, or tobacco-related health factor, from the [place] facility where the Encounter took place. Date/Time Current Smoking Status Comment Esau spence Jun 25, 2023 02:00 PM VA-TOBACCO USER EVERY DAY [facility] Tobacco Use History This section includes a history of the smoking, or tobacco-related health factors, that were collected on or before the date of the Encounter. The data comes from the [place] facility where the Encounter took place. Date/Time Smoking Status/Tobacco Use Comment F acility Jun 25, 2023 02:00 PM VA-TOBACCO USE 30 YEARS OR MORE [facility] Jun 25, 2023 02:00 PM VA-TOBACCO USE ADVICE [facility] Jun 25, 2023 02:00 PM VA-TOBACCO USE AUDIO VISUAL COLLECTIONS COORDINATOR NO [facility] Jun 25, [...] Aug 07, 2022 02:00 PM VA-TOBACCO USE AUDIO VISUAL COLLECTIONS COORDINATOR NO [facility] Aug 07, [...] Dec 20, 2020 02:00 PM VA-TOBACCO USE AUDIO VISUAL COLLECTIONS COORDINATOR YES [facility] Dec 20, [...] Nov 23, 2019 04:25 PM VA-TOBACCO USE AUDIO VISUAL COLLECTIONS COORDINATOR NO [facility] Nov 23, [...] Oct 31, 2018 01:49 PM VA-TOBACCO USE AUDIO VISUAL COLLECTIONS COORDINATOR NO [facility] Oct 31, [...] Encounter. Date/Time Encounter Note(s) Provider Source Dec 18, 2023 10:16 AM DENTISTRY NOTE: LOCAL TITLE: Dental Clinic Note STANDARD TITLE: DENTISTRY NOTE DATE OF NOTE: DEC 18, 2023@10:16 ENTRY DATE: DEC 18, 2023@10:19:53 AUTHOR: RORY WAHL COSIGNER: URGENCY: STATUS: COMPLETED Patient Name: JOE CANALES, : 1950, Age: 73 Visit: S: Dec 18, 2023@09:30 [facility]. 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 Dental Category: 15-OPC, Class IV. Treatment Status: Maintenance. Completed Care: (D2330) RESIN ONE SURFACE-ANTERIOR. Tooth: 6. Surface(s): L. 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 DX: K03.0 Excessive Attrition of Teeth (D2391) POST 1 SRFC RESINBASED CMPST. Tooth: 14. Surface(s): B. DX: K02.62 Dental Caries on Smooth Surface Penetrating into Dentin Next visit: Recall. - - - - - - - - - - - - - - - - - - - - - - - - - - - - - - SUBJECTIVE: [place] reports to the dental clinic for restorative treatment. Chief Complaint (Presenting Problem): Left side of his jaw has been sore for two weeks. Pain (0 = no pain, 10 = greatest pain): 0 Medical Reconciliation and Documentation: Medication list was reviewed with no changes or discrepancies noted. Patient understands the ongoing dental care/treatment for today. Please refer to dental progress notes in CPRS and the Chart/Treatment tab of [facility]. Sterilization verification by Rory Wahl and Sophie. OBJECTIVE: Clinical/radiographic exam reveals the following: #6: Existing emax crown with an area of lost porcelain on the lingual margin. #14: B caries. ASSESSMENT and PROCEDURE: Treatment today planned as follows: #6: L composite repair. #14: B composite. Anesthetic was delivered: 4% Septocaine(68mg/1.7cc) w/1:100,000 epi(0.02mg/1.7cc) X 2.55 cc in local infiltraitons. Spiritism(s) protocol steps: * Rinse and isolate area * 34% Tooth Conditioner * 3M PIERRE Scotchbond [place] Adhesive * 3M PIERRE Filtek [place] UltraFlow * [place]an/Occlusal Adjustment After delivery of anesthetic, prepped #6,14 and removed caries. Restored using protocol listed above. Patient's occlusal guard was inserted and adjusted as needed to create even contacts throughout dental arch. Recommended he returns to the clinic for further adj. as needed. Recommended he contact the clinic for a consult with Dr. Suarez should his left sided jaw discomfort not resolve on it's own in the next two weeks. Patient understands. Patient tolerated the procedures well and left the clinic in good and stable condition. Assisted by Sophie. Next visit: Recall. /lance/ RORY WAHL II [place] Signed: 12/18/2023 10:19 RORY WAHL II [facility]
--- OUTSIDE RECORDS SUMMARY | 2024-04-12 13:14 | XMS_ITS | Encounter Summary ---
Author Name [facility] [place] Organization [facility] [place] [facility] [place] Address [address] [place] [address] Care Team Providers Care Alternative Energy Technician Name Role Phone KARI HARLEY Primary [...] Alvarez's Name Patient's Relationship to Policy Alvarez [facility] (WNR) MEDICAID MEDIC AID Apr 22, 2015 [id number] [phone] JOE CANALES PATIENT MEDICARE (WNR) MEDICARE (M) PART A Apr 22, 2013 PART A [id number] JEYSON CANALES III N PATIENT MEDICARE (WNR) MEDICARE (M) PART B Apr 22, 2013 PART B [id number] JEYSON CANALES III N PATIENT MEDICARE (WNR) MEDICARE (M) PART A Apr 22, 2013 PART A [id number] JEYSON CANALES III N PATIENT MEDICARE (WNR) MEDICARE (M) PART B Apr 22, 2013 PART B [id number] [phone] JEYSON CANALES III N PATIENT MEDICARE (WNR) MEDICARE (M) PART A Apr 22, 2013 PART A [id number] [phone] JEYSON CANALES III N PATIENT MEDICARE (WNR) MEDICARE (M) PART B Apr 22, 2013 PART B [id number] JEYSON CANALES III N PATIENT Selected Encounter This section includes the information on record at OR for the Encounter. Date/Time Encounter Type Encounter Description Reason Pro vider Source Feb 06, 2024 02:00 PM OFFICE O/P EST MOD 30 MIN PSYCHOGERIATRIC - INDIVIDUAL ICD-10-CM F43.12 Post-traumati c stress disorder, chronic HEENA MONCADA IN [facility] Encounter Template Text not used by [place] Assessments - Encounter Diagnoses This section includes the primary and secondary diagnoses documented for the Encounter. Date/Time Primary/Secondary Diagnosis Diagnosis Name Provider Source Feb 07, 2024 04:34 PM PRIMARY Post-traumatic stress disorder, chronic HEENA MONCADA IN [facility] Feb 07, 2024 04:34 PM SECONDARY Major depressive disorder, recurrent, in full remission HEENA MONCADA IN [facility] Plan of Treatment: Future Appointments (+ 6 months) and Future Tests (+/- 45 days) The Plan of Treatment section includes future care activities for the patient from [facility] [place] [facility] This section includes future appointments and future orders which are active, pending or scheduled. Future Appointments This section includes appointments that were scheduled to occur 6 months from the date of the Encounter, up to a maximum of 20 appointments. The data comes from all [place] treatment facilities. Appointment Date/Time Appointment Type Appointme nt Facility Name Mar 12, 2024 02:00 PM AMBULATORY - [facility]ATRY [facility] Mar 24, 2024 11:00 AM [facility] Mar 24, 2024 11:45 AM [place]ONE [place] [facility] Apr 09, 2024 02:00 PM AMBULATORY - PS[facility]CHIATRY [facility] Apr 20, 2024 01:00 PM [facility] Jun 02, 2024 08:30 AM [place] [facility] Jun 02, 2024 02:00 PM AMBULATORY - PSYCHIATRY [facility]ERS HERRON [facility] Jul 02, 2024 03:00 PM AMBULATORY - SURGERY BRANDY BARTH [facility] Social History: Smoking Status (Most current) [...] 2023 02:00 PM VA-TOBACCO USER EVERY DAY [facility] Tobacco Use History This section includes a history of the smoking, or tobacco-related health factors, that were collected on or before the date of the Encounter. The data comes from the [place] facility where the Encounter took place. Date/Time Smoking Status/Tobacco Use Comment F acility Jun 25, 2023 02:00 PM VA-TOBACCO USE 30 YEARS OR MORE [facility] Jun 25, 2023 02:00 PM VA-TOBACCO USE ADVICE [facility] Jun 25, 2023 02:00 PM VA-TOBACCO USE CERTIFIED OPHTHALMIC SURGICAL ASSISTANT NO [facility] Jun 25, 2023 02:00 PM VA-TOBACCO USE MED NO [facility] Jun 25, 2023 02:00 PM VA-TOBACCO USER EVERY DAY [facility] Aug 07, 2022 02:00 PM VA-TOBACCO USE 30 YEARS OR MORE [facility] Aug 07, 2022 02:00 PM VA-TOBACCO USE ADVICE [facility] Aug 07, 2022 02:00 PM VA-TOBACCO USE CERTIFIED OPHTHALMIC SURGICAL ASSISTANT NO [facility] Aug 07, 2022 02:00 PM VA-TOBACCO USE MED NO [facility] Aug 07, 2022 02:00 PM VA-TOBACCO USE WI 30 MIN OF WAKE UP [facility] Aug 07, 2022 02:00 PM VA-TOBACCO USER EVERY DAY [facility] Sep 26, 2021 11:00 AM VA-TOBACCO FORMER USER [facility] Sep 26, 2021 11:00 AM VA-TOBACCO QUIT < 1 YEAR [facility] Dec 20, 2020 02:00 PM VA-TOBACCO DOESNT USE WI 30 MIN WAKEUP [facility] Dec 20, 2020 02:00 PM VA-TOBACCO USE 30 YEARS OR MORE [facility] Dec 20, 2020 02:00 PM VA-TOBACCO USE ADVICE [facility] Dec 20, 2020 02:00 PM VA-TOBACCO USE CERTIFIED OPHTHALMIC SURGICAL ASSISTANT YES [facility] Dec 20, 2020 02:00 PM VA-TOBACCO USE MED YES [facility] Dec 20, 2020 02:00 PM VA-TOBACCO USER EVERY DAY [facility] Nov 23, 2019 04:25 PM VA-TOBACCO USE < 1 YEAR [facility] Nov 23, 2019 04:25 PM VA-TOBACCO USE ADVICE [facility] Nov 23, 2019 04:25 PM VA-TOBACCO USE CERTIFIED OPHTHALMIC SURGICAL ASSISTANT NO [facility] Nov 23, 2019 04:25 PM VA-TOBACCO USE MED NO [facility] Nov 23, 2019 04:25 PM VA-TOBACCO USE WI 30 MIN OF WAKE UP [facility] Nov 23, 2019 04:25 PM VA-TOBACCO USER EVERY DAY [facility] Oct 31, 2018 01:49 PM VA-TOBACCO USE 30 YEARS OR MORE [facility] Oct 31, 2018 01:49 PM VA-TOBACCO USE ADVICE [facility] Oct 31, 2018 01:49 PM VA-TOBACCO USE CERTIFIED OPHTHALMIC SURGICAL ASSISTANT NO [facility] Oct 31, 2018 01:49 PM VA-TOBACCO USE MED NO [facility] Oct 31, 2018 01:49 PM VA-TOBACCO USE WI 30 MIN OF WAKE UP [facility] Oct 31, 2018 01:49 PM VA-TOBACCO USER EVERY DAY [facility] Jul 09, 2017 09:25 AM FORMER TOBACCO USE <1Y [facility] Jul 24, 2016 09:57 AM FORMER TOBACCO USE <1Y [facility] Jul 26, 2015 09:47 AM CURRENT TOBACCO USER [facility] Jul 08, 2014 12:50 PM CURRENT TOBACCO USER [facility] Jul 20, 2013 08:30 AM CURRENT TOBACCO USER [facility] Mar 22, 2009 03:04 PM FORMER TOBACCO USE >1Y <7Y [facility] Encounter Notes: All associated encounter notes This section contains the clinical notes associated to the Encounter. Date/Time Encounter Note(s) Provider Source Feb 06, 2024 02:11 PM PSYCHIATRY E & M N OTE: LOCAL TITLE: PSYCHIATRIC EVALUATION & MANAGEMENT STANDARD TITLE: PSYCHIATRY E & M NOTE DATE OF NOTE: FEB 06, 2024@14:11 ENTRY DATE: FEB 06, 2024@14:11:44 AUTHOR: TERRIE MONCADA COSIGNER: URGENCY: STATUS: COMPLETED PSYCHIATRIC EVALUATION AND MANAGEMENT FOLLOW UP VISIT HPI: Patient reports moved to new apartment about a week ago after his former landlord would not manage his home. Living with his daughter and granddaughter Patient reports he has problems with blacking out. Sometimes when standing up and going to do something his vision feels blurry. He reports that his mood has been very stable. Denies episodes of depression. Reports no SI for past 3-4 months. Got a lot of support, his granddaughter is aceasia. Even though he moved he still drives to [place] to [employer]. Cannot go every Saturday but goes when he can - hour and a half drive. Sleep: he wakes up 2-3 times a night, he is waking up once to urinate. Napping 2-4 hours. Has been tested for sleep apnea. Taking quetiapine and melatonin at bedtime and that helps significantly. He generally get a deep sleep aside from 2-3 times/week. Lots of pain in his hips and pain is waking him up. Finding it tough to walk to [facility]. No other concerns today, doing well from a mental health standpoint. Finds current medication regimen very helpful, does not want to change it. MEDICATION COMPLIANCE: adherent to all medications per [...] PTSD- chronic Major Depressive Disorder, recurrent, in full remission ASSESSMENT: 72 yo male with history [...] without plan or intent in context of stressor. [place] / [place] community and family remains a strong protective factors. Has been taking forward thinking steps such as meeting with financial analyst intern, and repairing relationships with family. 06.20.23 update: Patient stable from mental health [...] the stairs, CTH , EKG WNL at [facility]. 08/14/23: Mood improved largely related to interpersonal stressor improving. Sleep improved with addition of melatonin. Psychiatrically stable. Current medications effective and well tolerated. 02/07/24: Mood stable on current medication regimen. Continues to report episodes of almost blacking out. does not describe lightheadedness or dizziness associated with this. Unclear what is causing these episode. Discussed risk of orthostatic hypotension with quetiapine and advised patient to rise slowly with positional changes. He does not check BP at home. Recent VITAL SIGNS: Blood Pressure: 125/74 (12/03/2023 14:27) WNL. Patient does not want to trial reduction in quetiapine and unlikely it is causing these episodes as patient has taken for many years and no dose change preceded symptom onset. Advised pt to f/u with PCP to address. TREATMENT PLAN: -Continue Fluoxetine 80 mg po daily for mood and ptsd. -Continue Quetiapine 300 mg po qhs for mood, sleep, nightmares. -Melatonin 6mg HS for insomnia, try to take earlier around 8/8:30 -Pt will follow up with psychotherapy with Maxine PEDRO -Lipid panel complete 10/2023 (mild elevated triglyceride) -HgA1c last completed 10/2022, due at next visit -AIMS at next visit -RTC 1 Month. Complete A1c and AIMS at f/u Suicide Risk Assessment: Risk Factors: Age, Gender, [...] clinical information in medical record, and care coordination:30 minutes /es/ TERRIE MONCADA DO STAFF PSYCHIATRIST Signed: 02/07/2024 16:34 TERRIE MONCADA [facility]
--- OUTSIDE RECORDS SUMMARY | 2024-04-12 13:14 | XMS_ITS ---
Author Name [facility] [place] [facility] [place] Address [address] [place] [address] Care Team Providers Care Storeroom Supervisor Name Role Phone KARI HARLEY Primary Care [...] Alvarez's Name Patient's Relationship to Policy Alvarez [facility] (WNR) MEDICAID MEDIC AID Apr 22, 2015 [id number] JOE CANALES PATIENT MEDICARE (WNR) MEDICARE (M) PART A Apr 22, 2013 PART A [id number] JEYSON CANALES III PATIENT MEDICARE (WNR) MEDICARE (M) PART B Apr 22, 2013 PART B [id number] JEYSON CANALES III N PATIENT MEDICARE (WNR) MEDICARE (M) PART A Apr 22, 2013 PART A [id number] JEYSON CANALES III N PATIENT MEDICARE (WNR) MEDICARE (M) PART B Apr 22, 2013 PART B [id number] JEYSON CANALES III N PATIENT MEDICARE (WNR) MEDICARE (M) PART A Apr 22, 2013 PART A [id number] PARKER IIIJEYSON N PATIENT MEDICARE (WNR) MEDICARE (M) PART B Apr 22, 2013 PART B [id number] JEYSON CANALES III N PATIENT Selected Encounter This section includes the information on record at CT for the Encounter. Date/Time Encounter Type Encounter Description Reason Provider Source Jan 27, 2024 01:42 PM Outpatient Encounter ADMIN PAT ACTIVTIES (MASNONCT) SAIGE DSOUZA Encounter Template Text not used by CT Plan of Treatment: Future Appointments (+ 6 months) and Future Tests (+/- 45 days) The Plan of Treatment section includes future care activities for the [facility] This section includes future appointments and future orders which are active, pending or scheduled. Future Appointments This section includes appointments that were scheduled to occur 6 months from the date of the Encounter, up to a maximum of 20 appointments. The data comes from all CT treatment facilities. Appointment Date/Time Appointment Type Appointme nt Facility Name Feb 06, 2024 02:00 PM AMBULATORY [facility]RY [facility] Mar 12, 2024 02:00 PM AMBULATORY - PS[facility]CHIATRY [facility] Mar 24, 2024 11:00 AM [facility] Mar 24, 2024 11:45 AM AM[facility] - NONE [facility] Apr 09, 2024 02:00 PM AMBULATORY - PS[facility]CHIATRY [facility] Apr 20, 2024 01:00 PM [facility] Jun 02, 2024 08:30 AM AM[facility]UL[facility] - MEDICINE [facility] Jun 02, 2024 02:00 PM AMBULATORY [facility] PS[facility]CH[facility]ATRY [facility] Jul 02, 2024 03:00 PM [facility] Social History: Smoking Status [...] 2023 02:00 PM VA-TOBACCO USER EVERY DAY [facility] Tobacco Use History This section includes a history of the smoking, or tobacco-related health factors, that were collected on or before the date of the Encounter. The data comes from the CT facility where the Encounter took place. Date/Time Smoking Status/Tobacco Use Comment F acility Jun 25, 2023 02:00 PM VA-TOBACCO USE 30 YEARS OR MORE [facility] Jun 25, 2023 02:00 PM VA-TOBACCO USE ADVICE [facility] Jun 25, 2023 02:00 PM VA-TOBACCO USE INDUCTION BRAZER NO [facility] Jun 25, 2023 02:00 PM VA-TOBACCO USE MED NO [facility] Jun 25, 2023 02:00 PM VA-TOBACCO USER EVERY DAY [facility] Aug 07, 2022 02:00 PM VA-TOBACCO USE 30 YEARS OR MORE [facility] Aug 07, 2022 02:00 PM VA-TOBACCO USE ADVICE [facility] Aug 07, 2022 02:00 PM VA-TOBACCO USE INDUCTION BRAZER NO [facility] Aug 07, 2022 02:00 PM VA-TOBACCO USE MED NO [facility] Aug 07, 2022 02:00 PM VA-TOBACCO USE WI 30 MIN OF WAKE UP [facility] Aug 07, 2022 02:00 PM VA-TOBACCO USER EVERY DAY [facility] Sep 26, 2021 11:00 AM VA-TOBACCO FORMER USER [facility] Sep 26, 2021 11:00 AM VA-TOBACCO QUIT < 1 YEAR [facility] Dec 20, 2020 02:00 PM VA-TOBACCO DOESNT USE WI 30 MIN WAKEUP [facility] Dec 20, 2020 02:00 PM VA-TOBACCO USE 30 YEARS OR MORE [facility] Dec 20, 2020 02:00 PM VA-TOBACCO USE ADVICE [facility] Dec 20, 2020 02:00 PM VA-TOBACCO USE INDUCTION BRAZER YES [facility] Dec 20, 2020 02:00 PM VA-TOBACCO USE MED YES [facility] Dec 20, 2020 02:00 PM VA-TOBACCO USER EVERY DAY [facility] Nov 23, 2019 04:25 PM VA-TOBACCO USE < 1 YEAR [facility] Nov 23, 2019 04:25 PM VA-TOBACCO USE ADVICE [facility] Nov 23, 2019 04:25 PM VA-TOBACCO USE INDUCTION BRAZER NO [facility] Nov 23, 2019 04:25 PM VA-TOBACCO USE MED NO [facility] Nov 23, 2019 04:25 PM VA-TOBACCO USE WI 30 MIN OF WAKE UP [facility] Nov 23, 2019 04:25 PM VA-TOBACCO USER EVERY DAY [facility] Oct 31, 2018 01:49 PM VA-TOBACCO USE 30 YEARS OR MORE [facility] Oct 31, 2018 01:49 PM VA-TOBACCO USE ADVICE [facility] Oct 31, 2018 01:49 PM VA-TOBACCO USE INDUCTION BRAZER NO [facility] Oct 31, 2018 01:49 PM VA-TOBACCO USE MED NO [facility] Oct 31, 2018 01:49 PM VA-TOBACCO USE WI 30 MIN OF WAKE UP [facility] Oct 31, 2018 01:49 PM VA-TOBACCO USER EVERY DAY [facility] Jul 09, 2017 09:25 AM FORMER TOBACCO USE <1Y [facility] Jul 24, 2016 09:57 AM FORMER TOBACCO USE <1Y [facility] Jul 26, 2015 09:47 AM CURRENT TOBACCO USER [facility] Jul 08, 2014 12:50 PM CURRENT TOBACCO USER [facility] Jul 20, 2013 08:30 AM CURRENT TOBACCO USER [facility] Mar 22, 2009 03:04 PM FORMER TOBACCO USE >1Y <7Y [facility] Encounter Notes: All associated encounter notes This section contains the clinical notes associated to the Encounter. Date/Time Encounter Note(s) Provider Source Jan 29, 2024 02:33 PM ADDENDUM: LOCAL TITLE: Addendum STANDARD TITLE: ADDENDUM DATE OF NOTE: JAN 29, 2024@14:33:48 ENTRY DATE: JAN 29, 2024@14:33:49 AUTHOR: AUBREE PALMA EXP COSIGNER: URGENCY: STATUS: COMPLETED was seen in a Community ED. Records uploaded to chart. Please review and follow up as appropriate. /lance/ AUBREE PALMA .Flory.Advanced Exercise Physiologist Certified Signed: 01/29/2024 14:33 Receipt Acknowledged By: 01/31/2024 16:51 /lance/ RADHA EISENBERG MD/PHD PHYSICIAN 01/30/2024 11:31 /es/ DONITA BAILEY, RETICLE PRINTER NURSE --- Original Document --- 01/24/24 [facility] SELF PRESENTING CARE COORD PLAN NOTE: Emergency Notification Intake Date Presenting to the Facility: Jan Method of Contact: Notified from ECR worklist Notification ID: [id number] [facility] Referral #: [facility] Name: Hospital: [facility] Address: City: [place] State: [place] Zip Code: Phone : [facility] Facility Point of Contact: Name: ISAC GUEVARA Chief complaint: LEFT HAND LACERATION Primary Diagnosis: Disposition Discharged Date of discharge: Jan Discharge to home 1703 Clinical Review /lance/ MICA SOOD Machinery Cleaner(AOD) Signed: 01/27/2024 13:45 Receipt Acknowledged By: 01/27/2024 15:44 /lance/ Saige Dsouza RN BSN manager net Radio Television Technical Director 01/27/2024 ADDENDUM STATUS: COMPLETED Notification acknowledged by RN. Medical and clinical information not reviewed. /don Dsouza RN BSN manager net Radio Television Technical Director Signed: 01/27/2024 15:44 01/28/2024 ADDENDUM STATUS: COMPLETED Records requested and will be uploaded via Sharalike when received. /lance/ AUBREE PALMA ..FloryAdvanced Exercise Physiologist Certified Signed: 01/28/2024 14:01 Receipt Acknowledged By: 01/29/2024 08:27 /lance/ DONITA BAILEY, RETICLE PRINTER NURSE 01/30/2024 ADDENDUM STATUS: COMPLETED LM on identified VM with direct number for this keno writer / runner for Vwet to return call if he needs sutures removed at CT. Per ER notes in [facility] Vet received 3 sutures to left thumb base. /lance/ DONITA BAILEY, RETICLE PRINTER NURSE Signed: 01/30/2024 11:34 AUBREE PALMA [facility] Jan 28, 2024 02:00 PM ADDENDUM: LOCAL TITLE: Addendum STANDARD TITLE: ADDENDUM DATE OF NOTE: JAN 28, 2024@14:00:54 ENTRY DATE: JAN 28, 2024@14:00:55 AUTHOR: AUBREE PALMA EXP COSIGNER: URGENCY: STATUS: COMPLETED Records requested and will be uploaded via Sharalike when received. /don PALMA .DagobertoAdvanced Exercise Physiologist Certified Signed: 01/28/2024 14:01 Receipt Acknowledged By: 01/29/2024 08:27 /lance/ DONITA BAILEY RN STAFF NURSE --- Original Document --- 01/24/24 [facility] SELF PRESENTING CARE COORD PLAN NOTE: Emergency Notification Intake Date Presenting to the Facility: Jan Method of Contact: Notified from [place] worklist Notification ID: [id number] [facility] Referral #: [facility] Name: Hospital: [facility] Address: City: [place] State: [place] Zip Code: Phone : [facility] Point of Contact: Name: ISAC GUEVARA Chief complaint: LEFT HAND LACERATION Primary Diagnosis: Disposition Discharged Date of discharge: Jan Discharge to home 1703 Clinical Review /lance/ MICA SOOD Machinery Cleaner(AOD) Signed: 01/27/2024 13:45 Receipt Acknowledged By: 01/27/2024 15:44 /lance/ Saige Dsouza RN BSN manager net Radio Television Technical Director 01/27/2024 ADDENDUM STATUS: COMPLETED Notification acknowledged by RN. Medical and clinical information not reviewed. /don Dsouza RN BSN manager net Radio Television Technical Director Signed: 01/27/2024 15:44 AUBREE PALMA [facility] Jan 24, 2024 01:42 PM NONVA NOTE: LOCAL TITLE: [facility] SELF PRESENTING CARE COORD PLAN STANDARD TITLE: NONVA NOTE DATE OF NOTE: JAN 24, 2024@13:42 ENTRY DATE: JAN 27, 2024@13:43:10 AUTHOR: MICA SOOD EXP COSIGNER: URGENCY: STATUS: COMPLETED [facility] SELF PRESENTING CARE COORD PLAN NOTE Has ADDENDA Emergency Notification Intake Date Presenting to the Facility: Jan Method of Contact: Notified from ECR worklist Notification ID: [id number] [facility] Referral #: [facility] Name: Hospital: [facility] Address: City: [place] State: [place] Zip Code: Phone : [facility] Facility Point of Contact: Name: ISAC GUEVARA Chief complaint: LEFT HAND LACERATION Primary Diagnosis: Disposition Discharged Date of discharge: Jan Discharge to home 1703 Clinical Review /lance/ MICA SOOD Machinery Cleaner(AOD) Signed: 01/27/2024 13:45 Receipt Acknowledged By: 01/27/2024 15:44 /lance/ Saige Dsouza SIGNAL INSPECTOR manager net Radio Television Technical Director 01/27/2024 ADDENDUM STATUS: COMPLETED Notification acknowledged by RN. Medical and clinical information not reviewed. /lance/ Saige Dsouza RN BSN manager net Radio Television Technical Director Signed: 01/27/2024 15:44 01/28/2024 ADDENDUM STATUS: COMPLETED Records requested and will be uploaded via Sharalike when received. /lance/ AUBREE PALMA ..FloryAdvanced Exercise Physiologist Certified Signed: 01/28/2024 14:01 Receipt Acknowledged By: 01/29/2024 08:27 /don BAILEY, RETICLE PRINTER NURSE 01/29/2024 ADDENDUM STATUS: COMPLETED Gamaliel was seen in a Community ED. Records uploaded to chart. Please review and follow up as appropriate. /lance/ AUBREE PALMA ...Advanced Exercise Physiologist Certified Signed: 01/29/2024 14:33 Receipt Acknowledged By: * AWAITING SIGNATURE * RADHA EISENBERG 01/30/2024 11:31 /lance/ DONITA BAILEY, RETICLE PRINTER NURSE 01/30/2024 ADDENDUM STATUS: COMPLETED LM on identified VM with direct number for this keno writer / runner for Vwet to return call if he needs sutures removed at CT. Per ER notes in [facility] Vet received 3 sutures to left thumb base. /don BAILEY, RETICLE PRINTER NURSE Signed: 01/30/2024 11:34 MICA SOOD [facility]
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
--- OUTSIDE RECORDS SUMMARY | 2024-04-12 13:15 | XMS_ITS | Continuity of Care Document ---
Author Name [facility] [address] [place] [id number] Organization [facility] [address] [place] [id number] Care Team Providers Care Aquatics Lifeguard Name Role Phone [facility], [facility] Admin Primary Care Physician Nydia Ruiz Attending Physician [phone] Allergies, Adverse Reactions, Alerts No allergy information available. Medications No medication information available. Problem List No problem information available. Procedures Procedure Date Status XR knee RT 3V July 16, 2018 active XR femur RT 2V July 16, 2018 active Relevant Diagnostic Tests and/or Laboratory Data No known relevant diagnostic tests, laboratory data, and/or discharge summary. Chief Complaint and Reason for Visit Encounter Admit Date Chief Complaint Reason for V isit Departed Clinical July 16, 2018 8:22am Xray Hospital Discharge Instructions No known hospital discharge instructions. Encounters Encounter Facility Location Admit/Visit Date Discharge/Departure Date Attending Provider Departed Clinical [facility] July 16, 2018 8:22am July 16, 2018 8:23am Nydia Ruiz Functional Status No known functional status. Immunizations No known immunizations. Payers Payer Name Policy Type Covered Democrat Covered Democrat Id Relationship Subscriber Subscriber Id PRIVATE PAY Personal Payment (Ambriz - No Insurance) [id number] ([facility])or Other Federal Agency Ollie Amy [id number] Self / Same As Patient Levin Amy [id number] Plan of Care No Known Plan of Care Information Social History No known social history. Vital Signs No known vital signs results.
[2024-04-12 13:18] VITALS: BP 134/76; PULSE 66; RESP 20; TEMP 36.8; O2SAT 95; BMI 24.4
[2024-04-12 13:26] LABS: Appearance Urine Clear (Clear); Bilirubin Urine Negative (Negative); Blood Urine Negative (Negative); Color Urine Dark yellow (Yellow); Glucose Urine Negative (Negative); Ketones Urine Negative (Negative); Leukocyte Esterase Urine Trace (Negative); Nitrite Urine Negative (Negative); Protein Urine Negative (Negative); Specific Gravity Urine >= 1.030 (1.000-1.030); Urobilinogen Urine 0.2 (0.2-1.0); pH Urine 5.5 (5.0-8.5)
[2024-04-12 13:54] LABS: Bacteria Urine Few; RBC Urine 0-2 (0-2); Squamous Epithelial Cell Urine Few (None-Few)
--- NOTE | 2024-04-12 13:56 | ED_ITS ---
HPI - Male Genitourinary General Date Seen: 04/12/24 Chief complaint: Urogenital Problems, Male Stated complaint: poss uit Time Seen by Provider: 04/12/24 13:30 Source: patient Mode of arrival: ambulatory Limitations: no limitations History of Present Illness HPI Narrative: Patient is 73-year-old male presenting to the emergency department for concerns of UTI. States for the past weeks been having dysuria and polyuria. Does not having any abdominal or suprapubic pain. Denies any penile discharge or blood. States this feels like previous UTIs he has had. Has not been sexually active for 10 years he states and is not concerned about STDs. Denies fevers, chills, chest pain, shortness of breath, diarrhea, constipation, lightheadedness, dizziness. No other concerns noted. Related Data Previous Rx's ?Medication ?Instructions ?Recorded ciprofloxacin HCl 500 mg tablet 500 mg PO BID #10 tabs 04/12/24 (Cipro) Allergies Allergy/AdvReac Type Severity Reaction Status Date / Time cefaclor (From [facility]) Allergy Verified 04/12/24 13:18 Penicillins Allergy Verified 04/12/24 13:18 Review of Systems Status of ROS: Reports: 10 or more systems reviewed and unremarkable except as noted in History and below PFSH PFS Social History Smoking Status: Current every day smoker What tobacco products do you use: cigarettes Smoking packs per day: 1 Smoking cigarettes per day: 20.0 Do you use any of these nicotine containing products: None Second hand tobacco smoke exposure: No How often do you have a drink containing alcohol: monthly or less How many standard drinks containing alcohol do you have on a typical day: 1 or 2 How often do you have six or more drinks on one occasion: Never AUDIT-C Alcohol total score: 1 Non-prescribed substance use: denies use service: Yes Exam Narrative: Exam Narrative: Const: Well-nourished, Well-developed, in no distress Eyes: PERRL, no conjunctival injection, and symmetrical lids HENT: Atraumatic external nose and ears. Moist mucous membranes. GI: Nontender/Nondistended, No rebound or guarding. MSK:Extremities w/o deformity, Normal Active ROM Skin: Warm, Dry. No rashes or lesions. Neuro: Normal Muscle tone, No focal neurological deficits. Psych: Awake, Alert, & Oriented x3. Appropriate mood and affect. Const: Vital Signs, click to edit/add: Vital Signs - 24 hr 04/12/24 13:18 Temperature 98.3 F Pulse Rate [Pulse Oximeter] 66 Respiratory Rate 20 Blood Pressure [Ri ght Upper Arm] 134/76 Pulse Oximetry 95 Oxygen Delivery Me thod Room Air Course Vital Signs Vital signs: Initial Vital Signs Temperature 98.3 F 04/12/24 13:18 Temperature Source Temporal Artery Scan 04/12/24 13:18 Pulse Rate 66 04/12/24 13:18 Pulse Rhythm Regular 04/12/24 13:18 Respiratory Rate 20 04/12/24 13:18 Blood Pressure 134/76 04/12/24 13:18 Blood Pressure Mean 95 04/12/24 13:18 Blood Pressure Position High-Fowlers 04/12/24 13:18 Pulse Oximetry 95 04/12/24 13:18 Oxygen Delivery Method Room Air 04/12/24 13:18 Vital Signs Temperature 98.3 F 04/12/24 13:18 Pulse Rate 66 04/12/24 13:18 Respiratory Rate 20 04/12/24 13:18 Blood Pressure 134/76 04/12/24 13:18 Pulse Oximetry 95 04/12/24 13:18 Oxygen Delivery Method Room Air 04/12/24 13:18 Temperature 98.3 F 04/12/24 13:18 Pulse Rate 66 04/12/24 13:18 Respiratory Rate 20 04/12/24 13:18 Blood Pressure 134/76 04/12/24 13:18 Pulse Oximetry 95 04/12/24 13:18 Oxygen Delivery Method Room Air 04/12/24 13:18 MDM - Male Genitourinary MDM Narrative Medical decision making narrative: Patient is 73-year-old male presenting for concerns of UTI. No concerns for pos sible STD at this time. Will do urinalysis. Not having any other pain or symptoms so I do not believe further workup is necessary. Urinalysis does show signs of a UTI. I will start him on antibiotics. He is agreeable to this plan. Lab Data Labs: Lab Results 04/12/24 Range/Units 13:16 Urine Color Dark yellow (Yellow) Urine Appearance Clear (Clear) Urine pH 5.5 (5.0-8.5) Ur Specific [place] >= 1.030 (1.000-1.030) Urine Protein Negative (Negative) Urine Glucose (UA) Negative (Negative) Urine Ketones Negative (Negative) Urine Blood Negative (Negative) Urine Nitrite Negative (Negative) Urine Bilirubin Negative (Negative) Urine Urobilinogen 0.2 (0.2-1.0) Ur Leukocyte Esterase Trace A (Negative) Urine RBC 0-2 (0-2) Urine WBC 5-10 A (0-5) Ur Squamous Epith Cells Few (None-Few) Urine Bacteria Few A (None) Discharge Plan Discharge Clinical Impression: Urinary tract infection Qualifiers: Urinary tract infection type: site unspecified Hematuria presence: without hematuria Qualified Code(s): N39.0 - Urinary tract infection, site not specified Patient Disposition: Home, Self-Care Condition: Stable Instructions: Urinary Tract Infection in Men (DC) Additional Instructions: Take the antibiotics as directed. Return to emergency department for new or worsening symptoms Prescriptions: New ciprofloxacin HCl [Cipro] 500 mg tablet 500 mg PO BID Qty: 10 0RF Follow Up/Referrals: Provider,Not a Local [Primary Care Provider] - Stand Alone Forms: [facility] Info Instructions
== END 2024-04-12 14:09 | disposition home or self-care (01) ==
PROVIDERS: Emergency Provider Student in an Organized Health Care Education/Training Program
DX: N39.0 Urinary tract infection, site not specified (principal)
CPT/HCPCS: 81001; 87086; 99282; 99283

== ENCOUNTER 2024-08-30 13:43 | Emergency (ER) | payer OTHER, SELFPAY ==
--- OUTSIDE RECORDS SUMMARY | 2024-08-30 13:45 | XMS_ITS | Encounter Summary ---
Author Name [facility] [place] [facility] [facility] [place] Address [address] [place] [address] Care Team Providers Care Program Manager Name Role Phone KARI HARLEY Primary [...] Alvarez's Name Patient's Relationship to Policy Alvarez [facility] (WNR) MEDICAID MEDIC AID Apr 22, 2015 [id number] [phone] JOE REYES PATIENT MEDICARE (WNR) MEDICARE (M) PART A Apr 22, 2013 PART A [id number] JEYSON REYES III N PATIENT MEDICARE (WNR) MEDICARE (M) PART B Apr 22, 2013 PART B [id number] JEYSON REYES III N PATIENT MEDICARE (WNR) MEDICARE (M) PART A Apr 22, 2013 PART A [id number] PARKER III,LAWSO N PATIENT MEDICARE (WNR) MEDICARE (M) PART B Apr 22, 2013 PART B [id number] PARKER III,LAWSO N PATIENT MEDICARE (WNR) MEDICARE (M) PART A Apr 22, 2013 PART A [id number] PARKER III,LAWSO N PATIENT MEDICARE (WNR) MEDICARE (M) PART B Apr 22, 2013 PART B [id number] PARKER III,LAWSO N PATIENT MEDICARE (WNR) MEDICARE (M) PART A Apr 22, 2013 PART A [id number] PARKER III,LAWSO N PATIENT MEDICARE (WNR) MEDICARE (M) PART B Apr 22, 2013 PART B [id number] PARKER III,CONCHAO N PATIENT Selected Encounter This section includes the information on record at [place] for the Encounter. Date/Time Encounter Type Encounter Description Reason Provider Source Dec 03, 2023 03:00 PM OFFICE O/P EST MOD 30 MIN PRIMARY CARE/MEDICINE ICD-10-CM M13.0 Polyarthritis, unspecified AMANDA CONNORS IHVirgilio Encounter Template Text not used by [place] Assessments - Encounter Diagnoses This section includes the primary and secondary diagnoses documented for the Encounter. Date/Time Primary/Secondary Diagnosis Diagnosis Name Provider Source Dec 03, 2023 04:26 PM PRIMARY Polyarthritis, unspecified RIVERA-Wyatt RYAN MELYSSA [facility] Plan of Treatment: Future Appointments (+ 6 months) and Future Tests (+/- 45 days) The Plan of Treatment section includes future care activities for the patient from all [place] treatmentfacilities. This section includes future appointments and future orders which are active, pending or scheduled. Future Appointments This section includes appointments that were scheduled to occur 6 months from the date of the Encounter, up to a maximum of 20 appointments. The data comes from all [place] treatment facilities. Appointment Date/Time Appointment Type Appointme nt Facility Name Dec 18, 2023 09:30 AM AMBULATORY - SURGERY [facility]Y [facility] Jan 27, 2024 01:42 PM AMBULATORY - NONE [place] [facility] Feb 06, 2024 02:00 PM AMBULATORY - PSYCHIATRY [facility] Mar 12, 2024 02:00 PM AMBULATORY - PSYCHIATRY [facility] Mar 24, 2024 11:00 AM AMBULATORY - MEDICINE [facility] Mar 24, 2024 11:45 AM AMBULATORY - NONE [facility] Apr 09, 2024 02:00 PM AMBULATORY - PSYCHIATRY [facility] Apr 13, 2024 06:22 PM AMBULATORY - NONE [facility] Apr 20, 2024 01:00 PM AMBULATORY - MEDICINE [facility] May 22, 2024 03:30 PM AMBULATORY - PSYCHIATRY [facility] Lab Results: +/- 30 days of the encounter This section includes the Chemistry and Hematology Lab Results on record with [place] for the patient. Radiology Reports and Pathology Reports are provided separately, in subsequent sections. Lab Results This section contains the Chemistry/Hematology Results that were resulted 30 days before or 30 daysafter the date of the Encounter. Date/Time Source Result Type Result - Unit Interpretation Reference Range Specimen Type Comment Nov 05, 2023 01:08 PM [facility] MAGNESIUM PLASMA Specimen Type: PLASMA No comment entered. Ordering Provider: ANN HANDLEY Report Released Date/Time: Oct 30, 2022 11:17 AM Reporting Lab: [facility] [id number] Performing Lab: [facility] [id number] MAGNESIUM 2.1 mg/dL 1.6-2.6 Nov 05, 2023 01:08 PM [facility] BASIC METABOLIC PANEL+MG PLASMA Spe cimen Type: PLASMA No comment entered. Ordering Provider: ANN HANDLEY Report Released Date/Time: Oct 30, 2022 11:17 AM Reporting Lab: [facility] [id number] Performing Lab: [facility] [id number] CREATININE 1.1 mg/dL 0.7-1.2 UREA NITROGEN 10 mg/dL 8-26 GLUCOSE 100 mg/dL 70-100 SODIUM 143 mmol/L 136-145 POTASSIUM 3.6 mmol/L 3.5-5.1 CHLORIDE 110 mmol/L H 98-107 CO2 22 mmol/L 22-29 CALCIUM 9.5 mg/dL 8.4-10.2 MAGNESIUM 2.1 mg/dL 1.6-2.6 ANION GAP 11 mmol/L 5-15 .CREAT EGFR(CKD-EPI) 70 >60 Nov 05, 2023 01:08 PM [facility] CBC BLOOD Specimen Type: BLOOD No comment entered. Ordering Provider: ANN HANDLEY Report Released Date/Time: Oct 30, 2022 11:17 AM Reporting Lab: [facility] [id number] Performing Lab: [facility] [id number] WBC 7.64 10*3/uL 4.0-11.0 RBC 4.62 10*6/uL 4.6-6.2 HGB 15.3 g/dL 13.5-17.9 HCT 43.1 41-54 MCV 93.3 fL 80-100 MCH 33.1 pg H 27-33 MCHC 35.5 g/dL 32.0-37.5 PLT 193 10*3/uL 150-400 MPV 9.1 fL 7.4-10.4 RDW 13.2 11.5-14.5 Nov 05, 2023 01:08 PM [facility] LIPID PANEL,NON-FASTING PLASMA Spec imen Type: PLASMA No comment entered. Ordering Provider: ANN HANDLEY Report Released Date/Time: Oct 30, 2022 11:17 AM Reporting Lab: [facility] [id number] Performing Lab: [facility] [phone] CHOLESTEROL 133 mg/dL <199 .HDL 35 mg/dL L >40 LDL CALCULATION 60 mg/dL <99 VLDL CALCULATION 38 mg/dL H <29 NON HDL CHOLESTEROL 98 mg/dL <129 TRIG(NON FASTING) 188 mg/dL H <149 Nov 05, 2023 01:08 PM [facility] CK,TOTAL PLASMA Specimen Type: PLASMA No comment entered. Ordering Provider: TERRIE LUCERO Report Released Date/Time: Nov 05, 2023 02:44 PM Reporting Lab: [facility] [id number] Performing Lab: [facility] [id number] CK,TOTAL 68 U/L 39-208 Nov 05, 2023 01:08 PM [facility] C-REACTIVE PROTEIN PLASMA Specimen Type: PLASMA No comment entered. Ordering Provider: TERRIE LUCERO Report Released Date/Time: Nov 05, 2023 02:44 PM Reporting Lab: [facility] [phone] Performing Lab: [facility] [id number] C-REACTIVE PROTEIN 2.68 mg/L <5.00 Nov 05, 2023 01:08 PM [facility] SED RATE BLOOD Specimen Type: BLOOD No comment entered. Ordering Provider: TERRIE LUCERO Report Released Date/Time: Nov 05, 2023 02:44 PM Reporting Lab: [facility] [id number] Performing Lab: [facility] [phone] SED RATE 11 mm/h 5-15 Nov 05, 2023 01:08 PM [facility] TSH W/REFLEX TO FREE T4 PLASMA Spec imen Type: PLASMA No comment entered. Ordering Provider: TERRIE LUCERO Report Released Date/Time: Nov 05, 2023 02:44 PM Reporting Lab: [facility] [phone] Performing Lab: [facility] [address] TSH 1.69 u[IU]/mL 0.35-4.94 Nov 05, 2023 01:08 PM [facility] ANTI-CCP PLASMA Specimen Type: PLASMA No comment entered. Ordering Provider: TERRIE LUCERO Report Released Date/Time: Nov 05, 2023 02:44 PM Reporting Lab: [facility] [phone] Performing Lab: [facility] [phone] ANTI-CCP <0.5 <4.9 Vital Signs: All taken on the encounter date This section contains inpatient and outpatient Vital Signs collected on the date of the Encounter. Date/Time Temperature Pulse Blood Pressure Respiratory Rate SP02 Pain Height Weight Body Mass Index Source Dec 03, 2023 02:27 PM 97.3 70 125/74 [address] [facility] Social History: Smoking Status (Most current) and Tobacco Use (All prior to encounter date) This section includes the most current, and the historical, smoking and tobacco- related health factors from the [place] facility where the Encounter took place. Current Smoking Status This section includes the most current smoking, or tobacco-related health factor, from the [place] facility where the Encounter took place. Date/Time Current Smoking Status Comment Esau spence Jun 25, 2023 02:00 PM VA-TOBACCO DOESNT USE WI 30 MIN WAKEUP [facility] Tobacco Use History This section includes a history of the smoking, or tobacco-related health factors, that were collected on or before the date of the Encounter. The data comes from the [place] facility where the Encounter took place. Date/Time Smoking Status/Tobacco Use Comment F acility Jun 25, 2023 02:00 PM VA-TOBACCO USE 30 YEARS OR MORE [facility] Jun 25, 2023 02:00 PM VA-TOBACCO USE ADVICE [facility] Jun 25, 2023 02:00 PM VA-TOBACCO USE CHLORINATOR NO [facility] Jun 25, 2023 02:00 PM VA-TOBACCO USE MED NO [facility] Jun 25, 2023 02:00 PM VA-TOBACCO USER EVERY DAY [facility] Aug 07, 2022 02:00 PM VA-TOBACCO USE 30 YEARS OR MORE [facility] Aug 07, 2022 02:00 PM VA-TOBACCO USE ADVICE [facility] Aug 07, 2022 02:00 PM VA-TOBACCO USE CHLORINATOR NO [facility] Aug 07, 2022 02:00 PM VA-TOBACCO USE MED NO [facility] Aug 07, 2022 02:00 PM VA-TOBACCO USE WI 30 MIN OF WAKE UP [facility] Aug 07, 2022 02:00 PM VA-TOBACCO USER EVERY DAY [facility] Sep 26, 2021 11:00 AM VA-TOBACCO FORMER USER [facility] Sep 26, 2021 11:00 AM VA-TOBACCO QUIT < 1 YEAR [facility] Dec 20, 2020 02:00 PM VA-TOBACCO DOESNT USE WI 30 MIN WAKEUP [facility] Dec 20, 2020 02:00 PM VA-TOBACCO USE 30 YEARS OR MORE [facility] Dec 20, 2020 02:00 PM VA-TOBACCO USE ADVICE [facility] Dec 20, 2020 02:00 PM VA-TOBACCO USE CHLORINATOR YES [facility] Dec 20, 2020 02:00 PM VA-TOBACCO USE MED YES [facility] Dec 20, 2020 02:00 PM VA-TOBACCO USER EVERY DAY [facility] Nov 23, 2019 04:25 PM VA-TOBACCO USE < 1 YEAR [facility] Nov 23, 2019 04:25 PM VA-TOBACCO USE ADVICE [facility] Nov 23, 2019 04:25 PM VA-TOBACCO USE CHLORINATOR NO [facility] Nov 23, 2019 04:25 PM VA-TOBACCO USE MED NO [facility] Nov 23, 2019 04:25 PM VA-TOBACCO USE WI 30 MIN OF WAKE UP [facility] Nov 23, 2019 04:25 PM VA-TOBACCO USER EVERY DAY [facility] Oct 31, 2018 01:49 PM VA-TOBACCO USE 30 YEARS OR MORE [facility] Oct 31, 2018 01:49 PM VA-TOBACCO USE ADVICE [facility] Oct 31, 2018 01:49 PM VA-TOBACCO USE CHLORINATOR NO [facility] Oct 31, 2018 01:49 PM VA-TOBACCO USE MED NO [facility] Oct 31, 2018 01:49 PM VA-TOBACCO USE WI 30 MIN OF WAKE UP [facility] Oct 31, 2018 01:49 PM VA-TOBACCO USER EVERY DAY [facility] Jul 09, 2017 09:25 AM FORMER TOBACCO USE <1Y [facility] Jul 24, 2016 09:57 AM FORMER TOBACCO USE <1Y [facility] Jul 26, 2015 09:47 AM CURRENT TOBACCO USER [facility] Jul 08, 2014 12:50 PM CURRENT TOBACCO USER [facility] Jul 20, 2013 08:30 AM CURRENT TOBACCO USER [facility] Mar 22, 2009 03:04 PM FORMER TOBACCO USE >1Y <7Y [facility] Encounter Notes: All associated encounter notes This section contains the clinical notes associated to the Encounter. Date/Time Encounter Note(s) Provider Source Dec 03, 2023 03:13 PM INTERNAL MEDICINE NOTE: LOCAL TITLE: MEDICINE CLINIC NOTE STANDARD TITLE: INTERNAL MEDICINE NOTE DATE OF NOTE: DEC 03, 2023@15:13 ENTRY DATE: DEC 03, 2023@15:13:07 AUTHOR: ANEUDY CAMPOS COSIGNER: URGENCY: STATUS: COMPLETED MEDICINE CLINIC NOTE [...] followin. Co-Managed Care - Dr Wyatt, PCP[facility] Dr Jose Martin Pepe, psychiatrist, [facility] 2. Arthritis (SNOMED CT 7744607) 3. Depression (SNOMED CT 46924545) 4. Obsessive-Compulsive Disorder 5. Anxiety (SNOMED CT 59265965) 6. Hyperlipidemia (SNOMED CT 03031161) 7. Dyspnea 8. Obstructive sleep apnea syndrome [...] leg 17. Exposure to potentially hazardous substance ([facility] [id number]) - Entered through [facility] Documentation Initiative MEDICATIONS: Allergies: AMOXICILLIN [...] Myalgias See previous note on 11/05/23 Dr. Lucero for further details. Pt pain is currently improved with home exercises and s/p 14 day course of celecoxib. Pt will be setting up virtual visit with PT and continuing home exercises. - Physical Therapy - Tylenol and Ibuprofen as needed RTC in 1 year for next physical or ealier if needed Patient staffed with Dr.Murdoch Aneudy Campos MD PGY-3 Internal Medicine Education on Treatment Plan: Patient indicates readiness to learn, verbalizes understanding, agreement and satisfaction with the treatment plan. Denies further questions. Medication Reconciliation: // [facility] RESIDENT PHYSICIAN Signed: 12/03/2023 15:40 Receipt Acknowledged By: 12/03/2023 16:26 /don CONNORS MD STAFF PHYSICIAN 12/03/2023 ADDENDUM STATUS: [...] or come in sooner if problems arise. /don CONNORS MD STAFF PHYSICIAN Signed: 12/03/2023 16:26 [facility] Dec 03, 2023 02:29 PM INTERNAL MEDICINE OUTPATIENT NOTE: LOCAL TITLE: MEDICINE CLINIC NURSING NOTE STANDARD TITLE: INTERNAL MEDICINE OUTPATIENT NOTE DATE OF NOTE: DEC 03, 2023@14:29 ENTRY DATE: DEC 03, 2023@14:29:23 AUTHOR: FEDE BRUCE EXP COSIGNER: URGENCY: STATUS: COMPLETED TYPE [...] 14:27) Weight: 170 lb [77.11 kg] (12/03/2023 14:) Height: 67 in [170.2 cm] (12/03/2023 14:) BMI: 26.7 O2 Sat: 93% (12/03/2023 14:) Pain: 5 (12/03/2023 14:) PAIN SCREEN: Patient is having significant pain [...] BRUCE LPN Signed: 12/03/2023 14:30 FEDE BRUCE [facility]
--- OUTSIDE RECORDS SUMMARY | 2024-08-30 13:45 | XMS_ITS | Clinical Summary ---
Author Organization [facility] Address [address] [place] [id number] Care Team Providers Care Parts Facilitator Name Role Phone Elsewhere, Pcp Primary Care Provider Unavailabl e Source Comments Patient records contain information from all sites at [facility]. For routine questions regarding patient records, call [phone] during business hours, M-F 8:00 AM - 5:00 PM Central Time. Record requests for emergency care only can be directed to [phone] at any time.[facility] Allergies Active Allergy Reactions Criticality Noted Date Comments Amoxicillin Edema (Reselect Reaction) 03/07/2006 Cefaclor Hives (Reselect Reaction) 03/07/2006 Naproxen Other (see comments) 03/07/2006 GI upset Ramelteon Other (see comments) 06/15/2013 Lightheaded, dizzy, aggressive Medications QUEtiapine (SEROquel) 200 mg tablet Take 100 mg by mouth. 0 Active FLUoxetine (PROzac) 20 mg capsule 80 mg. 0 Active doxazosin (CARDURA) 8 mg tablet Take 8 mg by mouth. [address] tablet Take 81 mg by mouth. 0 Active simvastatin (ZOCOR) 20 mg tablet Take 20 mg by mouth. 8 Active cyclobenzaprine (FLEXERIL) 10 mg tablet Take 1 tablet (10 mg total) by mouth 3 (three) times a day as needed for muscle spasms (hand pain) for up to 10 days. 20 tablet 2 Active albuterol (Ventolin HFA) 90 mcg/actuation inhaler Inhale 2 puffs every 4 (four) hours as needed for wheezing or shortness of breath for up to 10 days. 18 g 3 Active acetaminophen (TYLENOL) 500 mg tablet Take 2 tablets (1,000 mg total) by mouth every 6 (six) hours as needed for pain for up to 10 days. 30 tablet 3 Active ibuprofen (ADVIL,MOTRIN) 200 mg tablet Take 1 tablet (200 mg total) by mouth every 6 (six) hours as needed for pain for up to 10 days. 3 Active Active Problems Problem Noted Date Diagnosed Date Foreign Body In Anus And Rectum Initial 08/14/19 24 Anxiety 11/27/2022 Benign Prostatic Hyperplasia Without Obstruction 11/27/2022 Hyperlipidemia 11/27/2022 Depressive Disorder 11/27/2022 Deficiency Vitamin D 07/19/2013 Immunizations Immunization Administration Dates Next Due Tdap 02/14/2019,07/20/2013,09/25/2011 ,08/02/2010 Social History Tobacco Use Types Packs/Day Years Used Date Smoking Tobacco: Every Day Cigarettes Tobacco Cessation:Ready to Q uit: Not Asked; Counseling Given: Not Answered Alcohol Use Standard Drinks/Week Comments Never 0 (1 standard drink = 0.6 oz pur e alcohol) Dental Answer Date Recorded Dental: Regular Dentist Unknown 11/04/19 21 Sex and Gender Information Value Date Recorded Sex Assigned at Not on file 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 Gender Identity Not on file Sexual Orientation Not on file Last Filed Vital Signs Vital Sign Reading Time Taken Comments Blood Pressure 122/93 08/15/2023 3:05 PM CDT Pulse 72 08/15/2023 3:15 PM CDT Temperature 36.2 C (97.2 F) 08/15/2023 1:55 PM CDT Respiratory Rate 15 08/15/2023 3:15 PM CDT Oxygen Saturation 92% 08/15/2023 3:15 PM CDT Inhaled Oxygen Concentration - - Weight 81 kg (178 lb 9.2 oz) 08/14/2023 11:01 PM CDT Height 175.3 cm (5' 9) 12/12/2021 1:33 PM CDT Body Mass Index 26.37 12/12/2021 1:33 PM CDT Plan of Treatment Health Maintenance Due Date Last Done Comments CT Colonography 1949 Cologuard 1950 Colonoscopy 1950 Colorectal Cancer Screening 1950 Depression Monitoring (PHQ-9) 1949 FIT 1950 Hepatitis C Screening 1950 Tobacco Cessation counseling 1949 COVID-19 Vaccine ( - season) 2023 Influenza Vaccine (#1) 2024 , 03/11/2019, 01/18/2017, Additional history exists RSV vaccine - (32-36 weeks) or 60+ years (1 - 1-dose 75+ series) 2024 Depression Monitoring (PHQ-9 for quality tracking) 04/22/2024 Fall Risk Screen (Annual) 04/22/2024 Lipid (Cholesterol) Screening 09/14/2024 09/15/2019 Fasting Glucose for Diabetes Screening 08/14/2026 08/15/2023, 07/19/2023, 09/12/2022, Additional history exists DTaP,Tdap,and Td Vaccines (6 - Td or Tdap) 07/18/2033 07/19/2023, 02/14/2019, 07/20/2013, Additional history exists Pneumococcal vaccine (50+ years) Completed 12/19/2017, 07/26/2015, 07/08/2014, Additional history exists Zoster Vaccines Completed 05/13/2019, 02/21, 07/20/2013, Additional history exists Abdominal Aortic Aneurysm (AAA) Screen Completed 08/15/2023, 04/16/2022, 06/24/2017, Additional history exists Glucose Test for Med Monitoring Discontinued 08/15/2023, 07/19/2023, 09/12/2022, Additional history exists IPV Vaccines Aged Out No longer eligi ble based on patient's age to complete this topic Procedures Procedure Name Priority Date/Time Associated Diagnosis Comments BASIC METABOLIC PANEL, S/P STAT 08/15/2023 5:[address] ABDOMEN PELVIS WITH IV CONTRAST RAD - Semiurgent (Fast; most ED patients; some inpatients) 08/15/2023 5:16 AM CDT from Last 3 Months or Most Recently Relevant to Health Maintenance Results * (ABNORMAL) Basic Metabolic Panel (08/15/2023 5:20 AM CDT) Potassium, P 4.1 3.6 - 5.2 mmol/L 08/15/2023 5:41 AM CDT MKTO Sodium, P 138 135 - 145 mmol/L 08/15/2023 5:41 AM CDT [facility] Chloride, P 106 98 - 107 mmol/L 08/15/2023 5:41 AM CDT [facility] Bicarbonate, P 26 22 - 29 mmol/L 08/15/2023 5:41 AM CDT [facility] Anion Gap, P 6(L) 7 - 15 08/15/2023 5:41 AM CDT [facility] BUN (Blood Urea Nitrogen), P 12 8 - 24 mg/dL 08/15/2023 5:41 AM CDT [facility] Creatinine 1.19 0.74 - 1.35 mg/dL 08/15/2023 5:41 AM CDT [facility] Estimated GFR (eGFR) 64 >=60 mL/min/BSA 08/15/2023 5:41 AM CDT [facility] Comment: Estimated GFR calculated using the 2020 CKD_EPI creatinine equation. Calcium, Total, P 8.2(L) 8.8 - 10.2 mg/dL 08/15/2023 5:41 AM CDT MKTO Glucose, P 107 70 - 140 mg/dL 08/15/2023 5:41 AM CDT MKTO Blood (Blood, Venous) 08/15/2023 5:20 AM CDT 08/15/2023 5:24 AM CDT us Araceli Pepe D.O. LAB BLOOD ADD-ON Final Resul t [facility] [place] [address], [facility] MKTO [facility] [place] [address] [place] [address] * CT Abdomen Pelvis with IV Contrast (08/15/2023 5:16 AM CDT) Anatomical Region Laterality Modality Abdomen, Pelvis, Abdominal R ST LOS, Abdominal ARZ LOS, Abdominal FLA LOS N/A Computed Tomography 08/15/2023 5:14 AM CDT Impressions 08/15/2023 5:35 AM CDT Large rectal foreign body extending to the rectosigmoid junction. Foreign body measures 22.0 cm oblique craniocaudal by 3.9 cm TV by 4.7 cm AP. No pneumoperitoneum to suggest perforation. Narrative 08/15/2023 5:35 AM CDT EXAM: CT ABDOMEN PELVIS WITH IV CONTRAST COMPARISON: 04/16/2022 CT abdomen/pelvis FINDINGS: LUNG BASES: Scattered bibasilar linear opacities, atelectasis versus scarring. LIVER, GALLBLADDER, BILIARY TREE: Liver, gallbladder, and biliary tree are unremarkable. SPLEEN: Unremarkable. PANCREAS: Unremarkable. ADRENAL GLANDS: Unremarkable. KIDNEYS, URETERS, BLADDER: Multiple nonobstructing renal calculi bilaterally. No hydronephrosis. Urinary bladder is unremarkable. PELVIC CONTENTS: Mild median lobe prostatic hypertrophy. GI TRACT: Large rectal foreign body extending to the rectosigmoid junction. Foreign body contains a central metallic portion and measures 22.0 cm oblique craniocaudal by 3.9 cm TV by 4.7 cm AP. No pneumoperitoneum. Redundant sigmoid colon. Moderate stool burden within the ascending and transverse colon. Normal appendix. MESENTERY, RETROPERITONEUM: No pathologically enlarged abdominopelvic lymph nodes. VASCULAR: ASVD of the nonaneurysmal abdominal aorta with patent proximal major visceral branches. Focal ectasia of the infrarenal abdominal aorta. Portal venous system is patent. BODY WALL SOFT TISSUES: Unremarkable. BONES: No acute or aggressive appearing osseous abnormalities. Procedure Note Silvino Lawson M.D. - 08/15/2023 EXAM: CT ABDOMEN PELVIS WITH IV CONTRAST COMPARISON: 04/16/2022 CT abdomen/pelvis FINDINGS: LUNG BASES: Scattered bibasilar linear opacities, atelectasis versusscarring. LIVER, GALLBLADDER, BILIARY TREE: Liver, gallbladder, and biliary tree areunremarkable. SPLEEN: Unremarkable. PANCREAS: Unremarkable. ADRENAL GLANDS: Unremarkable. KIDNEYS, URETERS, BLADDER: Multiple nonobstructing renal calculibilaterally. No hydronephrosis. Urinary bladder is unremarkable. PELVIC CONTENTS: Mild median lobe prostatic hypertrophy. GI TRACT: Large rectal foreign body extending to the rectosigmoidjunction. Foreign body contains a central metallic portion and lotofsdc47.0 cm oblique craniocaudal by 3.9 cm TV by 4.7 cm AP. Nopneumoperitoneum. Redundant sigmoid colon. Moderate stool burden within the ascending and transverse colon. Normal appendix. MESENTERY, RETROPERITONEUM: No pathologically enlarged abdominopelviclymph nodes. VASCULAR: ASVD of the nonaneurysmal abdominal aorta with patent proximalmajor visceral branches. Focal ectasia of the infrarenal abdominal aorta.Portal venous system is patent. BODY WALL SOFT TISSUES: Unremarkable. BONES: No acute or aggressive appearing osseous abnormalities. IMPRESSION: Large rectal foreign body extending to the rectosigmoid junction. Foreignbody measures 22.0 cm oblique craniocaudal by 3.9 cm TV by 4.7 cm AP. Nopneumoperitoneum to suggest perforation. Araceli URENA CT PROCEDURES Final Resu lt from Last 3 Months or Most Recently Relevant to Health Maintenance Insurance [employer] Care Teams Parts Facilitator Relationship Specialty Start Date End Date Elsewhere, Pcp PCP - General Internal Medicine 12/12/21
--- OUTSIDE RECORDS SUMMARY | 2024-08-30 13:45 | XMS_ITS | Encounter Summary ---
Author Name [facility] [place] Address [address] [place] [address] Care Team Providers Care Food Bagging Machine Operator Name Role Phone KARI HARLEY [...] Name Patient's Relationship to Policy Alvarez [facility] (WNR) MEDICAID MEDIC AID Apr 22, 2015 [id number] JOE REYES PATIENT MEDICARE (WNR) MEDICARE (M) PART A Apr 22, 2013 PART A [id number] JEYSON REYES III N PATIENT MEDICARE (WNR) MEDICARE (M) PART B Apr 22, 2013 PART B [id number] JEYSON REYES III N PATIENT MEDICARE (WNR) MEDICARE (M) PART A Apr 22, 2013 PART A [id number] PARKER III,LAWSO N PATIENT MEDICARE (WNR) MEDICARE (M) PART B Apr 22, 2013 PART B [id number] PARKER III,LAWSO N PATIENT MEDICARE (WNR) MEDICARE (M) PART A Apr 22, 2013 PART A [id number] PARKER III,LAWSO N PATIENT MEDICARE (WNR) MEDICARE (M) PART B Apr 22, 2013 PART B [id number] PARKER III,LAWSO N PATIENT MEDICARE (WNR) MEDICARE (M) PART A Apr 22, 2013 PART A [id number] PARKER III,LAWSO N PATIENT MEDICARE (WNR) MEDICARE (M) PART B Apr 22, 2013 PART B [id number] PARKER III,CONCHAO N PATIENT Selected Encounter This section includes the information on [place] at [place] for the Encounter. Date/Time Encounter Type Encounter Description Reason Provider Source Nov 05, 2023 03:00 PM OFFICE O/P EST MOD 30 MIN PRIMARY CARE/MEDICINE ICD-10-CM S46.099A Inj musc/tend the rotator cuff of unsp shoulder, bubbait TERRIE CHEN [facility] Encounter Template Text not used by [place] Assessments - Encounter Diagnoses This section includes the primary and secondary diagnoses documented for the Encounter. Date/Time Primary/Secondary Diagnosis Diagnosis Name Provider Source Nov 05, 2023 04:33 PM PRIMARY Inj musc/tend the rotator cuff of unsp shoulder, init [facility]TERRIE [facility] Nov 05, 2023 04:33 PM SECONDARY Myalgia, unspecified site [facility] Nov 05, 2023 04:33 PM SECONDARY [facility]arthritis, unspecified [facility] Nov 05, 2023 04:33 PM SECONDARY Post-traumatic stress disorder, chronic [facility] Nov 05, 2023 04:33 PM SECONDARY Tobacco use [facility] Plan of Treatment: Future Appointments (+ 6 months) and Future Tests (+/- 45 days) The Plan of Treatment section includes future care activities for the patient from all [place] treatmentfacilities. This section includes future appointments and future orders which are active, pending or scheduled. Future Appointments This section includes appointments that were scheduled to occur 6 months from the date of the Encounter, up to a maximum of 20 appointments. The data comes from all [place] treatment facilities. Appointment Date/Time Appointment Type Appointme nt Facility Name Nov 13, 2023 02:00 PM AMBUL[place]ORY [place] [facility] Nov 14, 2023 01:15 PM AMBULATORY - SURGERY [facility] Dec 03, 2023 03:00 PM [facility] Dec 18, 2023 09:30 AM AMBULATORY - SURGERY [facility] Jan 27, 2024 01:42 PM [facility] Feb 06, 2024 02:00 PM AM[place] [facility] Mar 12, 2024 02:00 PM [place] [facility] Mar 24, 2024 11:00 AM [facility] Mar 24, 2024 11:45 AM [facility] Apr 09, 2024 02:00 PM [place] [facility] Apr 13, 2024 06:22 PM [facility] Apr 20, 2024 01:00 PM AMBULATORY - MEDICINE [facility] Lab Results: +/- 30 days of the encounter This section includes the Chemistry and Hematology Lab Results on record with [place] for the patient. Radiology Reports and Pathology Reports are provided separately, in subsequent sections. Lab Results This section contains the Chemistry/Hematology Results that were resulted 30 days before or 30 daysafter the date of the Encounter. Date/Time Source Result Type Result - Unit Interpretation Reference Range Specimen Type Comment Nov 05, 2023 01:08 PM [facility] MAGNESIUM PLASMA Specimen Type: PLASMA No comment entered. Ordering Provider: ANN HANDLEY Report Released Date/Time: Oct 30, 2022 11:17 AM Reporting Lab: [facility] [id number] Performing Lab: [facility] [id number] MAGNESIUM 2.1 mg/dL 1.6-2.6 Nov 05, 2023 01:08 PM [facility] CBC BLOOD Specimen Type: BLOOD No comment entered. Ordering Provider: ANN HANDLEY Report Released Date/Time: Oct 30, 2022 11:17 AM Reporting Lab: [facility] [id number] Performing Lab: [facility] [address] WBC 7.64 10*3/uL 4.0-11.0 RBC 4.62 10*6/uL 4.6-6.2 HGB 15.3 g/dL 13.5-17.9 HCT 43.1 41-54 MCV 93.3 fL 80-100 MCH 33.1 pg H 27-33 MCHC 35.5 g/dL 32.0-37.5 PLT 193 10*3/uL 150-400 MPV 9.1 fL 7.4-10.4 RDW 13.2 11.5-14.5 Nov 05, 2023 01:08 PM [facility] BASIC METABOLIC PANEL+MG PLASMA Spe cimen Type: PLASMA No comment entered. Ordering Provider: ANN HANDLEY Report Released Date/Time: Oct 30, 2022 11:17 AM Reporting Lab: [facility] [id number] Performing Lab: [facility] [id number] CREATININE 1.1 mg/dL 0.7-1.2 UREA NITROGEN 10 mg/dL 8-26 GLUCOSE 100 mg/dL 70-100 SODIUM 143 mmol/L 136-145 POTASSIUM 3.6 mmol/L 3.5-5.1 CHLORIDE 110 mmol/L H 98-107 CO2 22 mmol/L 22-29 CALCIUM 9.5 mg/dL 8.4-10.2 MAGNESIUM 2.1 mg/dL 1.6-2.6 ANION GAP 11 mmol/L 5-15 .CREAT EGFR(CKD-EPI) 70 >60 Nov 05, 2023 01:08 PM [facility] LIPID PANEL,NON-FASTING PLASMA Spec imen Type: PLASMA No comment entered. Ordering Provider: ANN HANDLEY Report Released Date/Time: Oct 30, 2022 11:17 AM Reporting Lab: [facility] [phone] Performing Lab: [facility] [address] CHOLESTEROL 133 mg/dL <199 .HDL 35 mg/dL L >40 LDL CALCULATION 60 mg/dL <99 VLDL CALCULATION 38 mg/dL H <29 NON HDL CHOLESTEROL 98 mg/dL <129 TRIG(NON FASTING) 188 mg/dL H <149 Nov 05, 2023 01:08 PM [facility] CK,TOTAL PLASMA Specimen Type: PLASMA No comment entered. Ordering Provider: TERRIE CHEN Report Released Date/Time: Nov 05, 2023 02:44 PM Reporting Lab: [facility] [id number] Performing Lab: [facility] [address] CK,TOTAL 68 U/L 39-208 Nov 05, 2023 01:08 PM [facility] C-REACTIVE PROTEIN PLASMA Specimen Type: PLASMA No comment entered. Ordering Provider: TERRIE CHEN Report Released Date/Time: Nov 05, 2023 02:44 PM Reporting Lab: [facility] [id number] Performing Lab: [facility] [id number] C-REACTIVE PROTEIN 2.68 mg/L <5.00 Nov 05, 2023 01:08 PM [facility] TSH W/REFLEX TO FREE T4 PLASMA Spec imen Type: PLASMA No comment entered. Ordering Provider: TERRIE CHEN Report Released Date/Time: Nov 05, 2023 02:44 PM Reporting Lab: [facility] [id number] Performing Lab: [facility] [phone] TSH 1.69 u[IU]/mL 0.35-4.94 Nov 05, 2023 01:08 PM [facility] SED RATE BLOOD Specimen Type: BLOOD No comment entered. Ordering Provider: TERRIE CHEN Report Released Date/Time: Nov 05, 2023 02:44 PM Reporting Lab: [facility] [id number] Performing Lab: [facility] [id number] SED RATE 11 mm/h 5-15 Nov 05, 2023 01:08 PM [facility] ANTI-CCP PLASMA Specimen Type: PLASMA No comment entered. Ordering Provider: TERRIE CHEN Report Released Date/Time: Nov 05, 2023 02:44 PM Reporting Lab: [facility] [phone] Performing Lab: [facility] [id number] ANTI-CCP <0.5 <4.9 Vital Signs: All taken on the encounter date This section contains inpatient and outpatient Vital Signs collected on the date of the Encounter. Date/Time Temperature Pulse Blood Pressure Respiratory Rate SP02 Pain Height Weight Body Mass Index Source Nov 05, 2023 01:49 PM 79 116/71 16 95 5 67 175 27 [facility] Social History: Smoking Status (Most current) and Tobacco Use (All prior to encounter date) This section includes the most current, and the historical, smoking and tobacco- related health factors from the [place] facility where the Encounter took place. Current Smoking Status This section includes the most current smoking, or tobacco-related health factor, from the [place] facility where the Encounter took place. Date/Time Current Smoking Status Comment Facil ity Jun 25, 2023 02:00 PM VA-TOBACCO USER EVERY DAY [facility] Tobacco Use History This section includes a history of the smoking, or tobacco-related health factors, that were collected on or before the date of the Encounter. The data comes from the [place] facility where the Encounter took place. Date/Time Smoking Status/Tobacco Use Comment F acility Jun 25, 2023 02:00 PM VA-TOBACCO USE 30 YEARS OR MORE [facility] Jun 25, 2023 02:00 PM VA-TOBACCO USE ADVICE [facility] Jun 25, 2023 02:00 PM VA-TOBACCO USE TELECOMMUNICATOR NO [facility] Jun 25, 2023 02:00 PM VA-TOBACCO USE MED NO [facility] Jun 25, 2023 02:00 PM VA-TOBACCO USER EVERY DAY [facility] Aug 07, 2022 02:00 PM VA-TOBACCO USE 30 YEARS OR MORE [facility] Aug 07, 2022 02:00 PM VA-TOBACCO USE ADVICE [facility] Aug 07, 2022 02:00 PM VA-TOBACCO USE TELECOMMUNICATOR NO [facility] Aug 07, 2022 02:00 PM VA-TOBACCO USE MED NO [facility] Aug 07, 2022 02:00 PM VA-TOBACCO USE WI 30 MIN OF WAKE UP [facility] Aug 07, 2022 02:00 PM VA-TOBACCO USER EVERY DAY [facility] Sep 26, 2021 11:00 AM VA-TOBACCO FORMER USER [facility] Sep 26, 2021 11:00 AM VA-TOBACCO QUIT < 1 YEAR [facility] Dec 20, 2020 02:00 PM VA-TOBACCO DOESNT USE WI 30 MIN WAKEUP [facility] Dec 20, 2020 02:00 PM VA-TOBACCO USE 30 YEARS OR MORE [facility] Dec 20, 2020 02:00 PM VA-TOBACCO USE ADVICE [facility] Dec 20, 2020 02:00 PM VA-TOBACCO USE TELECOMMUNICATOR YES [facility] Dec 20, 2020 02:00 PM VA-TOBACCO USE MED YES [facility] Dec 20, 2020 02:00 PM VA-TOBACCO USER EVERY DAY [facility] Nov 23, 2019 04:25 PM VA-TOBACCO USE < 1 YEAR [facility] Nov 23, 2019 04:25 PM VA-TOBACCO USE ADVICE [facility] Nov 23, 2019 04:25 PM VA-TOBACCO USE TELECOMMUNICATOR NO [facility] Nov 23, 2019 04:25 PM VA-TOBACCO USE MED NO [facility] Nov 23, 2019 04:25 PM VA-TOBACCO USE WI 30 MIN OF WAKE UP [facility] Nov 23, 2019 04:25 PM VA-TOBACCO USER EVERY DAY [facility] Oct 31, 2018 01:49 PM VA-TOBACCO USE 30 YEARS OR MORE [facility] Oct 31, 2018 01:49 PM VA-TOBACCO USE ADVICE [facility] Oct 31, 2018 01:49 PM VA-TOBACCO USE TELECOMMUNICATOR NO [facility] Oct 31, 2018 01:49 PM VA-TOBACCO USE MED NO [facility] Oct 31, 2018 01:49 PM VA-TOBACCO USE WI 30 MIN OF WAKE UP [facility] Oct 31, 2018 01:49 PM VA-TOBACCO USER EVERY DAY [facility] Jul 09, 2017 09:25 AM FORMER TOBACCO USE <1Y [facility] Jul 24, 2016 09:57 AM FORMER TOBACCO USE <1Y [facility] Jul 26, 2015 09:47 AM CURRENT TOBACCO USER [facility] Jul 08, 2014 12:50 PM CURRENT TOBACCO USER [facility] Jul 20, 2013 08:30 AM CURRENT TOBACCO USER [facility] Mar 22, 2009 03:04 PM FORMER TOBACCO USE >1Y <7Y [facility] Encounter Notes: All associated encounter notes This section contains the clinical notes associated to the Encounter. Date/Time Encounter Note(s) Provider Source Nov 06, 2023 09:01 AM LETTERS: LOCAL TITLE: FOLLOW UP RESULTS LETTER STANDARD TITLE: LETTERS DATE OF NOTE: NOV 06, 2023@09:01 ENTRY DATE: NOV 06, 2023@09:01:15 AUTHOR: TERRIE CHEN COSIGNER: URGENCY: STATUS: COMPLETED [facility] [address] [place] [address] Oct JOE BALLARD PARKER [address] [facility] [address] Dear [place]: I am writing to inform you of the results of testing that you had done recently at the [facility]. - Complete Blood Count (red/white blood cell [...] staff or provider at the following number: [phone]. Sincerely, TERRIE CHEN MD FEE BASIS PHYSICIAN TERRIE CHEN [facility] Nov 05, 2023 01:51 PM INTERNAL MEDICINE OUTPATIENT NOTE: LOCAL TITLE: MEDICINE CLINIC NURSING NOTE STANDARD TITLE: INTERNAL MEDICINE OUTPATIENT NOTE DATE OF NOTE: NOV 05, 2023@13:51 ENTRY DATE: NOV 05, 2023@13:51:33 AUTHOR: JOSÉ PEREZ COSIGNER: URGENCY: STATUS: COMPLETED TYPE OF VISIT: [...] occasion in the past year? 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 Co-Managed Care - [facility] Wyatt[facility] Dr Jose Martin Pepe, psychiatrist, [facility] 2. Arthritis (SNOMED CT 4892303) 3. Depression (SNOMED CT 48062778) 4. Obsessive-Compulsive Disorder 5. Anxiety (SNOMED CT 82706202) 6. Hyperlipidemia (SNOMED CT 64926836) 7. Dyspnea 8. Obstructive sleep apnea syndrome [...] leg 17. Exposure to potentially hazardous substance ([facility] [id number]) - Entered through [facility]/[address] Documentation Initiative MEDICATION RECONCILIATION Outpatient See [...] evaluation if not improving # Tobacco use [place] has ongoing tobacco use. Continues to try [...] BASIS PHYSICIAN Signed: 11/05/2023 16:33 TERRIE CHEN [facility]
--- OUTSIDE RECORDS SUMMARY | 2024-08-30 13:45 | XMS_ITS | Encounter Summary ---
Author Name [facility] [place] [facility] [place] Address [address] [place] [address] Care Team Providers Care Seam Rubbing Machine Operator Name Role Phone KARI HARLEY [...] Alvarez's Name Patient's Relationship to Policy Alvarez [facility] (WNR) MEDICAID MEDIC AID Apr 22, 2015 [id number] [phone] JOE CANALES PATIENT MEDICARE (WNR) MEDICARE (M) PART A Apr 22, 2013 PART A [id number] JEYSON CANALES III PATIENT MEDICARE (WNR) MEDICARE (M) PART B Apr 22, 2013 PART B [id number] JEYSON CANALES III N PATIENT MEDICARE (WNR) MEDICARE (M) PART B Apr 22, 2013 PART B [id number] PARKER III,CONCHAO N PATIENT MEDICARE (WNR) MEDICARE (M) PART A Apr 22, 2013 PART A [id number] PARKER III,LAWSO N PATIENT MEDICARE (WNR) MEDICARE (M) PART A Apr 22, 2013 PART A [id number] PARKER III,LAWSO N PATIENT MEDICARE (WNR) MEDICARE (M) PART B Apr 22, 2013 PART B [id number] PARKER III,LAWSO N PATIENT MEDICARE (WNR) MEDICARE (M) PART A Apr 22, 2013 PART A [id number] PARKER III,CONCHAO N PATIENT MEDICARE (WNR) MEDICARE (M) PART B Apr 22, 2013 PART B [id number] PARKER III,CONCHAO N PATIENT Selected Encounter This section includes the information on record at [place] for the Encounter. Date/Time Encounter Type Encounter Description Reason Pro vider Source August 30, 2024 11:55 AM Outpatient Encounter PRIMARY CARE/MEDICINE IHE Encounter Template Text not used by [place] Plan of Treatment: Future Appointments (+ 6 months) and Future Tests (+/- 45 days) The Plan of Treatment section includes future care activities for the [facility] [place] [facility] This section includes future appointments and future orders which are active, pending or scheduled. Future Appointments This section includes appointments that were scheduled to occur 6 months from the date of the Encounter, up to a maximum of 20 appointments. The data comes from all [facility]. Appointment Date/Time Appointment Type Appointme nt Facility Name Oct 09, 2024 02:30 PM AMBULATORY - PSYCHIATRY [facility] Oct 30, 2024 02:00 PM AMBULATORY - PSYCHIATRY [facility] Active, Pending, and Scheduled Orders This section includes a listing of several types of active, pending, and scheduled orders, including clinic medications orders, diagnostic test orders, procedure orders and consult orders; where the start date of the order is 45 days before the date of the Encounter or 45 days after the date of theEncounter. The data comes from all [facility]. Test Date/Time Test Type Test Details Facility Name Sep 20, 2024 12:00 AM Laboratory - Chemi stry Order CBC BLOOD SP [facility] Sep 20, 2024 12:00 AM Laboratory - Chemi stry Order BASIC METABOLIC PANEL+MG PLASMA [facility] Sep 20, 2024 12:00 AM Laboratory - Chemi stry Order HEMOGLOBIN A1C BLOOD [facility] Sep 20, 2024 12:00 AM Laboratory - Chemi stry Order LIPID PANEL,NON-FASTING PLASMA [facility] Social History: Smoking [...] Date/Time Current Smoking Status Comment Facil ity Jul 03, 2024 02:00 PM VA-TOBACCO USE EVERY DAY CIGARET ZANDRA [facility] Tobacco Use History This section includes a history of the smoking, or tobacco-related health factors, that were collected on or before the date of the Encounter. The data comes from the [place] facility where the Encounter took place. Date/Time Smoking Status/Tobacco Use Comment F acility Jul 03, 2024 02:00 PM VA-TOBACCO SCREEN FOLLOW-UP [facility] Jul 03, 2024 02:00 PM VA-TOBACCO USE ADVICE [facility] Jul 03, 2024 02:00 PM VA-TOBACCO USE CEMENT TRUCK LOADER NO [facility] Jul 03, 2024 02:00 PM VA-TOBACCO USE EVERY DAY CIGARET ZANDRA [facility] Jul 03, 2024 02:00 PM VA-TOBACCO USE MED NO [facility] Jun 25, 2023 02:00 PM VA-TOBACCO DOESNT USE WI 30 MIN WAKEUP [facility] Jun 25, 2023 02:00 PM VA-TOBACCO USE 30 YEARS OR MORE [facility] Jun 25, 2023 02:00 PM VA-TOBACCO USE ADVICE [facility] Jun 25, 2023 02:00 PM VA-TOBACCO USE CEMENT TRUCK LOADER NO [facility] Jun [...] Aug 07, 2022 02:00 PM VA-TOBACCO USE CEMENT TRUCK LOADER NO [facility] Aug [...] Dec 20, 2020 02:00 PM VA-TOBACCO USE CEMENT TRUCK LOADER YES [facility] Dec [...] Nov 23, 2019 04:25 PM VA-TOBACCO USE CEMENT TRUCK LOADER NO [facility] Nov [...] Oct 31, 2018 01:49 PM VA-TOBACCO USE CEMENT TRUCK LOADER NO [facility] Oct [...] >1Y <7Y [facility] Encounter Notes: All associated encounter notes This section contains the clinical notes associated to the Encounter. Date/Time Encounter Note(s) Provider Source August 30, 2024 11:55 AM REPORT OF CONTACT: LOCAL TITLE: APPOINTMENT SCHEDULING NOTE STANDARD TITLE: REPORT OF CONTACT DATE OF NOTE: AUGUST 30, 2024@11:55 ENTRY DATE: AUGUST 30, 2024@11:55:50 AUTHOR: ROBIN MARTIN EXP COSIGNER: URGENCY: STATUS: COMPLETED Attempted to schedule Recall/Patient Center Scheduling (PtCSch) Contact attempt made to [place] 1st attempt, Letter - Sent letter by regular [place] mail to address on file: 08/21/24 2nd attempt Text message, 08/26/24 If calls back, schedule appt for: Return to [facility] 01 4F on or around ( Sep 20, 2024 ) for a total of 1 appointment(s) Prerequisites: Labs (NON-FASTING) annual with labs Disposition after: 09/10/24 /don [employer]

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
--- OUTSIDE RECORDS SUMMARY | 2024-08-30 13:46 | XMS_ITS | Encounter Summary ---
Author Name [facility] [place] Address [address] [place] [address] Care Team Providers Care Executive Administrative Asst Name Role Phone KARI HARLEY Primary Care [...] Name Patient's Relationship to Policy Alvarez [facility] (WNR) MEDICAID MEDIC AID Apr 22, 2015 [id number] [phone] JOE CANALES PATIENT MEDICARE (WNR) MEDICARE (M) PART A Apr 22, 2013 PART A [id number] JEYSON CANALES III PATIENT MEDICARE (WNR) MEDICARE (M) PART B Apr 22, 2013 PART B [id number] [phone] JEYSON CANALES III PATIENT MEDICARE (WNR) MEDICARE (M) PART A Apr 22, 2013 PART A [id number] PARKER III,LAWSO N PATIENT MEDICARE (WNR) MEDICARE (M) PART B Apr 22, 2013 PART B [id number] PARKER III,LAWSO N PATIENT MEDICARE (WNR) MEDICARE (M) PART A Apr 22, 2013 PART A [id number] PARKER III,LAWSO N PATIENT MEDICARE (WNR) MEDICARE (M) PART B Apr 22, 2013 PART B [id number] [phone] PARKER III,LAWSO N PATIENT MEDICARE (WNR) MEDICARE (M) PART A Apr 22, 2013 PART A [id number] [phone] PARKER III,CONCHAO N PATIENT MEDICARE (WNR) MEDICARE (M) PART B Apr 22, 2013 PART B [id number] PARKER III,CONCHAO N PATIENT Selected Encounter This section includes the [place] on [place] for the Encounter. Date/Time Encounter Type Encounter Description Reason Pro vider Source August 27, 2024 02:35 PM Outpatient Encounter TELEPHONE TRIAGE IHE Encounter Template Text not used by [place] Plan of Treatment: Future Appointments (+ 6 months) and Future Tests (+/- 45 days) The Plan of Treatment section includes future care activities for the [place] [facility] [place] [facility] This section includes future appointments and future orders which are active, pending or scheduled. Future Appointments This section includes appointments that were scheduled to occur 6 months from the date of the Encounter, up to a maximum of 20 appointments. The data comes from all [facility]. Appointment Date/Time Appointment Type Appointme nt Facility Name August 28, 2024 02:30 PM AMBULATORY - PSYCHIATRY [facility] Oct 09, 2024 02:30 PM AMBULATORY - PSYCHIATRY [facility] Oct 30, 2024 02:00 PM AMBULATORY - PSYCHIATRY [facility] Active, Pending, and Scheduled Orders This section includes a listing of several types of active, pending, and scheduled orders, including clinic medications orders, diagnostic test orders, procedure orders and consult orders; where the start date of the order is 45 days before the date of the Encounter or 45 days after the date of theEncounter. The data comes from all [facility]. Test Date/Time Test Type Test Details Facility Name Sep 20, 2024 12:00 AM Laboratory - Chemi stry Order CBC BLOOD [facility] Sep 20, 2024 12:00 AM Laboratory - Chemi stry Order BASIC METABOLIC PANEL+MG PLASMA [facility] Sep 20, 2024 12:00 AM Laboratory - Chemi stry Order HEMOGLOBIN A1C BLOOD [facility] Sep 20, 2024 12:00 AM Laboratory - Chemi stry Order LIPID PANEL,NON-FASTING PLASMA [facility] Social History: Smoking Status (Most current) and Tobacco Use (All prior to encounter date) This section includes the most current, and the historical, smoking and tobacco- related health factors from the [facility] where the Encounter took place. Current Smoking Status This section includes the most current smoking, or tobacco-related health factor, from the [place] facility where the Encounter took place. Date/Time Current Smoking Status Comment Facil ity Jul 03, 2024 02:00 PM VA-TOBACCO USE EVERY DAY CIGARET ZANDRA [facility] Tobacco Use History This section includes a history of the smoking, or tobacco-related health factors, that were collected on or before the date of the Encounter. The data comes from the [place] facility where the Encounter took place. Date/Time Smoking Status/Tobacco Use Comment F acility Jul 03, 2024 02:00 PM VA-TOBACCO SCREEN FOLLOW-UP [facility] Jul 03, 2024 02:00 PM VA-TOBACCO USE ADVICE [facility] Jul 03, 2024 02:00 PM VA-TOBACCO USE WARRANTY COORDINATOR NO [facility] Jul 03, 2024 02:00 PM VA-TOBACCO USE EVERY DAY CIGARET ZANDRA [facility] Jul 03, 2024 02:00 PM VA-TOBACCO USE MED NO [facility] Jun 25, 2023 02:00 PM VA-TOBACCO DOESNT USE WI 30 MIN WAKEUP [facility] Jun 25, 2023 02:00 PM VA-TOBACCO USE 30 YEARS OR MORE [facility] Jun 25, 2023 02:00 PM VA-TOBACCO USE ADVICE [facility] Jun 25, 2023 02:00 PM VA-TOBACCO USE WARRANTY COORDINATOR NO [facility] Jun 25, 2023 02:00 PM VA-TOBACCO USE MED NO [facility] Jun 25, 2023 02:00 PM VA-TOBACCO USER EVERY DAY [facility] Aug 07, 2022 02:00 PM VA-TOBACCO USE 30 YEARS OR MORE [facility] Aug 07, 2022 02:00 PM VA-TOBACCO USE ADVICE [facility] Aug 07, 2022 02:00 PM VA-TOBACCO USE WARRANTY COORDINATOR NO [facility] Aug 07, 2022 02:00 [...] Dec 20, 2020 02:00 PM VA-TOBACCO USE WARRANTY COORDINATOR YES [facility] Dec 20, 2020 02:00 PM VA-TOBACCO USE MED YES [facility] Dec 20, 2020 02:00 PM VA-TOBACCO USER EVERY DAY [facility] Nov 23, 2019 04:25 PM VA-TOBACCO USE < 1 YEAR [facility] Nov 23, 2019 04:25 PM VA-TOBACCO USE ADVICE [facility] Nov 23, 2019 04:25 PM VA-TOBACCO USE WARRANTY COORDINATOR NO [facility] Nov 23, 2019 04:25 [...] Oct 31, 2018 01:49 PM VA-TOBACCO USE WARRANTY COORDINATOR NO [facility] Oct 31, 2018 01:49 [...] Encounter. Date/Time Encounter Note(s) Provider Source August 27, 2024 02:35 PM PHARMACY NOTE: LOCAL TITLE: CCC: PHARMACY I STANDARD TITLE: PHARMACY NOTE DATE OF NOTE: AUGUST 27, 2024@14:35 ENTRY DATE: AUGUST 27, 2024@14:35:22 AUTHOR: MONICA ESQUIVEL EXP COSIGNER: URGENCY: STATUS: COMPLETED CCC: PHARMACY I Has ADDENDA Medication renewal request - non-controlled substance: Second request:-Order was Unflag ON 08/05/24 BY PCP but no NEW ORDER WAS ENTER PLEASE ADDRESS Alerting the provider of a second request from patient. Please review patient's request and renew if deemed appropriate. Added both provider and nurse to this note as part of escalation process to prevent further delays. Patient is requesting a refill of the following prescription(s) : Order Text: FAMOTIDINE TAB 20MG TAKE ONE TABLET BY MOUTH EVERY DAY FOR HEARTBURN TO DECREASE STOMACH ACID. *NOTE CHANGE TO ONCE A DAY* Quantity: 90 Refills: 3 Indication: FOR HEARTBURN Nature of Order: ELECTRONICALLY ENTERED Elec Signature: CHANDRAKANT CONNORS (PHYSICIAN) on 10/07/2023 10:42 Flagged by: HANY MERCHANT (PHARMACY,[facility]) on 08/05/2024 07:47 Med renewal request Recipients: RADHA EISENBERG (STAFF PHYSICIAN) added on 08/05/2024 07:47 Unflagged by: RADHA EISENBERG (STAFF PHYSICIAN) on 08/05/2024 16:37 done If clinically appropriate, please refill. Meds to be MAILED OUT Alerts are not monitored regularly by this user due to incoming calls through [place] [facility] ([facility]) Contact Center. Please follow up with local outpatient pharmacy for any immediate or urgent needs. Medications: Active and Recently Outpatient Medications (excluding Supplies): Active Outpatient Medications Status 1) ACETAMINOPHEN 325MG TAB TAKE ONE TABLET BY MOUTH ACTIVE THREE TIMES A DAY FOR PAIN 2) ASPIRIN 81MG EC TAB TAKE ONE TABLET BY MOUTH EVERY ACTIVE DAY 3) DICLOFENAC NA 1% TOP GEL APPLY 4 GRAMS TOPICALLY FOUR ACTIVE TIMES A DAY NEEDED TO AFFECTED AREA FOR PAIN 4) FAMOTIDINE 20MG TAB TAKE ONE TABLET BY MOUTH EVERY ACTIVE DAY FOR HEARTBURN TO DECREASE STOMACH ACID. *NOTE CHANGE TO ONCE A DAY* 5) FINASTERIDE 5MG TAB TAKE ONE TABLET BY MOUTH EVERY ACTIVE DAY FOR PROSTATE 6) KETOCONAZOLE 2% CREAM APPLY THIN LAYER TOPICALLY ACTIVE TWICE A DAY FOR RASH 7) QUETIAPINE FUMARATE 200MG TAB TAKE ONE TABLET BY ACTIVE MOUTH AT BEDTIME FOR ANXIETY *NOTE CHANGE IN TABLET STRENGTH* 8) SIMVASTATIN 40MG TAB TAKE ONE TABLET BY MOUTH AT ACTIVE BEDTIME FOR CHOLESTEROL 9) SODIUM FLUORIDE 1.1% TOOTHPASTE BRUSH TEETH WITH A ACTIVE SMALL AMOUNT MOUTH EVERY MORNING AND AT BEDTIME TO PREVENT DENTAL CAVITIES Inactive Outpatient Medications Status 1) FLUOXETINE HCL 20MG CAP TAKE FOUR CAPSULES BY MOUTH EVERY DAY 2) MELATONIN 3MG CAP/TAB TAKE 2 TABLETS BY MOUTH AT BEDTIME NEEDED FOR SLEEP 11 Total Medications Future appointments: 10/30/2024 14:00 EBONI MONCADA [id number] /lance/ MONICA ESQUIVEL V23 [facility] TIME PIECE REPAIRER Signed: 08/27/2024 14:40 Receipt Acknowledged By: 08/28/2024 12:01 /es/ RADHA EISENBERG MD/PHD PHYSICIAN 08/27/2024 15:21 /es/ VIVIANA SERRANO RESIDENT PHYSICIAN 08/27/2024 ADDENDUM STATUS: COMPLETED Refilled /es/ VIVIANA SERRANO RESIDENT PHYSICIAN Signed: 08/27/2024 15:21 MONICA ESQUIVEL [facility]
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
--- OUTSIDE RECORDS SUMMARY | 2024-08-30 13:46 | XMS_ITS | Encounter Summary ---
Author Name [facility] [place] Address [address] [place] [address] Care Team Providers Care Biomass Production Manager Name Role Phone KARI HARLEY Primary [...] Alvarez's Name Patient's Relationship to Policy Alvarez [facility] (WNR) MEDICAID MEDIC AID Apr 22, 2015 [id number] JOE CANALES PATIENT MEDICARE (WNR) MEDICARE (M) PART A Apr 22, 2013 PART A [id number] JEYSON CANALES III N PATIENT MEDICARE (WNR) MEDICARE (M) PART B Apr 22, 2013 PART B [id number] [phone] JEYSON CANALES III N PATIENT MEDICARE (WNR) MEDICARE (M) PART A Apr 22, 2013 PART A [id number] [phone] PARKER III,CONCHAO N PATIENT MEDICARE (WNR) MEDICARE (M) PART B Apr 22, 2013 PART B [id number] PARKER III,CONCHAO N PATIENT MEDICARE (WNR) MEDICARE (M) PART A Apr 22, 2013 PART A [id number] PARKER III,LAWSO N PATIENT MEDICARE (WNR) MEDICARE (M) PART B Apr 22, 2013 PART B [id number] PARKER III,LAWSO N PATIENT MEDICARE (WNR) MEDICARE (M) PART A Apr 22, 2013 PART A [id number] PARKER III,CONCHAO N PATIENT MEDICARE (WNR) MEDICARE (M) PART B Apr 22, 2013 PART B [id number] PARKER III,CONCHAO N PATIENT Selected Encounter This section includes the information on record at [place] for the Encounter. Date/Time Encounter Type Encounter Description Reason Provider Source Jul 02, 2024 03:00 PM OFFICE O/P EST MOD 30 MIN DERMATOLOGY ICD-10-CM L82.1 Other seborrheic keratosis RENEE MCCORD E Encounter Template Text not used by [place] Assessments - Encounter Diagnoses This section includes the primary and secondary diagnoses documented for the Encounter. Date/Time Primary/Secondary Diagnosis Diagnosis Name Provider Source Jul 02, 2024 03:29 PM PRIMARY Other [facility]rheic keratosis [facility] Jul 02, 2024 03:29 PM SECONDARY Hemangioma of skin and subcutaneous tissue Lorie CASEY [facility] Jul 02, 2024 03:29 PM SECONDARY Nevus, non-neoplastic Lorie CASEY [facility] Jul 02, 2024 03:29 PM SECONDARY Other melanin hyperpigmentation Lorie CASEY [facility] Plan of Treatment: Future Appointments (+ 6 months) and Future Tests (+/- 45 days) The Plan of Treatment section includes future care activities for the patient from all [place] treatmentfacilities. This section includes future appointments and future orders which are active, pending or scheduled. Future Appointments This section includes appointments that were scheduled to occur 6 months from the date of the Encounter, up to a maximum of 20 appointments. The data comes from all [facility]. Appointment Date/Time Appointment Type Appointme nt Facility Name Jul 03, 2024 02:00 PM AMBULATORY - PSYCHIATRY [facility] August 28, 2024 02:30 PM AMBULATORY - PSYCHIATRY [facility] Oct 09, 2024 02:30 PM AMBULATORY - PSYCHIATRY [facility] Oct 30, 2024 02:00 PM AMBULATORY - PSYCHIATRY [facility] Active, Pending, and Scheduled Orders This section includes a listing of several types of active, pending, and scheduled orders, including clinic medications orders, diagnostic test orders, procedure orders and consult orders; where the start date of the order is 45 days before the date of the Encounter or 45 days after the date of theEncounter. The data comes from all [facility]. Test Date/Time Test Type Test Details Facility Name Jun 24, 2024 08:37 AM Laboratory - Chemi stry Order URINALYSIS URINE WC ONCE [facility] Jun 24, 2024 08:53 AM Laboratory - Chemi stry Order ALBUMIN/CREATININE RATIO URINE URINE SP ONCE [facility] Lab Results: +/- 30 days of the encounter This section includes the Chemistry and Hematology Lab Results on record with [place] for the patient. Radiology Reports and Pathology Reports are provided separately, in subsequent sections. Lab Results This section contains the Chemistry/Hematology Results that were resulted 30 days before or 30 daysafter the date of the Encounter. Date/Time Source Result Type Result - Unit Interpretation Reference Range Specimen Type Comment Jun 09, 2024 10:23 AM [facility] URINALYSIS URINE Specimen Type: URINE No comment entered. Ordering Provider: PAM SERRANO Report Released Date/Time: Jun 09, 2024 08:45 AM Reporting Lab: [facility] [id number] Performing Lab: [facility] [id number] URINE COLOR YELLOW SPECIFIC GRAVITY 1.031 1.003-1.035 URINE BILIRUBIN NEGATIVE NEGATIVE URINE KETONES NEGATIVE NEGATIVE URINE GLUCOSE NEGATIVE mg/dL <30 URINE PROTEIN 30 mg/dL <20 URINE PH 5.5 5.0-8.0 URINE WBC/HPF 3 /[HPF] 0-7 URINE BACTERIA NONE SEEN CA++ OXALATE CRYSTALS MODERATE URINE RBC/HPF 1 /[HPF] 0-3 APPEARANCE CLEAR SQUAMOUS EPITHELIAL 1 /[HPF] URINE BLOOD TRACE NEGATIVE URINE NITRITE NEGATIVE NEGATIVE LEUKOCYTE ESTERASE 75 NEGATIVE Jun 09, 2024 10:14 AM [facility] BASIC METABOLIC PANEL+MG PLASMA Spe cimen Type: PLASMA No comment entered. Ordering Provider: VIVIANA SERRANO Report Released Date/Time: Jun 09, 2024 08:45 AM Reporting Lab: [facility] [id number] Performing Lab: [facility] [id number] CREATININE 1.2 mg/dL 0.7-1.2 UREA NITROGEN 17 mg/dL 8-26 GLUCOSE 129 mg/dL H 70-100 SODIUM 143 mmol/L 136-145 POTASSIUM 3.7 mmol/L 3.5-5.1 CHLORIDE 110 mmol/L H 98-107 CO2 24 mmol/L 22-29 CALCIUM 9.4 mg/dL 8.4-10.2 MAGNESIUM 2.1 mg/dL 1.6-2.6 ANION GAP 9 mmol/L 5-15 .CREAT EGFR(CKD-EPI) 63 >60 Social History: Smoking [...] Jun 25, 2023 02:00 PM VA-TOBACCO USE PHYSICAL SCIENCES INSTRUCTOR NO [facility] Jun 25, 2023 02:00 PM VA-TOBACCO USE MED NO [facility] Jun 25, 2023 02:00 PM VA-TOBACCO USER EVERY DAY [facility] Aug 07, 2022 02:00 PM VA-TOBACCO USE 30 YEARS OR MORE [facility] Aug 07, 2022 02:00 PM VA-TOBACCO USE ADVICE [facility] Aug 07, 2022 02:00 PM VA-TOBACCO USE PHYSICAL SCIENCES INSTRUCTOR NO [facility] Aug 07, 2022 [...] Dec 20, 2020 02:00 PM VA-TOBACCO USE PHYSICAL SCIENCES INSTRUCTOR YES [facility] Dec 20, 2020 02:00 PM VA-TOBACCO USE MED YES [facility] Dec 20, 2020 02:00 PM VA-TOBACCO USER EVERY DAY [facility] Nov 23, 2019 04:25 PM VA-TOBACCO USE < 1 YEAR [facility] Nov 23, 2019 04:25 PM VA-TOBACCO USE ADVICE [facility] Nov 23, 2019 04:25 PM VA-TOBACCO USE PHYSICAL SCIENCES INSTRUCTOR NO [facility] Nov 23, 2019 [...] Oct 31, 2018 01:49 PM VA-TOBACCO USE PHYSICAL SCIENCES INSTRUCTOR NO [facility] Oct 31, 2018 [...] the Encounter. The data comes from all [facility] facilities. Date/Time Pathology Report Provider Source Jun 09, 2024 10:23 AM LR MICROBIOLOGY RE PORT: Reporting Lab: [facility] [CLIA# [id number]] [place] [address] Accession [UID]: [id number] [[id number]] Received: Jun 09, 2024@10:23 Collection sample: URINE Collection date: Jun 09, 2024 10:23 Provider: VIVIANA SERRANO Comment on specimen: COMPLAINT EVALUATION OFFICER collect Test(s) ordered: CULTURE & SUSCEPTIBILITY...... completed: Jun 10, 2024 * BACTERIOLOGY FINAL REPORT => Jun 10, 2024 09:24 TECH CODE: [id number] CULTURE RESULTS: LESS THAN 10,000 CFU/ML Bacteriology Remark(s): THIS REPORT IS FINAL =--=--=--=--=--=--=--=--=--=--=--=- -=--=--=--=--=--=--=--=--=--=--=--= --=--=-- Performing Laboratory: Bacteriology Report Performed By: [facility] [CLIA# [id number]] [place] [address] [facility] Encounter Notes: All associated encounter notes This section contains the clinical notes associated to the Encounter. Date/Time Encounter Note(s) Provider Source Jul 02, 2024 03:15 PM DERMATOLOGY ATTEND ING NOTE: LOCAL TITLE: DERMATOLOGY CLINIC NOTE STANDARD TITLE: DERMATOLOGY ATTENDING NOTE DATE OF NOTE: JUL 02, 2024@15:15 ENTRY DATE: JUL 02, 2024@15:15:37 AUTHOR: TOY CASEY EXP COSIGNER: URGENCY: STATUS: COMPLETED DERMATOLOGY CLINIC NOTE Has ADDENDA DERMATOLOGY PROBLEM LIST: UBSE 07/02/24 # Hx NMSC - nBCC, R nasal ala s/p shave biopsy 03/08/22, s/p [facility] MMS - nBCC, L upper lateral arm s/p VA excision 05/14/22 - SCCis, L upper back s/p VA excision 05/14/22 - superficial BCC, L flank superolateral s/p removal in shave biopsy 03/08/22 - nBCC, L flank inferomedial s/p removal in shave biopsy 03/08/22 # AKs - LN # Benign bx - lentigo, R lateral upper arm. 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 - Multiple areas of concern on the trunk - Only on that is not healing is the right shoulder - Personal history of skin cancer: Yes - Family history of skin cancer: No - Blistering sunburns as child: No - Denies other lesions that are tender, non-healing or bleeding. - Patient reports history of intermittent itchy, scaly bumps to the right forehead which typically resolve on their own OBJECTIVE: GEN: A&O x3. No acute distress. SKIN: UBSE of the head, neck, chest, abdomen, back, bilateral upper extremities, and hands was performed and notable for the following significant findings: - On the trunk and extremities, there are scattered flesh-colored to brown, waxy, stuck-on papules and plaques. - On the trunk and extremities with accentuation in sun-exposed areas, there are light brown macules with uniform appearance. - On the trunk and extremities, there are scattered medium brown macules with uniform pigment networkds under dermoscopy - On trunk and extremities, there are scattered bright red papules. - Previous sites of skin cancer noted above were examined. No evidence for recurrence by inspection. ASSESSMENT & PLAN: # History of NMSC. - No evidence of recurrence on exam today. 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 - The patient's PCP can perform annual skin exams and Dermatology can of course be consulted again if there are any new concerns or changes. - The patient's PCP has been CC'd to this note to communicate that the patient has been discharged from the Dermatology Clinic with the above plan. Dr. Mccord saw and evaluated the patient with me, and agrees with the findings, assessment and plan as outlined. /lance/ TOY CASEY Dermatology Resident Signed: 07/02/2024 15:29 Receipt Acknowledged By: 07/03/2024 11:46 /lance/ RADHA EISENBERG MD/PHD PHYSICIAN 07/02/2024 ADDENDUM STATUS: COMPLETED also assessed 2 lesions to his left lateral thigh that are SKs, which reassurance was provided for. /lance/ TOY CASEY Dermatology Resident Signed: 07/02/2024 15:30 TOY CASEY [facility]
--- OUTSIDE RECORDS SUMMARY | 2024-08-30 13:46 | XMS_ITS | Encounter Summary ---
Author Name [facility] [place] [facility] [place] Address [address] [place] [address] Care Team Providers Care Warehouse Supervisor Name Role Phone KARI HARLEY Primary [...] Alvarez's Name Patient's Relationship to Policy Alvarez [facility] (WNR) MEDICAID MEDIC AID Apr 22, 2015 [id number] [phone] JOE CANALES PATIENT MEDICARE (WNR) MEDICARE (M) PART A Apr 22, 2013 PART A [id number] JEYSON CANALES III PATIENT MEDICARE (WNR) MEDICARE (M) PART B Apr 22, 2013 PART B [id number] JEYSON CANALES III N PATIENT MEDICARE (WNR) MEDICARE (M) PART A Apr 22, 2013 PART A [id number] PARKER III,LAWSO N PATIENT MEDICARE (WNR) MEDICARE (M) PART B Apr 22, 2013 PART B [id number] PARKER III,LAWSO N PATIENT MEDICARE (WNR) MEDICARE (M) PART A Apr 22, 2013 PART A [id number] PARKER III,LAWSO N PATIENT MEDICARE (WNR) MEDICARE (M) PART B Apr 22, 2013 PART B [id number] PARKER III,LAWSO N PATIENT MEDICARE (WNR) MEDICARE (M) PART A Apr 22, 2013 PART A [id number] PARKER III,LAWSO N PATIENT MEDICARE (WNR) MEDICARE (M) PART B Apr 22, 2013 PART B [id number] PARKER III,CONCHAO N PATIENT Selected Encounter This section includes the information on record at [place] for the Encounter. Date/Time Encounter Type Encounter Description Reason Provider Source September 03, 2023 08:01 AM Outpatient Encounter ADMIN PAT ACTIVTIES (MASNONCT) OMID KING Encounter Template Text not used by [place] Plan of Treatment: Future Appointments (+ 6 months) and Future Tests (+/- 45 days) The Plan of Treatment section includes future care activities for the patient from all [place] treatmentfacilities. This section includes future appointments and future orders which are active, pending or scheduled. Future Appointments This section includes appointments that were scheduled to occur 6 months from the date of the Encounter, up to a maximum of 20 appointments. The data comes from all [place] treatment facilities. Appointment Date/Time Appointment Type Appointme nt Facility Name Nov 05, 2023 01:45 PM AMBULATORY - NONE [facility] Nov 05, 2023 03:00 PM AMBULATORY - MEDICINE [facility] Nov 13, 2023 02:00 PM AMBULATORY - PSYCHIATRY [facility] Nov 14, 2023 01:15 PM AMBULATORY - SURGERY [facility] Dec 03, 2023 03:00 PM [facility] Dec 18, 2023 09:30 AM AMBULATORY - SURGERY [facility] Jan 27, 2024 01:42 PM AMBULATORY - NONE [facility] Feb 06, 2024 02:00 PM AMBULATORY - [place] [facility] Social History: Smoking Status (Most current) and Tobacco Use (All prior to encounter date) This section includes the most current, and the historical, smoking and tobacco- related health factors from the [place] facility where the Encounter took place. Current Smoking Status This section includes the most current smoking, or tobacco-related health factor, from the [place] facility where the Encounter took place. Date/Time Current Smoking Status Comment Facil ity Jun 25, 2023 02:00 PM VA-TOBACCO DOESNT USE WI [address] [facility] Tobacco Use History This section includes a history of the smoking, or tobacco-related health factors, that were collected on or before the date of the Encounter. The data comes from the [place] facility where the Encounter took place. Date/Time Smoking Status/Tobacco Use Comment F acility Jun 25, 2023 02:00 PM VA-TOBACCO USE [address] [facility] Jun 25, 2023 02:00 PM VA-TOBACCO USE ADVICE [facility] Jun 25, 2023 02:00 PM VA-TOBACCO USE ELECTRICAL ASSEMBLY TECHNICIAN NO [facility] Jun [...] Aug 07, 2022 02:00 PM VA-TOBACCO USE ELECTRICAL ASSEMBLY TECHNICIAN NO [facility] Aug [...] Dec 20, 2020 02:00 PM VA-TOBACCO USE ELECTRICAL ASSEMBLY TECHNICIAN YES [facility] Dec [...] Nov 23, 2019 04:25 PM VA-TOBACCO USE ELECTRICAL ASSEMBLY TECHNICIAN NO [facility] Nov [...] Oct 31, 2018 01:49 PM VA-TOBACCO USE ELECTRICAL ASSEMBLY TECHNICIAN NO [facility] Oct [...] the Encounter. The data comes from all [place] treatment facilities. Date/Time Radiology Report Provider Source September 02, 2023 01:43 PM LDCT LUNG CANCER S CREENING: JOE CANALES [facility] [id number] -[id number] M Exm Date: SEPTEMBER 02, 2023@13:43 Req Phys: CHANDRAKANT CONNORS Loc: [facility] PULM CHART CHECK LCS (Req' Img Loc: CT IMAGING Service: [place] [address] (Case [id number] COMPLETE) LDCT LUNG CANCER SCREENING (CT Detailed) CPT:15895 Reason for Study: LDCT f/u LUNGRADS 2b [...] 02, 2023 Date Verified: SEPTEMBER 02, 2023 Metal Storage Worker E-Sig:/ES/MOHINDER POSEY DO Report: EXAM: LDCT LUNG [...] Primary Interpreting Staff: MOHINDER POSEY DO, RADIOLOGIST (Metal Storage Worker) /PADMINIS MOHINDER POSEY [facility] Encounter Notes: All associated encounter notes This section contains the clinical notes associated to the Encounter. Date/Time Encounter Note(s) Provider Source September 03, 2023 08:04 AM LETTERS: LOCAL TITLE: FOLLOW UP RESULTS LETTER STANDARD TITLE: LETTERS DATE OF NOTE: SEPTEMBER 03, 2023@08:04 ENTRY DATE: SEPTEMBER 03, 2023@08:04:28 AUTHOR: OMID KINGIGNER: URGENCY: STATUS: COMPLETED [facility] [address] [place] [address] August [facility] [address] [facility] [address] Dear [place]: Your recent chest imaging on August showed: [...] care provider know. You can also call [phone] ( ) or visit [email or web address]. A more detailed handout, titled My Lung [...] please contact Lung Cancer Screening staff at [phone]. OMID KING RN, BSN PULMONARY/LCS PAYROLL ADMINISTRATOR OMID KING [facility] September 03, 2023 08:01 AM PULMONARY NOTE: [...] you. /lance/ OMID KING RN, BSN PULMONARY/LCS PAYROLL ADMINISTRATOR Signed: 09/03/2023 08:04 Receipt Acknowledged By: 09/03/2023 14:17 /lance/ ROSANGELA LU LEAD DOG BOARDER OMID KING [facility]
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
--- OUTSIDE RECORDS SUMMARY | 2024-08-30 13:46 | XMS_ITS | Encounter Summary ---
Author Name [facility] [place] [facility] [place] Address [address] [place] [address] Care Team Providers Care Manager Cardiac Name Role Phone KARI HARLEY Primary Care [...] Alvarez's Name Patient's Relationship to Policy Alvarez [facility] (WNR) MEDICAID MEDIC AID Apr 22, 2015 [id number] [phone] JOE CANALES PATIENT MEDICARE (WNR) MEDICARE (M) PART A Apr 22, 2013 PART A [id number] JEYSON CANALES III N PATIENT MEDICARE (WNR) MEDICARE (M) PART B Apr 22, 2013 PART B [id number] JEYSON CANALES III N PATIENT MEDICARE (WNR) MEDICARE (M) PART A Apr 22, 2013 PART A [id number] PARKER III,LAWSO N PATIENT MEDICARE (WNR) MEDICARE (M) PART B Apr 22, 2013 PART B [id number] [phone] PARKER III,LAWSO N PATIENT MEDICARE (WNR) MEDICARE (M) PART A Apr 22, 2013 PART A [id number] PARKER III,LAWSO N PATIENT MEDICARE (WNR) MEDICARE (M) PART B Apr 22, 2013 PART B [id number] PARKER III,LAWSO N PATIENT MEDICARE (WNR) MEDICARE (M) PART A Apr 22, 2013 PART A [id number] PARKER III,LAWSO N PATIENT MEDICARE (WNR) MEDICARE (M) PART B Apr 22, 2013 PART B [id number] PARKER III,LAWSO N PATIENT Selected Encounter This section includes the information on record at [place] for the Encounter. Date/Time Encounter Type Encounter Description Reason Pro vider Source Feb 06, 2024 02:00 PM OFFICE O/P EST MOD 30 MIN PSYCHOGERIATRIC - INDIVIDUAL ICD-10-CM F43.12 Post-traumati c stress disorder, chronic HEENA MONCADA IN [facility] Encounter Template Text not used by [place] Assessments - Encounter Diagnoses This section includes the primary and secondary diagnoses documented for the Encounter. Date/Time Primary/Secondary Diagnosis Diagnosis Name Provider Source Feb 07, 2024 04:34 PM PRIMARY Post-traumatic stress disorder, chronic HEENA MONCADA IN [facility] Feb 07, 2024 04:34 PM SECONDARY Major depressive disorder, recurrent, in full remission HEENA MONCADA IN [facility] Plan of Treatment: Future Appointments (+ 6 months) and Future Tests (+/- 45 days) The Plan of Treatment section includes future care activities for the patient from all [place] treatmentfacilities. This section includes future appointments and [...] 12, 2024 02:00 PM [facility] Mar 24, 2024 11:00 AM [place] [place] [facility] Mar 24, 2024 11:45 AM [place] [facility] Apr 09, 2024 02:00 PM AMBUL[place]ORY [place] [facility] Apr 13, 2024 06:22 PM [place]ULATORY [place] [facility] Apr 20, 2024 01:00 PM [place] [facility] May 22, 2024 03:30 PM AMBULATORY [place] [facility] Jun 09, 2024 08:30 AM [place] [facility] Jun 17, 2024 08:30 AM [place] [facility] Jun 24, 2024 03:30 PM [place] [facility] Jul 02, 2024 03:00 PM [place] [facility] Jul 03, 2024 02:00 PM [facility] Social History: Smoking Status (Most current) [...] VA-TOBACCO DOESNT USE WI 30 MIN WAKEUP [facility] Tobacco Use History This section includes a history of the smoking, or tobacco-related health factors, that were collected on or before the date of the Encounter. The data comes from the [place] facility where the Encounter took place. Date/Time Smoking Status/Tobacco Use Comment F acility Jun 25, 2023 02:00 PM VA-TOBACCO USE 30 YEARS OR MORE [facility] Jun 25, 2023 02:00 PM VA-TOBACCO USE ADVICE [facility] Jun 25, 2023 02:00 PM VA-TOBACCO USE CATERING SOUS CHEF NO [facility] Jun 25, 2023 02:00 PM VA-TOBACCO USE MED NO [facility] Jun 25, 2023 02:00 PM VA-TOBACCO USER EVERY DAY [facility] Aug 07, 2022 02:00 PM VA-TOBACCO USE 30 YEARS OR MORE [facility] Aug 07, 2022 02:00 PM VA-TOBACCO USE ADVICE [facility] Aug 07, 2022 02:00 PM VA-TOBACCO USE CATERING SOUS CHEF NO [facility] Aug 07, 2022 02:00 PM VA-TOBACCO USE MED NO [facility] Aug 07, 2022 02:00 PM VA-TOBACCO USE WI 30 MIN OF WAKE UP [facility] Aug 07, 2022 02:00 PM VA-TOBACCO USER EVERY DAY [facility] Sep 26, 2021 11:00 AM VA-TOBACCO FORMER USER [facility] Sep 26, 2021 11:00 AM VA-TOBACCO QUIT < 1 YEAR [facility] Dec 20, 2020 02:00 PM VA-TOBACCO DOESNT USE WI 30 MIN WAKEUP [facility] Dec 20, 2020 02:00 PM VA-TOBACCO USE 30 YEARS OR MORE [facility] Dec 20, 2020 02:00 PM VA-TOBACCO USE ADVICE [facility] Dec 20, 2020 02:00 PM VA-TOBACCO USE CATERING SOUS CHEF YES [facility] Dec 20, 2020 02:00 PM VA-TOBACCO USE MED YES [facility] Dec 20, 2020 02:00 PM VA-TOBACCO USER EVERY DAY [facility] Nov 23, 2019 04:25 PM VA-TOBACCO USE < 1 YEAR [facility] Nov 23, 2019 04:25 PM VA-TOBACCO USE ADVICE [facility] Nov 23, 2019 04:25 PM VA-TOBACCO USE CATERING SOUS CHEF NO [facility] Nov 23, 2019 04:25 PM VA-TOBACCO USE MED NO [facility] Nov 23, 2019 04:25 PM VA-TOBACCO USE WI 30 MIN OF WAKE UP [facility] Nov 23, 2019 04:25 PM VA-TOBACCO USER EVERY DAY [facility] Oct 31, 2018 01:49 PM VA-TOBACCO USE 30 YEARS OR MORE [facility] Oct 31, 2018 01:49 PM VA-TOBACCO USE ADVICE [facility] Oct 31, 2018 01:49 PM VA-TOBACCO USE CATERING SOUS CHEF NO [facility] Oct 31, 2018 01:49 PM VA-TOBACCO USE MED NO [facility] Oct 31, 2018 01:49 PM VA-TOBACCO USE WI 30 MIN OF WAKE UP [facility] Oct 31, 2018 01:49 PM VA-TOBACCO USER EVERY DAY [facility] Jul 09, 2017 09:25 AM FORMER TOBACCO USE <1Y [facility] Jul 24, 2016 09:57 AM FORMER TOBACCO USE <1Y [facility] Jul 26, 2015 09:47 AM CURRENT TOBACCO USER [facility] Jul 08, 2014 12:50 PM CURRENT TOBACCO USER [facility] Jul 20, 2013 08:30 AM CURRENT TOBACCO USER [facility] Mar 22, 2009 03:04 PM FORMER TOBACCO USE >1Y <7Y [facility] Encounter Notes: All associated encounter notes This section contains the clinical notes associated to the Encounter. Date/Time Encounter Note(s) Provider Source Feb 06, 2024 02:11 PM PSYCHIATRY E & M N OTE: LOCAL TITLE: PSYCHIATRIC EVALUATION & MANAGEMENT STANDARD TITLE: PSYCHIATRY E & M NOTE DATE OF NOTE: FEB 06, 2024@14:11 ENTRY DATE: FEB 06, 2024@14:11:44 AUTHOR: TERRIE MONCADA EXP COSIGNER: URGENCY: STATUS: [...] a lot of support, his granddaughter is aces. Even though he moved he still drives to [place] to [place]. Cannot go every Saturday but goes when [...] up. Finding it tough to walk to [facility]. No other concerns today, doing well from [...] intent in context of stressor. Sherri / latter day community and family remains a strong protective factors. Has been taking forward thinking steps such as meeting with director of student financial services, and repairing relationships with family. 06.20.23 update: [...] the stairs, CTH , EKG WNL at [facility]. 08/14/23: Mood improved largely related to interpersonal [...] will follow up with psychotherapy with Maxine WALTERSN -Lipid panel complete 10/2023 (mild elevated triglyceride) [...] in medical record, and care coordination:30 minutes /lance/ TERRIE MONCADA DO STAFF PSYCHIATRIST Signed: 02/07/2024 16:34 TERRIE MONCADA [facility]
--- OUTSIDE RECORDS SUMMARY | 2024-08-30 13:46 | XMS_ITS | Continuity of Care Document ---
Author Name [facility] Organization [facility] Care Team Providers Care Security Assessor Name Role Phone [facility] Unavailable Unavailable Problems Combined list of problems from Department of Defense and Veterans Affairs facilities. It does not include entries that were removed or entered in error. Problem Status Onset Date Problem Type Date of Resolution Comments Source Exposure to potentially hazardous substance ([facility] [id number]) Active 024 Condition Jun 27, 2023 Entered By: TOÑO MAYO Comment: [facility] Documentation Initiative [facility] Anxiety (SNOMED [place] 55388759) Active Condition [facility] Arthritis (SNOMED CT 4654401) Active Condition [facility] Benign prostatic hyperplasia Active Condition [facility] Benign prostatic hypertrophy with outflow obstruction Active Condition [facility] Cannabis dependence in remission Active Condition Jul 20, 2013 Entered By: JESE BRAVO Comment: Quit June, Entered By: JESE BRAVO Comment: Daily use x 20 years [facility] Chronic post-traumatic stress disorder Active Condition [facility] Co-Managed Care Active Condition Mar 22, 2009 Entered By: ONEIL SUAREZ Comment: Dr Wyatt, PCP, [facility] 2008 Entered By: ONEIL SUAREZ Comment: Dr Jose Martin Suarez, psychiatrist, [facility] Depression Active Condition [facility] Depression (SNOMED CT 35590339) Active Condition [facility] Dyspnea Active Condition [facility] Hearing loss Active Condition [facility] History of post-traumatic stress disorder Active Condition [facility] Hyperlipidemia Active Condition [facility] Hyperlipidemia (SNOMED CT 84110137) Active Condition [facility] Insomnia Active Condition [facility] Meralgia paresthetica of left leg Active Condition [facility] Obsessive-Compulsi ve Disorder Active Condition [facility] Obstructive sleep apnea syndrome Active Condition Jul 20, 2013 Entered By: JESE BRAVO Comment: (mild) Dental appliance recommended [facility] Osteopenia Active Condition [facility] Rheumatoid arthritis Active Condition [facility] Sleep apnea Active Condition [facility] Tobacco dependence syndrome Active Condition Jul 20, 2013 Entered By: JESE BRAVO Comment: Smoking 1/2 ppdJul 20, 2013 Entered By: JESE BRAVO Comment: 45 pack year history [facility] Tobacco use Active Condition [facility] Vitamin D deficiency Active Condition [facility] Kidney stone Inactive Condition 11/24/2019 [facility] Diagnosis: ICD-10-CM F32.1 Major depressive disorder, single episode, moderate [facility] Diagnosis: ICD-10-CM F43.12 Post-traumatic stress disorder, chronic Active Diagnosis [facility] Diagnosis: ICD-10-CM L82.1 Other seborrheic keratosis Active Diagnosis [facility] Diagnosis: ICD-10-CM N40.1 Benign prostatic hyperplasia with lower urinary tract symp Active Diagnosis [facility] Diagnosis: ICD-10-CM R33.9 Retention of urine, unspecified Active [facility] Diagnosis: ICD-10-CM R52 Pain, unspecified Active [facility] Diagnosis: ICD-10-CM M25.512 Pain in left shoulder Active Diagnosis [facility] Diagnosis: ICD-10-CM K08.51 Open hinduism margins of tooth Active [facility] Diagnosis: ICD-10-CM M13.0 Polyarthritis, unspecified Active Diagnosis [facility] Diagnosis: ICD-10-CM Z13.84 Encounter for screening for dental disorders Active [facility] Diagnosis: ICD-10-CM S46.099A Inj musc/tend the rotator cuff of unsp shoulder, init Active Diagnosis [facility] Diagnosis: ICD-10-CM W10.8XXD Fall (on) (from) other stairs and steps, subs encntr Active Diagnosis [facility] Diagnosis: ICD-10-CM I47.10 Supraventricular tachycardia, unspecified Active Diagnosis [facility] Diagnosis: ICD-10-CM D23.9 Other benign neoplasm of skin, unspecified Active Diagnosis [facility] Medications Combined list of outpatient medications from [...] A DAY FOR PAIN ORAL ACTIVE 03/25/2025 [id number] STEVE SERRANO 2023 [address] [place] [facility] ACETAMINOPH EN 500MG TAB TAKE TWO TABLETS BY MOUTH EVERY 8 HOURS NEEDED FOR PAIN DO NOT EXCEED A MAX OF 4000-MG OF ACETAMIN OPHEN PER DAY FROM ALL SOURCES* ORAL DISCONT INUED BY PROVIDE R 12/05/2023 [id number] RAGHU CHEN 2023 21 [facility] ALBUTEROL 90MCG/ACTUA T (CFC-F) INHL,ORAL,8 .5GM DOSE COUNTER INHALE 2 PUFFS BY INHALATI ON EVERY 4 HOURS NEEDED FOR SHORTNES S OF BREATH FOR UP TO 10 DAY RESPIR ATORY (INHAL ATION) DISCONT INUED BY PROVIDE R 12/05/2023 [id number] 4 RAGHU CHEN 2023 1 [facility] ASPIRIN 81MG TAB,EC TAKE ONE TABLET BY MOUTH EVERY DAY ORAL ACTIVE 11/05/2024 [id number] 5 RAGHU CHEN 2023 120 [facility] ASPIRIN 81MG TAB,EC TAKE ONE TABLET BY MOUTH EVERY DAY ORAL DISCONT INUED BY PROVIDE R 10/31/2023 [id number] BALDEV HANDLEY 2022 120 [facility] ASPIRIN 81MG TAB,EC TAKE ONE TABLET BY MOUTH EVERY DAY ORAL ACTIVE Alicja HARLEY 2017 [facility] CELECOXIB 100MG CAP TAKE ONE CAPSULE BY MOUTH TWICE A DAY FOR PAIN ORAL DISCONT INUED BY PROVIDE R 12/05/2023 [id number] 4 RAGHU CHEN 2023 28 [facility] CHOLECALCIF JEN TAB TAKE BY MOUTH EVERY DAY ORAL ACTIVE Alicja HARLEY UDY 2017 [facility] DICLOFENAC NA 1% GEL,TOP APPLY 4 GRAMS TOPICALL Y FOUR TIMES A DAY NEEDED TO AFFECTED AREA FOR PAIN TOPICA L ACTIVE 03/25/2025 [id number] 4 STEVE SERRANO 2023 100 [place] [facility] DOXAZOSIN MESYLATE 8MG TAB TAKE ONE TABLET BY MOUTH EVERY DAY FOR URINATIO N ORAL 06/25/2024 [id number] ELISE PARKERBALDEV Blanc CHRIS 2023 90 [place] [facility] FAMOTIDINE 20MG TAB TAKE ONE TABLET BY MOUTH EVERY DAY FOR HEARTBUR N TO DECREASE STOMACH ACID. *NOTE CHANGE TO ONCE A DAY* ORAL SUSPEND ED 08/28/2025 [id number] 5 STEVE SERRANO 2024 90 [facility] [facility] FAMOTIDINE 20MG TAB TAKE ONE TABLET BY MOUTH EVERY DAY FOR HEARTBUR N TO DECREASE STOMACH ACID. *NOTE CHANGE TO ONCE A DAY* ORAL DISCONT INUED 10/07/2024 [id number] 5 ELISE LILABALDEV Blanc CHRIS 2023 90 [place] [facility] FAMOTIDINE 20MG TAB TAKE ONE TABLET BY MOUTH EVERY DAY FOR HEARTBUR N TO DECREASE STOMACH ACID. *NOTE CHANGE TO ONCE A DAY* ORAL DISCONT INUED 10/31/2023 [id number] 4 OLIVARES LILABALDEV Blanc CHRIS 2022 90 [place] [facility] FINASTERIDE 5MG TAB TAKE ONE TABLET BY MOUTH EVERY DAY FOR PROSTATE ORAL ACTIVE 09/07/2024 [id number] 5 STEVE SERRANO 2024 90 [place] [facility] FLUOXETINE HCL 20MG CAP TAKE FOUR CAPSULES BY MOUTH EVERY DAY ORAL ACTIVE 08/29/2025 [id number] 5 TERRIE MONCADA 2024 360 [place] [facility] FLUOXETINE HCL 20MG CAP TAKE FOUR CAPSULES BY MOUTH EVERY DAY ORAL DISCONT INUED 08/14/2024 [id number] 5 TERRIE MONCADA 2023 360 [facility] KETOCONAZOL E 2% CREAM,TOP APPLY THIN LAYER TOPICALL Y TWICE A DAY FOR RASH TOPICA L ACTIVE 07/03/2025 [id number] ANALISA TOY Edward M 2024 60 [facility] LIDOCAINE 4% CREAM,TOP APPLY SMALL AMOUNT TOPICALL Y THREE TIMES A DAY NEEDED FOR PAIN TOPICA L DISCONT INUED BY RAQUEL R 12/05/2023 [id number] RAGHU CHEN 2023 30 [facility] MELATONIN 3MG CAP/TAB TAKE 2 TABLETS BY MOUTH AT BEDTIME NEEDED FOR SLEEP ORAL ACTIVE 08/29/2025 [id number] 5 TERRIE MONCADA 2024 180 [facility] MELATONIN 3MG CAP/TAB TAKE 2 TABLETS BY MOUTH AT BEDTIME NEEDED FOR SLEEP ORAL DISCONT INUED 08/14/2024 [id number] TERRIE MONCADA 2023 180 [facility] MELATONIN 3MG CAP/TAB TAKE 2 TABLETS BY MOUTH AT BEDTIME NEEDED FOR SLEEP ORAL DISCONT INUED (EDIT) 07/26/2024 [id number] 4 TERRIE MONCADA 2023 180 [facility] NALOXONE HCL 4MG/SPRAY SOLN,SPRAY, NASAL SPRAY 1 DOSE IN ONE NOSTRIL ONCE FOR UNRESPON SIVENESS THEN CALL 911 NASAL 04/11/2024 [id number] 4 TERRIE MONCADA 2023 2 [facility] QUETIAPINE FUMARATE 200MG TAB TAKE ONE TABLET BY MOUTH AT BEDTIME FOR ANXIETY *NOTE CHANGE IN TABLET STRENGTH * ORAL DISCONT INUED (EDIT) 05/23/2025 [id number] 5 TERRIE MONCADA 2024 60 [facility] QUETIAPINE FUMARATE 300MG TAB TAKE ONE TABLET BY MOUTH AT BEDTIME FOR ANXIETY ORAL DISCONT INUED (EDIT) 08/14/2024 [id number] 4 TERRIE MONCADA 2023 90 [facility] QUETIAPINE FUMARATE 300MG TAB TAKE ONE TABLET BY MOUTH AT BEDTIME ORAL DISCONT INUED (EDIT) 10/25/2023 [id number] 4 MARTINE SHAY 2022 90 [facility] QUETIAPINE FUMARATE 50MG TAB TAKE FIVE TABLETS BY MOUTH AT BEDTIME FOR ANXIETY ORAL DISCONT INUED (EDIT) 04/10/2025 [id number] 4 TERRIE MONCADA 2023 450 [facility] SIMVASTATIN 40MG TAB TAKE ONE TABLET BY MOUTH AT BEDTIME FOR CHOLESTE ROL ORAL ACTIVE 02/04/2025 [id number] 5 STEVE SERRANO 2024 90 [facility] SIMVASTATIN 40MG TAB TAKE ONE TABLET BY MOUTH AT BEDTIME FOR CHOLESTE ROL ORAL DISCONT INUED 01/28/2025 [id number] 4 RADHA MALLORY 2023 90 [facility] SIMVASTATIN 40MG TAB TAKE ONE TABLET BY MOUTH AT BEDTIME FOR CHOLESTE ROL ORAL DISCONT INUED BY PROVIDE R 01/08/2024 [id number] 4 BALDEV HANDLEY 2022 90 [facility] SODIUM FLUORIDE 1.1% TOOTHPASTE BRUSH TEETH WITH A SMALL AMOUNT MOUTH EVERY MORNING AND AT BEDTIME TO PREVENT DENTAL CAVITIES ORAL ACTIVE 11/14/2024 [id number] RORY KYLE II 2023 100 [facility] Allergies, Adverse Reactions, Alerts Combined list of allergies from Department of Defense and Veterans Affairs facilities. It does not include entries that were removed or entered in error. Substance Category Reaction Severity Reaction type Status Date Reported Comments Source AMOXICILLIN Propensity to adverse reactions to drug (finding) SWELLING (NON-SPECIF IC) active 6 [facility] AMOXICILLIN Propensity to adverse reactions to drug (finding) active 8 [facility] CECLOR Propensity to adverse reactions to drug (finding) Eruption active 6 [facility] CECLOR Propensity to adverse reactions to drug (finding) active 8 [facility] NAPROXEN Propensity to adverse reactions to drug (finding) active 8 [facility] NAPROXEN Propensity to adverse reactions to drug (finding) Dizziness, Disorientat ed active 2 [facility] RAMELTEON Propensity to adverse reactions to drug (finding) Feeling agitated, Dizziness active 8 [facility] RAMELTEON Propensity to adverse reactions to drug (finding) Dizziness, Disorientat ed active 2 [facility] Immunizations Combined list of available immunizations from the Department of Defense and Veterans Affairs facilities. Immunization Series Date Given Administered By Site Reaction Lot Number CVX Code Drug Chip Bin Conveyor Tender Status Comments Source TDAP 2023 115 complet ed HISTORICA L INFORMATI ON - FROM OTHER [facility], [facility] INFLUENZA, INJECTABLE, QUADRIVALENT, PRESERVATIVE FREE 2019 150 complet ed [facility] ZOSTER RECOMBINANT 2 2019 187 complet ed [facility] INFLUENZA, SEASONAL, INJECTABLE, PRESERVATIVE FREE 2018 140 complet ed [facility] ZOSTER RECOMBINANT 1 2018 187 complet ed [facility] TDAP 2018 115 complet ed HISTORICA L INFORMATI ON - FROM OTHER [facility], [facility] PNEUMOCOCCAL CONJUGATE PCV 13 2017 133 complet ed [facility] INFLUENZA, INJECTABLE, QUADRIVALENT, PRESERVATIVE FREE 2016 150 complet ed HISTORICA L INFORMATI ON - FROM OTHER [facility], [facility] INFLUENZA, HIGH DOSE SEASONAL 2016 135 complet ed HISTORICA L INFORMATI ON - FROM OTHER REGISTRY, [facility] INFLUENZA, HIGH DOSE SEASONAL 2015 135 complet ed HISTORICA L INFORMATI ON - FROM OTHER REGISTRY, [facility] INFLUENZA, HIGH DOSE SEASONAL 2015 135 complet ed [facility] PNEUMOCOCCAL CONJUGATE PCV 13 2015 133 complet ed [facility] [id number] exp 09/05 [facility] INFLUENZA, HIGH DOSE SEASONAL 2014 135 complet ed HISTORICA L INFORMATI ON - FROM OTHER [facility], [facility] INFLUENZA, SEASONAL, INJECTABLE 2014 141 complet ed [facility] PNEUMOCOCCAL POLYSACCHARID E PPV23 2014 33 complet ed [employer],K01 [id number] R16 [facility] INFLUENZA, SEASONAL, INJECTABLE 2013 141 complet ed [facility] INFLUENZA, INJECTABLE, QUADRIVALENT, PRESERVATIVE FREE 2013 150 complet ed HISTORICA L INFORMATI ON - FROM OTHER REGISTRY, [facility] TDAP 2013 115 complet ed [employer],N3B E2, [facility] ZOSTER LIVE 2013 121 complet ed [employer],J01 3135,17JA N2015 [facility] INFLUENZA, SEASONAL, INJECTABLE 2012 141 complet ed HISTORICA L INFORMATI ON - FROM OTHER REGISTRY, [facility] INFLUENZA, UNSPECIFIED FORMULATION 2012 88 complet ed [facility] INFLUENZA, SEASONAL, INJECTABLE 2011 141 complet ed HISTORICA L INFORMATI ON - FROM OTHER REGISTRY, [facility] TDAP 2011 115 complet ed HISTORICA L INFORMATI ON - FROM OTHER REGISTRY, [facility] INFLUENZA, SEASONAL, INJECTABLE, PRESERVATIVE FREE 2010 140 complet ed HISTORICA L INFORMATI ON - FROM OTHER REGISTRY, [facility] TDAP 2010 115 complet ed HISTORICA L INFORMATI ON - FROM OTHER REGISTRY, [facility] INFLUENZA, SEASONAL, INJECTABLE 2009 141 complet ed HISTORICA L INFORMATI ON - FROM OTHER REGISTRY, [facility] INFLUENZA, UNSPECIFIED FORMULATION 2009 88 complet ed private [facility] ZOSTER LIVE 2009 121 complet ed HISTORICA L INFORMATI ON - FROM OTHER REGISTRY, [facility] INFLUENZA, UNSPECIFIED FORMULATION 2008 88 complet ed [facility] NOVEL INFLUENZA-H1N 1-09, ALL FORMULATIONS 2008 128 complet ed private [facility] PNEUMOCOCCAL, UNSPECIFIED FORMULATION 2008 109 complet ed [facility] INFLUENZA, SEASONAL, INJECTABLE, PRESERVATIVE FREE 2007 140 complet ed HISTORICA L INFORMATI ON - FROM OTHER REGISTRY, [facility] TD(ADULT) UNSPECIFIED FORMULATION 2006 139 complet ed [facility] Results Combined list of recent chemistry, hematology and other laboratory results from Department of Defense and Veterans Affairs, ranging from 15 months to all on record, depending upon the facility. Order Name Results Value Reference Range Date Interpretation Specimen Comments Source URINALYS IS COLOR OF URINE YELLOW 06/09 Specimen Type: URINE No comment entered. Ordering Provider: Guanaco SERRANO Report Released Date/Time: Jun 09, 2024 08:45 AM Reporting Lab: [facility] [address] Performing Lab: [facility] [address] [facility] URINALYS IS SPECIFIC GRAVITY OF URINE 1.031 1.003 - 1.035 06/09 Specimen Type: URINE No comment entered. Ordering Provider: Guanaco SERRANO Report Released Date/Time: Jun 09, 2024 08:45 AM Reporting Lab: [facility] [phone] Performing Lab: [facility] [address] [facility] URINALYS IS BILIRUBIN. TOTAL [PRESENCE] IN URINE BY TEST STRIP NEGATIVE 06/09 Specimen Type: URINE No comment entered. Ordering Provider: Guanaco SERRANO Report Released Date/Time: Jun 09, 2024 08:45 AM Reporting Lab: [facility] [address] Performing Lab: [facility] [address] [facility] URINALYS IS KETONES [MASS/VOLU ME] IN URINE BY TEST STRIP NEGATIVE 06/09 Specimen Type: URINE No comment entered. Ordering Provider: Guanaco SERRANO Report Released Date/Time: Jun 09, 2024 08:45 AM Reporting Lab: [facility] [address] Performing Lab: [facility] [address] [facility] URINALYS IS GLUCOSE [MASS/VOLU ME] IN URINE BY TEST STRIP NEGATIVE mg/dL <30 - 30 06/09 Specimen Type: URINE No comment entered. Ordering Provider: Guanaco SERRANO Report Released Date/Time: Jun 09, 2024 08:45 AM Reporting Lab: [facility] [address] Performing Lab: [facility] [address] [place] [facility] URINALYS IS PROTEIN [MASS/VOLU ME] IN URINE BY TEST STRIP 30 mg/dL <20 - 20 06/09 Specimen Type: URINE No comment entered. Ordering Provider: Guanaco SERRANO Report Released Date/Time: Jun 09, 2024 08:45 AM Reporting Lab: [facility] [address] Performing Lab: [facility] [address] [place] [facility] URINALYS IS PH OF URINE BY TEST STRIP 5.5 5.0 - 8.0 06/09 Specimen Type: URINE No comment entered. Ordering Provider: Guanaco SERRANO Report Released Date/Time: Jun 09, 2024 08:45 AM Reporting Lab: [facility] [address] Performing Lab: [facility] [address] [place] [facility] URINALYS IS LEUKOCYTES [#/AREA] IN URINE SEDIMENT BY MICROSCOPY HIGH POWER FIELD 3 /[HPF] 0 - 7 06/09 Specimen Type: URINE No comment entered. Ordering Provider: Guanaco SERRANO Report Released Date/Time: Jun 09, 2024 08:45 AM Reporting Lab: [facility] [address] Performing Lab: [facility] [address] [place] [facility] URINALYS IS BACTERIA [PRESENCE] IN URINE SEDIMENT BY LIGHT MICROSCOPY NONE SEEN 06/09 Specimen Type: URINE No comment entered. Ordering Provider: Guanaco SERRANO Report Released Date/Time: Jun 09, 2024 08:45 AM Reporting Lab: [facility] [phone] Performing Lab: [facility] [address] [place] [facility] URINALYS IS CALCIUM OXALATE CRYSTALS [PRESENCE] IN URINE SEDIMENT BY LIGHT MICROSCOPY MODERATE 06/09 Specimen Type: URINE No comment entered. Ordering Provider: Guanaco SERRANO Report Released Date/Time: Jun 09, 2024 08:45 AM Reporting Lab: [facility] [address] Performing Lab: [facility] [address] [place] [facility] URINALYS IS ERYTHROCYT ES [#/AREA] IN URINE SEDIMENT BY MICROSCOPY HIGH POWER FIELD 1 /[HPF] 0 - 3 06/09 Specimen Type: URINE No comment entered. Ordering Provider: Guanaco SERRANO Report Released Date/Time: Jun 09, 2024 08:45 AM Reporting Lab: [facility] [address] Performing Lab: [facility] [phone] [place] [facility] URINALYS IS APPEARANCE OF URINE CLEAR 06/09 Specimen Type: URINE No comment entered. Ordering Provider: Guanaco SERRANO Report Released Date/Time: Jun 09, 2024 08:45 AM Reporting Lab: [facility] [address] Performing Lab: [facility] [address] [place] [facility] URINALYS IS EPITHELIAL CELLS.SQUA MOUS [#/AREA] IN URINE SEDIMENT BY MICROSCOPY HIGH POWER FIELD 1 /[HPF] 06/09 Specimen Type: URINE No comment entered. Ordering Provider: Guanaco SERRANO Report Released Date/Time: Jun 09, 2024 08:45 AM Reporting Lab: [facility] [address] Performing Lab: [facility] [address] [place] [facility] URINALYS IS HEMOGLOBIN [PRESENCE] IN URINE BY TEST STRIP TRACE 06/09 Specimen Type: URINE No comment entered. Ordering Provider: Guanaco SERRANO Report Released Date/Time: Jun 09, 2024 08:45 AM Reporting Lab: [facility] [address] Performing Lab: [facility] [address] [place] [facility] URINALYS IS NITRITE [PRESENCE] IN URINE BY TEST STRIP NEGATIVE 06/09 Specimen Type: URINE No comment entered. Ordering Provider: Guanaco SERRANO Report Released Date/Time: Jun 09, 2024 08:45 AM Reporting Lab: [facility] [address] Performing Lab: [facility] [address] [place] [facility] URINALYS IS LEUKOCYTE ESTERASE [PRESENCE] IN URINE BY TEST STRIP 75 06/09 Specimen Type: URINE No comment entered. Ordering Provider: Guanaco SERRANO Report Released Date/Time: Jun 09, 2024 08:45 AM Reporting Lab: [facility] [address] Performing Lab: [facility] [address] [place] [facility] BASIC METABOLI C PANEL+MG CREATININE [MASS/VOLU ME] IN SERUM OR PLASMA 1.2 mg/dL 0.7 - 1.2 06/09 Specimen Type: PLASMA No comment entered. Ordering Provider: Guanaco SERRANO Report Released Date/Time: Jun 09, 2024 08:45 AM Reporting Lab: [facility] [address] Performing Lab: [facility] [address] [place] [facility] BASIC METABOLI C PANEL+MG UREA NITROGEN [MASS/VOLU ME] IN SERUM OR PLASMA 17 mg/dL 8 - 26 06/09 Specimen Type: PLASMA No comment entered. Ordering Provider: Guanaco SERRANO Report Released Date/Time: Jun 09, 2024 08:45 AM Reporting Lab: [facility] [address] Performing Lab: [facility] [address] [place] [facility] BASIC METABOLI C PANEL+MG GLUCOSE [MASS/VOLU ME] IN SERUM OR PLASMA 129 mg/dL 70 - 100 06/09 H Specimen Type: PLASMA No comment entered. Ordering Provider: Guanaco SERRANO Report Released Date/Time: Jun 09, 2024 08:45 AM Reporting Lab: [facility] [address] Performing Lab: [facility] [address] [place] [facility] BASIC METABOLI C PANEL+MG SODIUM [MOLES/VOL UME] IN SERUM OR PLASMA 143 mmol/L 136 - 145 06/09 Specimen Type: PLASMA No comment entered. Ordering Provider: Guanaco SERRANO Report Released Date/Time: Jun 09, 2024 08:45 AM Reporting Lab: [facility] [address] Performing Lab: [facility] [address] [place] [facility] BASIC METABOLI C PANEL+MG POTASSIUM [MOLES/VOL UME] IN SERUM OR PLASMA 3.7 mmol/L 3.5 - 5.1 06/09 Specimen Type: PLASMA No comment entered. Ordering Provider: Guanaco SERRANO Report Released Date/Time: Jun 09, 2024 08:45 AM Reporting Lab: [facility] [address] Performing Lab: [facility] [address] [place] [facility] BASIC METABOLI C PANEL+MG CHLORIDE [MOLES/VOL UME] IN SERUM OR PLASMA 110 mmol/L 98 - 107 06/09 H Specimen Type: PLASMA No comment entered. Ordering Provider: Guanaco SERRANO Report Released Date/Time: Jun 09, 2024 08:45 AM Reporting Lab: [facility] [address] Performing Lab: [facility] [address] [place] [facility] BASIC METABOLI C PANEL+MG CARBON DIOXIDE, TOTAL [MOLES/VOL UME] IN SERUM OR PLASMA 24 mmol/L 22 - 29 06/09 Specimen Type: PLASMA No comment entered. Ordering Provider: Guanaco SERRANO Report Released Date/Time: Jun 09, 2024 08:45 AM Reporting Lab: [facility] [address] Performing Lab: [facility] [address] [place] [facility] BASIC METABOLI C PANEL+MG CALCIUM [MASS/VOLU ME] IN SERUM OR PLASMA 9.4 mg/dL 8.4 - 10.2 06/09 Specimen Type: PLASMA No comment entered. Ordering Provider: Guanaco SERRANO Report Released Date/Time: Jun 09, 2024 08:45 AM Reporting [facility] [facility] [address] Performing Lab: [facility] [address] [place] [facility] BASIC METABOLI C PANEL+MG MAGNESIUM [MASS/VOLU ME] IN SERUM OR PLASMA 2.1 mg/dL 1.6 - 2.6 06/09 Specimen Type: PLASMA No comment entered. Ordering Provider: Guanaco SERRANO Report Released Date/Time: Jun 09, 2024 08:45 AM Reporting Lab: [facility] [address] Performing Lab: [facility] [address] [place] [facility] BASIC METABOLI C PANEL+MG ANION GAP IN SERUM OR PLASMA 9 mmol/L 5 - 15 06/09 Specimen Type: PLASMA No comment entered. Ordering Provider: Guanaco SERRANO Report Released Date/Time: Jun 09, 2024 08:45 AM Reporting Lab: [facility] [address] Performing Lab: [facility] [address] [place] [facility] BASIC METABOLI C PANEL+MG GLOMERULAR FILTRATION RATE/1.73 SQ M.PREDICTE D [VOLUME RATE/AREA] IN SERUM, PLASMA OR BLOOD BY CREATININE -BASED FORMULA (CKD-EPI 2020) 63 60 06/09 Specimen Type: PLASMA No comment entered. Ordering Provider: Guanaco SERRANO Report Released Date/Time: Jun 09, 2024 08:45 AM Reporting Lab: [facility] [address] Performing Lab: [facility] [address] [place] [facility] HEMOGLOB IN A1C HEMOGLOBIN A1C/HEMOGL OBIN.TOTAL IN BLOOD 5.3 4.0 - 6.0 03/12 [...] 2024 04:32 PM Reporting Lab: [facility] [address] Performing Lab: [facility] [address] [place] [facility] MAGNESIU M MAGNESIUM [MASS/VOLU ME] IN SERUM OR PLASMA 2.1 mg/dL 1.6 - 2.6 11/04 Specimen Type: PLASMA No comment entered. Ordering Provider: ANYA HANDLEY Report Released Date/Time: Oct 30, 2022 11:17 AM Reporting Lab: [facility] [address] Performing Lab: [facility] [address] [place] [facility] BASIC METABOLI C PANEL+MG CREATININE [MASS/VOLU ME] IN SERUM OR PLASMA 1.1 mg/dL 0.7 - 1.2 11/04 Specimen Type: PLASMA No comment entered. Ordering Provider: ANYA HANDLEY Report Released Date/Time: Oct 30, 2022 11:17 AM Reporting Lab: [facility] [address] Performing Lab: [facility] [address] [place] [facility] BASIC METABOLI C PANEL+MG UREA NITROGEN [MASS/VOLU ME] IN SERUM OR PLASMA 10 mg/dL 8 - 26 11/04 Specimen Type: PLASMA No comment entered. Ordering Provider: ANYA HANDLEY Report Released Date/Time: Oct 30, 2022 11:17 AM Reporting Lab: [facility] [address] Performing Lab: [facility] [address] [place] [facility] BASIC METABOLI C PANEL+MG GLUCOSE [MASS/VOLU ME] IN SERUM OR PLASMA 100 mg/dL 70 - 100 11/04 Specimen Type: PLASMA No comment entered. Ordering Provider: ANYA HANDLEY Report Released Date/Time: Oct 30, 2022 11:17 AM Reporting Lab: [facility] [address] Performing Lab: [facility] [address] [place] [facility] BASIC METABOLI C PANEL+MG SODIUM [MOLES/VOL UME] IN SERUM OR PLASMA 143 mmol/L 136 - 145 11/04 Specimen Type: PLASMA No comment entered. Ordering Provider: ANYA HANDLEY Report Released Date/Time: Oct 30, 2022 11:17 AM Reporting Lab: [facility] [address] Performing Lab: [facility] [address] [place] [facility] BASIC METABOLI C PANEL+MG POTASSIUM [MOLES/VOL UME] IN SERUM OR PLASMA 3.6 mmol/L 3.5 - 5.1 11/04 Specimen Type: PLASMA No comment entered. Ordering Provider: ANYA HANDLEY Report Released Date/Time: Oct 30, 2022 11:17 AM Reporting Lab: [facility] [address] Performing Lab: [facility] [address] [place] [facility] BASIC METABOLI C PANEL+MG CHLORIDE [MOLES/VOL UME] IN SERUM OR PLASMA 110 mmol/L 98 - 107 11/04 H Specimen Type: PLASMA No comment entered. Ordering Provider: ANYA HANDLEY Report Released Date/Time: Oct 30, 2022 11:17 AM Reporting Lab: [facility] [address] Performing Lab: [facility] [address] [place] [facility] BASIC METABOLI C PANEL+MG CARBON DIOXIDE, TOTAL [MOLES/VOL UME] IN SERUM OR PLASMA 22 mmol/L 22 - 29 11/04 Specimen Type: PLASMA No comment entered. Ordering Provider: ANYA HANDLEY Report Released Date/Time: Oct 30, 2022 11:17 AM Reporting Lab: [facility] [address] Performing Lab: [facility] [address] [place] [facility] BASIC METABOLI C PANEL+MG CALCIUM [MASS/VOLU ME] IN SERUM OR PLASMA 9.5 mg/dL 8.4 - 10.2 11/04 Specimen Type: PLASMA No comment entered. Ordering Provider: ANYA HANDLEY Report Released Date/Time: Oct 30, 2022 11:17 AM Reporting Lab: [facility] [address] Performing Lab: [facility] [address] [place] [facility] BASIC METABOLI C PANEL+MG MAGNESIUM [MASS/VOLU ME] IN SERUM OR PLASMA 2.1 mg/dL 1.6 - 2.6 11/04 Specimen Type: PLASMA No comment entered. Ordering Provider: ANYA HANDLEY Report Released Date/Time: Oct 30, 2022 11:17 AM Reporting Lab: [facility] [address] Performing Lab: [facility] [address] [place] [facility] BASIC METABOLI C PANEL+MG ANION GAP IN SERUM OR PLASMA 11 mmol/L 5 - 15 11/04 Specimen Type: PLASMA No comment entered. Ordering Provider: ANYA HANDLEY Report Released Date/Time: Oct 30, 2022 11:17 AM Reporting Lab: [facility] [address] Performing Lab: [facility] [address] [place] [facility] BASIC METABOLI C PANEL+MG GLOMERULAR FILTRATION RATE/1.73 SQ M.PREDICTE D [VOLUME RATE/AREA] IN SERUM, PLASMA OR BLOOD BY CREATININE -BASED FORMULA (CKD-EPI 2020) 70 60 11/04 Specimen Type: PLASMA No comment entered. Ordering Provider: ANYA HANDLEY Report Released Date/Time: Oct 30, 2022 11:17 AM Reporting Lab: [facility] [address] Performing Lab: [facility] [address] [place] [facility] CBC LEUKOCYTES [#/VOLUME] IN BLOOD BY AUTOMATED COUNT 7.64 10*3/uL 4.0 - 11.0 11/04 Specimen Type: BLOOD No comment entered. Ordering Provider: ANYA HANDLEY Report Released Date/Time: Oct 30, 2022 11:17 AM Reporting Lab: [facility] [address] Performing Lab: [facility] [address] [place] [facility] CBC ERYTHROCYT ES [#/VOLUME] IN BLOOD BY AUTOMATED COUNT 4.62 10*6/uL 4.6 - 6.2 11/04 Specimen Type: BLOOD No comment entered. Ordering Provider: ANYA HANDLEY Report Released Date/Time: Oct 30, 2022 11:17 AM Reporting Lab: [facility] [address] Performing Lab: [facility] [address] [place] [facility] CBC HEMOGLOBIN [MASS/VOLU ME] IN BLOOD 15.3 g/dL 13.5 - 17.9 11/04 Specimen Type: BLOOD No comment entered. Ordering Provider: ANYA HANDLEY Report Released Date/Time: Oct 30, 2022 11:17 AM Reporting Lab: [facility] [address] Performing Lab: [facility] [address] [place] [facility] CBC HEMATOCRIT [VOLUME FRACTION] OF BLOOD BY AUTOMATED COUNT 43.1 41 - 54 11/04 Specimen Type: BLOOD No comment entered. Ordering Provider: ANYA HANDLEY Report Released Date/Time: Oct 30, 2022 11:17 AM Reporting Lab: [facility] [address] Performing Lab: [facility] [address] [place] [facility] CBC MCV [ENTITIC VOLUME] BY AUTOMATED COUNT 93.3 fL 80 - 100 11/04 Specimen Type: BLOOD No comment entered. Ordering Provider: ANYA HANDLEY Report Released Date/Time: Oct 30, 2022 11:17 AM Reporting Lab: [facility] [address] Performing Lab: [facility] [address] [place] [facility] CBC MCH [ENTITIC MASS] BY AUTOMATED COUNT 33.1 pg 27 - 33 11/04 H Specimen Type: BLOOD No comment entered. Ordering Provider: ANYA HANDLEY Report Released Date/Time: Oct 30, 2022 11:17 AM Reporting Lab: [facility] [address] Performing Lab: [facility] [address] [place] [facility] CBC MCHC [MASS/VOLU ME] BY AUTOMATED COUNT 35.5 g/dL 32.0 - 37.5 11/04 Specimen Type: BLOOD No comment entered. Ordering Provider: ANYA HANDLEY Report Released Date/Time: Oct 30, 2022 11:17 AM Reporting Lab: [facility] [address] Performing Lab: [facility] [address] [place] [facility] CBC PLATELETS [#/VOLUME] IN BLOOD BY AUTOMATED COUNT 193 10*3/uL 150 - 400 11/04 Specimen Type: BLOOD No comment entered. Ordering Provider: ANYA HANDLEY Report Released Date/Time: Oct 30, 2022 11:17 AM Reporting Lab: [facility] [address] Performing Lab: [facility] [address] [place] [facility] CBC PLATELET MEAN VOLUME [ENTITIC VOLUME] IN BLOOD BY AUTOMATED COUNT 9.1 fL 7.4 - 10.4 11/04 Specimen Type: BLOOD No comment entered. Ordering Provider: ANYA HANDLEY Report Released Date/Time: Oct 30, 2022 11:17 AM Reporting Lab: [facility] [address] Performing Lab: [facility] [address] [place] [facility] CBC ERYTHROCYT E DISTRIBUTI ON WIDTH [RATIO] BY AUTOMATED COUNT 13.2 11.5 - 14.5 11/04 Specimen Type: BLOOD No comment entered. Ordering Provider: ANYA HANDLEY Report Released Date/Time: Oct 30, 2022 11:17 AM Reporting Lab: [facility] [address] Performing Lab: [facility] [address] [place] [facility] LIPID PANEL,NO N-FASTIN G CHOLESTERO L [MASS/VOLU ME] IN SERUM OR PLASMA 133 mg/dL <199 - 199 11/04 Specimen Type: PLASMA No comment entered. Ordering Provider: ANYA HANDLEY Report Released Date/Time: Oct 30, 2022 11:17 AM Reporting Lab: [facility] [address] Performing Lab: [facility] [address] [place] [facility] LIPID PANEL,NO N-FASTIN G CHOLESTERO L IN HDL [MASS/VOLU ME] IN SERUM OR PLASMA 35 mg/dL 40 11/04 L Specimen Type: PLASMA No comment entered. Ordering Provider: ANYA HANDLEY Report Released Date/Time: Oct 30, 2022 11:17 AM Reporting Lab: [facility] [address] Performing Lab: [facility] [address] [place] [facility] LIPID PANEL,NO N-FASTIN G CHOLESTERO L IN LDL [MASS/VOLU ME] IN SERUM OR PLASMA BY CALCULATIO N 60 mg/dL <99 - 99 11/04 Specimen Type: PLASMA No comment entered. Ordering Provider: ANYA HANDLEY Report Released Date/Time: Oct 30, 2022 11:17 AM Reporting Lab: [facility] [address] Performing Lab: [facility] [address] [place] [facility] LIPID PANEL,NO N-FASTIN G CHOLESTERO L IN VLDL [MASS/VOLU ME] IN SERUM OR PLASMA BY CALCULATIO N 38 mg/dL <29 - 29 11/04 H Specimen Type: PLASMA No comment entered. Ordering Provider: ANYA HANDLEY Report Released Date/Time: Oct 30, 2022 11:17 AM Reporting Lab: [facility] [address] Performing Lab: [facility] [address] [place] [facility] LIPID PANEL,NO N-FASTIN G CHOLESTERO L NON HDL [MASS/VOLU ME] IN SERUM OR PLASMA 98 mg/dL <129 - 129 11/04 Specimen Type: PLASMA No comment entered. Ordering Provider: ANYA HANDLEY Report Released Date/Time: Oct 30, 2022 11:17 AM Reporting Lab: [facility] [address] Performing Lab: [facility] [address] [facility] LIPID PANEL,NO N-FASTIN G TRIGLYCERI DE [MASS/VOLU ME] IN SERUM OR PLASMA 188 mg/dL <149 - 149 11/04 H Specimen Type: PLASMA No comment entered. Ordering Provider: ANYA HANDLEY Report Released Date/Time: Oct 30, 2022 11:17 AM Reporting Lab: [facility] [address] Performing Lab: [facility] [address] [facility] CK,TOTAL CREATINE KINASE [ENZYMATIC ACTIVITY/V OLUME] IN SERUM OR PLASMA 68 U/L 39 - 208 11/04 Specimen Type: PLASMA No comment entered. Ordering Provider: HEENA CHEN IN L Report Released Date/Time: Nov 05, 2023 02:44 PM Reporting Lab: [facility] [address] Performing Lab: [facility] [address] [facility] C-REACTI VE PROTEIN C REACTIVE PROTEIN [MASS/VOLU ME] IN SERUM OR PLASMA BY HIGH SENSITIVIT Y METHOD 2.68 mg/L <5.00 - 5.00 11/04 Specimen Type: PLASMA No comment entered. Ordering Provider: HEENA CHEN IN L Report Released Date/Time: Nov 05, 2023 02:44 PM Reporting Lab: [facility] [address] Performing Lab: [facility] [address] [facility] ANTI-CCP CYCLIC [place] CURRY PEPTIDE IGG AB [UNITS/VOL UME] IN SERUM OR PLASMA <0.5 <4.9 - 4.9 11/04 Specimen Type: PLASMA No comment entered. Ordering Provider: HEENA CHEN IN L Report Released Date/Time: Nov 05, 2023 02:44 PM Reporting Lab: [facility] [address] Performing Lab: [facility] [address] [facility] Vital Signs Combined list of inpatient and outpatient Vital Signs from Department of Defense and Veterans Affairs, ranging from 12 months to all on record, depending upon the facility. Vital Sign Value Date Comments Source SYSTOLIC BLOOD PRESSURE 134 03/24/2024 10:13:02 [facility] DIASTOLIC BLOOD PRESSURE 74 03/24/2024 10:13:02 [facility] PULSE OXIMETRY 96 03/24/2024 10:13:02 [facility] WEIGHT 169 03/24/2024 10:13:02 [facility] BMI 27 kg/m2 03/24/2024 10:13:02 [facility] PAIN 6 03/24/2024 10:13:02 [facility] TEMPERATURE 97.5 03/24/2024 10:13:02 [facility] PULSE 83 03/24/2024 10:13:02 [facility] RESPIRATION 18 03/24/2024 10:13:02 [facility] SYSTOLIC BLOOD PRESSURE 130 12/18/2023 09:13:46 [facility] DIASTOLIC BLOOD PRESSURE 74 12/18/2023 09:13:46 [facility] TEMPERATURE 98.8 12/18/2023 09:13:46 [facility] PULSE 78 12/18/2023 09:13:46 [facility] SYSTOLIC BLOOD PRESSURE 125 12/03/2023 14:27:05 [facility] DIASTOLIC BLOOD PRESSURE 74 12/03/2023 14:27:05 [facility] PULSE OXIMETRY 93 12/03/2023 14:27:05 [facility] WEIGHT 170 12/03/2023 14:27:05 [facility] BMI 27 kg/m2 12/03/2023 14:27:05 [facility] PAIN 5 12/03/2023 14:27:05 [facility] HEIGHT 67 12/03/2023 14:27:05 [facility] TEMPERATURE 97.3 12/03/2023 14:27:05 [facility] PULSE 70 12/03/2023 14:27:05 [facility] RESPIRATION 16 12/03/2023 14:27:05 [facility] SYSTOLIC BLOOD PRESSURE 131 11/14/2023 13:38:01 [facility] DIASTOLIC BLOOD PRESSURE 72 11/14/2023 13:38:01 [facility] TEMPERATURE 98.6 11/14/2023 13:38:01 [facility] PULSE 66 11/14/2023 13:38:01 [facility] SYSTOLIC BLOOD PRESSURE 116 11/05/2023 13:49:56 [facility] DIASTOLIC BLOOD PRESSURE 71 11/05/2023 13:49:56 [facility] PULSE OXIMETRY 95 11/05/2023 13:49:56 [facility] WEIGHT 175 11/05/2023 13:49:56 [facility] BMI 27 kg/m2 11/05/2023 13:49:56 [facility] PAIN 5 11/05/2023 13:49:56 [facility] HEIGHT 67 11/05/2023 13:49:56 [facility] PULSE 79 11/05/2023 13:49:56 [facility] RESPIRATION 16 11/05/2023 13:49:56 [facility] Encounters Combined list of: 1) Encounters from Department of [facility] Affairs facilities going backup to the last 18 months, not all [place] inpatient encounters are included; 2) Encounters from the Department of [facility] facilities going backup to 280 months. Location Location Details Encounter Type Encounter Number Reason For Visit Attending Provider ADM Date DC Date Status Disposition Source [facility] PSYTX W PT 45 MINUTES [id number] Diagnos is: ICD-10- CM F43.12 Post-tr aumatic stress disorde r, chronic MCFAWN,RORY A L 03/05 [facility] [place] [facility] Outpatient Encounter [id number] 03/13 [facility] [place] [facility] PSYTX W PT 45 MINUTES [id number] Diagnos is: ICD-10- CM F43.12 Post-tr aumatic stress disorde r, chronic MCFAWN,RORY A L 03/25 [facility] [place] [facility] Outpatient Encounter [id number] 03/25 [facility] [place] [facility] Outpatient Encounter [id number] 04/05 [facility] OFFICE O/P EST MOD 30-39 MIN [id number] Diagnos is: ICD-10- CM F43.12 Post-tr aumatic stress disorde r, chronic Yenifer MONCADA 04/18 [facility] Outpatient Encounter [id number] 05/30 [facility] OFFICE O/P EST LOW 20 MIN [id number] Diagnos is: ICD-10- CM L82.1 Other seborrh eic keratos is DANIELLE TRAORE 05/30 [facility] Outpatient Encounter [id number] ABEL QURESHI 06/04 [facility] Outpatient Encounter [id number] Diagnos is: ICD-10- CM D23.9 Other benign neoplas m of skin, unspeci fied ANTHONY,N OAH I 06/04 [facility] OFFICE O/P EST MOD 30 MIN [id number] Diagnos is: ICD-10- CM F43.12 Post-tr aumatic stress disorde r, Yenifer Rondon [facility] Outpatient Encounter [id number] 06/23 [facility] OFFICE O/P EST HI 40 MIN [id number] Diagnos is: ICD-10- CM M13.0 Polyart hritis, unspeci fied ERNST HANDLEY 06/24 [facility] Outpatient Encounter [id number] 06/30 [facility] Outpatient Encounter [id number] Diagnos is: ICD-10- CM F43.12 Post-tr aumatic stress disorde r, chronic Yenifer MONCADA E 07/04 [facility] Outpatient Encounter [id number] 07/18 [facility] EXT ECG>7D<15D REV&INTERP J [id number] Diagnos is: ICD-10- CM I47.10 Suprave ntricul ar tachyca rdia, unspeci fied RIDDHI JARAMILLO EY A 07/18 [facility] Outpatient Encounter [id number] SA YEN GARCÍA R 07/19 [facility] OFFICE O/P EST HI 40 MIN [id number] Diagnos is: ICD-10- CM W10.8XX D Fall (on) (from) other stairs and steps, subs encntr SILAS FELIZ 07/25 [facility] OFFICE O/P EST MOD 30 MIN [id number] Diagnos is: ICD-10- CM F43.12 Post-tr aumatic stress disorde r, chronic Yenifer MONCADA E 07/25 [facility] Outpatient Encounter [id number] 07/31 [facility] PSYTX W PT 45 MINUTES [id number] Diagnos is: ICD-10- CM F43.12 Post-tr aumatic stress disorde r, chronic BRADRORY A L 08/06 [facility] OFFICE O/P EST MOD 30 MIN [id number] Diagnos is: ICD-10- CM F43.12 Post-tr aumatic stress disorde r, chronic Yenifer MONCADA E 08/13 [facility] PSYTX W PT 30 MINUTES [id number] Diagnos is: ICD-10- CM F43.12 Post-tr aumatic stress disorde r, chronic MCFAWN,RORY A L 08/28 [facility] Outpatient Encounter [id number] 09/01 [facility] Outpatient Encounter [id number] Alicja KING R 09/02 [facility] Outpatient Encounter [id number] Yenifer BOO E 11/04 [facility] OFFICE O/P EST MOD 30 MIN [id number] Diagnos is: ICD-10- CM S46.099 A Inj musc/te nd the rotator cuff of unsp shoulde r, blayne APRILARABELLAKRYSTAL ATKINSON L 11/04 [facility] Outpatient Encounter [id number] 11/12 [facility] PSYTX W PT 45 MINUTES [id number] Diagnos is: ICD-10- CM F43.12 Post-tr aumatic stress disorde r, chronic MCFAWN,RORY A L 11/12 [facility] INTRAORAL FULL IMAGE SERIES [id number] Diagnos is: ICD-10- CM Z13.84 Encount er for screeni ng for dental disorde rs RORY WAHL II 11/13 [facility] IS [facility] OFFICE O/P EST MOD 30 MIN 23884-8.61 [id number] Diagnos is: ICD-10- CM M13.0 Polyart hritis, unspeci fiHAKAN Bonilla B 12/02 [facility] IS [facility] POST 1 [facility] RESINBASED CMPST 42048-7.61 [id number] Diagnos is: ICD-10- CM K08.51 Open restora tion margins of tooth RORY WAHL II 12/17 [facility] IS [facility] Outpatient Encounter [id number] [facility] OFF[facility] O/P EST MOD 30 MIN 60875-0.61 [id number] Diagnos is: ICD-10- CM F43.12 Post-tr aumatic stress disorde r, chronic Yenifer MONCADA 02/05 [facility] IS [facility] OFFICE O/P EST MOD 30 MIN 20386-5.61 [id number] Diagnos is: ICD-10- CM F43.12 Post-tr aumatic stress disorde r, chronic Yenifer MONCADA 03/12 [facility] IS [facility] Outpatient Encounter [id number] [phone] 03/24 [facility] IS [facility] OFFICE O/P EST MOD 30 MIN 37775-7.61 [id number] Diagnos is: ICD-10- CM M25.512 Pain in left shoulde r GREGG MADRID A 03/24 [facility] IS [facility] OFFICE O/P EST MOD 30 MIN 03279-8.61 [id number] Diagnos is: ICD-10- CM F43.12 Post-tr aumatic stress disorde r, chronic Yenifer MONCADA 04/09 [facility] IS [facility] Outpatient Encounter 31973-2.61 [id number] Khris MONCADA 04/13 [facility] IS [facility] PRO PHONE CALL 5-10 MIN 73595-7.61 [id number] Diagnos is: ICD-10- CM R52 Pain, unspeci fied CREW,DONITA M 04/20 [facility] IS [facility] OFFICE O/P EST HI 40 MIN 14601-1.61 [id number] Diagnos is: ICD-10- CM F43.12 Post-tr aumatic stress disorde r, chronic Yenifer MONCADA 05/22 [facility] IS [facility] BRIEF COMUNICAJ TECH-BSD SVC 48337-0.61 [id number] Diagnos is: ICD-10- CM R33.9 Retenti on of urine, unspeci fied VIVIANA SERRANO 06/09 [facility] IS [facility] SYNCH AUDIO-ONLY EST LOW 20 00489-7.61 [id number] Diagnos is: ICD-10- CM N40.1 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 LUIS ENRIQUE SHRESTHA 06/17 [facility] [facility] IS [facility] Outpatient Encounter [id number] 06/24 [facility] IS [facility] Outpatient Encounter [id number] 06/29 [facility] IS [facility] OFFICE O/P EST MOD 30 MIN [id number] Diagnos is: ICD-10- CM L82.1 Other seborrh eic keratos is Yenifer MCCORD 07/02 [facility] IS [facility] OFFICE O/P EST MOD 30 MIN [id number] Diagnos is: ICD-10- CM F43.12 Post-tr aumatic stress disorde r, chronic Yenifer MONCADA 07/03 [facility] IS [facility] Outpatient Encounter [id number] 08/27 [facility] IS [facility] OFFICE O/P EST MOD 30 MIN [id number] Diagnos is: ICD-10- CM F32.1 Major depress robert disorde r, single episode , moderat e Yenifer MONCADA 08/28 [facility] IS [facility] Outpatient Encounter [id number] 08/30 JUANCARLOS CORDON [facility] Social History Combined list of available smoking, tobacco, and other social history from Department of Defense and Veterans Affairs facilities. Social History Type Response Date Comment Sourc e Tobacco smoking status NHIS VA-TOBACCO SCREEN FOLLOW-UP 07/03/2024 [facility] History of tobacco use VA-TOBACCO NEVER USED OTHER TYPE 07/03/2024 [facility] History of tobacco use VA-TOBACCO USER E VERY DAY 06/25/2023 [facility] History of tobacco use VA-TOBACCO USER E VERY DAY 08/07/2022 [facility] History of tobacco use VA-TOBACCO FORMER USER 09/26/2021 [facility] History of tobacco use VA-TOBACCO USER E VERY DAY 12/20/2020 [facility] History of tobacco use VA-TOBACCO USE CO UNSEL NO 11/23/2019 [facility] History of tobacco use VA-TOBACCO USE CO UNSEL NO 10/31/2018 [facility] History of tobacco use VA-TOBACCO USER E VERY DAY 09/02/2018 [facility] History of tobacco use TOBACCO INQUIRY POSTITVE 12/13/2017 [facility] History of tobacco use FORMER TOBACCO USE <1Y 07/09/2017 [facility] History of tobacco use FORMER TOBACCO USE <1Y 07/24/2016 [facility] History of tobacco use CURRENT TOBACCO USER 07/26/2015 [facility] History of tobacco use CURRENT TOBACCO USER 07/08/2014 [facility] History of tobacco use CURRENT TOBACCO USER 07/20/2013 [facility] History of tobacco use FORMER TOBACCO US E >1Y <7Y 03/22/2009 [facility] Plan of Care List of future care activities from Department of Veterans Affairs facilities. Additional future care activities may be listed in the Assessment and Plan section. Date/Time Care Activity Care Activity Detail Facili ty 10/09/2024 AMBULATORY - PSYCHIAT[facility]
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
--- OUTSIDE RECORDS SUMMARY | 2024-08-30 13:46 | XMS_ITS | Encounter Summary ---
Author Name [facility] [place] Address [address] [place] [address] Care Team Providers Care Senior Infrastructure Engineer Name Role Phone KARI HARLEY Primary Care [...] Alvarez's Name Patient's Relationship to Policy Alvarez [facility] ([place]NR) MEDICAID MEDIC AID Apr 22, 2015 [id number] [phone] JOE CANALES PATIENT MEDICARE (WNR) MEDICARE (M) PART A Apr 22, 2013 PART A [id number] JEYSON CANALES III N PATIENT MEDICARE (WNR) MEDICARE (M) PART B Apr 22, 2013 PART B [id number] JEYSON CANALES III N PATIENT MEDICARE (WNR) MEDICARE (M) PART A Apr 22, 2013 PART A [id number] PARKER III,LAWSO N PATIENT MEDICARE (WNR) MEDICARE (M) PART B Apr 22, 2013 PART B [id number] PARKER III,LAWSO N PATIENT MEDICARE (WNR) MEDICARE (M) PART A Apr 22, 2013 PART A [id number] PARKER III,LAWSO N PATIENT MEDICARE (WNR) MEDICARE (M) PART B Apr 22, 2013 PART B [id number] PARKER III,LAWSO N PATIENT MEDICARE (WNR) MEDICARE (M) PART A Apr 22, 2013 PART A [id number] PARKER III,LAWSO N PATIENT MEDICARE (WNR) MEDICARE (M) PART B Apr 22, 2013 PART B [id number] PARKER III,LAWSO N PATIENT Selected Encounter This section includes the information on record at [place] for the Encounter. Date/Time Encounter Type Encounter Description Reason Pro vider Source Jul 03, 2024 02:00 PM OFFICE O/P EST MOD 30 MIN PSYCHOGERIATRIC - INDIVIDUAL ICD-10-CM F43.12 Post-traumati c stress disorder, chronic [facility] Encounter Template Text not used by [place] Assessments - Encounter Diagnoses This section includes the primary and secondary diagnoses documented for the Encounter. Date/Time Primary/Secondary Diagnosis Diagnosis Name Provider Source Jul 03, 2024 05:10 PM PRIMARY Post-traumatic stress disorder, chronic HEENA MONCADA IN [facility] Jul 03, 2024 05:10 PM SECONDARY Major depressive disorder, single episode, moderate HEENA MONCADA IN [facility] Plan of Treatment: Future Appointments (+ 6 months) and Future Tests (+/- 45 days) The Plan of Treatment section includes future care activities for the patient from all [place] treatmentfacilities. This section includes future appointments and [...] 28, 2024 02:30 PM AMBULATORY - PSYCHIATRY [facility] Oct 09, 2024 02:30 PM AMBULATORY - PSYCHIATRY [facility] Oct 30, 2024 02:00 PM AMBULATORY - PSYCHIATRY [facility] Active, Pending, and Scheduled Orders This section includes a listing of several types of active, pending, and scheduled orders, including clinic medications orders, diagnostic test orders, procedure orders and consult orders; where the start date of the order is 45 days before the date of the Encounter or 45 days after the date of theEncounter. The data comes from all [facility] facilities. Test Date/Time Test Type Test Details Facility Name Jun 24, 2024 08:37 AM Laboratory - Chemi stry Order URINALYSIS URINE WC ONCE [facility] Jun 24, 2024 08:53 AM Laboratory - Chemi stry Order ALBUMIN/CREATININE RATIO URINE URINE SP ONCE [facility] Lab Results: +/- 30 days [...] Type Comment Jun 09, 2024 10:23 AM [facility] URINALYSIS URINE Specimen Type: URINE No comment entered. Ordering Provider: PAM SERRANO Report Released Date/Time: Jun 09, 2024 08:45 AM Reporting Lab: [facility] [id number] Performing Lab: [facility] [id number] URINE COLOR YELLOW SPECIFIC GRAVITY 1.031 1.003-1.035 [...] 75 NEGATIVE Jun 09, 2024 10:14 AM [facility] BASIC METABOLIC PANEL+MG PLASMA Spe cimen Type: PLASMA No comment entered. Ordering Provider: VIVIANA SERRANO Report Released Date/Time: Jun 09, 2024 08:45 AM Reporting Lab: [facility] [id number] Performing Lab: [facility] [id number] CREATININE 1.2 mg/dL 0.7-1.2 UREA NITROGEN 17 [...] Date/Time Current Smoking Status Comment Esau spence Jul 03, 2024 02:00 PM VA-TOBACCO USE [...] Jul 03, 2024 02:00 PM VA-TOBACCO USE SENIOR MECHANICAL PROJECT MANAGER NO [facility] Jul 03, 2024 02:00 [...] 25, 2023 02:00 PM VA-TOBACCO USE SENIOR MECHANICAL PROJECT MANAGER NO [facility] Jun 25, 2023 02:00 PM VA-TOBACCO USE MED NO [facility] Jun 25, 2023 02:00 PM VA-TOBACCO USER EVERY DAY [facility] Aug 07, 2022 02:00 PM VA-TOBACCO USE 30 YEARS OR MORE [facility] Aug 07, 2022 02:00 PM VA-TOBACCO USE ADVICE [facility] Aug 07, 2022 02:00 PM VA-TOBACCO USE SENIOR MECHANICAL PROJECT MANAGER NO [facility] Aug 07, 2022 [...] 20, 2020 02:00 PM VA-TOBACCO USE SENIOR MECHANICAL PROJECT MANAGER YES [facility] Dec 20, 2020 02:00 PM VA-TOBACCO USE MED YES [facility] Dec 20, 2020 02:00 PM VA-TOBACCO USER EVERY DAY [facility] Nov 23, 2019 04:25 PM VA-TOBACCO USE < 1 YEAR [facility] Nov 23, 2019 04:25 PM VA-TOBACCO USE ADVICE [facility] Nov 23, 2019 04:25 PM VA-TOBACCO USE SENIOR MECHANICAL PROJECT MANAGER NO [facility] Nov 23, 2019 [...] 31, 2018 01:49 PM VA-TOBACCO USE SENIOR MECHANICAL PROJECT MANAGER NO [facility] Oct 31, 2018 [...] FORMER TOBACCO USE >1Y <7Y [facility] Pathology Reports: +/- 30 days of the [...] the Encounter. The data comes from all [facility] facilities. Date/Time Pathology Report Provider Source Jun 09, 2024 10:23 AM LR MICROBIOLOGY RE PORT: Reporting Lab: [facility] [CLIA# [id number]] [place] [address] Accession [UID]: [id number] [[id number]] Received: Jun 09, 2024@10:23 Collection sample: URINE Collection date: Jun 09, 2024 10:23 Provider: VIVIANA SERRANO Comment on specimen: DIRECTOR OF REAL ESTATE collect Test(s) ordered: CULTURE & SUSCEPTIBILITY...... completed: Jun 10, 2024 * BACTERIOLOGY FINAL REPORT => Jun 10, 2024 09:24 TECH CODE: [id number] CULTURE RESULTS: LESS THAN 10,000 CFU/ML Bacteriology Remark(s): THIS REPORT IS FINAL =--=--=--=--=--=--=--=--=--=--=--=- -=--=--=--=--=--=--=--=--=--=--=--= --=--=-- Performing Laboratory: Bacteriology Report Performed By: [facility] [CLIA# [id number]] [place] [address] [facility] Encounter Notes: All associated encounter notes This section contains the clinical notes associated to the Encounter. Date/Time Encounter Note(s) Provider Source Jul 03, 2024 05:10 PM PSYCHIATRY E & M N OTE: LOCAL TITLE: PSYCHIATRIC EVALUATION & MANAGEMENT STANDARD TITLE: PSYCHIATRY E & M NOTE DATE OF NOTE: JUL 03, 2024@17:10 ENTRY DATE: JUL 03, 2024@17:10:42 AUTHOR: TERRIE MONCADA COSIGNER: URGENCY: STATUS: COMPLETED PSYCHIATRIC EVALUATION AND MANAGEMENT FOLLOW UP VISIT Duration: 30 minutes Time spent performing psychotherapy services: 16-30 minutes ID: 74 year old M with history of PTSD, depression, cluster B traits INTERVAL HX: Last seen 05/22/24 -> reduce quetiapine from 250mg -> 200mg due to history of OH. SUBJECTIVE: Patient reports he is doing great. Reports his daughter moving in with him that is going very well with her and granddaughter. Reconnected with his brother. Planning some visits to family this summer. Has new car. He has new sikhism community. Dealing with bankruptcy. Feeling like things are coming together for him. Denies all symptoms of depression. Denies symptoms of anxiety. Denies psychosis or tierra. Sleeping well. He is content with current medication regimen and does not want to change it. No SI. Treatment Summary Forwarded from prior notes: 06/20/23: [...] no active SI and resolved quickly.Sherri / sikhism community and family remains a strong protective factors. Has been taking forward thinking steps such as meeting with financial systems manager, and repairing relationships with family. Deneis further [...] effective dose to mitiage adverse side effects. SUBSTANCE USE: -reports daily cannabis use (2 [...] stressor related to care breakdown. Sherri / sikhism community and family remains a strong protective factors. Has been taking forward thinking steps such as meeting with financial systems manager (filed [employer]), and repairing relationships with family. His sikhism comminity is also a very strong source of support. He was apparently taking inappopriate high doses of quetiapine due to taking 2 300mg tablets rather than one tablet (600mg daily) which may have been contributing to daytime somnolence, falls, orthostatic hypotension. He is doing well since reducing it to 200mg and mood remains stable. TREATMENT PLAN: -continue quetiapine to 200mg HS -Continue Fluoxetine 80 mg po daily for mood and ptsd. -Melatonin 6mg HS for insomnia, try to take earlier around 8/8:30 -AIMS due 02/2025/HgA1c due 02/2025 , lipid panel due 10/2024 -RTC 4 Months Suicide Risk Assessment: Risk Factors: Age, [...] /lance/ TERRIE MONCADA DO STAFF PSYCHIATRIST Signed: 07/03/2024 17:14 TERRIE MONCADA [facility] Jul 03, 2024 02:21 PM MENTAL HEALTH NOTE : LOCAL TITLE: MH PROGRESS NOTE STANDARD TITLE: MENTAL HEALTH NOTE DATE OF NOTE: JUL 03, 2024@14:21 ENTRY DATE: JUL 03, 2024@14:21:23 AUTHOR: TERRIE MONCADA EXP COSIGNER: URGENCY: STATUS: COMPLETED Tobacco Use Screening: The patient smokes cigarettes every day. The patient has never used other types of tobacco. Patient was advised to stop smoking and/or using other tobacco products. Advised patient that a combination of behavioral counseling and FDA-approved cessation medications is the most effective way to ensure their success in stopping to smoke and/or using other tobacco products. The patient was not interested in additional information about behavioral counseling and other support strategies discussed. Informed patient that medications can help with cravings and withdrawal symptoms, and they greatly increase the chances of successfully stopping your tobacco use. The patient was not interested in a prescription for tobacco cessation medications. /lance/ TERRIE MONCADA DO STAFF PSYCHIATRIST Signed: 07/03/2024 17:10 TERRIE MONCADA [facility]
[2024-08-30 14:24] VITALS: BP 125/74; PULSE 66; RESP 18; TEMP 36.8; O2SAT 95; BMI 24.4
--- NOTE | 2024-08-30 14:39 | CRLHL7_ITS ---
For Patients: As a result of the Century Cures Act, medical imaging exams and procedure reports are released immediately into your electronic medical record. You may view this report before your referring provider. If you have questions, please contact your health care provider. Indication: Injury and pain. Technique: Pelvis and right hip 3 views. Comparison: None. Findings: Bones: Alignment is normal. No fractures or bone lesions. Joint spaces: Joint spaces are preserved. No degenerative changes. Soft tissues: Unremarkable. Impression: Unremarkable pelvis and right hip. Dictated by Darien Larson MD @ 08/30/2024 3:52:41 PM (Electronically Signed)
--- NOTE | 2024-08-30 14:39 | CRLHL7_ITS ---
For Patients: As a result of the Century Cures Act, medical imaging exams and procedure reports are released immediately into your electronic medical record. You may view this report before your referring provider. If you have questions, please contact your health care provider. INDICATION: Juan pain with leg paresthesias. TECHNIQUE: Lumbar spine 2 view. COMPARISON: None. FINDINGS: Bones: Alignment is normal. No fractures or significant bone lesions. No sign of acute injury. Joints: Disc spaces and facets are unremarkable. Soft tissues: Unremarkable. Dictated by Darien Larson MD @ 08/30/2024 3:54:14 PM (Electronically Signed)
--- NOTE | 2024-08-30 14:49 | ED.FALL ---
HPI - Fall General Date Seen: 08/30/24 Chief Complaint: Fall/Minor Trauma Stated Complaint: back/hip pain from fall Time Seen by Provider: 08/30/24 14:33 Source: patient Mode of arrival: ambulatory Limitations: no limitations History of Present Illness HPI Narrative: Patient is a 74-year-old male presenting to the emergency department for right low back pain. Pain started after he fell off his bed couple nights ago. States he landed on some objects lower on the ground. He has been able to ambulate but pain is radiating into his right gluteal region. Pain does not go down his leg at all. Feels like it is muscular he states. Has been taking Tylenol and ibuprofen without any improvement in his symptoms. Has been able to ambulate without issue. Denies any midline back pain. Denies any saddle anesthesia, urinary retention, urinary incontinence, bowel incontinence. Denies any fevers or chills. No other concerns noted. Related Data Home Medications ?Medication ?Instructions ?Recorded ?Confirmed acetaminophen 325 mg capsule 650 mg PO Q6H PRN 08/30/24 08/30/24 aspirin 81 mg chewable tablet 81 mg PO DAILY 08/30/24 08/30/24 (Children's Aspirin) fluoxitine DAILY 08/30/24 seraquil 150 mg PO DAILY 08/30/24 08/30/24 Previous Rx's ?Medication ?Instructions ?Recorded cyclobenzaprine 10 mg tablet 10 mg PO TID PRN muscle spasm #15 08/30/24 tabs Allergies Allergy/AdvReac Type Severity Reaction Status Date / Time cefaclor (From [facility]) Allergy Verified 08/30/24 14:28 Penicillins Allergy Verified 08/30/24 14:28 resum Allergy Intermediate dizzy, Uncoded 08/30/24 14:28 goofy Review of Systems Narrative: Pertinent systems reviewed and were negative unless stated in HPI PFSH PFSH Social History Smoking Status: Current every day smoker What tobacco products do you use: cigarettes Smoking packs per day: 1 Smoking cigarettes per day: 20.0 Do you use any of these nicotine containing products: None Second hand tobacco smoke exposure: No How often do you have a drink containing alcohol: monthly or less How many standard drinks containing alcohol do you have on a typical day: 1 or 2 How often do you have six or more drinks on one occasion: Never AUDIT-C Alcohol total score: 1 Non-prescribed substance use: denies use service: Yes Exam Narrative: Exam Narrative: Const: Well-nourished, Well-developed, in mild distress Eyes: PERRL, no conjunctival injection, and symmetrical lids HENT: Atraumatic external nose and ears. Moist mucous membranes. MSK:Extremities w/o deformity, Normal Active ROM. Tenderness noted near the right posterior superior iliac spine. No paraspinal tenderness. No midline lumbar tenderness. Positive ipsilateral straight leg but negative contra lateral straight leg Skin: Warm, Dry. No rashes or lesions. Neuro: Normal Muscle tone, No focal neurological deficits. Psych: Awake, Alert, & Oriented x3. Appropriate mood and affect. Const: Vital Signs, click to edit/add: Vital Signs - 24 hr 08/30/24 14:24 Temperature 98.2 F Pulse Rate [Pulse Oximeter] 66 Respiratory Rate 18 Blood Pressure [Ri ght Upper Arm] 125/74 Pulse Oximetry 95 Oxygen Delivery Me thod Room Air Course Vital Signs Vital signs: Initial Vital Signs Temperature 98.2 F 08/30/24 14:24 Temperature Source Temporal Artery Scan 08/30/24 14:24 Pulse Rate 66 08/30/24 14:24 Respiratory Rate 18 08/30/24 14:24 Blood Pressure 125/74 08/30/24 14:24 Blood Pressure Mean 91 08/30/24 14:24 Blood Pressure Position Sitting 08/30/24 14:24 Pulse Oximetry 95 08/30/24 14:24 Oxygen Delivery Method Room Air 08/30/24 14:24 Vital Signs Temperature 98.2 F 08/30/24 14:24 Pulse Rate 66 08/30/24 14:24 Respiratory Rate 18 08/30/24 14:24 Blood Pressure 125/74 08/30/24 14:24 Pulse Oximetry 95 08/30/24 14:24 Oxygen Delivery Method Room Air 08/30/24 14:24 Temperature 98.2 F 08/30/24 14:24 Pulse Rate 66 08/30/24 14:24 Respiratory Rate 18 08/30/24 14:24 Blood Pressure 125/74 08/30/24 14:24 Pulse Oximetry 95 08/30/24 14:24 Oxygen Delivery Method Room Air 08/30/24 14:24 MDM - Fall MDM Narrative Medical decision making narrative: Patient is a 74-year-old male presenting to the emergency department for back pain. Pain seems more lateral in the paraspinal region. Did do straight leg test both ipsilateral and contralateral. Based on my findings this does not seem to be a herniated disc. No red flag symptoms for cauda equina. Did do x-rays of his lumbar spine and right hip. If reviewed them and do not see any abnormalities. Patient will be discharged. He is agreeable to this plan. Will prescribe him Flexeril. Imaging Data Left hip x-ray: Attestation: I have reviewed the pertinent imaging results. Radiologist's impression: Unremarkable pelvis and right hip. Dictated by Darien Larson MD @ 08/30/2024 3:52:41 PM Lumbar spine x-ray: Attestation: I have reviewed the pertinent imaging results. Radiologist's impression: Bones: Alignment is normal. No fractures or significant bone lesions. No sign of acute injury. Joints: Disc spaces and facets are unremarkable. Soft tissues: Unremarkable. Dictated by Darien Larson MD @ 08/30/2024 3:54:14 PM Discharge Plan Discharge Clinical Impression: Low back pain Qualifiers: Chronicity: acute Back pain laterality: right Sciatica presence: without sciatica Qualified Code(s): M54.50 - Low back pain, unspecified Patient Disposition: Home, Self-Care Condition: Stable Instructions: Acute Low Back Pain (ED) Additional Instructions: I believe this back pain is musculoskeletal in nature. Most likely a low back strain. Take Flexeril as needed. Also take the Tylenol and ibuprofen. Return for new or worsening symptoms. Prescriptions: New cyclobenzaprine 10 mg tablet 10 mg PO TID PRN (Reason: muscle spasm) Qty: 15 0RF No Action fluoxitine DAILY aspirin [Children's Aspirin] 81 mg tablet,chewable 81 mg PO DAILY seraquil 150 mg PO DAILY acetaminophen 325 mg capsule 650 mg PO Q6H PRN Follow Up/Referrals: Provider,Not a Local [Primary Care Provider] - Stand Alone Forms: MyHealth Info Instructions
--- OUTSIDE RECORDS SUMMARY | 2024-08-30 15:23 | XMS_ITS | Clinical Summary ---
Author Organization [facility] Address [address] [place] [id number] Care Team Providers Care Certified Legal Secretary Specialist Name Role Phone Elsewhere, Pcp Primary Care Provider Unavailabl e Source Comments Patient records contain information from all sites at [facility]. For routine questions regarding patient records, call [phone] during business hours, M-F 8:00 AM - 5:00 PM Central Time. 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 LAB BLOOD ADD-ON Final Resul t [facility] [place] [address], [facility] [place] [address] [place] [address] * CT Abdomen Pelvis with IV Contrast [...] body contains a central metallic portion and imashbab95.0 cm oblique craniocaudal by 3.9 cm TV [...] to Health Maintenance Insurance [employer] Care Teams Certified Legal Secretary Specialist Relationship Specialty Start Date End Date Elsewhere, Pcp PCP - General Internal Medicine 12/12/21
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
--- OUTSIDE RECORDS SUMMARY | 2024-08-30 15:23 | XMS_ITS | Continuity of Care Document ---
Author Name [facility] Organization [facility] Care Team Providers Care Aquatic Physiotherapist Name Role Phone [facility] Unavailable Unavailable Problems Combined list of problems from Department of Defense and Veterans Affairs facilities. It does not include entries that were removed or entered in error. Problem Status Onset Date Problem Type Date of Resolution Comments Source Exposure to potentially hazardous substance ([facility] [id number]) Active 024 Condition Jun 27, 2023 Entered By: TOÑO MAYO Comment[facility] ZANDRA Documentation Initiative [facility] Anxiety (SNOMED CT 90180168) Active Condition [facility] Arthritis (SNOMED CT 5946625) Active Condition [facility] Benign prostatic hyperplasia Active Condition [facility] Benign prostatic hypertrophy with outflow obstruction Active Condition [facility] Cannabis dependence in remission Active Condition Jul 20, 2013 Entered By: JESE BRAVO Comment: Quit June, Entered By: JESE BRAVO Comment: Daily use x 20 years [facility] Chronic post-traumatic stress disorder Active Condition [facility] Co-Managed Care Active Condition Mar 22, 2009 Entered By: ONEIL SUAREZ Comment: Dr Wyatt, PCP, [facility] 2008 Entered By: ONEIL SUAREZ Comment: Dr Jose Martin Suarez, psychiatrist, [facility] Depression Active Condition [facility] Depression (SNOMED CT 95147494) Active Condition [facility] Dyspnea Active Condition [facility] Hearing loss Active Condition [facility] History of post-traumatic stress disorder Active Condition [facility] Hyperlipidemia Active Condition [facility] Hyperlipidemia (SNOMED CT 97787560) Active Condition [facility] Insomnia Active Condition [facility] Meralgia paresthetica of left leg Active Condition [facility] Obsessive-Compulsi ve Disorder Active Condition [facility] Obstructive sleep apnea syndrome Active Condition Jul 20, 2013 Entered By: JESE BRAVO Comment: (mild) Dental appliance recommended [facility] Osteopenia Active Condition [facility] Rheumatoid arthritis Active Condition [facility] Sleep apnea Active Condition [facility] Tobacco dependence syndrome Active Condition Jul 20, 2013 Entered By: JESE BRAVO Comment: Smoking 1/2 ppdJul 20, 2013 Entered By: JESE BRAVO Comment: 45 pack year history [facility] Tobacco use Active Condition [facility] Vitamin D deficiency Active Condition [facility] Kidney stone Inactive Condition 11/24/2019 [facility] Diagnosis: ICD-10-CM F32.1 Major depressive disorder, single episode, moderate [facility] Diagnosis: ICD-10-CM F43.12 Post-traumatic stress disorder, chronic Active Diagnosis [facility] Diagnosis: ICD-10-CM L82.1 Other seborrheic keratosis Active Diagnosis [facility] Diagnosis: ICD-10-CM N40.1 Benign prostatic hyperplasia with lower urinary tract symp Active Diagnosis [facility] Diagnosis: ICD-10-CM R33.9 Retention of urine, unspecified Active Diagnosis [facility] [place] [facility] Diagnosis: ICD-10-CM R52 Pain, unspecified Active [facility] Diagnosis: ICD-10-CM M25.512 Pain in left shoulder Active Diagnosis [facility] Diagnosis: ICD-10-CM K08.51 Open buddhist margins of tooth Active [facility] Diagnosis: ICD-10-CM M13.0 Polyarthritis, unspecified Active Diagnosis [facility] Diagnosis: ICD-10-CM Z13.84 Encounter for screening for dental disorders Active Diagnosis [facility] Diagnosis: ICD-10-CM S46.099A Inj musc/tend the rotator cuff of unsp shoulder, init Active Diagnosis [facility] Diagnosis: ICD-10-CM W10.8XXD Fall (on) (from) other stairs and steps, subs encntr Active Diagnosis [facility] [place] [facility] Diagnosis: ICD-10-CM I47.10 Supraventricular tachycardia, unspecified Active Diagnosis [facility] Diagnosis: ICD-10-CM D23.9 Other benign neoplasm of skin, unspecified Active Diagnosis [facility] Medications Combined list of outpatient medications [...] A DAY FOR PAIN ORAL ACTIVE 03/25/2025 [id number] STEVE SERRANO 2023 [address] [place] [facility] ACETAMINOPH EN 500MG TAB TAKE TWO TABLETS BY MOUTH EVERY 8 HOURS NEEDED FOR PAIN DO NOT EXCEED A MAX OF 4000-MG OF ACETAMIN OPHEN PER DAY FROM ALL SOURCES* ORAL DISCONT INUED BY PROVIDE R 12/05/2023 [id number] RAGHU CHEN 2023 21 [facility] ALBUTEROL 90MCG/ACTUA T (CFC-F) INHL,ORAL,8 .5GM DOSE COUNTER INHALE 2 PUFFS BY INHALATI ON EVERY 4 HOURS NEEDED FOR SHORTNES S OF BREATH FOR UP TO 10 DAY RESPIR ATORY (INHAL ATION) DISCONT INUED BY PROVIDE R 12/05/2023 [id number] 4 RAGHU CHEN 2023 1 [facility] ASPIRIN 81MG TAB,EC TAKE ONE TABLET BY MOUTH EVERY DAY ORAL ACTIVE 11/05/2024 [id number] 5 RAGHU CHEN 2023 120 [facility] ASPIRIN 81MG TAB,EC TAKE ONE TABLET BY MOUTH EVERY DAY ORAL DISCONT INUED BY PROVIDE R 10/31/2023 [id number] 4 BALDEV HANDLEY 2022 120 [facility] ASPIRIN 81MG TAB,EC TAKE ONE TABLET BY MOUTH EVERY DAY ORAL ACTIVE Alicja HARLEY 2017 [facility] CELECOXIB 100MG CAP TAKE ONE CAPSULE BY MOUTH TWICE A DAY FOR PAIN ORAL DISCONT INUED BY PROVIDE R 12/05/2023 [id number] 4 RAGHU CHEN 2023 28 [facility] CHOLECALCIF JEN TAB TAKE BY MOUTH EVERY DAY ORAL ACTIVE Alicja HARLEY UDY 2017 [facility] DICLOFENAC NA 1% GEL,TOP APPLY 4 GRAMS TOPICALL Y FOUR TIMES A DAY NEEDED TO AFFECTED AREA FOR PAIN TOPICA L ACTIVE 03/25/2025 [id number] 4 STEVE SERRANO 2023 100 [place] [facility] [facility] DOXAZOSIN MESYLATE 8MG TAB TAKE ONE TABLET BY MOUTH EVERY DAY FOR URINATIO N ORAL 06/25/2024 [id number] ELISE PARKERBALDEV Blanc CHRIS 2023 90 [facility] FAMOTIDINE 20MG TAB TAKE ONE TABLET BY MOUTH EVERY DAY FOR HEARTBUR N TO DECREASE STOMACH ACID. *NOTE CHANGE TO ONCE A DAY* ORAL SUSPEND ED 08/28/2025 [id number] 5 STEVE SERRANO 2024 90 [facility] FAMOTIDINE 20MG TAB TAKE ONE TABLET BY MOUTH EVERY DAY FOR HEARTBUR N TO DECREASE STOMACH ACID. *NOTE CHANGE TO ONCE A DAY* ORAL DISCONT INUED 10/07/2024 [id number] 5 ELISE LILABALDEV Blanc CHRIS 2023 90 [facility] FAMOTIDINE 20MG TAB TAKE ONE TABLET BY MOUTH EVERY DAY FOR HEARTBUR N TO DECREASE STOMACH ACID. *NOTE CHANGE TO ONCE A DAY* ORAL DISCONT INUED 10/31/2023 [id number] OLIVARES LILABALDEV Blanc CHRIS 2022 90 [facility] FINASTERIDE 5MG TAB TAKE ONE TABLET BY MOUTH EVERY DAY FOR PROSTATE ORAL ACTIVE 09/07/2024 [id number] STEVE SERRANO 2024 90 [facility] [facility] FLUOXETINE HCL 20MG CAP TAKE FOUR CAPSULES BY MOUTH EVERY DAY ORAL ACTIVE 08/29/2025 [id number] 5 TERRIE MONCADA 2024 360 [place] [facility] FLUOXETINE HCL 20MG CAP TAKE FOUR CAPSULES BY MOUTH EVERY DAY ORAL DISCONT INUED 08/14/2024 [id number] TERRIE MONCADA 2023 360 [facility] KETOCONAZOL E 2% CREAM,TOP APPLY THIN LAYER TOPICALL Y TWICE A DAY FOR RASH TOPICA L ACTIVE 07/03/2025 [id number] ANALISA TOY Edward M 2024 60 [facility] LIDOCAINE 4% CREAM,TOP APPLY SMALL AMOUNT TOPICALL Y THREE TIMES A DAY NEEDED FOR PAIN TOPICA L DISCONT INUED BY RAQUEL R 12/05/2023 [id number] RAGHU CHEN 2023 30 [facility] MELATONIN 3MG CAP/TAB TAKE 2 TABLETS BY MOUTH AT BEDTIME NEEDED FOR SLEEP ORAL ACTIVE 08/29/2025 [id number] 5 TERRIE MONCADA 2024 180 [facility] MELATONIN 3MG CAP/TAB TAKE 2 TABLETS BY MOUTH AT BEDTIME NEEDED FOR SLEEP ORAL DISCONT INUED 08/14/2024 [id number] TERRIE MONCADA 2023 180 [facility] MELATONIN 3MG CAP/TAB TAKE 2 TABLETS BY MOUTH AT BEDTIME NEEDED FOR SLEEP ORAL DISCONT INUED (EDIT) 07/26/2024 [id number] TERRIE MONCADA 2023 180 [facility] NALOXONE HCL 4MG/SPRAY SOLN,SPRAY, NASAL SPRAY 1 DOSE IN ONE NOSTRIL ONCE FOR UNRESPON SIVENESS THEN CALL 911 NASAL 04/11/2024 [id number] 4 TERRIE MONCADA 2023 2 [facility] QUETIAPINE FUMARATE 200MG TAB TAKE ONE TABLET BY MOUTH AT BEDTIME FOR ANXIETY *NOTE CHANGE IN TABLET STRENGTH * ORAL DISCONT INUED (EDIT) 05/23/2025 [id number] 5 TERRIE MONCADA 2024 60 [facility] QUETIAPINE FUMARATE 300MG TAB TAKE ONE TABLET BY MOUTH AT BEDTIME FOR ANXIETY ORAL DISCONT INUED (EDIT) 08/14/2024 [id number] 4 TERRIE MONCADA 2023 90 [facility] QUETIAPINE FUMARATE 300MG TAB TAKE ONE TABLET BY MOUTH AT BEDTIME ORAL DISCONT INUED (EDIT) 10/25/2023 [id number] 4 MARTINE SHAY 2022 90 [facility] QUETIAPINE FUMARATE 50MG TAB TAKE FIVE TABLETS BY MOUTH AT BEDTIME FOR ANXIETY ORAL DISCONT INUED (EDIT) 04/10/2025 [id number] TERRIE MONCADA 2023 450 [facility] SIMVASTATIN 40MG TAB TAKE ONE TABLET BY MOUTH AT BEDTIME FOR CHOLESTE ROL ORAL ACTIVE 02/04/2025 [id number] 5 STEVE SERRANO 2024 90 [facility] SIMVASTATIN 40MG TAB TAKE ONE TABLET BY MOUTH AT BEDTIME FOR CHOLESTE ROL ORAL DISCONT INUED 01/28/2025 [id number] RADHA MALLORY 2023 90 [facility] SIMVASTATIN 40MG TAB TAKE ONE TABLET BY MOUTH AT BEDTIME FOR CHOLESTE ROL ORAL DISCONT INUED BY PROVIDE R 01/08/2024 [id number] 4 BALDEV HANDLEY 2022 90 [facility] SODIUM FLUORIDE 1.1% TOOTHPASTE BRUSH TEETH WITH A SMALL AMOUNT MOUTH EVERY MORNING AND AT BEDTIME TO PREVENT DENTAL CAVITIES ORAL ACTIVE 11/14/2024 [id number] 4 RORY KYLE II 2023 100 [facility] Allergies, Adverse Reactions, Alerts Combined list of allergies from Department of Defense and Veterans Affairs facilities. It does not include entries that were removed or entered in error. Substance Category Reaction Severity Reaction type Status Date Reported Comments Source AMOXICILLIN Propensity to adverse reactions to drug (finding) SWELLING (NON-SPECIF IC) active 6 [facility] AMOXICILLIN Propensity to adverse reactions to drug (finding) active 8 [facility] Propensity to adverse reactions to drug (finding) Eruption active 6 [facility] CECLOR Propensity to adverse reactions to drug (finding) active 8 [facility] NAPROXEN Propensity to adverse reactions to drug (finding) active 8 [facility] NAPROXEN Propensity to adverse reactions to drug (finding) Dizziness, Disorientat ed active 2 [facility] RAMELTEON Propensity to adverse reactions to drug (finding) Feeling agitated, Dizziness active 8 [facility] RAMELTEON Propensity to adverse reactions to drug (finding) Dizziness, Disorientat ed active 2 [facility] Immunizations Combined list of available immunizations from the Department of Defense and Veterans Affairs facilities. Immunization Series Date Given Administered By Site Reaction Lot Number CVX Code Drug Occ Ther Status Comments Source TDAP 2023 115 complet ed HISTORICA L INFORMATI ON - FROM OTHER [facility], [facility] INFLUENZA, INJECTABLE, QUADRIVALENT, PRESERVATIVE FREE 2019 150 complet ed [facility] ZOSTER RECOMBINANT 2 2019 187 complet ed [facility] INFLUENZA, SEASONAL, INJECTABLE, PRESERVATIVE FREE 2018 140 complet ed [facility] ZOSTER RECOMBINANT 1 2018 187 complet ed [facility] TDAP 2018 115 complet ed HISTORICA L INFORMATI ON - FROM OTHER [facility], [facility] PNEUMOCOCCAL CONJUGATE PCV 13 2017 133 complet ed [facility] INFLUENZA, INJECTABLE, QUADRIVALENT, PRESERVATIVE FREE 2016 150 complet ed HISTORICA L INFORMATI ON - FROM OTHER [facility], [facility] INFLUENZA, HIGH DOSE SEASONAL 2016 135 complet ed HISTORICA L INFORMATI ON - FROM OTHER REGISTRY, [facility] INFLUENZA, HIGH DOSE SEASONAL 2015 135 complet ed HISTORICA L INFORMATI ON - FROM OTHER REGISTRY, [facility] INFLUENZA, HIGH DOSE SEASONAL 2015 135 complet ed [facility] PNEUMOCOCCAL CONJUGATE PCV 13 2015 133 complet ed [facility] [id number] exp 09/05 [facility] INFLUENZA, HIGH DOSE SEASONAL 2014 135 complet ed HISTORICA L INFORMATI ON - FROM OTHER [facility], [facility] INFLUENZA, SEASONAL, INJECTABLE 2014 141 complet ed [facility] PNEUMOCOCCAL POLYSACCHARID E PPV23 2014 33 complet ed [employer],K01 6294,28AP R16 [facility] INFLUENZA, SEASONAL, INJECTABLE 2013 141 complet ed [facility] INFLUENZA, INJECTABLE, QUADRIVALENT, PRESERVATIVE FREE 2013 150 complet ed HISTORICA L INFORMATI ON - FROM OTHER REGISTRY, [facility] TDAP 2013 115 complet ed [employer],N3B E2, [facility] ZOSTER LIVE 2013 121 complet ed [employer],J01 3135,17JA N2015 [facility] INFLUENZA, SEASONAL, INJECTABLE 2012 141 complet ed HISTORICA L INFORMATI ON - FROM OTHER REGISTRY, [facility] INFLUENZA, UNSPECIFIED FORMULATION 2012 88 complet ed [facility] INFLUENZA, SEASONAL, INJECTABLE 2011 141 complet ed HISTORICA L INFORMATI ON - FROM OTHER REGISTRY, [facility] TDAP 2011 115 complet ed HISTORICA L INFORMATI ON - FROM OTHER REGISTRY, [facility] INFLUENZA, SEASONAL, INJECTABLE, PRESERVATIVE FREE 2010 140 complet ed HISTORICA L INFORMATI ON - FROM OTHER REGISTRY, [facility] TDAP 2010 115 complet ed HISTORICA L INFORMATI ON - FROM OTHER REGISTRY, [facility] INFLUENZA, SEASONAL, INJECTABLE 2009 141 complet ed HISTORICA L INFORMATI ON - FROM OTHER REGISTRY, [facility] INFLUENZA, UNSPECIFIED FORMULATION 2009 88 complet ed private [facility] ZOSTER LIVE 2009 121 complet ed HISTORICA L INFORMATI ON - FROM OTHER REGISTRY, [facility] INFLUENZA, UNSPECIFIED FORMULATION 2008 88 complet ed [facility] NOVEL INFLUENZA-H1N 1-09, ALL FORMULATIONS [address] [facility] PNEUMOCOCCAL, UNSPECIFIED FORMULATION 2008 109 complet ed [facility] INFLUENZA, SEASONAL, INJECTABLE, PRESERVATIVE FREE 2007 140 complet ed HISTORICA L INFORMATI ON - FROM OTHER REGISTRY, [facility] TD(ADULT) UNSPECIFIED FORMULATION 2006 139 complet ed [facility] Results Combined list of recent chemistry, hematology [...] Jun 09, 2024 08:45 AM Reporting Lab: [facility] [address] Performing Lab: [facility] [address] [facility] URINALYS IS SPECIFIC GRAVITY OF URINE 1.031 1.003 - 1.035 06/09 Specimen Type: URINE No comment entered. Ordering Provider: Guanaco SERRANO Report Released Date/Time: Jun 09, 2024 08:45 AM Reporting Lab: [facility] [address] Performing Lab: [facility] [address] [facility] URINALYS IS BILIRUBIN. TOTAL [PRESENCE] IN URINE BY TEST STRIP NEGATIVE 06/09 Specimen Type: URINE No comment entered. Ordering Provider: Guanaco SERRANO Report Released Date/Time: Jun 09, 2024 08:45 AM Reporting Lab: [facility] [address] Performing Lab: [facility] [address] [facility] URINALYS IS KETONES [MASS/VOLU ME] IN URINE BY TEST STRIP NEGATIVE 06/09 Specimen Type: URINE No comment entered. Ordering Provider: Guanaco SERRANO Report Released Date/Time: Jun 09, 2024 08:45 AM Reporting Lab: [facility] [address] Performing Lab: [facility] [address] [facility] URINALYS IS GLUCOSE [MASS/VOLU ME] IN URINE BY TEST STRIP NEGATIVE mg/dL <30 - 30 06/09 Specimen Type: URINE No comment entered. Ordering Provider: Guanaco SERRANO Report Released Date/Time: Jun 09, 2024 08:45 AM Reporting Lab: [facility] [address] Performing Lab: [facility] [address] [place] [facility] URINALYS IS PROTEIN [MASS/VOLU ME] IN URINE BY TEST STRIP 30 mg/dL <20 - 20 06/09 Specimen Type: URINE No comment entered. Ordering Provider: Guanaco SERRANO Report Released Date/Time: Jun 09, 2024 08:45 AM Reporting Lab: [facility] [address] Performing Lab: [facility] [address] [place] [facility] URINALYS IS PH OF URINE BY TEST STRIP 5.5 5.0 - 8.0 06/09 Specimen Type: URINE No comment entered. Ordering Provider: Guanaco SERRANO Report Released Date/Time: Jun 09, 2024 08:45 AM Reporting Lab: [facility] [address] Performing Lab: [facility] [address] [place] [facility] URINALYS IS LEUKOCYTES [#/AREA] IN URINE SEDIMENT BY MICROSCOPY HIGH POWER FIELD 3 /[HPF] 0 - 7 06/09 Specimen Type: URINE No comment entered. Ordering Provider: Guanaco SERRANO Report Released Date/Time: Jun 09, 2024 08:45 AM Reporting Lab: [facility] [address] Performing Lab: [facility] [address] [place] [facility] URINALYS IS BACTERIA [PRESENCE] IN URINE SEDIMENT BY LIGHT MICROSCOPY NONE SEEN 06/09 Specimen Type: URINE No comment entered. Ordering Provider: Guanaco SERRANO Report Released Date/Time: Jun 09, 2024 08:45 AM Reporting Lab: [facility] [address] Performing Lab: [facility] [address] [place] [facility] URINALYS IS CALCIUM OXALATE CRYSTALS [PRESENCE] IN URINE SEDIMENT BY LIGHT MICROSCOPY MODERATE 06/09 Specimen Type: URINE No comment entered. Ordering Provider: Guanaco SERRANO Report Released Date/Time: Jun 09, 2024 08:45 AM Reporting Lab: [facility] [address] Performing Lab: [facility] [address] [place] [facility] URINALYS IS ERYTHROCYT ES [#/AREA] IN URINE SEDIMENT BY MICROSCOPY HIGH POWER FIELD 1 /[HPF] 0 - 3 06/09 Specimen Type: URINE No comment entered. Ordering Provider: Guanaco SERRANO Report Released Date/Time: Jun 09, 2024 08:45 AM Reporting Lab: [facility] [address] Performing Lab: [facility] [address] [place] [facility] URINALYS IS APPEARANCE OF URINE CLEAR 06/09 Specimen Type: URINE No comment entered. Ordering Provider: Guanaco SERRANO Report Released Date/Time: Jun 09, 2024 08:45 AM Reporting Lab: [facility] [address] Performing Lab: [facility] [address] [place] [facility] URINALYS IS EPITHELIAL CELLS.SQUA MOUS [#/AREA] IN URINE SEDIMENT BY MICROSCOPY HIGH POWER FIELD 1 /[HPF] 06/09 Specimen Type: URINE No comment entered. Ordering Provider: Guanaco SERRANO Report Released Date/Time: Jun 09, 2024 08:45 AM Reporting Lab: [facility] [address] Performing Lab: [facility] [address] [place] [facility] URINALYS IS HEMOGLOBIN [PRESENCE] IN URINE BY TEST STRIP TRACE 06/09 Specimen Type: URINE No comment entered. Ordering Provider: Guanaco SERRANO Report Released Date/Time: Jun 09, 2024 08:45 AM Reporting Lab: [facility] [address] Performing Lab: [facility] [address] [place] [facility] URINALYS IS NITRITE [PRESENCE] IN URINE BY TEST STRIP NEGATIVE 06/09 Specimen Type: URINE No comment entered. Ordering Provider: Guanaco SERRANO Report Released Date/Time: Jun 09, 2024 08:45 AM Reporting Lab: [facility] [address] Performing Lab: [facility] [address] [place] [facility] URINALYS IS LEUKOCYTE ESTERASE [PRESENCE] IN URINE BY TEST STRIP 75 06/09 Specimen Type: URINE No comment entered. Ordering Provider: Guanaco SERRANO Report Released Date/Time: Jun 09, 2024 08:45 AM Reporting Lab: [facility] [address] Performing Lab: [facility] [address] [place] [facility] BASIC METABOLI C PANEL+MG CREATININE [MASS/VOLU ME] IN SERUM OR PLASMA 1.2 mg/dL 0.7 - 1.2 06/09 Specimen Type: PLASMA No comment entered. Ordering Provider: Guanaco SERRANO Report Released Date/Time: Jun 09, 2024 08:45 AM Reporting Lab: [facility] [address] Performing Lab: [facility] [address] [place] [facility] BASIC METABOLI C PANEL+MG UREA NITROGEN [MASS/VOLU ME] IN SERUM OR PLASMA 17 mg/dL 8 - 26 06/09 Specimen Type: PLASMA No comment entered. Ordering Provider: Guanaco SERRANO Report Released Date/Time: Jun 09, 2024 08:45 AM Reporting Lab: [facility] [address] Performing Lab: [facility] [address] [place] [facility] BASIC METABOLI C PANEL+MG GLUCOSE [MASS/VOLU ME] IN SERUM OR PLASMA 129 mg/dL 70 - 100 06/09 H Specimen Type: PLASMA No comment entered. Ordering Provider: Guanaco SERRANO Report Released Date/Time: Jun 09, 2024 08:45 AM Reporting Lab: [facility] [address] Performing Lab: [facility] [address] [place] [facility] BASIC METABOLI C PANEL+MG SODIUM [MOLES/VOL UME] IN SERUM OR PLASMA 143 mmol/L 136 - 145 06/09 Specimen Type: PLASMA No comment entered. Ordering Provider: Guanaco SERRANO Report Released Date/Time: Jun 09, 2024 08:45 AM Reporting Lab: [facility] [address] Performing Lab: [facility] [address] [place] [facility] BASIC METABOLI C PANEL+MG POTASSIUM [MOLES/VOL UME] IN SERUM OR PLASMA 3.7 mmol/L 3.5 - 5.1 06/09 Specimen Type: PLASMA No comment entered. Ordering Provider: Guanaco SERRANO Report Released Date/Time: Jun 09, 2024 08:45 AM Reporting Lab: [facility] [address] Performing Lab: [facility] [address] [place] [facility] BASIC METABOLI C PANEL+MG CHLORIDE [MOLES/VOL UME] IN SERUM OR PLASMA 110 mmol/L 98 - 107 06/09 H Specimen Type: PLASMA No comment entered. Ordering Provider: Guanaco SERRANO Report Released Date/Time: Jun 09, 2024 08:45 AM Reporting Lab: [facility] [address] Performing Lab: [facility] [address] [place] [facility] BASIC METABOLI C PANEL+MG CARBON DIOXIDE, TOTAL [MOLES/VOL UME] IN SERUM OR PLASMA 24 mmol/L 22 - 29 06/09 Specimen Type: PLASMA No comment entered. Ordering Provider: Guanaco SERRANO Report Released Date/Time: Jun 09, 2024 08:45 AM Reporting Lab: [facility] [address] Performing Lab: [facility] [address] [place] [facility] BASIC METABOLI C PANEL+MG CALCIUM [MASS/VOLU ME] IN SERUM OR PLASMA 9.4 mg/dL 8.4 - 10.2 06/09 Specimen Type: PLASMA No comment entered. Ordering Provider: Guanaco SERRANO Report Released Date/Time: Jun 09, 2024 08:45 AM Reporting Lab: [facility] [address] Performing Lab: [facility] [address] [place] [facility] BASIC METABOLI C PANEL+MG MAGNESIUM [MASS/VOLU ME] IN SERUM OR PLASMA 2.1 mg/dL 1.6 - 2.6 06/09 Specimen Type: PLASMA No comment entered. Ordering Provider: Guanaco SERRANO Report Released Date/Time: Jun 09, 2024 08:45 AM Reporting Lab: [facility] [address] Performing Lab: [facility] [address] [place] [facility] BASIC METABOLI C PANEL+MG ANION GAP IN SERUM OR PLASMA 9 mmol/L 5 - 15 06/09 Specimen Type: PLASMA No comment entered. Ordering Provider: Guanaco SRERANO Report Released Date/Time: Jun 09, 2024 08:45 AM Reporting Lab: [facility] [address] Performing Lab: [facility] [address] [place] [facility] BASIC METABOLI C PANEL+MG GLOMERULAR FILTRATION RATE/1.73 SQ M.PREDICTE D [VOLUME RATE/AREA] IN SERUM, PLASMA OR BLOOD BY CREATININE -BASED FORMULA (CKD-EPI 2020) 63 60 06/09 Specimen Type: PLASMA No comment entered. Ordering Provider: Guanaco SERRANO Report Released Date/Time: Jun 09, 2024 08:45 AM Reporting Lab: [facility] [address] Performing Lab: [facility] [address] [place] [facility] HEMOGLOB IN A1C HEMOGLOBIN A1C/HEMOGL OBIN.TOTAL IN [...] Feb 07, 2024 04:32 PM Reporting Lab: [facility] [address] Performing Lab: [facility] [address] [place] [facility] BASIC METABOLI C PANEL+MG CREATININE [MASS/VOLU ME] IN SERUM OR PLASMA 1.1 mg/dL 0.7 - 1.2 11/04 Specimen Type: PLASMA No comment entered. Ordering Provider: ANYA HANDLEY Report Released Date/Time: Oct 30, 2022 11:17 AM Reporting Lab: [facility] [address] Performing Lab: [facility] [address] [place] [facility] BASIC METABOLI C PANEL+MG UREA NITROGEN [MASS/VOLU ME] IN SERUM OR PLASMA 10 mg/dL 8 - 26 11/04 Specimen Type: PLASMA No comment entered. Ordering Provider: ANYA HANDLEY Report Released Date/Time: Oct 30, 2022 11:17 AM Reporting Lab: [facility] [address] Performing Lab: [facility] [address] [place] [facility] BASIC METABOLI C PANEL+MG GLUCOSE [MASS/VOLU ME] IN SERUM OR PLASMA 100 mg/dL 70 - 100 11/04 Specimen Type: PLASMA No comment entered. Ordering Provider: ANYA HANDLEY Report Released Date/Time: Oct 30, 2022 11:17 AM Reporting Lab: [facility] [address] Performing Lab: [facility] [address] [place] [facility] BASIC METABOLI C PANEL+MG SODIUM [MOLES/VOL UME] IN SERUM OR PLASMA 143 mmol/L 136 - 145 11/04 Specimen Type: PLASMA No comment entered. Ordering Provider: ANYA HANDLEY Report Released Date/Time: Oct 30, 2022 11:17 AM Reporting Lab: [facility] [address] Performing Lab: [facility] [address] [place] [facility] BASIC METABOLI C PANEL+MG POTASSIUM [MOLES/VOL UME] IN SERUM OR PLASMA 3.6 mmol/L 3.5 - 5.1 11/04 Specimen Type: PLASMA No comment entered. Ordering Provider: ANYA HANDLEY Report Released Date/Time: Oct 30, 2022 11:17 AM Reporting Lab: [facility] [address] Performing Lab: [facility] [address] [place] [facility] BASIC METABOLI C PANEL+MG CHLORIDE [MOLES/VOL UME] IN SERUM OR PLASMA 110 mmol/L 98 - 107 11/04 H Specimen Type: PLASMA No comment entered. Ordering Provider: ANYA HANDLEY Report Released Date/Time: Oct 30, 2022 11:17 AM Reporting Lab: [facility] [address] Performing Lab: [facility] [address] [place] [facility] BASIC METABOLI C PANEL+MG CARBON DIOXIDE, TOTAL [MOLES/VOL UME] IN SERUM OR PLASMA 22 mmol/L 22 - 29 11/04 Specimen Type: PLASMA No comment entered. Ordering Provider: ANYA HANDLEY Report Released Date/Time: Oct 30, 2022 11:17 AM Reporting Lab: [facility] [address] Performing Lab: [facility] [address] [place] [facility] BASIC METABOLI C PANEL+MG CALCIUM [MASS/VOLU ME] IN SERUM OR PLASMA 9.5 mg/dL 8.4 - 10.2 11/04 Specimen Type: PLASMA No comment entered. Ordering Provider: ANYA HANDLEY Report Released Date/Time: Oct 30, 2022 11:17 AM Reporting Lab: [facility] [address] Performing Lab: [facility] [address] [place] [facility] BASIC METABOLI C PANEL+MG MAGNESIUM [MASS/VOLU ME] IN SERUM OR PLASMA 2.1 mg/dL 1.6 - 2.6 11/04 Specimen Type: PLASMA No comment entered. Ordering Provider: ANYA HANDLEY Report Released Date/Time: Oct 30, 2022 11:17 AM Reporting Lab: [facility] [address] Performing Lab: [facility] [address] [place] [facility] BASIC METABOLI C PANEL+MG ANION GAP IN SERUM OR PLASMA 11 mmol/L 5 - 15 11/04 Specimen Type: PLASMA No comment entered. Ordering Provider: ANYA HANDLEY Report Released Date/Time: Oct 30, 2022 11:17 AM Reporting Lab: [facility] [address] Performing Lab: [facility] [address] [place] [facility] BASIC METABOLI C PANEL+MG GLOMERULAR FILTRATION RATE/1.73 SQ M.PREDICTE D [VOLUME RATE/AREA] IN SERUM, PLASMA OR BLOOD BY CREATININE -BASED FORMULA (CKD-EPI 2020) 70 60 11/04 Specimen Type: PLASMA No comment entered. Ordering Provider: ANYA HANDLEY Report Released Date/Time: Oct 30, 2022 11:17 AM Reporting Lab: [facility] [address] Performing Lab: [facility] [address] [facility] IS [facility] CBC LEUKOCYTES [#/VOLUME] IN BLOOD BY AUTOMATED COUNT 7.64 10*3/uL 4.0 - 11.0 11/04 Specimen Type: BLOOD No comment entered. Ordering Provider: ANYA HANDLEY Report Released Date/Time: Oct 30, 2022 11:17 AM Reporting Lab: [facility] [address] Performing Lab: [facility] [address] [place] [facility] CBC ERYTHROCYT ES [#/VOLUME] IN BLOOD BY AUTOMATED COUNT 4.62 10*6/uL 4.6 - 6.2 11/04 Specimen Type: BLOOD No comment entered. Ordering Provider: ANYA HANDLEY Report Released Date/Time: Oct 30, 2022 11:17 AM Reporting Lab: [facility] [address] Performing Lab: [facility] [address] [facility] CBC HEMOGLOBIN [MASS/VOLU ME] IN BLOOD 15.3 g/dL 13.5 - 17.9 11/04 Specimen Type: BLOOD No comment entered. Ordering Provider: ANYA HANDLEY Report Released Date/Time: Oct 30, 2022 11:17 AM Reporting Lab: [facility] [address] Performing Lab: [facility] [address] [place] [facility] CBC HEMATOCRIT [VOLUME FRACTION] OF BLOOD BY AUTOMATED COUNT 43.1 41 - 54 11/04 Specimen Type: BLOOD No comment entered. Ordering Provider: ANYA HANDLEY Report Released Date/Time: Oct 30, 2022 11:17 AM Reporting Lab: [facility] [address] Performing Lab: [facility] [address] [place] [facility] CBC MCV [ENTITIC VOLUME] BY AUTOMATED COUNT 93.3 fL 80 - 100 11/04 Specimen Type: BLOOD No comment entered. Ordering Provider: ANYA HANDLEY Report Released Date/Time: Oct 30, 2022 11:17 AM Reporting Lab: [facility] [address] Performing Lab: [facility] [address] [place] [facility] CBC MCH [ENTITIC MASS] BY AUTOMATED COUNT 33.1 pg 27 - 33 11/04 H Specimen Type: BLOOD No comment entered. Ordering Provider: ANYA HANDLEY Report Released Date/Time: Oct 30, 2022 11:17 AM Reporting Lab: [facility] [address] Performing Lab: [facility] [address] [place] [facility] CBC MCHC [MASS/VOLU ME] BY AUTOMATED COUNT 35.5 g/dL 32.0 - 37.5 11/04 Specimen Type: BLOOD No comment entered. Ordering Provider: ANYA HANDLEY Report Released Date/Time: Oct 30, 2022 11:17 AM Reporting Lab: [facility] [address] Performing Lab: [facility] [address] [place] [facility] CBC PLATELETS [#/VOLUME] IN BLOOD BY AUTOMATED COUNT 193 10*3/uL 150 - 400 11/04 Specimen Type: BLOOD No comment entered. Ordering Provider: ANYA HANDLEY Report Released Date/Time: Oct 30, 2022 11:17 AM Reporting Lab: [facility] [address] Performing Lab: [facility] [address] [place] [facility] CBC PLATELET MEAN VOLUME [ENTITIC VOLUME] IN BLOOD BY AUTOMATED COUNT 9.1 fL 7.4 - 10.4 11/04 Specimen Type: BLOOD No comment entered. Ordering Provider: ANYA HANDLEY Report Released Date/Time: Oct 30, 2022 11:17 AM Reporting Lab: [facility] [address] Performing Lab: [place] [address] [place] [facility] CBC ERYTHROCYT E DISTRIBUTI ON WIDTH [RATIO] BY AUTOMATED COUNT 13.2 11.5 - 14.5 11/04 Specimen Type: BLOOD No comment entered. Ordering Provider: ANYA HANDLEY Report Released Date/Time: Oct 30, 2022 11:17 AM Reporting Lab: [facility] [address] Performing Lab: [facility] [address] [place] [facility] LIPID PANEL,NO N-FASTIN G CHOLESTERO L [MASS/VOLU ME] IN SERUM OR PLASMA 133 mg/dL <199 - 199 11/04 Specimen Type: PLASMA No comment entered. Ordering Provider: ANYA HANDLEY Report Released Date/Time: Oct 30, 2022 11:17 AM Reporting Lab: [facility] [address] Performing Lab: [facility] [address] [place] [facility] LIPID PANEL,NO N-FASTIN G CHOLESTERO L IN HDL [MASS/VOLU ME] IN SERUM OR PLASMA 35 mg/dL 40 11/04 L Specimen Type: PLASMA No comment entered. Ordering Provider: ANYA HANDLEY Report Released Date/Time: Oct 30, 2022 11:17 AM Reporting Lab: [facility] [address] Performing Lab: [facility] [address] [place] [facility] LIPID PANEL,NO N-FASTIN G CHOLESTERO L IN LDL [MASS/VOLU ME] IN SERUM OR PLASMA BY CALCULATIO N 60 mg/dL <99 - 99 11/04 Specimen Type: PLASMA No comment entered. Ordering Provider: ANYA HANDLEY Report Released Date/Time: Oct 30, 2022 11:17 AM Reporting Lab: [facility] [address] Performing Lab: [facility] [address] [place] [facility] LIPID PANEL,NO N-FASTIN G CHOLESTERO L IN VLDL [MASS/VOLU ME] IN SERUM OR PLASMA BY CALCULATIO N 38 mg/dL <29 - 29 11/04 H Specimen Type: PLASMA No comment entered. Ordering Provider: ANYA HANDLEY Report Released Date/Time: Oct 30, 2022 11:17 AM Reporting Lab: [facility] [address] Performing Lab: [facility] [address] [place] [facility] LIPID PANEL,NO N-FASTIN G CHOLESTERO L NON HDL [MASS/VOLU ME] IN SERUM OR PLASMA 98 mg/dL <129 - 129 11/04 Specimen Type: PLASMA No comment entered. Ordering Provider: ANYA HANDLEY Report Released Date/Time: Oct 30, 2022 11:17 AM Reporting Lab: [facility] [address] Performing Lab: [facility] [address] [place] [facility] LIPID PANEL,NO N-FASTIN G TRIGLYCERI DE [MASS/VOLU ME] IN SERUM OR PLASMA 188 mg/dL <149 - 149 11/04 H Specimen Type: PLASMA No comment entered. Ordering Provider: ANYA HANDLEY Report Released Date/Time: Oct 30, 2022 11:17 AM Reporting Lab: [facility] [address] Performing Lab: [facility] [address] [facility] MAGNESIU M MAGNESIUM [MASS/VOLU ME] IN SERUM OR PLASMA 2.1 mg/dL 1.6 - 2.6 11/04 Specimen Type: PLASMA No comment entered. Ordering Provider: ANYA HANDLEY Report Released Date/Time: Oct 30, 2022 11:17 AM Reporting Lab: [facility] [address] Performing Lab: [facility] [address] [facility] ANTI-CCP CYCLIC CITRULLINA CURRY PEPTIDE IGG AB [UNITS/VOL UME] IN SERUM OR PLASMA <0.5 <4.9 - 4.9 11/04 Specimen Type: PLASMA No comment entered. Ordering Provider: HEENA CHEN IN L Report Released Date/Time: Nov 05, 2023 02:44 PM Reporting Lab: [facility] [address] Performing Lab: [facility] [address] [facility] C-REACTI VE PROTEIN C REACTIVE PROTEIN [MASS/VOLU ME] IN SERUM OR PLASMA BY HIGH SENSITIVIT Y METHOD 2.68 mg/L <5.00 - 5.00 11/04 Specimen Type: PLASMA No comment entered. Ordering Provider: HEENA CHEN IN L Report Released Date/Time: Nov 05, 2023 02:44 PM Reporting Lab: [facility] [address] Performing Lab: [facility] [address] [facility] CK,TOTAL CREATINE KINASE [ENZYMATIC ACTIVITY/V OLUME] IN SERUM OR PLASMA 68 U/L 39 - 208 11/04 Specimen Type: PLASMA No comment entered. Ordering Provider: HEENA CHEN IN L Report Released Date/Time: Nov 05, 2023 02:44 PM Reporting Lab: [facility] [address] Performing Lab: [facility] [address] [facility] Vital Signs Combined list of inpatient and [...] HCS SYSTOLIC BLOOD PRESSURE 130 12/18/2023 09:13:46 [facility] DIASTOLIC BLOOD PRESSURE 74 12/18/2023 09:13:46 [facility] TEMPERATURE 98.8 12/18/2023 09:13:46 [facility] PULSE 78 12/18/2023 09:13:46 [facility] SYSTOLIC BLOOD PRESSURE 125 12/03/2023 14:27:05 [facility] DIASTOLIC BLOOD PRESSURE 74 12/03/2023 14:27:05 [facility] PULSE OXIMETRY 93 12/03/2023 14:27:05 [...] [facility] TEMPERATURE 98.6 11/14/2023 13:38:01 [facility] PULSE 66 11/14/2023 13:38:01 [facility] SYSTOLIC BLOOD PRESSURE 116 11/05/2023 13:49:56 [facility] DIASTOLIC BLOOD PRESSURE 71 11/05/2023 13:49:56 [facility] PULSE OXIMETRY 95 11/05/2023 13:49:56 [facility] WEIGHT 175 11/05/2023 13:49:56 [facility] BMI 27 kg/m2 11/05/2023 13:49:56 [facility] PAIN 5 11/05/2023 13:49:56 [facility] HEIGHT 67 11/05/2023 13:49:56 [facility] PULSE 79 11/05/2023 13:49:56 [facility] RESPIRATION 16 11/05/2023 13:49:56 [facility] Encounters Combined list of: 1) Encounters from Department of [facility] facilities going backup to the last 18 months, not all [place] inpatient encounters are included; 2) Encounters from the Department of [facility] facilities going backup to 280 months. Location Location Details Encounter Type Encounter Number Reason For Visit Attending Provider ADM Date DC Date Status Disposition Source [facility] PSYTX W PT 45 MINUTES [id number] Diagnos is: ICD-10- CM F43.12 Post-tr aumatic stress disorde r, chronic MCFAWN,RORY A L 03/05 [facility] [place] [facility] Outpatient Encounter [id number] 03/13 [facility] [place] [facility] PSYTX W PT 45 MINUTES [id number] Diagnos is: ICD-10- CM F43.12 Post-tr aumatic stress disorde r, chronic MCFAWN,RORY A L 03/25 [facility] [place] [facility] Outpatient Encounter [id number] 03/25 [facility] [place] [facility] Outpatient Encounter [id number] 04/05 [facility] IS [facility] OFFICE O/P EST MOD 30-39 MIN [id number] Diagnos is: ICD-10- CM F43.12 Post-tr aumatic stress disorde r, chronic Yenifer MONCADA 04/18 [facility] IS [facility] Outpatient Encounter [id number] 05/30 [facility] IS [facility] OFFICE O/P EST LOW 20 MIN [id number] Diagnos is: ICD-10- CM L82.1 Other seborrh eic keratos is DANIELLE TRAORE 05/30 [facility] IS [facility] Outpatient Encounter [id number] ABEL QURESHI 06/04 [facility] IS [facility] Outpatient Encounter [id number] Diagnos is: ICD-10- CM D23.9 Other benign neoplas m of skin, unspeci fied ANTHONY,N OAH I 06/04 [facility] IS [facility] OFFICE O/P EST MOD 30 MIN [id number] Diagnos is: ICD-10- CM F43.12 Post-tr aumatic stress disorde r, Yenifer Rondon [facility] IS [facility] Outpatient Encounter [id number] 06/23 [facility] IS [facility] OFFICE O/P EST HI 40 MIN [id number] Diagnos is: ICD-10- CM M13.0 Polyart hritis, unspeci fied ERNST HANDLEY 06/24 [facility] IS [facility] Outpatient Encounter [id number] 06/30 [facility] IS [facility] Outpatient Encounter [id number] Diagnos is: ICD-10- CM F43.12 Post-tr aumatic stress disorde r, chronic Yenifer MONCADA E 07/04 [facility] IS [facility] Outpatient Encounter [id number] 07/18 [facility] IS [facility] EXT ECG>7D<15D REV&INTERP J [id number] Diagnos is: ICD-10- CM I47.10 Suprave ntricul ar tachyca rdia, unspeci fied RIDDHI JARAMILLO EY A 07/18 [facility] IS [facility] Outpatient Encounter [id number] SA YEN GARCÍA R 07/19 [facility] OFFICE O/P EST HI 40 MIN [id number] Diagnos is: ICD-10- CM W10.8XX D Fall (on) (from) other stairs and steps, subs encntr SILAS FELIZ 07/25 [facility] OFFICE O/P EST MOD 30 MIN [id number] Diagnos is: ICD-10- CM F43.12 Post-tr aumatic stress disorde r, chronic Yenifer MONCADA E 07/25 [facility] IS [facility] Outpatient Encounter [id number] 07/31 [facility] PSYTX W PT 45 MINUTES [id number] Diagnos is: ICD-10- CM F43.12 Post-tr aumatic stress disorde r, chronic BRADRORY A L 08/06 [facility] IS [facility] OFFICE O/P EST MOD 30 MIN [id number] Diagnos is: ICD-10- CM F43.12 Post-tr aumatic stress disorde r, chronic Yenifer MONCADA E 08/13 [facility] PSYTX W PT 30 MINUTES [id number] Diagnos is: ICD-10- CM F43.12 Post-tr aumatic stress disorde r, chronic MCFAWN,RORY A L 08/28 [facility] IS [facility] Outpatient Encounter [id number] 09/01 [facility] IS [facility] Outpatient Encounter [id number] Alicja KING R 09/02 [facility] IS [facility] Outpatient Encounter [id number] Yenifer BOO E 11/04 [facility] IS [facility] OFFICE O/P EST MOD 30 MIN [id number] Diagnos is: ICD-10- CM S46.099 A Inj musc/te nd the rotator cuff of unsp shoulde r, blayne APRILARABELLAKRYSTAL ATKINSON L 11/04 [facility] IS [facility] Outpatient Encounter [id number] 11/12 [facility] PSYTX W PT 45 MINUTES [id number] Diagnos is: ICD-10- CM F43.12 Post-tr aumatic stress disorde r, chronic MCFAWN,RORY A L 11/12 [facility] INTRAORAL FULL IMAGE SERIES [id number] Diagnos is: ICD-10- CM Z13.84 Encount er for screeni ng for dental disorde rs RORY WAHL II 11/13 [facility] OFFICE O/P EST MOD 30 MIN [id number] Diagnos is: ICD-10- CM M13.0 Polyart hritis, unspeci fiHAKAN Bonilla B 12/02 [facility] POST 1 SRFC RESINBASED CMPST [id number] Diagnos is: ICD-10- CM K08.51 Open restora tion margins of tooth RORY WAHL II 12/17 [facility] IS [facility] Outpatient Encounter [id number] Khris [facility] 01[facility] OFFICE O/P EST MOD 30 MIN [id number] Diagnos is: ICD-10- CM F43.12 Post-tr aumatic stress disorde r, chronic Yenifer MONCADA 02/05 [facility] OFFICE O/P EST MOD 30 MIN [id number] Diagnos is: ICD-10- CM F43.12 Post-tr aumatic stress disorde r, chronic Yenifer MONCADA 03/12 [facility] Outpatient Encounter [id number] 03/24 [facility] OFFICE O/P EST MOD 30 MIN [id number] Diagnos is: ICD-10- CM M25.512 Pain in left shoulde r GREGG MADRID A 03/24 [facility] OFFICE O/P EST MOD 30 MIN [id number] Diagnos is: ICD-10- CM F43.12 Post-tr aumatic stress disorde r, chronic Yenifer MONCADA 04/09 [facility] Outpatient Encounter [id number] Khris MONCADA 04/13 [facility] PRO PHONE CALL 5-10 MIN [id number] Diagnos is: ICD-10- CM R52 Pain, unspeci fied CREW,DONITA M 04/20 [facility] OFFICE O/P [place] HI 40 MIN [id number] Diagnos is: ICD-10- CM F43.12 Post-tr aumatic stress disorde r, chronic Yenifer MONCADA 05/22 [facility] BRIEF COMUNICAJ TECH-BSD SVC [id number] Diagnos is: ICD-10- CM R33.9 Retenti on of urine, unspeci fied VIVIANA SERRANO 06/09 [facility] SYNCH AUDIO-ONLY EST LOW 20 [id number] Diagnos is: ICD-10- CM N40.1 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 LUIS ENRIQUE SHRESTHA 06/17 [facility] Outpatient Encounter [id number] 06/24 [facility] Outpatient Encounter [id number] 06/29 [facility] OFFICE O/P EST MOD 30 MIN [id number] Diagnos is: ICD-10- CM L82.1 Other seborrh eic keratos is Yenifer MCCORD 07/02 [facility] OFFICE O/P EST MOD 30 MIN [id number] Diagnos is: ICD-10- CM F43.12 Post-tr aumatic stress disorde r, chronic Yenifer MONCADA 07/03 [facility] Outpatient Encounter [id number] 08/27 [facility] OFFICE O/P EST MOD 30 MIN [id number] Diagnos is: ICD-10- CM F32.1 Major depress robert disorde r, single episode , moderat e Yenifer MONCADA 08/28 [facility] Outpatient Encounter [id number] 08/30 [facility] Social History Combined list of available smoking, tobacco, and other social history from Department of Defense and [facility] facilities. Social History Type Response Date Comment Sourc e Tobacco smoking status NHIS VA-TOBACCO SCREEN FOLLOW-UP 07/03/2024 [facility] History of tobacco use VA-TOBACCO NEVER USED OTHER TYPE 07/03/2024 [facility] History of tobacco use VA-TOBACCO USER E VERY DAY 06/25/2023 [facility] History of tobacco use VA-TOBACCO USER E VERY DAY 08/07/2022 [facility] History of tobacco use VA-TOBACCO FORMER USER 09/26/2021 [facility] History of tobacco use VA-TOBACCO USER E VERY DAY 12/20/2020 [facility] History of tobacco use VA-TOBACCO USE CO UNSEL NO 11/23/2019 [facility] History of tobacco use VA-TOBACCO USE CO UNSEL NO 10/31/2018 [facility] History of tobacco use VA-TOBACCO USER E VERY DAY 09/02/2018 [facility] History of tobacco use TOBACCO INQUIRY POSTITVE 12/13/2017 [facility] History of tobacco use FORMER TOBACCO USE <1Y 07/09/2017 [facility] History of tobacco use FORMER TOBACCO USE <1Y 07/24/2016 [facility] History of tobacco use CURRENT TOBACCO USER 07/26/2015 [facility] History of tobacco use CURRENT TOBACCO USER 07/08/2014 [facility] History of tobacco use CURRENT TOBACCO USER 07/20/2013 [facility] History of tobacco use FORMER TOBACCO US E >1Y <7Y 03/22/2009 [facility] Plan of Care List of future care activities from [facility] facilities. Additional future care activities may be listed in the Assessment and Plan section. Date/Time Care Activity Care Activity Detail Facili ty 10/09/2024 AMBULATORY - PSYCHIATRY [facility]
== END 2024-08-30 16:14 | disposition home or self-care (01) ==
PROVIDERS: Emergency Provider Student in an Organized Health Care Education/Training Program
DX: M54.50 Low back pain, unspecified (principal); W06.XXXA Fall from bed, initial encounter
CPT/HCPCS: 72100; 73502; 99283

== ENCOUNTER 2025-03-08 16:36 | Emergency (ER) | payer OTHER, SELFPAY ==
[2025-03-08 17:24] VITALS: BP 124/51; PULSE 85; RESP 18; TEMP 36.4; O2SAT 96
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
--- NOTE | 2025-03-08 17:41 | ED.GENADULT ---
HPI - General Adult General Chief complaint: Laceration/Wound Stated complaint: L fingers lacs Time Seen by Provider: 03/08/25 17:27 History of Present Illness HPI narrative: Patient here with laceration to index finger on left hand. Craft knife slipped. 74-year-old man presenting to the emergency department with concern of laceration to left index finger. In busy emergency department by the time I am able to see him in the [place] bleeding has stopped and he believes he does not need any further care showing me a very small nonbleeding cut. I did not interact with Mr. Meeks beyond this conversation. Related Data Home Medications ?Medication ?Instructions ?Recorded ?Confirmed acetaminophen 325 mg capsule 650 mg PO Q6H PRN 08/30/24 08/30/24 aspirin 81 mg chewable tablet 81 mg PO DAILY 08/30/24 08/30/24 (Children's Aspirin) fluoxitine DAILY 08/30/24 seraquil 150 mg PO DAILY 08/30/24 08/30/24 Previous Rx's ?Medication ?Instructions ?Recorded cyclobenzaprine 10 mg tablet 10 mg PO TID PRN muscle spasm #15 08/30/24 tabs Allergies Allergy/AdvReac Type Severity Reaction Status Date / Time cefaclor (From [facility]) Allergy Verified 08/30/24 14:28 Penicillins Allergy Verified 08/30/24 14:28 resum Allergy Intermediate dizzy, Uncoded 08/30/24 14:28 goofy [facility] Social History Smoking Status: Current every day smoker What tobacco products do you use: cigarettes Smoking packs per day: 1 Smoking cigarettes per day: 20.0 Do you use any of these nicotine containing products: None Second hand tobacco smoke exposure: No How often do you have a drink containing alcohol: monthly or less How many standard drinks containing alcohol do you have on a typical day: 1 or 2 How often do you have six or more drinks on one occasion: Never AUDIT-C Alcohol total score: 1 Non-prescribed substance use: denies use service: Yes Exam Const: Vital Signs, click to edit/add: Vital Signs - 24 hr 03/08/25 17:24 Temperature 97.5 F L Pulse Rate [Pulse Oximeter] 85 Respiratory Rate 18 Blood Pressure [Ri ght Upper Arm] 124/51 L Pulse Oximetry 96 Course Vital Signs Vital signs: Initial Vital Signs Temperature 97.5 F L 03/08/25 17:24 Temperature Source Temporal Artery Scan 03/08/25 17:24 Pulse Rate 85 03/08/25 17:24 Respiratory Rate 18 03/08/25 17:24 Blood Pressure 124/51 L 03/08/25 17:24 Blood Pressure Mean 75 03/08/25 17:24 Blood Pressure Position Sitting 03/08/25 17:24 Pulse Oximetry 96 03/08/25 17:24 Vital Signs Temperature 97.5 F L 03/08/25 17:24 Pulse Rate 85 03/08/25 17:24 Respiratory Rate 18 03/08/25 17:24 Blood Pressure 124/51 L 03/08/25 17:24 Pulse Oximetry 96 03/08/25 17:24 Temperature 97.5 F L 03/08/25 17:24 Pulse Rate 85 03/08/25 17:24 Respiratory Rate 18 03/08/25 17:24 Blood Pressure 124/51 L 03/08/25 17:24 Pulse Oximetry 96 03/08/25 17:24 Discharge Plan Discharge Prescriptions: No Action fluoxitine DAILY aspirin [Children's Aspirin] 81 mg tablet,chewable 81 mg PO DAILY seraquil 150 mg PO DAILY acetaminophen 325 mg capsule 650 mg PO Q6H PRN cyclobenzaprine 10 mg tablet 10 mg PO TID PRN (Reason: muscle spasm) Qty: 15 0RF Follow Up/Referrals: Provider,Not a Local [Primary Care Provider, Family Practice]
== END 2025-03-08 17:53 | disposition home or self-care (01) ==
PROVIDERS: Emergency Provider Family Medicine
DX: Z53.21 Procedure and treatment not carried out due to patient leaving prior to being seen by health care provider (principal)
CPT/HCPCS: 99281

== ENCOUNTER 2025-03-28 06:14 | Emergency (ER) | payer OTHER, SELFPAY ==
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
--- NOTE | 2025-03-28 06:19 | CRLHL7_ITS ---
For Patients: As a result of the Cures Act, medical imaging exams and procedure reports are released immediately into your electronic medical record. You may view this report before your referring provider. If you have questions, please contact your health care provider. INDICATION: Fell on the ice COMPARISON: None. TECHNIQUE: Three views left knee, nonweightbearing. FINDINGS: No acute or healing fracture. Normal joint alignment. Joint spaces are normal. No focal bone lesions. Chondrocalcinosis. No joint effusion. No foreign body. IMPRESSION: No acute findings in the left knee. Dictated by Larisa Gutierrez MD @ 03/28/2025 6:46:23 AM (Electronically Signed)
--- NOTE | 2025-03-28 06:19 | CRLHL7_ITS ---
For Patients: As a result of the Cures Act, medical imaging exams and procedure reports are released immediately into your electronic medical record. You may view this report before your referring provider. If you have questions, please contact your health care provider. INDICATION: Fall on ice COMPARISON: 08/30/2024 TECHNIQUE: AP pelvis, AP left hip, lateral left hip. FINDINGS: No fracture. Normal hip joint alignment. Joint spaces are normal. No destructive focal bone lesions. Soft tissues are normal. IMPRESSION: No acute findings in the pelvis or left hip. Dictated by Larisa Gutierrez MD @ 03/28/2025 6:48:10 AM (Electronically Signed)
[2025-03-28 06:21] VITALS: BP 142/71; PULSE 85; RESP 18; TEMP 36.8; O2SAT 99; BMI 25.1
--- NOTE | 2025-03-28 06:53 | ED.LOWEXIN ---
HPI - Extremity Injury (Lower) General Time Seen by Provider: 06:53 Date Seen: 03/28/25 Chief Complaint: Extremity Pain/Injury, Lower Stated Complaint: fell on ice, hurt knee Time Seen by Provider: 03/28/25 06:53 Source: patient Mode of arrival: ambulatory History of Present Illness HPI Narrative: Ollie is a 74 yo male with a past medical history of hyperlipidemia, PTSD who presents the emergency department for evaluation of left knee pain. Patient reports that yesterday afternoon he slipped and fell on to his left knee. Patient reports falling directly onto his left knee complains of left knee, left hip pain, difficulty ambulating, and unable to sleep since injury. Patient denies hitting his head, no loss of consciousness. Patient with no other injuries, no other complaints. Patient took Motrin this morning with no improvement of symptoms. Related Data Home Medications ?Medication ?Instructions ?Recorded ?Confirmed acetaminophen 325 mg capsule 650 mg PO Q6H PRN 08/30/24 03/28/25 aspirin 81 mg capsule 81 mg PO DAILY 03/28/25 03/28/25 doxazosin 8 mg tablet (Cardura) 8 mg PO HS 03/28/25 03/28/25 fluoxetine 40 mg capsule 80 mg PO DAILY 03/28/25 03/28/25 quetiapine 300 mg tablet (Seroquel) 300 mg PO HS 03/28/25 03/28/25 simvastatin 40 mg tablet 40 mg PO HS 03/28/25 03/28/25 Allergies Allergy/AdvReac Type Severity Reaction Status Date / Time cefaclor (From [facility]) Allergy Verified 03/28/25 06:23 Penicillins Allergy Verified 03/28/25 06:23 resum Allergy Intermediate dizzy, Uncoded 08/30/24 14:28 goofy Review of Systems Narrative: Past medical history, past surgical history, medications, allergies, family history, and social history were reviewed with the patient. No additional pertinent items. A medically appropriate review of systems was performed with pertinent positives and negatives noted in HPI, all other systems negative. [facility] Medical History (Updated 03/28/25 @ 07:20 by Chiuqis De Luna MD) PTSD (post-traumatic stress disorder) ?F43.10 - Post-traumatic stress disorder, unspecified (ICD-10) Tobacco use ?Z72.0 - Tobacco use (ICD-10) Osteopenia ?M85.80 - Other specified disorders of bone density and structure, unspecified site (ICD-10) Sleep apnea ?G47.30 - Sleep apnea, unspecified (ICD-10) Mixed hyperlipidemia ?E78.2 - Mixed hyperlipidemia (ICD-10) Calculus of kidney ?N20.0 - Calculus of kidney (ICD-10) Rheumatoid arthritis ?M06.9 - Rheumatoid arthritis, unspecified (ICD-10) Surgical History (Updated 03/28/25 @ 06:36 by Lazarus Walker RN) History of lithotripsy ?Z98.890 - Other specified postprocedural states (ICD-10) History of bilateral knee arthroplasty ?Z96.653 - Presence of artificial knee joint, bilateral (ICD-10) History of thumb surgery ?Z98.890 - Other specified postprocedural states (ICD-10) History of hernia repair ?Z98.890 - Other specified postprocedural states (ICD-10) ?Z87.19 - Personal history of other diseases of the digestive system (ICD-10) History of hemorrhoidectomy ?Z98.890 - Other specified postprocedural states (ICD-10) History of colonoscopy ?Z98.890 - Other specified postprocedural states (ICD-10) Social History Smoking Status: Current every day smoker What tobacco products do you use: cigarettes Smoking packs per day: 1 Smoking cigarettes per day: 20.0 Do you use any of these nicotine containing products: None Second hand tobacco smoke exposure: No How often do you have a drink containing alcohol: monthly or less How many standard drinks containing alcohol do you have on a typical day: 1 or 2 How often do you have six or more drinks on one occasion: Never AUDIT-C Alcohol total score: 1 Non-prescribed substance use: denies use service: Yes Exam Narrative: Exam Narrative: General: Afebrile, no acute distress HEENT: Normocephalic, atraumatic, conjunctiva normal. MMM Neck: non-tender, supple Cardio: regular rate. regular rhythm Resp: Normal work of breathing, no respiratory distress, lungs clear bilaterally, no wheezing, rhonchi, rales Chest/Back: no visual signs of trauma, no midline tenderness, no CVA tenderness Abdomen: soft, non distension, no tenderness, no peritoneal signs Neuro: alert and fully oriented. CN II-XII grossly intact. Grossly normal strength and sensation in all extremities. MSK: +TTP left knee, small area of ecchymosis lower medial aspect of left knee, limited ROM at left knee 2/2 to pain. Integumentary/Skin: no rash visualized, normal color Psych: normal affect, normal behavior Const: Vital Signs, click to edit/add: Vital Signs - 24 hr 03/28/25 06:21 Temperature 98.2 F Pulse Rate [Right Pulse Oximeter] 85 Respiratory Rate 18 Blood Pressure [Le ft Upper Arm] 142/71 H Pulse Oximetry 99 Oxygen Delivery Me thod Room Air Course Vital Signs Vital signs: Initial Vital Signs Temperature 98.2 F 03/28/25 06:21 Temperature Source Temporal Artery Scan 03/28/25 06:21 Pulse Rate 85 03/28/25 06:21 Respiratory Rate 18 03/28/25 06:21 Blood Pressure 142/71 H 03/28/25 06:21 Blood Pressure Mean 94 03/28/25 06:21 Blood Pressure Position Sitting 03/28/25 06:21 Pulse Oximetry 99 03/28/25 06:21 Oxygen Delivery Method Room Air 03/28/25 06:21 Vital Signs Temperature 98.2 F 03/28/25 06:21 Pulse Rate 85 03/28/25 06:21 Respiratory Rate 18 03/28/25 06:21 Blood Pressure 142/71 H 03/28/25 06:21 Pulse Oximetry 99 03/28/25 06:21 Oxygen Delivery Method Room Air 03/28/25 06:21 Temperature 98.2 F 03/28/25 06:21 Pulse Rate 85 03/28/25 06:21 Respiratory Rate 18 03/28/25 06:21 Blood Pressure 142/71 H 03/28/25 06:21 Pulse Oximetry 99 03/28/25 06:21 Oxygen Delivery Method Room Air 03/28/25 06:21 MDM - Extremity Injury (Lower) MDM Narrative Medical decision making narrative: Ollie is a 74-year-old male who presents the emergency department for evaluation of left hip and knee pain status post slipping and falling onto his left knee yesterday. Upon arrival patient is nontoxic appearing, afebrile, in distress secondary to pain. Patient is slightly hypertensive 142/71, heart rate 85, oxygen 99% on room air. Differential diagnosis includes but is not limited to contusion versus fracture versus dislocation versus hematoma among others. I personally reviewed interpreted x-ray of the left knee which demonstrates no acute fracture, normal joint alignment, normal joint spaces. No joint effusion. I personally reviewed interpreted x-ray of the left hip which demonstrates no acute fracture, dislocation. I discussed results patient. Patient is able to bear some weight and feels comfortable discharge home. Arnulfo wrap provided for comfort. Recommend ice, weight-bearing as tolerated, Tylenol, ibuprofen, will discharge with a small course of oxycodone for severe pain. Patient instructed not to drive or drink alcohol while on this medication. Encourage patient to closely follow up with his primary care provider if no improvement of symptoms.. Strict return precautions discussed if any worsening symptoms. Patient understands and agrees the plan. Medical Records Attestation: I reviewed the patient's medical records. Imaging Data xr hip: Attestation: I have reviewed the pertinent imaging results. Radiologist's impression: Patient: Ollie Reyes MR#: [id number] : 1950 Acct:[id number] Loc: ED Service Date: 03/28/[address]: Ordering Physician: VIRGINIA GLASGOW Date of Service: 03/28/25 Procedure(s): XR hip LT min 2V Accession Number(s): [id number] cc: PROVIDER,PARISHP; Provider,Not a Local~ For Patients: As a result of the Cures Act, medical imaging exams and procedure reports are released immediately into your electronic medical record. You may view this report before your referring provider. If you have questions, please contact your health care provider. INDICATION: Fall on ice COMPARISON: 08/30/2024 TECHNIQUE: AP pelvis, AP left hip, lateral left hip. FINDINGS: No fracture. Normal hip joint alignment. Joint spaces are normal. No destructive focal bone lesions. Soft tissues are normal. IMPRESSION: No acute findings in the pelvis or left hip. Dictated by Larisa Gutierrez MD @ 03/28/2025 6:48:10 AM xr knee: Attestation: I have reviewed the pertinent imaging results. Radiologist's impression: Patient: Ollie Reyes MR#: [id number] : 1950 Acct:[id number] Loc: ED Service Date: 03/28/[address]: Ordering Physician: VIRGINIA GLASGOW Date of Service: 03/28/25 Procedure(s): XR knee LT 3V Accession Number(s): [id number] cc: MYAH,VIRGINIA; Provider,Not a Local~ For Patients: As a result of the Cures Act, medical imaging exams and procedure reports are released immediately into your electronic medical record. You may view this report before your referring provider. If you have questions, please contact your health care provider. INDICATION: Fell on the ice COMPARISON: None. TECHNIQUE: Three views left knee, nonweightbearing. FINDINGS: No acute or healing fracture. Normal joint alignment. Joint spaces are normal. No focal bone lesions. Chondrocalcinosis. No joint effusion. No foreign body. IMPRESSION: No acute findings in the left knee. Dictated by Larisa Gutierrez MD @ 03/28/2025 6:46:23 AM (Electronically Signed) Discharge Plan Discharge Clinical Impression: Acute pain of left knee, Contusion of knee, left, Acute pain of left hip, Fall Patient Disposition: Home, Self-Care Condition: Stable Additional Instructions: Please follow-up with your primary care provider in the next 5-7 days for further evaluation and recheck especially if you still have ongoing pain. Please call Saturday morning to schedule a follow-up appointment. Please ice, wear Arnulfo wrap for support. Please bear weight as tolerated. Please alternate taking Tylenol and ibuprofen every 6 hours as needed for pain. Please take oxycodone 1 tablet every 6 hours as needed for severe pain. Please do not drink alcohol or drive while on this medication. Please return to the emergency department if he developed any worsening symptoms. It was a pleasure taking care of you today. We hope you feel better soon. Prescriptions: No Action fluoxetine 40 mg capsule 80 mg PO DAILY quetiapine [Seroquel] 300 mg tablet 300 mg PO HS simvastatin 40 mg tablet 40 mg PO HS doxazosin [Cardura] 8 mg tablet 8 mg PO HS aspirin 81 mg capsule 81 mg PO DAILY acetaminophen 325 mg capsule 650 mg PO Q6H PRN Follow Up/Referrals: Provider,Not a Local [Primary Care Provider, Family Practice] Stand Alone Forms: [employer] Info Instructions
== END 2025-03-28 07:28 | disposition home or self-care (01) ==
PROVIDERS: Emergency Provider Emergency Medicine
DX: S80.02XA Contusion of left knee, initial encounter (principal); M25.552 Pain in left hip; W00.0XXA Fall on same level due to ice and snow, initial encounter; Y93.01 Activity, walking, marching and hiking
CPT/HCPCS: 73502; 73562; 99284; 99285